=== PATIENT | female | born 1940 | race Caucasian/White ===

== ENCOUNTER 2017-03-31 14:41 | Outpatient (RCR) | payer MEDICARE, OTHER, SELFPAY ==
[2017-03-31 14:51] LABS: Prothrombin Time Fingerstick 29.7 SEC (11.9-14.4)
== END 2017-03-31 15:00 | disposition home or self-care (01) ==
LOC: MTLAB 14:41
PROVIDERS: Family Provider Family Medicine; PCP Family Medicine; Visit Provider Family Medicine
DX: I48.91 Unspecified atrial fibrillation (principal)
CPT/HCPCS: 36416; 85610

== ENCOUNTER 2017-05-03 16:31 | Outpatient (RCR) | payer MEDICARE, OTHER, SELFPAY ==
[2017-05-03 16:45] LABS: Prothrombin Time Fingerstick 35.9 SEC (11.9-14.4)
== END 2017-05-03 17:00 | disposition home or self-care (01) ==
LOC: MTLAB 16:31
PROVIDERS: Family Provider Family Medicine; PCP Family Medicine; Visit Provider Family Medicine
DX: I48.91 Unspecified atrial fibrillation (principal)
CPT/HCPCS: 36416; 85610

== ENCOUNTER 2017-05-18 14:25 | Outpatient (RCR) | payer MEDICARE, OTHER, SELFPAY ==
[2017-05-18 14:41] LABS: Prothrombin Time Fingerstick 30.5 SEC (11.9-14.4)
== END 2017-05-18 15:00 | disposition home or self-care (01) ==
LOC: MTLAB 14:25
PROVIDERS: Family Provider Family Medicine; PCP Family Medicine; Visit Provider Family Medicine
DX: I48.91 Unspecified atrial fibrillation (principal)
CPT/HCPCS: 36416; 85610

== ENCOUNTER 2017-06-21 15:22 | Outpatient (RCR) | payer MEDICARE, OTHER, SELFPAY ==
[2017-06-21 15:35] LABS: Prothrombin Time Fingerstick 23.1 SEC (11.9-14.4)
== END 2017-06-21 15:45 | disposition home or self-care (01) ==
LOC: MTLAB 15:22
PROVIDERS: Family Provider Family Medicine; PCP Family Medicine; Visit Provider Family Medicine
DX: I48.91 Unspecified atrial fibrillation (principal)
CPT/HCPCS: 36416; 85610

== ENCOUNTER 2017-07-22 12:20 | Outpatient (RCR) | payer MEDICARE, OTHER, SELFPAY ==
[2017-07-22 12:30] LABS: Prothrombin Time Fingerstick 25.9 SEC (11.9-14.4)
== END 2017-07-22 13:00 | disposition home or self-care (01) ==
LOC: MTLAB 12:20
PROVIDERS: Family Provider Family Medicine; PCP Family Medicine; Visit Provider Family Medicine
DX: I48.91 Unspecified atrial fibrillation (principal)
CPT/HCPCS: 36416; 85610

== ENCOUNTER → 2017-08-29 09:40 | Outpatient (CLI) | payer MEDICARE, OTHER, SELFPAY ==
--- NOTE | 2017-08-29 09:42 | BI_ITS ---
MAMMOGRAPHY - BILATERAL SCREENING REASON FOR EXAM: Female, 77 years old. Routine annual screening examination. PERTINENT HISTORY: Personal history of breast cancer. Sister with breast cancer. Mother with breast cancer. Prior left lumpectomy with radiation therapy. TECHNIQUE: Digital bilateral breast marjorie (3D mammographic acquisition) in the CC and MLO projections. 2-D mediolateral oblique (MLO) and craniocaudad (CC) views of both breasts were obtained. CAD: Full Field Digital Mammography with Computer Added Detection was performed. COMPARISON: Comparison is made with prior study dated 04/20/2016 and August 13, 2015. FINDINGS: Breast Composition: There are scattered areas of fibroglandular density. Once again, the patient is status post left lumpectomy with postoperative scarring and changes in the deep upper lateral portion of the left breast. This is unchanged. No other significant abnormalities are identified. There has been no significant change since the prior study. BI/SCREENING MAMM (CAD), BILAT IMPRESSION: Stable bilateral screening mammogram. Yearly follow-up mammogram recommended. (A) ASSESSMENT CATEGORY: BIRADS Category 2: Benign. A letter regarding these results will be sent to the patient by the facility within 30 days. Approximately 10% of breast cancers are not detected by mammography. A normal mammogram should not delay biopsy of a clinically suspicious abnormality. [id number] Electronically Signed: Armand Cowan MD at 13:59 EDT Tel [phone], Service support ,
== END ==
PROVIDERS: Family Provider Family Medicine; PCP Family Medicine; Visit Provider Internal Medicine Medical Oncology
DX: Z12.31 Encounter for screening mammogram for malignant neoplasm of breast (principal); I48.91 Unspecified atrial fibrillation
CPT/HCPCS: 36416; 77063; 77067; 85610

== ENCOUNTER 2017-08-29 10:44 | Outpatient (RCR) | payer MEDICARE, OTHER, SELFPAY ==
[2017-08-29 10:56] LABS: Prothrombin Time Fingerstick 30.9 SEC (11.9-14.4)
== END 2017-08-29 12:00 | disposition home or self-care (01) ==
LOC: MTLAB 10:44
PROVIDERS: Family Provider Family Medicine; PCP Family Medicine; Visit Provider Family Medicine
DX: I48.91 Unspecified atrial fibrillation (principal)
CPT/HCPCS: 36416; 85610

== ENCOUNTER → 2017-09-09 10:53 | Outpatient (CLI) | payer MEDICARE, OTHER, SELFPAY ==
--- NOTE | 2017-09-09 11:06 | US_ITS ---
STUDY: ULTRASOUND BREAST - LEFT REASON FOR EXAM: Female, 77 years old. History of left breast lump. TECHNIQUE: Axial and longitudinal images of the LEFT breast were performed with a high resolution ultrasound transducer. COMPARISON: Comparison is made with prior mammogram dated August 29, 2017. FINDINGS: LEFT Breast: The palpable abnormality is at the 3:00 position the breast. At that site, there is a 1 cm x 1.5 cm x 1.6 cm area of irregular contour and shadowing. This most likely represents postoperative changes. US/Breast Limited Unilateral IMPRESSION: 1.5 cm x 1.6 cm x 1 cm irregular area of shadowing at the operative site. This most likely represents postoperative fibrosis. If clinically suspicious, correlation with MRI is recommended. ASSESSMENT CATEGORY: BIRADS Category 0: Incomplete. Need additional imaging evaluation. A letter regarding these results will be sent to the patient by the facility within 30 days. Electronically Signed: Armand Cowan MD at 12:19 EDT Tel [phone], Service support ,
== END ==
PROVIDERS: Family Provider Family Medicine; PCP Family Medicine; Visit Provider Obstetrics & Gynecology
DX: N64.59 Other signs and symptoms in breast (principal)
CPT/HCPCS: 76642

== ENCOUNTER → 2017-09-20 12:17 | Outpatient (CLI) | payer MEDICARE, OTHER, SELFPAY ==
--- NOTE | 2017-09-20 13:00 | MRI_ITS ---
STUDY: BILATERAL BREAST MR WITHOUT AND WITH CONTRAST REASON FOR EXAM: Female, 77 years old. History of breast cancer in mother and sister. Prior lumpectomy and radiation therapy for personal history of breast cancer. TECHNIQUE: Multi-sequence multi-echo imaging of both breasts was performed with a dedicated breast coil. T1-weighted and T2-weighted images were performed before the administration of contrast. T1-weighted images were also performed after the administration of 10 mL of Gadavist contrast intravenously without complications. COMPARISON: Bilateral mammograms dated August 29, 2017, unilateral left mammogram dated September 09, 2017 and left breast ultrasound dated September 09, 2017. FINDINGS: RIGHT BREAST: The breast tissue is fatty with minimal background enhancement. There is an 8 mm in diameter lobular enhancing lesion at the 6:00 position of the right breast. This mass is not seen on the mammogram and likely represents a fibroadenoma. The lesion is approximately 4 cm behind the nipple and 1.3 cm below the nipple. The lesion which is within the midline just behind the nipple. There is also a lymph node in the right axilla measuring 13 mm in widest diameter. A second look ultrasound of the right breast and of the right axillary region is recommended for further evaluation of both of these findings. LEFT BREAST: The breast tissue is fatty with minimal background enhancement. There is decreased volume to the breast from the patient's prior lumpectomy and radiation therapy. There are postlumpectomy changes in the upper outer quadrant of the left breast with scarring. In the subareolar region of the left breast there is a lobular intensely enhancing mass measuring measuring 2 cm x 2.1 cm x 1.6 cm. This mass is highly suspicious for a carcinoma. An ultrasound-guided biopsy of this mass is recommended. There are no enlarged or abnormal lymph nodes. There is no abnormality in the visualized regions of the chest or liver. MRI/Breast w/o and/or W Cont Bilat IMPRESSION: Lobular enhancing mass at the 6:00 position of the right breast with a 1.3 cm in diameter lymph node in the right axilla. A second look ultrasound of the right breast is recommended. Highly suspicious subareolar mass in the left breast for which ultrasound-guided biopsy is recommended as outlined above. CATEGORY: BIRADS Category 5: Highly Suggestive of Malignancy - Appropriate Action Should Be Taken. A letter regarding these results will be sent to the patient by the facility within 30 days. Electronically Signed: Abdi East MD at 17:48 EDT , Service support ,
[2017-09-20 13:01] LABS: CREATININE FINGERSTICK 0.9 mg/dL (0.55-1.02); EGFR FINGERSTICK > 60.0000 mL/min (>60)
== END ==
PROVIDERS: Family Provider Family Medicine; PCP Family Medicine; Visit Provider Obstetrics & Gynecology
DX: Z85.3 Personal history of malignant neoplasm of breast (principal)
CPT/HCPCS: 77059; A9585; C8908

== ENCOUNTER → 2017-09-28 10:52 | Outpatient (CLI) | payer MEDICARE, OTHER, SELFPAY ==
--- NOTE | 2017-09-28 11:10 | US_ITS ---
STUDY: ULTRASOUND BREAST - RIGHT REASON FOR EXAM: Female, 77 years old. Mass TECHNIQUE: Axial and longitudinal images of the RIGHT breast were performed with a high resolution ultrasound transducer. COMPARISON: MRI from 09/20/2017 FINDINGS: RIGHT Breast: Ultrasound evaluation of the right breast, shows a 0.6 x 0.8 x 0.4 cm hypoechoic nodule at the 6:00 position of the retroareolar region of the right breast. The margins are well-defined but irregular, there is no vascularity within the lesion and no associated architectural distortion. A six-month follow-up is recommended to assure stability. 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 Six-month follow-up recommended to assure stability ASSESSMENT CATEGORY: BIRADS Category 3: Probably Benign - Short-Interval Follow-up Suggested. A letter regarding these results will be sent to the patient by the facility within 30 days. Electronically Signed: Bo Pinzon MD at 12:26 EDT , Service support ,
== END ==
PROVIDERS: Family Provider Family Medicine; PCP Family Medicine; Visit Provider Obstetrics & Gynecology
DX: R92.8 Other abnormal and inconclusive findings on diagnostic imaging of breast (principal); N63.0 Unspecified lump in unspecified breast
CPT/HCPCS: 76642

== ENCOUNTER 2017-09-29 14:15 | Outpatient (RCR) | payer MEDICARE, OTHER, SELFPAY | END 2017-09-29 16:00 | LOC: MTLAB 14:15 | PROVIDERS: Family Provider Family Medicine; PCP Family Medicine; Visit Provider Family Medicine | DX: I48.91 Unspecified atrial fibrillation (principal) | CPT/HCPCS: 36416; 85610 ==

== ENCOUNTER → 2017-10-18 15:26 | Outpatient (CLI) | payer MEDICARE, OTHER, SELFPAY ==
--- NOTE | 2017-10-18 | IMM_PTH ---
PATIENT: ESPERANZA LUCERO LOC: [facility] U#:[id number] AGE/SX: 85/F ROOM: RE10/18/[address]: Dr. Raymond Be MD : 1940 BED: DIS: SPEC #: [id number] RECD: 10/20/17 12:39 STATUS: SKYLAR REQ #: [id number] [place]: 10/18/17 00:[address]: Raymond Be DEPT: IMMUNOHISTOCHEMISTRY RECD BY: Bouchra Earl ENTERED: 10/20/17 12:42 SP TYPE: IMMUNO OTHR DR: Dr. Bello Marie MD Tissues: A - Left breast, NOS B - Left breast, NOS Procedures: CALPONIN-1 (add) CD31 (add) CK5-6 (add) CK8 (add) HER2 LEONIE (add) KI-67 (add) P53 (add) WA (add) FACTOR VIII (add) P40 (add) ER (initial) CK7 (initial) PHYSICIAN & [address] [address] SPECIMEN INFORMATION: Tissue Source: A ? Left breast, ultrasound-guided biopsy, B ? Left breast ulceration nipple, punch biopsy Clinical Info: Abnormal mammogram Specimen Number: [id number] A & B CPT code: 01500 x2, 42977 x9, 92198 x3 METHODOLOGY: Deparaffinized sections of prefer/formalin-fixed tissue or PAP/DQ stained slides are incubated with monoclonal/polyclonal antibodies/oligonucleotide probes. Localization is made via biotin free immunoperoxidase method. Appropriate controls are performed and reacted as expected. Results on target cell population are indicated in the following table: RESULTS: ANTIBODY / CLONE RESULT Block A E-Cad (ECH-6) negative CK8 (78zqjdV65) positive CK5-6 (D5 & 1684) negative Ki-67 (30-9) positive, moderate P53 (DO-7) positive, rare cells, weak Calponin-1 (UY850E) negative P40 (BC28) negative MORPHOMETRIC ANALYSIS ER (clone 6F11) >95%, moderate WA (clone 16/1E2) 80%, moderate Her-2Neu (clone CB11) 0 Block B CK7 (OV-TL12/30) positive CK8 (00hvksV38) positive CD31 (RAFAELA/70A) negative Factor VIII (R Ag) negative The prognostic test for HER2 is performed on formalin-fixed paraffin embedded tissue. A 3+ (positive) staining pattern is defined as intense, homogeneous, complete, circumferential membranous staining in >10% of contiguous tumor cells. A similar weak (2+) staining pattern is interpreted as equivocal. DILIA follow-up testing is recommended for all equivocal cases. Positivity/negativity for ER/WA is reported if > or < 1% of the tumor cells are immuno- reactive, respectively. The ASCO/CAP criteria is used for scoring. Reference: Journal of Clinical Oncology, 2013; 31:0739-8211 & 2010; 16:5408-4939. Duration of fixation: 27 Hrs; Sample Adequate: Yes. These assays have not been validated on decalcified tissues. Results should be interpreted with caution given the likelihood of false negativity on decalcified specimens. These tests were developed and their performance characteristics determined by [facility]. They may not have been cleared or approved by the U.S. Food and Drug Administration. The FDA has determined that such clearance or approval is not necessary. INTERPRETATION: A. Left breast, ultrasound-guided biopsy: Invasive lobular carcinoma, nuclear grade 2. Positive for estrogen receptors (favorable prognostic indicator). Positive for progesterone receptors (favorable prognostic indicator). Negative for overexpression of WIF9dxi. B. Left breast ulceration nipple, punch biopsy: Invasive lobular carcinoma. Dermal lymphvascular invasion is not seen. Definite Paget?s disease is not seen. SJ:didier 10/21/17 Comment: B ? The specimen shows focal ulceration.
--- NOTE | 2017-10-18 | IMM_PTH ---
PATIENT: ESPERANZA LUCERO LOC: [facility] U#:[id number] AGE/SX: 85/F ROOM: RE10/18/[address]: Dr. Raymond Be MD : 1940 BED: DIS: SPEC #: [id number] RECD: 10/20/17 12:39 STATUS: SKYLAR REQ #: [id number] [place]: 10/18/17 00:[address]: Raymond Be DEPT: IMMUNOHISTOCHEMISTRY RECD BY: Bouchra Earl ENTERED: 10/20/17 12:42 SP TYPE: IMMUNO OTHR DR: Dr. Bello Marie MD Tissues: A - Left breast, NOS B - Left breast, NOS Procedures: CALPONIN-1 (add) CD31 (add) CK5-6 (add) CK8 (add) E-CAD (add) HER2 LEONIE (add) KI-67 (add) P53 (add) [place] (add) FACTOR VIII (add) P40 (add) ER (initial) CK7 (initial) PHYSICIAN & INSTITUTION [address] [address] SPECIMEN INFORMATION: Tissue Source: A ? Left breast, ultrasound-guided biopsy, B ? Left breast ulceration nipple, punch biopsy Clinical Info: Abnormal mammogram Specimen Number: [id number] A & B CPT code: 58707 x2, 09134 x10, 50055 x3 METHODOLOGY: Deparaffinized sections of prefer/formalin-fixed tissue or PAP/DQ stained slides are incubated with monoclonal/polyclonal antibodies/oligonucleotide probes. Localization is made via biotin free immunoperoxidase method. Appropriate controls are performed and reacted as expected. Results on target cell population are indicated in the following table: RESULTS: ANTIBODY / CLONE RESULT Block A E-Cad (ECH-6) negative * CK8 (47mclzD74) positive CK5-6 (D5 & 1684) negative Ki-67 (30-9) positive, moderate P53 (DO-7) positive, rare cells, weak Calponin-1 (KM499C) negative P40 (BC28) negative MORPHOMETRIC ANALYSIS ER (clone 6F11) >95%, moderate [place] (clone 16/1E2) 80%, moderate Her-2Neu (clone CB11) 0 *?Predominantly negative with focal minute area positive. Block B E-Cad (ECH-6) positive CK7 (OV-TL12/30) positive CK8 (60enzeE38) positive CD31 (RAFAELA/70A) negative Factor VIII (R Ag) negative The prognostic test for HER2 is performed on formalin-fixed paraffin embedded tissue. A 3+ (positive) staining pattern is defined as intense, homogeneous, complete, circumferential membranous staining in >10% of contiguous tumor cells. A similar weak (2+) staining pattern is interpreted as equivocal. DILIA follow-up testing is recommended for all equivocal cases. Positivity/negativity for ER/[place] is reported if > or < 1% of the tumor cells are immuno- reactive, respectively. The ASCO/CAP criteria is used for scoring. Reference: Journal of Clinical Oncology, 2013; 31:9554-7312 & 2010; 16:2638-7302. Duration of fixation: 27 Hrs; Sample Adequate: Yes. These assays have not been validated on decalcified tissues. Results should be interpreted with caution given the likelihood of false negativity on decalcified specimens. These tests were developed and their performance characteristics determined by [facility]. They may not have been cleared or approved by the U.S. Food and Drug Administration. The FDA has determined that such clearance or approval is not necessary. INTERPRETATION: A. 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 Positive for estrogen receptors (favorable prognostic indicator). Positive for progesterone receptors (favorable prognostic indicator). Negative for overexpression of NMV9gll. B. Left breast ulceration nipple, punch biopsy: Invasive ductal carcinoma. Dermal lymphvascular invasion is not seen. Definite Paget?s disease is not seen. SJ:didier 10/21/17 SJ:didier 11/21/17 COMMENT: B ? The specimen shows focal ulceration. E-Cad staining is repeated on Specimen A as resected specimen [id number] shows diffuse positive staining consistent with invasive ductal carcinoma. E-Cad staining added on specimen B. This case has been reviewed in consultation with Dr. Jeffery who concurs with the above diagnosis.
--- NOTE | 2017-10-18 | BRBX_PTH ---
PATIENT: ESPERANZA LUCERO LOC: [facility] U#:[id number] AGE/SX: 85/F ROOM: RE10/18/[address]: Dr. Raymond Be MD : 1940 BED: DIS: SPEC #: [id number] RECD: 10/18/17 15:26 STATUS: SKYLAR KERI #: [id number] [place]: 10/18/17 00:[address]: Raymond Be DEPT: SURGICAL PATHOLOGY RECD BY: Destiny Melo ENTERED: 10/19/17 09:58 SP TYPE: BREAST BX OTHR DR: Dr. Bello Marie MD Tissues: A - Left breast, NOS B - Nipple Procedures: Surgery Specimen Level IV HEADER OPERATION: US guided left breast biopsy PRE-OP DIAGNOSIS: Abnormal mammogram TISSUE SUBMITTED: A. Left breast biopsy US guided, B. Punch biopsy, left breast ulceration nipple areola complex ISCHEMIC TIME: 90 seconds FIXATION TIME: 27 hours MICROSCOPIC DIAGNOSIS A. Left breast, ultrasound-guided core biopsy: Invasive lobular carcinoma, nuclear grade 2 (0.6 cm in length). See comment. B. Left breast ulceration nipple areolar complex, punch biopsy: Invasive lobular carcinoma with focal ulceration, (0.6 cm in length). SJ:rg 10/20/17 COMMENT A. Immunohistochemistry ([id number]) supports the above diagnosis. ER/AK/Kuh6wev studies are being performed on sections of tumor and the results from this study will be reported separately ([id number]). B. Immunohistochemistry ([id number]) is negative for dermal lymph-vascular invasion. The tumor involves full thickness of the punch biopsy specimen up to epidermis with focal area of ulceration. 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 This case was discussed with Dr. Be on 10/20/17 at 9:58 a.m. This case has been reviewed in consultation with Dr. Jeffery who concurs with the above diagnosis. MICROSCOPIC DESCRIPTION Slides are reviewed. GROSS DESCRIPTION A - Received is one container labeled with the patient's name and not further designated. The specimen consists of three cores of yellow soft tissue. Each core has an average length of 1.5 cm and maximal diameter of 0.1 cm. The specimen is totally submitted in one cassette. B - Received is one container labeled with the patient's name and not further designated. The specimen consists of two cylindrical fragments of [place] tissue. Each fragment measures approximately 6 mm in length and 2 mm in diameter. The specimen is totally submitted in one cassette. / AM:didier 10/19/17 TC:0 CPT: 82634 x2
== END ==
PROVIDERS: Family Provider Family Medicine; PCP Family Medicine; Visit Provider Surgery
DX: C50.912 Malignant neoplasm of unspecified site of left female breast (principal)
CPT/HCPCS: 88305; 88341; 88342

== ENCOUNTER 2017-10-27 10:40 | Outpatient (RCR) | payer MEDICARE, OTHER, SELFPAY | END 2017-10-27 12:00 | disposition home or self-care (01) | LOC: MTLAB 10:40 | PROVIDERS: Family Provider Family Medicine; PCP Family Medicine; Visit Provider Family Medicine | DX: I48.91 Unspecified atrial fibrillation (principal) | CPT/HCPCS: 36416; 85610 ==

== ENCOUNTER 2017-11-15 15:25 | Inpatient (IN) | payer MEDICARE, OTHER, SELFPAY ==
[2017-11-09 15:17] LABS: Hematocrit 37.8 % (37-47); Hemoglobin 12.4 g/dl (12.0-15.0); Mean Corp Hgb Conc 32.8 g/gl (32-36); Mean Corpuscular Hgb 30.4 pg (27.0-32.0); Mean Corpuscular Volume 92.6 fL (81-99); Mean Platelet Vol. 9.6 fl (6.2-12.0); Platelet Count 304 K/mm3 (150-450); RBC Distribution Width CV 13.8 % (11.6-14.6); RBC Distribution Width SD 46.3 fl (35.1-43.9); Red Blood Count 4.08 M/mm3 (4.2-5.4); White Blood Count 10.4 K/mm3 (4.4-11.0)
[2017-11-09 15:32] LABS: Scan Indicated on CBC? Y/N NO
[2017-11-09 15:51] LABS: Anion Gap 9 (5-15); BUN 26 mg/dL (7-18); Calcium,Total 8.8 mg/dL (8.5-10.1); Chloride 106 mmol/L (98-107); Creatinine, Serum 1.04 mg/dL (0.55-1.02); EST Glomerular Filtration Rate 54 mL/min (>60); Est Glom Filt Rate - Afr Amer 66 mL/min (>60); Glucose 120 mg/dL (74-106); Potassium 3.9 mmol/L (3.5-5.1); Sodium Level 139 mmol/L (136-145)
[2017-11-14] VITALS (9 sets, daily range): BP systolic 130–160; BP diastolic 59–79; PULSE 51–60; RESP 16–18; TEMP 36.3–37.1; O2SAT 95–98; BMI 38.0
--- NOTE | 2017-11-14 | IMM_PTH ---
PATIENT: ESPERANZA LUCERO LOC: [facility] U#:[id number] AGE/SX: 77/F ROOM: MS218 RE11/15/[address]: Dr. Raymond Be MD : 1940 BED: 1 DIS: 11/16/2017 SPEC #: [id number] RECD: 11/17/17 12:27 STATUS: SKYLAR REQ #: [id number] [place]: 11/14/17 00:[address]: Raymond Be DEPT: IMMUNOHISTOCHEMISTRY RECD BY: Bouchra Earl ENTERED: 11/17/17 12:29 SP TYPE: IMMUNO OTHR DR: MD Dr. Bello Tripp MD Tissues: A - Axillary lymph node, NOS B - Left breast, NOS Procedures: E-CAD (initial) CALPONIN-1 (add) CD31 (add) CK7 (add) CK8 (add) E-CAD (add) FACTOR VIII (add) Pankeratin (initial) Pankeratin (add) P40 (add) PHYSICIAN & [address] [address] SPECIMEN INFORMATION: Tissue Source: A ? Pearl lymph node left, biopsy, B ? Left breast mastectomy Clinical Info: Left periareolar breast cancer Specimen Number: [id number] A1, A2, B1, B4, B9 CPT code: 32705 x2, 93968 x13 METHODOLOGY: Deparaffinized sections of prefer/formalin-fixed tissue or PAP/DQ stained slides are incubated with monoclonal/polyclonal antibodies/oligonucleotide probes. Localization is made via biotin free immunoperoxidase method. Appropriate controls are performed and reacted as expected. Results on target cell population are indicated in the following table: RESULTS: ANTIBODY / CLONE RESULT Block A1 AE1-3 (AE1/AE3/PCK26) negative CK7 (OV-TL12/30) negative Block A2 AE1-3 (AE1/AE3/PCK26) negative CK7 (OV-TL12/30) negative Block B1 CK7 (OV-TL12/30) positive, including focally in the epidermis CK8 (81ocvhR59) positive, including focally in the epidermis CD31 (RAFAELA/70A) negative Factor VIII (R Ag) negative Block B4 E-Cad (ECH-6) positive Calponin-1 (KH812A) negative * P40 (BC28) negative * CK8 (94desxL71) positive *?Positive in ductal carcinoma in situ. Block B9 E-Cad (ECH-6) positive CK7 (OV-TL12/30) positive CK8 (01gomtZ54) positive These tests were developed and their performance characteristics determined by [facility]. They may not have been cleared or approved by the U.S. Food and Drug Administration. The FDA has determined that such clearance or approval is not necessary. INTERPRETATION: A. Pearl lymph node left, biopsy: Two out of two lymph nodes, negative for metastatic carcinoma. B. Left breast, mastectomy: Invasive ductal carcinoma. 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 Nipple ? 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 Dermal lymph-vascular invasion not present. This case has been reviewed in consultation with Dr. Jeffery who concurs with the above diagnosis. SJ:didier 11/18/17
--- NOTE | 2017-11-14 11:10 | NM_ITS ---
PROCEDURE: NUCLEAR MEDICINE Injection [place] Node - LEFT breast(s). REASON FOR EXAM: Female, 77 years old. Left breast cancer. TECHNIQUE: [place] node localization using radionuclide methods of the LEFT breast(s) was performed following subcutaneous administration of 1.0 mCi of of sulfur colloid Tc-99m. FINDINGS: 1 mCi of technetium labeled sulfur colloid was injected in 4 equal aliquots in the superior aspect of the left areola. NM/Lymph Node Injection Only IMPRESSION: Injection of 1 mCi of technetium labeled sulfur colloid for sentinel node imaging. Electronically Signed: Armand Cowan MD at 13:16 EDT Tel [phone], Service support ,
[2017-11-14 11:50] LABS: Prothrombin Time Fingerstick 14.2 SEC (11.9-14.4)
--- NOTE | 2017-11-14 14:00 | AXNB_PTH ---
PATIENT: ESPERANZA LUCERO LOC: MS2 U#:[id number] AGE/SX: 77/F ROOM: [facility] [id number] RE11/15/[address]: Dr. Raymond Be MD : [id number] BED: 1 DIS: 11/16/2017 SPEC #: [id number] RECD: 11/14/17 16:43 STATUS: SKYLAR REQ #: [id number] [place]: 11/14/17 14:[address]: Raymond Be DEPT: SURGICAL PATHOLOGY RECD BY: Bouchra Earl ENTERED: 11/15/17 10:55 SP TYPE: AX NODE BX OTHR DR: MD Dr. Bello Tripp MD Tissues: A - Axillary lymph node, NOS B - Left breast, NOS Procedures: Frozen Section (charge) Frozen Section Add'l ([facility]) Surgery Specimen Level V Surgery Specimen Level Frozen (no charge) HEADER OPERATION: Left modified mastectomy, radiotracer and Lymphazurin blue PRE-OP DIAGNOSIS: Left periareolar breast cancer TISSUE SUBMITTED: A ? Ettrick node FS, B ? Left breast FROZEN SECTION DIAGNOSIS A. Ettrick lymph node, left, biopsy: Two out of two lymph nodes negative for metastatic carcinoma. SJ:didier 11/14/17 Case has been reviewed in consultation with Dr. Jeffery who concurs with the above diagnosis. IDC:AM MICROSCOPIC DIAGNOSIS A. Left sentinel lymph node, biopsy: Two out of two lymph nodes negative for metastatic carcinoma. B. 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 Three out of three lymph nodes, negative for metastatic carcinoma. See cancer summary below. INVASIVE BREAST CANCER SUMMARY: Specimen ? total breast (including nipple and skin). Procedure ? total mastectomy (including nipple and skin). Lymph node sampling ? sentinel lymph node and axillary dissection. Specimen integrity ? single intact specimen. Specimen laterality - left Tumor site ? nipple areolar complex Tumor size ? 2.2 x 1 x 1 cm Tumor focality ? single focus of invasive carcinoma Macroscopic and Microscopic extent of tumor: Skin ? the invasive carcinoma invades into the dermis without skin ulceration. Nipple ? 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 See comment. Skeletal muscle ? skeletal muscle is present and is free of carcinoma. 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 Extensive intraductal component (EIC) - negative Estimated size (extent) of DCIS - ductal carcinoma in situ comprise <5% of the total tumor volume. Number of blocks with DCIS - 2 Number of blocks examined ? 13 consisting of breast tissue Architectural patterns ? solid and comedo Nuclear grade ? grade 2 (intermediate) Necrosis ? present, central (expansive ?comedo? necrosis) Lobular carcinoma in situ (LCIS) ? not identified Histologic type of invasive carcinoma ? invasive ductal carcinoma (no special type) Histologic Grade (Linden grade): Glandular/tubular differentiation - score 3 Nuclear pleomorphism - score 2 Mitotic count ? score 1 Overall grade - 2 (score of 6) Margins - Margins involved by invasive carcinoma. Invasive carcinoma is 3 cm away from the closest inferior margin and present very close to the overlying skin. Ductal carcinoma in situ/lobular carcinoma in situ is 1 cm away from the overlying skin and 3 cm away from the closest inferior margin. Treatment effect: Response to presurgical (neoadjuvant) therapy - no known presurgical therapy. Lymph-Vascular invasion ? not identified Dermal lymph-vascular invasion - not identified Lymph nodes: Number of sentinel lymph nodes examined - 2 Total number of lymph nodes examined (sentinel and nonsentinel) - 5 Number of lymph nodes with macrometastases, micrometastases and isolated tumor cells - 0 Method of evaluation of sentinel lymph nodes ? hematoxylin, H & E, multiple levels and IHC. Distant metastasis ? not applicable Additional pathologic findings ? fibrocystic changes and focal atypical ductal hyperplasia. - dense fibrous area with focal fat necrosis, calcification and foreign body giant cell reaction, consistent with previous biopsy site (close to posterior margin). Ancillary studies - previously performed on section of tumor ([id number] / [id number]). ER ? positive (>95%, moderate) GA ? positive (80%, moderate) Her2 molly - 0 Microcalcifications ? present in ductal carcinoma in situ and non-neoplastic tissue. Clinical history ? Please make reference to previous specimen ([id number]) left breast, ultrasound-guided core biopsy with diagnosis of invasive lobular carcinoma with focal area of ductal carcinoma and left breast ulceration, nipple areolar complex with diagnosis of invasive ductal carcinoma. Please also make reference to previous specimen [id number], left breast lumpectomy with diagnosis of ductal carcinoma in situ. PATHOLOGIC STAGE: pT2 pN0 Mx The above summary is in compliance with [employer] [place] [employer] (CAP) Cancer Protocols Checklist and [place] Joint Committee on Cancer (AJCC), Staging Manual, 8th Ed. SJ:didier 11/18/17 COMMENT A. The lymph node is negative for metastatic carcinoma on multiple H & E levels and immunohistochemical stains for cytokeratins ([id number]). B. 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 Resected tumor shows extensive positive staining for E-cadherin consistent with invasive ductal carcinoma. E-cadherin staining is repeated again on previous biopsy specimen and specimen A left breast core biopsy show predominantly negative staining for E-cadherin with focal positive staining. E-cadherin staining added to specimen due discrepancy in the staining and showed diffuse positive staining consistent with invasive ductal carcinoma. Case has been reviewed in consultation with Dr. Jeffery who concurs with the above diagnosis. IDC:AM MICROSCOPIC DESCRIPTION Slides are reviewed. GROSS DESCRIPTION A - Received fresh for frozen section diagnosis labeled with the patient's name is a specimen designated sentinel lymph node left. The specimen consists of a piece of adipose tissue containing two nodules consistent with lymph nodes measuring 3 x 2.5 x 0.5 cm. Two lymph nodes are identified, each measuring 1 cm in greatest dimension. Both lymph nodes are bisected and entire specimen is submitted for frozen section diagnosis in two cassettes as follows: 1 ? one bisected lymph node, 2 - one bisected lymph node. / SJ:didier 11/15/17 B - Received in fixative is one container labeled with the patient's name and designated left breast. The specimen consists of a modified radical mastectomy specimen consisting of breast tissue, overlying skin ellipse and axillary tail. The breast tissue measures 21 x 20 x 8 cm and the overlying skin ellipse measures 21 x 10 cm and the axillary tail measures 9 x 9 x 4 cm. The nipple measures 1 cm in greatest dimension. The nipple areolar complex shows induration. The specimen is inked as follows: superior margin ? blue, inferior margin ? black, medial margin ? red, lateral margin ? orange and posterior margin ? black. Serial sections reveal a covington, indurated mass in the area of nipple areolar complex and measures 2.2 x 1 x 1 cm. The tumor extends up to the overlying skin. No obvious ulceration is noted. A scar is also noted adjacent to the nipple. This tumor is 3 cm away from the closest inferior margin. An indurated area is also noted in the central portion of the breast tissue close to the posterior margin measuring 3.5 x 2.5 x 1.5 cm. Sections of the rest of the breast tissue reveal covington-yellow adipose cut surfaces mixed with covington-white fibrous areas. Sections of the axillary tail reveal multiple lymph nodes. The largest lymph node measures 3.5 cm in greatest dimension. Sections of the lymph node reveal fatty cut surfaces. Head Animal Trainer sections are submitted in 20 cassettes as follows: 1 ? nipple, entirely submitted, 2-4 ? tumor with overlying skin in the area of nipple areolar complex, entirely submitted, 5-9 ? indurated area with adjacent closest posterior margin, 10 ? perpendicular medial, lateral, superior and inferior margins, 11-13 ? credit representative sections from the other areas, 14-20 ? axillary lymph nodes, entirely submitted (14 ? one possible bisected lymph node, 15 ? one possible lymph node, 16 - one bisected lymph node, 17-20 ? the largest lymph node). / RICHIE:didier 11/15/17 TC:0 CPT: 04572, 17514, 17304, 98260 ADDENDUM ADDENDUM ADDENDUM ADDENDUM ADDENDUM ADDENDUM ADDENDUM ADDENDUM 12/14/2017 15:45 ADDENDUM 12/14/2017 15:45 ADDENDUM 12/14/2017 15:45 ADDENDUM 12/14/2017 15:45 ADDENDUM 12/14/2017 15:45 An order for Oncotype testing was received from Dr. Trejo. This necessitated case review, block and slide selection by pathologist at [facility]. Breast Cancer Recurrence Score = 5 Results of the complete Oncotype testing ([employer] report) are viewable in EMR under: Reports - Pathology - Lab Pathology Report, Scanned.
--- NOTE | 2017-11-14 16:07 | EKG12_ITS ---
Test Reason : OR EKG Blood Pressure : / mmHG Vent. Rate : 065 BPM Atrial Rate : 065 BPM P-R Int : 172 ms QRS Dur : 134 ms QT Int : 460 ms P-R-T Axes : 067 027 214 degrees QTc Int : 478 ms Sinus rhythm with occasional Premature ventricular complexes Left bundle branch block Abnormal ECG When compared with ECG of 09-NOV-2017 14:15, No significant change was found Confirmed by RUPINDER LEAL, SALO ([id number]), communications editor REMINGTON GARCIA ([id number]) on 11/16/2017 2:11:51 PM Referred By: Raymond Be Confirmed By:SALO BUCIO MD
[2017-11-14] MEDS: Isosulfan Blue 1% 5 ML Vial (16:10)
--- NOTE | 2017-11-14 17:27 | OP.PCM_ITS ---
Report of Operation Date of Procedure: 11/14/17 Pre-Operative Diagnosis: left periaerolar breast cancer Post-Operative Diagnosis: left periaerolar breast cancer, neg SLNBx but poorly blue Surgery/Procedure Performed:: left modified radical mastectomy, radiotracer and lymphazurin blue injection Description of Surgical Findings:: as above instrument lens grinder apprentice: Uma Zambrano instrument lens grinder apprentice: Russell Anderson Type of Anesthesia:: General Anesthesiologist: Ra Galvez - ASA3 Specimen's removed: SLNBx, Left MRM Drains: 2 DENI Estimated Blood Loss (mL): 50 Fluids Replaced: 1000 Description of Procedure: The patient had previously undergone injection of radiotracer in the radiology department. The patient?s surgical site was marked in the holding area and the patient concurred that this was the planned operative site. The patient was then brought to the operative suite. Sign was performed verifying patient, site, position, SCIP antibiotic prophylaxis-2 g of Ancef and DVT prophylaxis with SCDs. Following an LMA anesthesia, 5 cc of a 50-50 mixture of lymphazurin blue and normal saline was injected into sappey's plexus. The breast was then massaged. Evaluation of the axilla with the neoprobe demonstrated no significant activity in the low axilla. The patient?s left breast, axilla right arm and neck were then prepped and draped in the usual fashion. Timeout was performed verifying patient, site, position. The planned margin of excision for the mastectomy flaps were marked on the skin and incisions were made starting in the axillary region . Dissection was carried superior laterally down to the pectoralis muscle and dissection extended towards the axilla. A blue lymphatic duct was identified and tracked back to the sentinel lymph node which turned only partially blue. This node was then dissected free from the surrounding structures. After was removed, it was evaluated with the neoprobe and contained approximately 0 counts. The neoprobe was then used to assess the axilla through the incision without additional activity noted. there were noted to be palpable lymph nodes in the axilla, so I continue to perform then a formal axillary dissection. Posteriorly the neurovascular bundle for the thoracodorsal nerve was identified and anteriorly the neurovascular bundle for the long thoracic nerve was identified and protected. Dissection was then continued up to the level of the axillary vein. The vein and artery going to the axillary contents was dissected and clipped with small clips and divided. As dissection was continued the traversing vessels and cutaneous nerves were divided. The axillary contents was left in continuity with the mastectomy specimen Attention was then turned to the mastectomy. Superior and inferior flaps were completed and raised. The breast tissue was taken down to the pectoralis fascia. The inferior portion of breast was then removed from the intercostal musculature and dissection carried superior laterally dividing the superficial tissues leading up to the axillary dissection . The specimen was sent whole . 2 Mikel-Richardson drains were placed in the medial along the skin flap the lateral in the axilla and secured with 3-0 nylon suture. Skin flaps were approximated interrupted 3-0 Vicryls. Skin was closed with li. Drain dressings and incisional dressings were placed. All sponge and instrument counts were correct. The patient was extubated and brought to recovery room in stable condition. - Admit VTE Documentation VTE Present on Admission: No VTE Mechan Device Prophylaxis: SCD's VTE Pharm Prophylaxis ordered?: Yes
--- NOTE | 2017-11-14 17:41 | EKG12_ITS ---
Test Reason : POST OP Blood Pressure : / mmHG Vent. Rate : 056 BPM Atrial Rate : 056 BPM P-R Int : 172 ms QRS Dur : 124 ms QT Int : 460 ms P-R-T Axes : 063 002 212 degrees QTc Int : 443 ms Sinus bradycardia with occasional Premature ventricular complexes Left bundle branch block Abnormal ECG When compared with ECG of 14-NOV-2017 15:49, MANUAL COMPARISON REQUIRED, DATA IS UNCONFIRMED Confirmed by RUPINDER LEAL, SALO ([id number]), acquisition editor REMINGTON GARCIA ([id number]) on 11/16/2017 2:11:43 PM Referred By: Raymond Be Confirmed By:SALO BUCIO MD
[2017-11-14] MEDS: Lactated Ringers 1,000 ML 100 ML IV (18:51)
[2017-11-14] MEDS: Acetaminophen 500 MG Tablet PO (18:57)
[2017-11-14] MEDS: Losartan Potassium 50 MG Tablet PO (22:34)
[2017-11-15] MEDS: Acetaminophen 500 MG Tablet PO ×2 (01:14→10:00)
[2017-11-15] MEDS: oxyCODONE 5 MG Tablet PO (02:17)
[2017-11-15 05:05] VITALS: BP 118/62; PULSE 58; RESP 18; TEMP 36.8; O2SAT 95
--- NOTE | 2017-11-15 06:25 | PCM.PN.SRG ---
Subjective: incisional pain - Physical Exam General: Alert, Oriented x3, Cooperative Lungs: Clear to auscultation, Normal air movement Cardiovascular: No murmurs, Irregular Rate Skin: - - mastectomy dressing in place and intact, Mikel-Richardson drains serosanguineous drainage Vital Signs Temp Pulse Resp BP Pulse Ox 98.3 F 58 L 18 118/62 95 11/15/17 05:05 11/15/17 05:05 11/15/17 05:05 11/15/17 05:05 11/15/17 05:05 Oxygen Flow Rate (L/min) 1 Oxygen Delivery Method Room Air Weight: 88.3 kg Body Mass Index (BMI) 38.0 Intake and Output for Last 24 Hours 11/13/17 11/14/17 11/15/17 23:59 23:59 23:59 Intake Total 2096 / 2096 650 / 650 Output Total 793 / 793 240 / 240 Balance 1303 / 1303 410 / 410 Laboratory Tests Past 24 Hrs 11/14/17 11/14/17 11:45 18:15 POC PT 14.2 INR 1.20 Troponin I < 0.015 Medical Necessity - Tobacco Use Smoking Status: Former smoker Tobacco Use: Cigarettes Assessment/Plan All Active Problems (Last Reviewed 09/29/17 @ 09:37 by Karina Dowling) Ductal carcinoma in situ (DCIS) of left breast (Resolved) Uterine cancer (Resolved) Colon cancer (Resolved) postoperative day #1 status post left modified radical mastectomy for invasive ductal carcinoma with erosion through the skin at the nipple aerolar complex. patient has a history of DVTs. We'll restart Coumadin today. We will also plan for Lovenox injections at the bridge phase. The patient still notes significant discomfort and I would like to follow. Mikel-Richardson drainage output. Once the heparin is given to a planned keep her an additional day. The patient is to work on arm range of motion exercises and ambulate. Patient will be taught drain care and measuring today.
[2017-11-15 07:30] VITALS: BP 139/83; PULSE 72; RESP 18; TEMP 36.3; O2SAT 100
[2017-11-15] MEDS: Folic Acid 1 MG Tablet 0.5 MG PO (08:35)
[2017-11-15] MEDS: Losartan Potassium 50 MG Tablet PO ×2 (09:49→21:52)
[2017-11-15] MEDS: Allopurinol 300 MG Tablet 150 MG PO (09:49)
[2017-11-15] MEDS: hydroCHLOROthiazide 25 MG Tablet PO (09:49)
[2017-11-15] MEDS: Aspirin E.C. 81 MG Tablet PO (09:49)
[2017-11-15] MEDS: Atenolol 100 MG Tablet PO (09:50)
[2017-11-15] MEDS: dilTIAZem CD 120 MG Capsule PO (09:52)
[2017-11-15] MEDS: Enoxaparin 40 MG/0.4 ML Syringe SC (09:55)
--- NOTE | 2017-11-15 10:20 | NURSING ---
Mastectomy teaching packet given to patient. states nursing had started DENI drain education with her. form given to patient to record DENI drainage. pt aware to bring this form to her follow up appt. pt states Dr Be plans to keep her until tomorrow.
[2017-11-15 14:40] VITALS: O2SAT 99
[2017-11-15] MEDS: Ibuprofen 400 MG Tablet PO (15:21)
[2017-11-15 15:25] VITALS: BP 124/62; PULSE 58; RESP 18; TEMP 36.7; O2SAT 100
--- NOTE | 2017-11-15 15:42 | CASEMGMT ---
RN CM Assessment completed, see link Pt plans to return home with assistance of her sister and sister in law. No needs identified @ this time. Alix FELDERN RN ACM
[2017-11-15 21:38] VITALS: BP 111/45; PULSE 52; RESP 16; TEMP 36.9; O2SAT 96
[2017-11-16 02:27] VITALS: BP 136/63; PULSE 55; RESP 16; TEMP 36.9; O2SAT 94
--- NOTE | 2017-11-16 06:30 | PCM.DC.BS ---
Discharge Diet: No Restrictions Discharge Activity: May Not Drive - for 2-3 days or while taking narcotic pain meds. May shower in (days): 1 Lifting Restrictions: 10 pounds for 1 week. Call your doctor if your incision/area has: Continuous Slow Oozing, Sudden Increased Bleeding Call your doctor if you observe: Fever of 101 or Higher Suture Line Care: Avoid Pulling/Pushing, Avoid Pinching/Bending Remove Dressing in (days):: 1 - Remove bulky dressing tomorrow. May leave any opsite dressing for 3-4 days. Keep dressing in place until your follow-up appointment. Additional Dressing/Incision Instructions:: change the drain dressings daily Allergies/Adverse Reactions: Allergies almond Allergy (Verified 11/08/17 09:24) Unknown levofloxacin [From Levaquin] Adverse Reaction (Verified 11/14/17 12:07) Unknown Penicillins [PCN] Adverse Reaction (Verified 11/08/17 09:24) Other PASSED OUT Medications to take at Discharge Allopurinol [Zyloprim] 150 mg PO DAILY 06/13/15 Atenolol [Tenormin] 100 mg PO DAILY 06/13/15 Folic Acid 0.4 mg PO DAILY@0800 06/13/15 Losartan Potassium [Cozaar] 50 mg PO BID 06/13/15 Aspirin [Adult Low Dose Aspirin EC] 81 mg PO DAILY 08/25/16 Cholecalciferol (VIT D3) [Vitamin D3] 1,000 unit PO DAILY 08/25/16 Warfarin [Coumadin ([facility])] 4 mg PO SUMOWEFRSA 08/31/16 potassium chloride ER 10 mEq tablet,extended release(part/cryst) 10 meq PO DAILY #90 tab 05/16/17 hydrochlorothiazide 25 mg tablet 25 mg PO DAILY #90 tab 10/12/17 Acetaminophen [Tylenol] 500 mg PO Q6H PRN PRN 11/08/17 Diltiazem CD [Cardizem CD] 120 mg PO DAILY 11/08/17 Famotidine [Pepcid] 20 mg PO DAILY PRN 11/08/17 Warfarin [Coumadin] 5 mg PO TUTH 11/08/17 Enoxaparin [Lovenox] 40 mg SC DAILY #7 syringe 11/16/17 Ibuprofen [Motrin] 400 mg PO Q4H PRN PRN tablet 11/16/17 Warfarin [Coumadin] 4 mg PO SuMoWeFrSa@1700 tablet 11/16/17 The following prescriptions were given: Enoxaparin [Lovenox] 40 mg SC DAILY #7 syringe Primary Care Physician: Bello Marie MD [Primary Care Provider] - Please Follow Up With: Raymond Be MD When: Tuesday
--- NOTE | 2017-11-16 06:35 | DS.PCM_ITS ---
Discharge Date and Diagnosis Date of Admission: 11/14/17 Date of Discharge: 11/16/17 - Primary Discharge Diagnosis left breast cancer - Secondary Discharge Diagnosis Chronic Problems (Last Reviewed 09/29/17 @ 09:37 by Karina Dowling) Obesity (Chronic) Paroxysmal atrial fibrillation (Chronic) Pulmonary embolism (Chronic) LBBB (left bundle branch block) (Chronic) HTN (hypertension) (Chronic) Hospital Course and Treatment Consultations 11/14/17 17:22 Consult: Onc/Wound/international trade compliance manager Routine Comment: Operations: - - left modified radical mastectomy Summary of Care Provided: The patient is a 77 year old F with a central breast cancer in the same breast previously treated with lumpectomy for DCIS with excision and radiation. She underwent left modified radical mastectomy. She has a prior history of DVTs. She was maintained on Lovenox and restarted on coumadin. She was ready for discharge on POD # 2 Discharge Diet: No Restrictions Discharge Activity: May Not Drive - for 2-3 days or while taking narcotic pain meds. May shower in (days): 1 Call your doctor if your incision/area has: Continuous Slow Oozing, Sudden Increased Bleeding Call your doctor if you observe: Fever of 101 or Higher Suture Line Care: Avoid Pulling/Pushing, Avoid Pinching/Bending Remove Dressing in (days):: 1 - Remove bulky dressing tomorrow. May leave any opsite dressing for 3-4 days. Keep dressing in place until your follow-up appointment. Additional Dressing/Incision Instructions:: change the drain dressings daily Home Medications: Medications to take at Discharge Allopurinol [Zyloprim] 150 mg PO DAILY 06/13/15 Atenolol [Tenormin] 100 mg PO DAILY 06/13/15 Folic Acid 0.4 mg PO DAILY@0800 06/13/15 Losartan Potassium [Cozaar] 50 mg PO BID 06/13/15 Aspirin [Adult Low Dose Aspirin EC] 81 mg PO DAILY 08/25/16 Cholecalciferol (VIT D3) [Vitamin D3] 1,000 unit PO DAILY 08/25/16 Warfarin [Coumadin ([facility])] 4 mg PO SUMOWEFRSA 08/31/16 potassium chloride ER 10 mEq tablet,extended release(part/cryst) 10 meq PO DAILY #90 tab 05/16/17 hydrochlorothiazide 25 mg tablet 25 mg PO DAILY #90 tab 10/12/17 Acetaminophen [Tylenol] 500 mg PO Q6H PRN PRN 11/08/17 Diltiazem CD [Cardizem CD] 120 mg PO DAILY 11/08/17 Famotidine [Pepcid] 20 mg PO DAILY PRN 11/08/17 Warfarin [Coumadin] 5 mg PO TUTH 11/08/17 Enoxaparin [Lovenox] 40 mg SC DAILY #7 syringe 11/16/17 Ibuprofen [Motrin] 400 mg PO Q4H PRN PRN tablet 11/16/17 Warfarin [Coumadin] 4 mg PO SuMoWeFrSa@1700 tablet 11/16/17 Following Prescrptions Were Given to Patient: Enoxaparin [Lovenox] 40 mg SC DAILY #7 syringe Primary Care Physician: Bello Marie MD [Primary Care Provider] - Please Follow Up With: Raymond Be MD When: Tuesday Medical Necessity - Tobacco Use Smoking Status: Former smoker Tobacco Use: Cigarettes Meaningful Use Info Meaningful Use Diagnoses (Choose all that apply): None applicable
[2017-11-16] MEDS: Ibuprofen 400 MG Tablet PO (07:16)
[2017-11-16] MEDS: Folic Acid 1 MG Tablet 0.5 MG PO (07:16)
[2017-11-16 07:30] VITALS: O2SAT 92
[2017-11-16] MEDS: Losartan Potassium 50 MG Tablet PO (10:01)
[2017-11-16] MEDS: hydroCHLOROthiazide 25 MG Tablet PO (10:01)
[2017-11-16] MEDS: Allopurinol 300 MG Tablet 150 MG PO (10:01)
[2017-11-16] MEDS: Aspirin E.C. 81 MG Tablet PO (10:01)
[2017-11-16] MEDS: dilTIAZem CD 120 MG Capsule PO (10:01)
[2017-11-16] MEDS: Atenolol 100 MG Tablet PO (10:02)
[2017-11-16] MEDS: Enoxaparin 40 MG/0.4 ML Syringe SC (10:04)
[2017-11-16 11:57] VITALS: BP 134/88; PULSE 54; RESP 18; TEMP 36.3; O2SAT 98
== END 2017-11-16 11:57 | disposition home or self-care (01) | DRG 581 ==
LOC: SDC 15:54
PROVIDERS: Admitting Provider Surgery; Family Provider Family Medicine; PCP Family Medicine; Visit Provider Surgery
PROC: (CPT 19307; principal; 2017-11-14 13:45)
DX: C50.012 Malignant neoplasm of nipple and areola, left female breast (principal); E66.9 Obesity, unspecified; Z68.38 Body mass index [BMI] 38.0-38.9, adult; I10 Essential (primary) hypertension; Z87.891 Personal history of nicotine dependence; Z86.718 Personal history of other venous thrombosis and embolism
CPT/HCPCS: 36415; 36416; 38792; 80048; 84484; 85027; 85610; 88305; 88307; 88309; 88331; 88332; 88341; 88342; 93005; A9541; J7120; J2405; J3490; Q9968

== ENCOUNTER 2017-11-22 14:40 | Outpatient (RCR) | payer MEDICARE, OTHER, SELFPAY ==
[2017-11-18 16:31] LABS: Prothrombin Time Fingerstick 16.4 SEC (11.9-14.4)
[2017-11-22 14:50] LABS: Prothrombin Time Fingerstick 24.1 SEC (11.9-14.4)
== END 2017-11-22 16:00 | disposition home or self-care (01) ==
LOC: MTLAB 14:40
PROVIDERS: Family Provider Family Medicine; PCP Family Medicine; Visit Provider Family Medicine
DX: I48.91 Unspecified atrial fibrillation (principal)
CPT/HCPCS: 36416; 85610

== ENCOUNTER 2017-12-30 13:36 | Outpatient (RCR) | payer MEDICARE, OTHER, SELFPAY ==
[2017-12-30 13:46] LABS: Prothrombin Time Fingerstick 30.1 SEC (11.9-14.4)
== END 2017-12-30 15:00 | disposition home or self-care (01) ==
LOC: MTLAB 13:36
PROVIDERS: Family Provider Family Medicine; PCP Family Medicine; Referring Provider Family Medicine; Visit Provider Family Medicine
DX: I48.91 Unspecified atrial fibrillation (principal)
CPT/HCPCS: 36416; 85610

== ENCOUNTER 2018-02-15 15:47 | Outpatient (RCR) | payer MEDICARE, OTHER, SELFPAY ==
[2018-02-03 12:56] LABS: Prothrombin Time Fingerstick 35.7 SEC (11.9-14.4)
[2018-02-15 16:16] LABS: Prothrombin Time Fingerstick 31.1 SEC (11.9-14.4)
--- OUTSIDE RECORDS SUMMARY | 2018-04-03 21:28 | XMS RPT_ITS ---
:1940 Author Organization [place] Support Name Relationship Address Phone R Unavailable Unavailable Unavailable NITA LUCERO Unavailable [address] + [place] [address] EFRA LUCERO Unavailable [address] + [place] [address] R Unavailable Unavailable Unavailable NITA LUCERO Unavailable [address] + [place] [address] EFRA LUCERO Unavailable [address] + [place] [address] R Unavailable Unavailable Unavailable NITA LUCERO Unavailable [address] + [place] [address] EFRA LUCERO Unavailable [address] + [place] [address] R Unavailable Unavailable Unavailable NITA LUCERO Unavailable [address] + [place] [address] EFRA LUCERO Unavailable [address] + [place] [address] R Unavailable Unavailable Unavailable NITA LUCERO Unavailable [address] + [place] [address] EFRA LUCERO Unavailable [address] + [place] [address] R Unavailable Unavailable Unavailable NITA LUCERO Unavailable [address] + [place] [address] EFRA LUCERO Unavailable [address] + [place] [address] R Unavailable Unavailable Unavailable NITA LUCERO Unavailable [address] + [place] [address] EFRA LUCERO Unavailable [address] + [place] [address] R Unavailable Unavailable Unavailable NITA LUCERO Unavailable [address] + [place] [address] NIC, EFRA Unavailable [address] + [place] [address] R Unavailable Unavailable Unavailable NIC, NITA Unavailable [address] + [place] [address] NIC, EFRA Unavailable [address] + [place] [address] R Unavailable Unavailable Unavailable NIC, NITA Unavailable [address] + [place] [address] NIC, EFRA Unavailable [address] + [place] [address] R Unavailable Unavailable Unavailable NIC, NITA Unavailable [address] + [place] [address] NIC, EFRA Unavailable [address] + [place] [address] R Unavailable Unavailable Unavailable NIC, NITA Unavailable [address] + [place] [address] NIC, EFRA Unavailable [address] + [place] [address] R Unavailable Unavailable Unavailable NIC, NITA Unavailable [address] + [place] [address] NIC, EFRA Unavailable [address] + [place] [address] R Unavailable Unavailable Unavailable NIC, NITA Unavailable [address] + [place] [address] NIC, EFRA Unavailable [address] + [place] [address] R Unavailable Unavailable Unavailable NIC, NITA Unavailable [address] + [place] [address] NIC, EFRA Unavailable [address] + [place] [address] R Unavailable Unavailable Unavailable NIC, NITA Unavailable [address] + [place] [address] NIC, EFRA Unavailable [address] + [place] [address] R Unavailable Unavailable Unavailable NIC, NITA Unavailable [address] + [place] [address] NIC, EFRA Unavailable [address] + [place] [address] R Unavailable Unavailable Unavailable NIC, NITA Unavailable [address] + [place] [address] NIC EFRA Unavailable [address] + [place] [address] R Unavailable Unavailable Unavailable NITA LUCERO Unavailable [address] + [place] [address] NIC, EFRA Unavailable [address] + [place] [address] R Unavailable Unavailable Unavailable NITA LUCERO Unavailable [address] + [place] [address] NIC, EFRA Unavailable [address] + [place] [address] R Unavailable Unavailable Unavailable NITA LUCERO Unavailable [address] + [place] [address] NIC EFRA Unavailable [address] + [place] [address] R Unavailable Unavailable Unavailable NITA LUCERO Unavailable [address] + [place] [address] EFRA LUCERO Unavailable [address] + [place] [address] Care Team Providers Name Role Phone LISA TREVINO Attending Unavailable HAILE, LISA Armando Attending Unavailable GARCIAKODY Referring Unavailable HAILE, LISA Armando Attending Unavailable GARCIAKODY Referring Unavailable HAILE, LISA Armando Attending Unavailable HAILE, LISA Armando Referring Unavailable HAILE, LISA Armando Attending Unavailable HAILE, LISA Armando Referring Unavailable HAILE, LISA Armando Attending Unavailable MASCI, NATHANAEL Levy Attending Unavailable HAILE, LISA Armando Referring Unavailable HAILE, LISA Armando Attending Unavailable MASCI, NATHANAEL Levy Attending Unavailable MASCI, NATHANAEL Levy Referring Unavailable MASCI, NATHANAEL Levy Referring Unavailable MASCI, NATHANAEL Levy Referring Unavailable MASCI, NATHANAEL Levy Referring Unavailable HAILE, LISA Armando Attending Unavailable AWILDA ALMANZA (PIPING BLOCKER) Attending Unavailable MASCI, NATHANAEL Levy Referring Unavailable Garcia, Kody Attending Unavailable Garcia, Kody Referring Unavailable Garcia, Kody Primary Care Unavailable Haile, Lisa Nielsen Unavailable Garcia, Kody Attending Unavailable Garcia, Kody Primary Care Unavailable Garcia, Kody Attending Unavailable Garcia, Kody Primary Care Unavailable Garcia, Kody Referring Unavailable Garcia, Kody Attending Unavailable Garcia, Kody Referring Unavailable Garcia, Kody Primary Care Unavailable Garcia, Kody Attending Unavailable Garcia, Kody Referring Unavailable Garcia, Kody Primary Care Unavailable Garcia, Kody Attending Unavailable Garcia, Kody Referring Unavailable Garcia, Kody Primary Care Unavailable Garcia, Kody Attending Unavailable Garcia, Kody Referring Unavailable Garcia, Kody Primary Care Unavailable Thomas Westfall Attending Unavailable Garcia, Kody Referring Unavailable Garcia, Kody Primary Care Unavailable Jabari Dickey Attending Unavailable Garcia, Kody Primary Care Unavailable Garcia, Kody Attending Unavailable Garcia, Kody Referring Unavailable Garcia, Kody Primary Care Unavailable Gi Calderón Attending Unavailable Garcia, Kody Primary Care Unavailable Galan-Erwin, Gi Attending Unavailable Galan-Erwin, Gi Referring Unavailable Garcia, Kody Primary Care Unavailable Galan-Erwin, Gi Attending Unavailable Garcia, Kody Primary Care Unavailable Galan-Erwin, Summer Referring Unavailable Westley Ortiz Consulting Unavailable Diana, Westley Attending Unavailable Galan-Erwin, Gi Referring Unavailable Garcia, Kody Primary Care Unavailable Garcia, Kody Attending Unavailable Garcia, Kody Referring Unavailable Garcia, Kody Primary Care Unavailable Haile, Lisa Attending Unavailable Garcia, Kody Primary Care Unavailable Haile, Lisa Attending Unavailable Haile, Lisa Referring Unavailable Garcia, Kody Primary Care Unavailable Ra Galvez Consulting Unavailable Lisa Trevino Admitting Unavailable Garcia, Kody Attending Unavailable Garcia, Kody Referring Unavailable Garcia, Kody Primary Care Unavailable Haile, Lisa Consulting Unavailable Garcia, Kody Attending Unavailable Garcia, Kody Referring Unavailable Garcia, Kody Primary Care Unavailable Haile, Lisa Consulting Unavailable Nathanael Briceño Attending Unavailable Haile, Lisa Referring Unavailable Himanshu Cabello Attending Unavailable Haile, Lisa Referring Unavailable Garcia, Kody Attending Unavailable Garcia, Kody Referring Unavailable Garcia, Kody Primary Care Unavailable Haile, Lisa Consulting Unavailable PROBLEMS PROBLEMS DATE TYPE CONDITION / CODE ATTENDING STATUS SOURCE 03/06/2018 Unknown I48.91 - Unspecified Kody Garcia Active [place] atrial fibrillation / Community I48.91(ICD-10) Hospital Repository 12/26/2017 Active Encounter for NA Active [facility] screening for [facility] osteoporosis / [place] Z13.820(ICD-10) Repository 12/26/2017 Active Asymptomatic NA Active [facility] menopausal state / [facility] Z78.0(ICD-10) [place] Repository 11/29/2017 Active Malignant neoplasm of NA Active [facility] nipple and areola, [facility] left female breast / [place] C50.012(ICD-10) Repository 11/29/2017 Active Estrogen receptor NA Active [facility] positive status (ER+) [facility] / Z17.0(ICD-10) [place] Repository 12/16/2017 Active Vitamin D deficiency, NA Active [facility] unspecified / [facility] E55.9(ICD-10) [place] Repository 12/21/2017 Unknown R94.31 - Abnormal [place], Active [place] electrocardiogram [facility] [ECG] [EKG] / Hospital R94.31(ICD-10) Repository 12/21/2017 Unknown I10 - Essential [place], Active [place] (primary) hypertension [facility] / I10(ICD-10) Hospital Repository 12/21/2017 Unknown I44.7 - Left [place], Active [place] bundle-branch block, [facility] unspecified / Hospital I44.7(ICD-10) Repository 08/25/2017 Unknown I48.0 - Paroxysmal Thomas Westfall Active [place] atrial fibrillation / [facility] I48.0(ICD-10) Hospital Repository 08/25/2017 Unknown I26.99 - Other Thomas Westfall Active [place] pulmonary embolism [facility] without acute cor Hospital pulmonale / Repository I26.99(ICD-10) PROCEDURES PROCEDURES No Procedure Records FoundRESULTS RESULTS CNCO Observed: 03/22/2018 Status: COMPLETED Source: ADVANCE 12:00 AM [facility] REPOSITORY Letter Text [address] [place] [address] [phone] 03/22/2018 Esperanza Lucero [address] [place] [address] Dear Ms. Lucero: Due to a change in the provider's schedule, it has been necessary to reschedule your 05/11 appointment. Enclosed please find a new appointment reminder that will replace the one previously sent to you. If this appointment is not convenient for you, please contact our office at [phone]. Thank you for choosing the [facility] as your Healthcare Provider. Sincerely, Appointment Office Enclosure PROTIME W/INR Collected: 02/15/2018 Status: F Source: [place] 4:11 PM [facility] TYPE CODE TESTS RESULT OUT OF REFERENCE UNITS RANGE LAB L9200.1001 11.9-14.4 SEC High PROTIME ISTAT 31.1 Result Comment: Reference Range 11.9 - 14.4 LAB L9200.2000 Normal INR ISTAT 2.70 Result Comment: Critical Value > 3.5 Performed By: #### [id number] #### [facility] Point of Care [address] [place] [address] PROTIME W/INR Collected: 02/03/2018 Status: F Source: [place] 12:45 PM [facility] TYPE CODE TESTS RESULT OUT OF REFERENCE UNITS RANGE LAB L9200.1001 11.9-14.4 SEC High PROTIME ISTAT 35.7 Result Comment: Reference Range 11.9 - 14.4 LAB L9200.2000 Normal INR ISTAT 3.10 Result Comment: Critical Value > 3.5 Performed By: #### [id number] #### [place] [facility] [address] [place] [address] PROGRESS Observed: 01/12/2018 Status: COMPLETED Source: ADVANCE 10:31 AM [facility] REPOSITORY HNO ID: [id number] Author: Awilda Almanza Service: (none) Author Type: Nurse Practitioner Type: Progress Notes Filed: 01/12/2018 11:53 AM Note Text: Chief Complaint Patient presents with: Established Patient HPI: Esperanza Lucero is a 77 year old female who presents here today for SCP/breast cancer. Per Dr. Trejo's previous note: H/o colon cancer, endometrial cancer, DCIS, coronary artery disease, hypertension, liver disease and gout. ? 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 She had low anterior resection on 05/12/2006 followed by 5-FU/leucovorin x16 treatments completed 12/21/2006. 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 Specimen was ER/GA negative. Completed XRT on 01/07/2009. 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 ? Recently developed some itchiness in the left areola with palpable lump. ? Underwent core needle biopsy on 10/18/2017 ? Pathology: MICROSCOPIC DIAGNOSIS A. Left breast, ultrasound-guided core biopsy: Invasive lobular carcinoma, nuclear grade 2 (0.6 cm in length). See comment. B. Left breast ulceration nipple areolar complex, punch biopsy: Invasive lobular carcinoma with focal ulceration, (0.6 cm in length). ? ER (clone 6F11) >95%, moderate GA (clone 16/1E2) 80%, moderate Her-2Neu (clone CB11) 0 ? Then had a left modified radical mastectomy along with sentinel lymph node sampling procedure on 11/14/2017 ? Pathology: FROZEN SECTION DIAGNOSIS A. Duncan lymph node, left, biopsy: Two out of two lymph nodes negative for metastatic carcinoma. ? Case has been reviewed in consultation with Dr. Jeffery who concurs with the above diagnosis. IDC:AM ? MICROSCOPIC DIAGNOSIS A. Left sentinel lymph node, biopsy: Two out of two lymph nodes negative for metastatic carcinoma. B. 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 Three out of three lymph nodes, negative for metastatic carcinoma. See cancer summary below. ? INVASIVE BREAST CANCER SUMMARY: Specimen ? total breast (including nipple and skin). Procedure ? total mastectomy (including nipple and skin). Lymph node sampling ? sentinel lymph node and axillary dissection. Specimen integrity ? single intact specimen. Specimen laterality - left Tumor site ? nipple areolar complex Tumor size ? 2.2 x 1 x 1 cm Tumor focality ? single focus of invasive carcinoma Macroscopic and Microscopic extent of tumor: Skin ? the invasive carcinoma invades into the dermis without skin ulceration. Nipple ? 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 See comment. Skeletal muscle ? skeletal muscle is present and is free of carcinoma. 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 Extensive intraductal component (EIC) - negative Estimated size (extent) of DCIS - ductal carcinoma in situ comprise <5% of the total tumor volume. Number of blocks with DCIS - 2 Number of blocks examined ? 13 consisting of breast tissue Architectural patterns ? solid and comedo Nuclear grade ? grade 2 (intermediate) Necrosis ? present, central (expansive ?comedo? necrosis) Lobular carcinoma in situ (LCIS) ? not identified Histologic type of invasive carcinoma ? invasive ductal carcinoma (no special type) Histologic Grade (Mariano grade): Glandular/tubular differentiation - score 3 Nuclear pleomorphism - score 2 Mitotic count ? score 1 Overall grade - 2 (score of 6) Margins - Margins involved by invasive carcinoma. Invasive carcinoma is 3 cm away from the closest inferior margin and present very close to the overlying skin. Ductal carcinoma in situ/lobular carcinoma in situ is 1 cm away from the overlying skin and 3 cm away from the closest inferior margin. Treatment effect: Response to presurgical (neoadjuvant) therapy - no known presurgical therapy. Lymph-Vascular invasion ? not identified Dermal lymph-vascular invasion - not identified Lymph nodes: Number of sentinel lymph nodes examined - 2 Total number of lymph nodes examined (sentinel and nonsentinel) - 5 Number of lymph nodes with macrometastases, micrometastases and isolated tumor cells - 0 Method of evaluation of sentinel lymph nodes ? hematoxylin, H AND E, multiple levels and IHC. Distant metastasis ? not applicable Additional pathologic findings ? fibrocystic changes and focal atypical ductal hyperplasia. - dense fibrous area with focal fat necrosis, calcification and foreign body giant cell reaction, consistent with previous biopsy site (close to posterior margin). Ancillary studies - previously performed on section of tumor ([id number] / [id number]). ER ? positive (>95%, moderate) GA ? positive (80%, moderate) Her2 molly - 0 Microcalcifications ? present in ductal carcinoma in situ and non-neoplastic tissue. Clinical history ? Please make reference to previous specimen ([id number]) left breast, ultrasound-guided core biopsy with diagnosis of invasive lobular carcinoma with focal area of ductal carcinoma and left breast ulceration, nipple areolar complex with diagnosis of invasive ductal carcinoma. Please also make reference to previous specimen [id number], left breast lumpectomy with diagnosis of ductal carcinoma in situ. ? Current therapy:umbertoara Began 2017. I feel like I'm a little tired. Appetite:pretty much Energy level:fair Denies fevers or recent illness. Resp:I nessa always have a dry cough denies sob, occ. godinez Cardiac:dneies chest pain/+palpitations h/o a.fib GI:denies abd pain, n/v, moving bowels regularly :denies dysuria/hematuria Extrem:L ankle pain I have broke it before. It bothers me if I walk a lot. Endo:denies hot flashes Neuro:my fingers will get tingly at night sometimes Skin:denies rashes Heme:denies bleeding The ROS is otherwise negative. Past medical history, appointments, medications, allergies reviewed. No changes. EXAM: BP 184/79 Pulse (!) 54 Temp 36.3 ?C (97.3 ?F) (Temporal Artery) Wt 89.4 kg (197 lb) BMI 39.79 kg/m? APPEARANCE Well appearing, alert, in no acute distress, well-hydrated, well nourished. HEART RRR with normal S1 and S2, no murmurs LUNG clear to auscultation BREAST FEMALE R no mass/nodule, L mastectomy scar no nodule LYMPH NODES No cervical lymphadenopathy, No supraclavicular lymphadenopathy and No axillary lymphadenopathy. ABDOMEN bowel sounds normoactive, no bruits, soft, non-tender, non-distended, without organomegaly or palpable masses EXTREMITIES No edema NEURO Awake, alert and oriented x 3, Normal gait and No involuntary motions. SKIN Skin color, texture, turgor normal, no suspicious rashes or lesions ASSESSMENT/PLAN: 1. 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 Oncotype Dx recurrence score 5 suggesting 10 year risk 5%. - No concerning findings on exam. - Reviewed SCP with pt. Copies given. - Continue femara. - Follow up with Dr. Trevino in 6 months. - Follow up in 4 months. - Pt. aware to call office with any questions/concerns. The patient indicates understanding of these issues and agrees with the plan. Awilda Almanza APRN.PIPING BLOCKER CNOVSP Observed: 01/12/2018 Status: COMPLETED Source: ADVANCE 10:30 AM [facility] REPOSITORY Visit (SP) Office (SIXTO) ESPERANZA LUCERO ([id number]) 1940 F Date Time Provider Department 01/12/18 10:30 AM ALMANZA, AWILDA HEMAWS During your visit today, we recorded the following information about you: Temperature Pulse Blood pressure Weight 97.3 degrees 54/minute 184/79 89.4 kg Awilda Almanza APRN.PIPING BLOCKER 01/12/2018 11:53 AM Signed Chief Complaint Patient presents with: Established Patient HPI: Esperanza Lucero is a 77 year old female who presents here today for SCP/breast cancer. Per Dr. Trejo's previous note: H/o colon cancer, endometrial cancer, DCIS, coronary artery disease, hypertension, liver disease and gout. ? 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 She had low anterior resection on 05/12/2006 followed by 5-FU/leucovorin x16 treatments completed 12/21/2006. 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 Specimen was ER/GA negative. Completed XRT on 01/07/2009. 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 ? Recently developed some itchiness in the left areola with palpable lump. ? Underwent core needle biopsy on 10/18/2017 ? Pathology: MICROSCOPIC DIAGNOSIS A. Left breast, ultrasound-guided core biopsy: Invasive lobular carcinoma, nuclear grade 2 (0.6 cm in length). See comment. B. Left breast ulceration nipple areolar complex, punch biopsy: Invasive lobular carcinoma with focal ulceration, (0.6 cm in length). ? ER (clone 6F11) >95%, moderate GA (clone 16/1E2) 80%, moderate Her-2Neu (clone CB11) 0 ? Then had a left modified radical mastectomy along with sentinel lymph node sampling procedure on 11/14/2017 ? Pathology: FROZEN SECTION DIAGNOSIS A. Duncan lymph node, left, biopsy: Two out of two lymph nodes negative for metastatic carcinoma. ? Case has been reviewed in consultation with Dr. Jeffery who concurs with the above diagnosis. IDC:AM ? MICROSCOPIC DIAGNOSIS A. Left sentinel lymph node, biopsy: Two out of two lymph nodes negative for metastatic carcinoma. B. 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 Three out of three lymph nodes, negative for metastatic carcinoma. See cancer summary below. ? INVASIVE BREAST CANCER SUMMARY: Specimen ? total breast (including nipple and skin). Procedure ? total mastectomy (including nipple and skin). Lymph node sampling ? sentinel lymph node and axillary dissection. Specimen integrity ? single intact specimen. Specimen laterality - left Tumor site ? nipple areolar complex Tumor size ? 2.2 x 1 x 1 cm Tumor focality ? single focus of invasive carcinoma Macroscopic and Microscopic extent of tumor: Skin ? the invasive carcinoma invades into the dermis without skin ulceration. Nipple ? 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 See comment. Skeletal muscle ? skeletal muscle is present and is free of carcinoma. 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 Extensive intraductal component (EIC) - negative Estimated size (extent) of DCIS - ductal carcinoma in situ comprise <5% of the total tumor volume. Number of blocks with DCIS - 2 Number of blocks examined ? 13 consisting of breast tissue Architectural patterns ? solid and comedo Nuclear grade ? grade 2 (intermediate) Necrosis ? present, central (expansive ?comedo? necrosis) Lobular carcinoma in situ (LCIS) ? not identified Histologic type of invasive carcinoma ? invasive ductal carcinoma (no special type) Histologic Grade (Mariano grade): Glandular/tubular differentiation - score 3 Nuclear pleomorphism - score 2 Mitotic count ? score 1 Overall grade - 2 (score of 6) Margins - Margins involved by invasive carcinoma. Invasive carcinoma is 3 cm away from the closest inferior margin and present very close to the overlying skin. Ductal carcinoma in situ/lobular carcinoma in situ is 1 cm away from the overlying skin and 3 cm away from the closest inferior margin. Treatment effect: Response to presurgical (neoadjuvant) therapy - no known presurgical therapy. Lymph-Vascular invasion ? not identified Dermal lymph-vascular invasion - not identified Lymph nodes: Number of sentinel lymph nodes examined - 2 Total number of lymph nodes examined (sentinel and nonsentinel) - 5 Number of lymph nodes with macrometastases, micrometastases and isolated tumor cells - 0 Method of evaluation of sentinel lymph nodes ? hematoxylin, H AND E, multiple levels and IHC. Distant metastasis ? not applicable Additional pathologic findings ? fibrocystic changes and focal atypical ductal hyperplasia. - dense fibrous area with focal fat necrosis, calcification and foreign body giant cell reaction, consistent with previous biopsy site (close to posterior margin). Ancillary studies - previously performed on section of tumor ([id number] / [id number]). ER ? positive (>95%, moderate) GA ? positive (80%, moderate) Her2 molly - 0 Microcalcifications ? present in ductal carcinoma in situ and non-neoplastic tissue. Clinical history ? Please make reference to previous specimen ([id number]) left breast, ultrasound-guided core biopsy with diagnosis of invasive lobular carcinoma with focal area of ductal carcinoma and left breast ulceration, nipple areolar complex with diagnosis of invasive ductal carcinoma. Please also make reference to previous specimen [id number], left breast lumpectomy with diagnosis of ductal carcinoma in situ. ? Current therapy:umbertoara Began 2017. I feel like I'm a little tired. Appetite:pretty much Energy level:fair Denies fevers or recent illness. Resp:I nessa always have a dry cough denies sob, occ. godinez Cardiac:dneies chest pain/+palpitations h/o a.fib GI:denies abd pain, n/v, moving bowels regularly :denies dysuria/hematuria Extrem:L ankle pain I have broke it before. It bothers me if I walk a lot. Endo:denies hot flashes Neuro:my fingers will get tingly at night sometimes Skin:denies rashes Heme:denies bleeding The ROS is otherwise negative. Past medical history, appointments, medications, allergies reviewed. No changes. EXAM: BP 184/79 Pulse (!) 54 Temp 36.3 ?C (97.3 ?F) (Temporal Artery) Wt 89.4 kg (197 lb) BMI 39.79 kg/m? APPEARANCE Well appearing, alert, in no acute distress, well- hydrated, well nourished. HEART RRR with normal S1 and S2, no murmurs LUNG clear to auscultation BREAST FEMALE R no mass/nodule, L mastectomy scar no nodule LYMPH NODES No cervical lymphadenopathy, No supraclavicular lymphadenopathy and No axillary lymphadenopathy. ABDOMEN bowel sounds normoactive, no bruits, soft, non-tender, non-distended, without organomegaly or palpable masses EXTREMITIES No edema NEURO Awake, alert and oriented x 3, Normal gait and No involuntary motions. SKIN Skin color, texture, turgor normal, no suspicious rashes or lesions ASSESSMENT/PLAN: 1. 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 Oncotype Dx recurrence score 5 suggesting 10 year risk 5%. - No concerning findings on exam. - Reviewed SCP with pt. Copies given. - Continue femara. - Follow up with Dr. Trevino in 6 months. - Follow up in 4 months. - Pt. aware to call office with any questions/concerns. The patient indicates understanding of these issues and agrees with the plan. 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 ATENOLOL 100 MG TABLET Take 100 mg by mouth once frankie* FOLIC ACID 400 MCG TABLET Take one(1) tablet daily. LOSARTAN 50 MG TABLET twice daily. FAMOTIDINE 20 MG TABLET Take one tablet by mouth once* DILTIAZEM SR 120 MG 24 HR CAP Take 120 mg by mouth once frankie* WARFARIN 5 MG TABLET Take 4mg by mouth once daily * HYDROCHLOROTHIAZIDE 25 MG TAB* Take 25 mg by mouth once thuy* POTASSIUM CHLORIDE ER 10 MEQ * Take 10 mEq by mouth once frankie* CALCIUM CARB,CIT 300 MG-D3 20* Take by mouth. 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 [address] PROGRESS Observed: 12/30/2017 Status: COMPLETED Source: [facility] 1:29 PM [facility]INIC MAIN [place] REPOSITORY HNO ID: [id number] Author: Lisa Trevino Service: (none) Author Type: Physician Type: Progress Notes Filed: 12/30/2017 1:31 PM Note Text: FOLLOW UP VISIT - POST OP BREAST CANCER NAME: Esperanza Lucero [facility] NO.: [id number] DATE OF SERVICE: December 01, 2017 : 1940 REFERRING PHYSICIAN: Kody Garcia MD Esperanza is a patient I am following for left sided breast cancer. The patient is a 77 year old female with a complaint of a palpable breast mass. The patient notes a mass in the 3 o'clock of her left breast just lateral to the areolar region. The patient has noticed this mass for a few months. She is noting retraction at the area of the nipple. The patient had a mammogram on August 29, 2017 which demonstrated postsurgical changes at the left upper outer relatively deep breast location and no other obvious abnormalities-listed as BI-RADS category 1. Recommend yearly follow-up. Due to the fact that the mass was present below the nipple, a left breast ultrasound was obtained on September 09, 2017 was noted was a palpable abnormality at 3:00 position and a 1 x 1.5 x 1.6, irregular area with shadowing. This was felt to likely represent postoperative changes, but due to the fact there was clinically suspicious MRI was recommended. My impression was that the area of my previous biopsy was likely considerably deeper than this area of abnormality. Bilateral breast MRI was obtained. A small lobular abnormality was noted at the 8 mm position. 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 In the left breast, there was a lobular enhancing mass measuring 2 x 2.1 by 1.6 cm which was felt to be highly suspicious for carcinoma. Biopsy was recommended. Follow up right ultrasound demonstrated a right paracolic nodule felt to be consistent with a fibroadenoma and recommended six-month follow-up. She does perform a self breast exam routinely. She notes no skin changes. She denies nipple discharge. She notes no axillary masses. She notes both her mother and a sister with a history of breast cancer. 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 She received external beam radiation to the left breast. She had a history of DVTs following surgery for colon cancer, so she did not receive hormonal therapy. The patient has had 3 pregnancies. The patient was initially referred to Dr. Drew Ortiz as the patient was under the impression that I no longer worked in [place]. Dr. Ortiz recommended left biopsy, but informed the patient that I do still work in [place]. The patient wished to follow-up with me, given our history of both breast and colon surgical procedures. The patient returned Tuesday for biopsy. She has held her Coumadin for 3 days. I performed both the cutaneous punch biopsy and core biopsies of the palpable mass below the nipple. 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 We extensively discussed her diagnosis and at the last visit discussed her surgical options including breast conservation surgical procedures, mastectomy without reconstruction and mastectomy with reconstruction. The patient has elected to undergo a left side mastectomy with sentinel lymph node biopsy with possible axillary dissection. The patient again had a DVT following her previous surgical procedure in 2008. She had not had a DVT symptoms. She had stopped her Coumadin following the course of treatment for her DVT now is on Coumadin for atrial fibrillation. I performed a left modified radical mastectomy with sentinel lymph node injection on November 14, 2017. The pathology demonstrated: FROZEN SECTION DIAGNOSIS A. Duncan lymph node, left, biopsy: Two out of two lymph nodes negative for metastatic carcinoma. SJ:didier 11/14/17 Case has been reviewed in consultation with Dr. Jeffery who concurs with the above diagnosis. IDC:AM MICROSCOPIC DIAGNOSIS A. Left sentinel lymph node, biopsy: Two out of two lymph nodes negative for metastatic carcinoma. B. 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 Three out of three lymph nodes, negative for metastatic carcinoma. See cancer summary below. INVASIVE BREAST CANCER SUMMARY: Specimen ? total breast (including nipple and skin). Procedure ? total mastectomy (including nipple and skin). Lymph node sampling ? sentinel lymph node and axillary dissection. Specimen integrity ? single intact specimen. Specimen laterality - left Tumor site ? nipple areolar complex Tumor size ? 2.2 x 1 x 1 cm Tumor focality ? single focus of invasive carcinoma Macroscopic and Microscopic extent of tumor: Skin ? the invasive carcinoma invades into the dermis without skin ulceration. Nipple ? 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 See comment. Skeletal muscle ? skeletal muscle is present and is free of carcinoma. 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 Extensive intraductal component (EIC) - negative Estimated size (extent) of DCIS - ductal carcinoma in situ comprise <5% of the total tumor volume. Number of blocks with DCIS - 2 Number of blocks examined ? 13 consisting of breast tissue Architectural patterns ? solid and comedo Nuclear grade ? grade 2 (intermediate) Necrosis ? present, central (expansive ?comedo? necrosis) Lobular carcinoma in situ (LCIS) ? not identified Histologic type of invasive carcinoma ? invasive ductal carcinoma (no special type) Histologic Grade ([place] grade): Glandular/tubular differentiation - score 3 Nuclear pleomorphism - score 2 Mitotic count ? score 1 Overall grade - 2 (score of 6) Margins - Margins involved by invasive carcinoma. Invasive carcinoma is 3 cm away from the closest inferior margin and present very close to the overlying skin. Ductal carcinoma in situ/lobular carcinoma in situ is 1 cm away from the overlying skin and 3 cm away from the closest inferior margin. Treatment effect: Response to presurgical (neoadjuvant) therapy - no known presurgical therapy. Lymph-Vascular invasion ? not identified Dermal lymph-vascular invasion - not identified Lymph nodes: Number of sentinel lymph nodes examined - 2 Total number of lymph nodes examined (sentinel and nonsentinel) - 5 Number of lymph nodes with macrometastases, micrometastases and isolated tumor cells - 0 Method of evaluation of sentinel lymph nodes ? hematoxylin, H AND E, multiple levels and IHC. Distant metastasis ? not applicable Additional pathologic findings ? fibrocystic changes and focal atypical ductal hyperplasia. - dense fibrous area with focal fat necrosis, calcification and foreign body giant cell reaction, consistent with previous biopsy site (close to posterior margin). Ancillary studies - previously performed on section of tumor ([id number] / [id number]). ER ? positive (>95%, moderate) GA ? positive (80%, moderate) Her2 molly - 0 Microcalcifications ? present in ductal carcinoma in situ and non-neoplastic tissue. Clinical history ? Please make reference to previous specimen ([id number]) left breast, ultrasound-guided core biopsy with diagnosis of invasive lobular carcinoma with focal area of ductal carcinoma and left breast ulceration, nipple areolar complex with diagnosis of invasive ductal carcinoma. Please also make reference to previous specimen [id number], left breast lumpectomy with diagnosis of ductal carcinoma in situ. PATHOLOGIC STAGE: pT2 pN0 Mx The above summary is in compliance with [employer] [place] [employer] (CAP) Cancer Protocols Checklist and [place] [employer] Committee on Cancer (AJCC), Staging Manual, 8th Ed. SJ:didier 11/18/17 COMMENT A. The lymph node is negative for metastatic carcinoma on multiple H AND E levels and immunohistochemical stains for cytokeratins ([id number]). B. 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 Resected tumor shows extensive positive staining for E-cadherin consistent with invasive ductal carcinoma. E-cadherin staining is repeated again on previous biopsy specimen and specimen A left breast core biopsy show predominantly negative staining for E-cadherin with focal positive staining. E-cadherin staining added to specimen due discrepancy in the staining and showed diffuse positive staining consistent with invasive ductal carcinoma. Case has been reviewed in consultation with Dr. Jeffery who concurs with the above diagnosis. IDC:AM MICROSCOPIC DESCRIPTION Slides are reviewed. GROSS DESCRIPTION A - Received fresh for frozen section diagnosis labeled with the patient's name is a specimen designated sentinel lymph node left. The specimen consists of a piece of adipose tissue containing two nodules consistent with lymph nodes measuring 3 x 2.5 x 0.5 cm. Two lymph nodes are identified, each measuring 1 cm in greatest dimension. Both lymph nodes are bisected and entire specimen is submitted for frozen section diagnosis in two cassettes as follows: 1 ? one bisected lymph node, 2 - one bisected lymph node. / SJ:didier 11/15/17 B - Received in fixative is one container labeled with the patient's name and designated left breast. The specimen consists of a modified radical mastectomy specimen consisting of breast tissue, overlying skin ellipse and axillary tail. The breast tissue measures 21 x 20 x 8 cm and the overlying skin ellipse measures 21 x 10 cm and the axillary tail measures 9 x 9 x 4 cm. The nipple measures 1 cm in greatest dimension. The nipple areolar complex shows induration. The specimen is inked as follows: superior margin ? blue, inferior margin ? black, medial margin ? red, lateral margin ? orange and posterior margin ? black. Serial sections reveal a covington, indurated mass in the area of nipple areolar complex and measures 2.2 x 1 x 1 cm. The tumor extends up to the overlying skin. No obvious ulceration is noted. A scar is also noted adjacent to the nipple. This tumor is 3 cm away from the closest inferior margin. An indurated area is also noted in the central portion of the breast tissue close to the posterior margin measuring 3.5 x 2.5 x 1.5 cm. Sections of the rest of the breast tissue reveal covington-yellow adipose cut surfaces mixed with covington-white fibrous areas. Sections of the axillary tail reveal multiple lymph nodes. The largest lymph node measures 3.5 cm in greatest dimension. Sections of the lymph node reveal fatty cut surfaces. Type Caster sections are submitted in 20 cassettes as follows: 1 ? nipple, entirely submitted, 2-4 ? tumor with overlying skin in the area of nipple areolar complex, entirely submitted, 5-9 ? indurated area with adjacent closest posterior margin, 10 ? perpendicular medial, lateral, superior and inferior margins, 11-13 ? claim service representative sections from the other areas, 14-20 ? axillary lymph nodes, entirely submitted (14 ? one possible bisected lymph node, 15 ? one possible lymph node, 16 - one bisected lymph node, 17-20 ? the largest lymph node). / RICHIE:didier 11/15/17 TC:0 CPT: 65313, 19183, 91919, 69215 Esperanza notes no significant pain, but does note discomfort from the Mikel-Terry drains. Post operative pain has been moderately well controlled. The patient denies nausea. The patient`s appetite has been good. The axillary Mikel terry drain output has been decreasing and is currently one half ounce for 24 hours. Her INR last visit was 2.1. She stopped the Lovenox and has been continuing her Coumadin. The patient was seen by Dr. Nathanael Trejo 2 days previously. She will be obtaining a genetics, tell a consultation. Given concern for her offspring's risk of breast cancer. This was recommended . Given her history of 3 different primary malignancies-colorectal, endometrial, and breast. She also will be obtaining oncocyte DX testing to decide if even given her T2 breast cancer that she would be at low risk of recurrence and given her age, avoid adjuvant chemotherapy VITALS: There were no vitals taken for this visit. On examination, the left skin incision is clean, dry, and intact. There is resolution of the significant bruising along the superior lateral aspect of the incision with bruising, actually extending to the right breast. The axillary portion of the incision is clean, dry and intact. The axillary Mikel Terry drain was removed. he patient's range of motion with her arm is very good. Assessment IMPRESSION: Status Post modified radical mastectomy with sentinel lymph node injection for left invasive breast cancer. PLAN: Esperanza may return to regular activities as tolerated with the exception of no heavy lifting. We will send an order for postmastectomy bra and prosthesis. Diagnoses: (C50.012) Malignant neoplasm involving both nipple and areola of left breast in female, unspecified estrogen receptor status (HCC) (primary encounter diagnosis) (N63.20) Left breast mass Return to Clinic: The patient is instructed to follow- up with me in 6 months Lisa Trevino MD CNOV Observed: 12/30/2017 Status: COMPLETED Source: [facility]VANCE 1:10 PM [facility] RE[facility] Office Visit (GENSWS) ESPERANZA LUCERO ([id number]) 1940 F Date Time Provider Department 12/30/17 1:10 PM LISA TREVINO GENNOHEMI During your visit today, we recorded the following information about you: Lisa Trevino MD 12/30/2017 1:31 PM Signed FOLLOW UP VISIT - POST OP BREAST CANCER NAME: Esperanza Lucero [facility] NO.: [id number] DATE OF SERVICE: December 01, 2017 : 1940 REFERRING PHYSICIAN: Kody Garcia MD Esperanza is a patient I am following for left sided breast cancer. The patient is a 77 year old female with a complaint of a palpable breast mass. The patient notes a mass in the 3 o'clock of her left breast just lateral to the areolar region. The patient has noticed this mass for a few months. She is noting retraction at the area of the nipple. The patient had a mammogram on August 29, 2017 which demonstrated postsurgical changes at the left upper outer relatively deep breast location and no other obvious abnormalities- listed as BI-RADS category 1. Recommend yearly follow-up. Due to the fact that the mass was present below the nipple, a left breast ultrasound was obtained on September 09, 2017 was noted was a palpable abnormality at 3:00 position and a 1 x 1.5 x 1.6, irregular area with shadowing. This was felt to likely represent postoperative changes, but due to the fact there was clinically suspicious MRI was recommended. My impression was that the area of my previous biopsy was likely considerably deeper than this area of abnormality. Bilateral breast MRI was obtained. A small lobular abnormality was noted at the 8 mm position. 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 In the left breast, there was a lobular enhancing mass measuring 2 x 2.1 by 1.6 cm which was felt to be highly suspicious for carcinoma. Biopsy was recommended. Follow up right ultrasound demonstrated a right paracolic nodule felt to be consistent with a fibroadenoma and recommended six-month follow-up. She does perform a self breast exam routinely. She notes no skin changes. She denies nipple discharge. She notes no axillary masses. She notes both her mother and a sister with a history of breast cancer. 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 She received external beam radiation to the left breast. She had a history of DVTs following surgery for colon cancer, so she did not receive hormonal therapy. The patient has had 3 pregnancies. The patient was initially referred to Dr. Drew Ortiz as the patient was under the impression that I no longer worked in [employer]. Dr. Ortiz recommended left biopsy, but informed the patient that I do still work in [employer]. The patient wished to follow-up with me, given our history of both breast and colon surgical procedures. The patient returned Tuesday for biopsy. She has held her Coumadin for 3 days. I performed both the cutaneous punch biopsy and core biopsies of the palpable mass below the nipple. 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 We extensively discussed her diagnosis and at the last visit discussed her surgical options including breast conservation surgical procedures, mastectomy without reconstruction and mastectomy with reconstruction. The patient has elected to undergo a left side mastectomy with sentinel lymph node biopsy with possible axillary dissection. The patient again had a DVT following her previous surgical procedure in 2008. She had not had a DVT symptoms. She had stopped her Coumadin following the course of treatment for her DVT now is on Coumadin for atrial fibrillation. I performed a left modified radical mastectomy with sentinel lymph node injection on November 14, 2017. The pathology demonstrated: FROZEN SECTION DIAGNOSIS A. Duncan lymph node, left, biopsy: Two out of two lymph nodes negative for metastatic carcinoma. SJ:didier 11/14/17 Case has been reviewed in consultation with Dr. Jeffery who concurs with the above diagnosis. IDC:AM MICROSCOPIC DIAGNOSIS A. Left sentinel lymph node, biopsy: Two out of two lymph nodes negative for metastatic carcinoma. B. 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 Three out of three lymph nodes, negative for metastatic carcinoma. See cancer summary below. INVASIVE BREAST CANCER SUMMARY: Specimen ? total breast (including nipple and skin). Procedure ? total mastectomy (including nipple and skin). Lymph node sampling ? sentinel lymph node and axillary dissection. Specimen integrity ? single intact specimen. Specimen laterality - left Tumor site ? nipple areolar complex Tumor size ? 2.2 x 1 x 1 cm Tumor focality ? single focus of invasive carcinoma Macroscopic and Microscopic extent of tumor: Skin ? the invasive carcinoma invades into the dermis without skin ulceration. Nipple ? 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 See comment. Skeletal muscle ? skeletal muscle is present and is free of carcinoma. 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 Extensive intraductal component (EIC) - negative Estimated size (extent) of DCIS - ductal carcinoma in situ comprise <5% of the total tumor volume. Number of blocks with DCIS - 2 Number of blocks examined ? 13 consisting of breast tissue Architectural patterns ? solid and comedo Nuclear grade ? grade 2 (intermediate) Necrosis ? present, central (expansive ?comedo? necrosis) Lobular carcinoma in situ (LCIS) ? not identified Histologic type of invasive carcinoma ? invasive ductal carcinoma (no special type) Histologic Grade ([place] grade): Glandular/tubular differentiation - score 3 Nuclear pleomorphism - score 2 Mitotic count ? score 1 Overall grade - 2 (score of 6) Margins - Margins involved by invasive carcinoma. Invasive carcinoma is 3 cm away from the closest inferior margin and present very close to the overlying skin. Ductal carcinoma in situ/lobular carcinoma in situ is 1 cm away from the overlying skin and 3 cm away from the closest inferior margin. Treatment effect: Response to presurgical (neoadjuvant) therapy - no known presurgical therapy. Lymph-Vascular invasion ? not identified Dermal lymph-vascular invasion - not identified Lymph nodes: Number of sentinel lymph nodes examined - 2 Total number of lymph nodes examined (sentinel and nonsentinel) - 5 Number of lymph nodes with macrometastases, micrometastases and isolated tumor cells - 0 Method of evaluation of sentinel lymph nodes ? hematoxylin, H AND E, multiple levels and IHC. Distant metastasis ? not applicable Additional pathologic findings ? fibrocystic changes and focal atypical ductal hyperplasia. - dense fibrous area with focal fat necrosis, calcification and foreign body giant cell reaction, consistent with previous biopsy site (close to posterior margin). Ancillary studies - previously performed on section of tumor ([id number] / [id number]). ER ? positive (>95%, moderate) GA ? positive (80%, moderate) Her2 molly - 0 Microcalcifications ? present in ductal carcinoma in situ and non-neoplastic tissue. Clinical history ? Please make reference to previous specimen ([id number]) left breast, ultrasound-guided core biopsy with diagnosis of invasive lobular carcinoma with focal area of ductal carcinoma and left breast ulceration, nipple areolar complex with diagnosis of invasive ductal carcinoma. Please also make reference to previous specimen [id number], left breast lumpectomy with diagnosis of ductal carcinoma in situ. PATHOLOGIC STAGE: pT2 pN0 Mx The above summary is in compliance with [employer] [place] [employer] (CAP) Cancer Protocols Checklist and [place] [employer] Committee on Cancer (AJCC), Staging Manual, 8th Ed. RICHIE:didier 11/18/17 COMMENT A. The lymph node is negative for metastatic carcinoma on multiple H AND E levels and immunohistochemical stains for cytokeratins ([id number]). B. 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 Resected tumor shows extensive positive staining for E-cadherin consistent with invasive ductal carcinoma. E-cadherin staining is repeated again on previous biopsy specimen and specimen A left breast core biopsy show predominantly negative staining for E-cadherin with focal positive staining. E-cadherin staining added to specimen due discrepancy in the staining and showed diffuse positive staining consistent with invasive ductal carcinoma. Case has been reviewed in consultation with Dr. Jeffery who concurs with the above diagnosis. IDC:AM MICROSCOPIC DESCRIPTION Slides are reviewed. GROSS DESCRIPTION A - Received fresh for frozen section diagnosis labeled with the patient's name is a specimen designated sentinel lymph node left. The specimen consists of a piece of adipose tissue containing two nodules consistent with lymph nodes measuring 3 x 2.5 x 0.5 cm. Two lymph nodes are identified, each measuring 1 cm in greatest dimension. Both lymph nodes are bisected and entire specimen is submitted for frozen section diagnosis in two cassettes as follows: 1 ? one bisected lymph node, 2 - one bisected lymph node. / Елена 11/15/17 B - Received in fixative is one container labeled with the patient's name and designated left breast. The specimen consists of a modified radical mastectomy specimen consisting of breast tissue, overlying skin ellipse and axillary tail. The breast tissue measures 21 x 20 x 8 cm and the overlying skin ellipse measures 21 x 10 cm and the axillary tail measures 9 x 9 x 4 cm. The nipple measures 1 cm in greatest dimension. The nipple areolar complex shows induration. The specimen is inked as follows: superior margin ? blue, inferior margin ? black, medial margin ? red, lateral margin ? orange and posterior margin ? black. Serial sections reveal a covington, indurated mass in the area of nipple areolar complex and measures 2.2 x 1 x 1 cm. The tumor extends up to the overlying skin. No obvious ulceration is noted. A scar is also noted adjacent to the nipple. This tumor is 3 cm away from the closest inferior margin. An indurated area is also noted in the central portion of the breast tissue close to the posterior margin measuring 3.5 x 2.5 x 1.5 cm. Sections of the rest of the breast tissue reveal covington-yellow adipose cut surfaces mixed with covington-white fibrous areas. Sections of the axillary tail reveal multiple lymph nodes. The largest lymph node measures 3.5 cm in greatest dimension. Sections of the lymph node reveal fatty cut surfaces. Type Caster sections are submitted in 20 cassettes as follows: 1 ? nipple, entirely submitted, 2-4 ? tumor with overlying skin in the area of nipple areolar complex, entirely submitted, 5-9 ? indurated area with adjacent closest posterior margin, 10 ? perpendicular medial, lateral, superior and inferior margins, 11-13 ? claim service representative sections from the other areas, 14-20 ? axillary lymph nodes, entirely submitted (14 ? one possible bisected lymph node, 15 ? one possible lymph node, 16 - one bisected lymph node, 17- 20 ? the largest lymph node). / SJ:rg 11/15/17 TC:0 CPT: 97480, 98151, 68368, 73501 Esperanza notes no significant pain, but does note discomfort from the Mikel-Terry drains. Post operative pain has been moderately well controlled. The patient denies nausea. The patient`s appetite has been good. The axillary Mikel terry drain output has been decreasing and is currently one half ounce for 24 hours. Her INR last visit was 2.1. She stopped the Lovenox and has been continuing her Coumadin. The patient was seen by Dr. Nathanael Trejo 2 days previously. She will be obtaining a genetics, tell a consultation. Given concern for her offspring's risk of breast cancer. This was recommended . Given her history of 3 different primary malignancies-colorectal, endometrial, and breast. She also will be obtaining oncocyte DX testing to decide if even given her T2 breast cancer that she would be at low risk of recurrence and given her age, avoid adjuvant chemotherapy VITALS: There were no vitals taken for this visit. On examination, the left skin incision is clean, dry, and intact. There is resolution of the significant bruising along the superior lateral aspect of the incision with bruising, actually extending to the right breast. The axillary portion of the incision is clean, dry and intact. The axillary Mikel Terry drain was removed. he patient's range of motion with her arm is very good. Assessment IMPRESSION: Status Post modified radical mastectomy with sentinel lymph node injection for left invasive breast cancer. PLAN: Esperanza may return to regular activities as tolerated with the exception of no heavy lifting. We will send an order for postmastectomy bra and prosthesis. Diagnoses: (C50.012) Malignant neoplasm involving both nipple and areola of left breast in female, unspecified estrogen receptor status (HCC) (primary encounter diagnosis) (N63.20) Left breast mass Return to Clinic: The patient is instructed to follow- up with me in 6 months Lisa Trevino MD Referring Provider: SELF [[id number]] Allergies As of Date: 12/30/2017 Noted Allergy Reaction ALMOND 06/09/2006 LEVAQUIN (LEVOFLOXACIN) 11/29/2017 16 - Unknown PENICILLINS 05/10/2006 1 - Mental Status Change Comments: passed out Date Reviewed: 12/30/2017 Reviewed by: Lisa Trevino - Fully Assessed Reason for Visit: Post Op [174] Cmt: post op mastectomy Primary Visit Diagnosis:Malignant neoplasm involving both nipple and areola of left breast in female, unspecified estrogen receptor status (HCC) [C50.012] Other Visit Diagnosis:Left breast mass [N63.20] Prescriptions as of 12/30/2017 Sig: CALCIUM CARB,CIT 300 MG-D3 20* Take by mouth. LETROZOLE 2.5 MG TABLET Take 1 tablet by mouth once d* ASPIRIN 81 MG TABLET,DELAYED * Take 81 mg by mouth once thuy* ACETAMINOPHEN 500 MG TABLET Take 500 mg by mouth every 6 * CHOLECALCIFEROL (VITAMIN D3) * Take 1,000 Units by mouth onc* ALLOPURINOL 300 MG TABLET Take one(1) tablet daily. ATENOLOL 100 MG TABLET Take 100 mg by mouth once frankie* FOLIC ACID 400 MCG TABLET Take one(1) tablet daily. LOSARTAN 50 MG TABLET twice daily. FAMOTIDINE 20 MG TABLET Take one tablet by mouth once* DILTIAZEM SR 120 MG 24 HR CAP Take 120 mg by mouth once frankie* WARFARIN 5 MG TABLET Take 4mg by mouth once daily * HYDROCHLOROTHIAZIDE 25 MG TAB* Take 25 mg by mouth once thuy* POTASSIUM CHLORIDE ER 10 MEQ * Take 10 mEq by mouth once frankie* Problem List As Of Date 12/30/2017 Noted Resolved MALIG NEOPLASM SIGMOID COLON [C18.7] INVALID FOR* STENOSIS (SEE ALSO STRICTURE) COLON [K56.609] INVALID FOR* UNSP ABNORMAL MAMMOGRAM [R92.8] INVALID FOR* CA IN SITU BREAST [D05.90] INVALID FOR* Rectal bleeding [K62.5] INVALID FOR* Malignant neoplasm of areola of left breast in *INVALID FOR* Endometrial adenocarcinoma (HCC) [C54.1] INVALID FOR* Encounter Status:Closed by LISA TREVINO MD on 12/30/17 BD DXA - AXIAL Observed: 12/26/2017 Status: F Source: BECKER SKELETON 11:57 AM [facility] REPOSITORY * * *Final Report* * * DATE OF EXAM: Dec 26 2017 11:57AM WRB 0804 - BD DXA - AXIAL SKELETON B / PROCEDURE REASON: multiple diagnoses * * * * Physician Interpretation * * * * PROCEDURE: BD DXA - AXIAL SKELETON INDICATION: Malignant neoplasm of areola of left breast in female, estrogen receptor positive (HCC) Malignant neoplasm of areola of left breast in female, estrogen receptor positive (HCC) Encounter for screening for osteoporosis Asymptomatic postmenopausal status TECHNIQUE: Low dose AP spine and hip images COMPARISON: LUMBAR SPINE: The bone mineral density from L1 through L4 is 1.170 grams per square centimeter which yields a T-score of 1.1. . LEFT HIP: The bone mineral density of the total region of the hip is 0.964 grams per square centimeter which yields a T-score of 0.2. . LEFT FEMORAL NECK: The bone mineral density of the femoral neck is 0.707 grams per square centimeter which yields a T-score of -1.3. . RIGHT HIP: The bone mineral density of the total region of the hip is 0.839 grams per square centimeter which yields a T-score of -0.8. . RIGHT FEMORAL NECK: The bone mineral density of the femoral neck is 0.684 grams per square centimeter which yields a T-score of -1.5. . 10-year Fracture Risk (FRAX): Major osteoporotic fracture risk 20% Hip fracture risk 10% IMPRESSION: Osteopenia in both femoral necks. WORLD HEALTH ORG. CLASSIFICATION OF BONE MASS CLASSIFICATION T-SCORE Normal Greater than -1 Low Bone Mass Between -1 and -2.5 (Osteopenia) Osteoporosis Less than or equal to -2.5 Alberene Stone Setter: TANJA Transcribe Date/Time: Dec 26 2017 1:43P Dictated by : JOSUE RICH MD This examination was interpreted and the report reviewed and electronically signed by: JOSUE RICH MD on Dec 26 2017 1:43PM EST [id number] PROGRESS Observed: 12/26/2017 Status: COMPLETED Source: ADVANCE 11:29 AM [facility] [place] REPOSITORY HNO ID: [id number] Author: Steffi Mroocho (Rt) Service: (none) Author Type: Software Developer Consultant Type: Progress Notes Filed: 12/26/2017 11:43 AM Note Text: Radiology Service Progress Note PATIENT NAME: Esperanza Lucero DATE OF SERVICE: December 26, 2017 TIME: 11:29 AM PATIENT IDENTITY VERIFICATION COMPLETED USING TWO (2) METHODS: Patient confirmed name verbally and Date of . PATIENT GENDER DATA: Female. status: : No status: NO. PATIENT RELEVANT IMPLANT DATA REVIEWED: Not Applicable RADIOLOGY DEPARTMENT: Women's Health bone density PERIPHERAL IV DATA: Not applicable SIGNED BY: RT Rashawn December 26, 2017 11:29 AM PROGRESS Observed: 12/21/2017 Status: COMPLETED Source: ADVANCE 2:03 PM [facility] [place] REPOSITORY HNO ID: [id number] Author: De[facility]ay [facility] Shon Service: (none) Author Type: Genetic Counselor Type: Progress Notes Filed: 12/23/2017 10:45 AM Note Text: [facility] Consultation Note Genetic Counselor: Deejay Menendez MS, [facility], Licensed Genetic Counselor Patient: Esperanza Lucero Patient Name and confirmed at initiation of visit. Appointment occurred via telecommunications. HIGH LEVEL SUMMARY: ? The patient's personal and family history is potentially suggestive of a hereditary cancer syndrome. ? The patient provided informed consent for Integrated BRACAnalysis with Christine through imeem. Results are expected in 2-3 weeks. IDENTIFICATION AND CHIEF COMPLAINT: Dr. Nathanael Trejo requested a consultation for genetic counseling and risk assessment for Esperanza Lucero, a 77 year old female, for discussion of her personal and family history of cancer. She presents to clinic today to discuss the possibility of a genetic predisposition to cancer, and to further clarify her risks, as well as her family members' risks for cancer. HISTORY OF PRESENT ILLNESS: Esperanza Lucero is a 77 year old female with an extensive personal history of cancer. She was first diagnosed in 2006 with colon cancer. This was treated with partial colectomy followed by chemotherapy. Then in 2008, Ms. Lucero was diagnosed with a left breast cancer (DCIS), which was treated with a lumpectomy and radiation therapy. In 2013, Ms. Lucero was then diagnosed with an uterine cancer. This was treated with CALLUM-BSO and no further treatment. Now in 2018, Ms. Lucero has a new left breast cancer (IDC). She has undergone mastectomy and has begun endocrine therapy. PAST MEDICAL HISTORY Diagnosis Date - Atrial fibrillation (HCC) - Gout - Malignant neoplasm of colon, unspecified site - Personal history of malignant neoplasm of rectum, rectosigmoid junction, and anus - Pulmonary embolism (HCC) - Unspecified essential hypertension Essential hypertension - Unspecified intestinal obstruction PAST SURGICAL HISTORY Procedure Laterality Date - CATARACT EXTRACTION HX Bilateral 2016 - DELIVERY ONLY , low cervical - COLONOSCOP W/ OR W/O [facility] SPEC 04/23/2008 disuse colitis, anastamosis open - COLONOSCOP W/ OR W/O [facility]RS SPEC 05/29/09 - COLONOSCOP W/ OR W/O BRS SPEC 07/21/2010 Colonoscopy-Repeat in 3 years (-2013) - FLEX SIGMOID W BALLOON DILAT 11/21/2007 stenosis at 25cm - HYSTERECTOMY HX 2013 endometrial cancer - MASTECTOMY HX 11/14/2017 left modified radical mastectomy, radiotracer and lymphazurin blue injection - OPEN RX ANKLE DISLOCATN+FIXATN ORIF Ankle - PART REMOVAL COLON W COLOPROCTOSTOMY 05/12/2006 LAR with Splenic Flexure mobilization - PART REMOVAL COLON W OSTOMY/MUCOFIST 11/22/2007 Severe Stricture, Adhesions - RESECT SMALL INTEST,SINGL RESEC/ANAS 11/22/2007 - RESECT SMALL INTEST,SINGL RESEC/ANAS ileostomy takedown SOCIAL HISTORY: Social History Substance Use Topics - Smoking status: Former Smoker Packs/day: 0.25 Years: 5.00 Types: Cigarettes Quit date: 03/07/1959 - Smokeless tobacco: Never Used - Alcohol use No FAMILY HISTORY: We obtained a detailed, 4-generation family history. Significant diagnoses are listed below: Sister: breast cancer in her 60's Brother: , lung cancer Mother: , breast cancer in her late 40's to early 50's and colon cancer Maternal grandmother: colon cancer? 2 paternal aunts with cancer? Paternal grandfather with skin cancer? A copy of the patient's pedigree will be available under the scanned documents tab following today's visit. GENETIC COUNSELING RISK ASSESSMENT, DISCUSSION, AND SUGGESTED FOLLOW UP: We reviewed the natural history and genetic etiology of sporadic, familial and hereditary cancer syndromes. The patient's personal and family history is potentially suggestive of: a hereditary cancer syndrome The patient meets NCCN HBOC testing criteria based on her personal history of breast cancer and 2 additional breast cancer diagnoses in patient or close relatives. We discussed that identification of a hereditary cancer syndrome may help her care providers tailor her medical management. If a mutation is detected, the patient will be referred back to the referring provider and to any additional appropriate care providers to discuss the relevant options. Inheritance of hereditary cancer syndromes was discussed with the patient. If a mutation is not found in the patient, this will decrease the likelihood of a hereditary cancer syndrome as the explanation for the patient's personal and family history of cancer. However, it cannot completely rule out this possibility. Cancer surveillance options would be discussed for the patient according to the appropriate standard National Comprehensive Cancer Network and [place] [employer] guidelines, with consideration of their personal and family history risk factors. In this case, the patient will be referred back to their care providers for discussions of management. Based on this assessment of the patient's family and personal history, genetic testing is recommended. The patient was offered Integrated BRACAnalysis with myRisk through imeem. After considering the risks, benefits, and limitations, the patient chose to pursue and provided informed consent for the following testing: Integrated BRACAnalysis with myRisk through imeem. The myRisk panel includes BRCA1, BRCA2, MLH1, MSH2, MSH6, PMS2, EPCAM, APC, MUTYH, STK11, PTEN, TP53, CDH1, BMPR1A, SMAD4, CDKN2A, PALB2, COLLEEN, BARD1, BRIP1, CDK4, CHEK2, NBN, RAD51C, RAD51D, POLE, POLD1, and GREM1 Per the patient's request, I will contact her by telephone to discuss these results. A follow up genetic counseling visit will be scheduled if requested. The patient was seen for a total of 40 minutes, greater than 50% of which was spent [id number] counseling. This plan is being carried out per Dr. Negar Herrera's recommendations. This note will also be sent to the referring provider via the electronic medical record. Deejay Menendez MS, [facility], Licensed Genetic Counselor [facility] CC: Dr. Nathanael Herrera VITAMIN D 25 HYDROXY Collected: 12/16/2017 Status: F Source: ADVANCE 12:37 PM [facility] REPOSITORY TYPE CODE TESTS RESULT OUT OF REFERENCE UNITS RANGE LAB VITD 31.0-80.0 ng/mL Vitamin D 25 39.2 Hydroxy Result Comment: Classification of 25 [place] Vitamin D status: Insufficiency/Moderate Deficiency: < or = 30 ng/mL Sufficiency/Optimal Levels: 31 to 80 ng/mL Toxicity: > 100 ng/mL Test performed by chemiluminescent immunoassay. Performed By: #### VITD #### [facility] [address], [place] [address] PROGRESS Observed: 12/16/2017 Status: COMPLETED Source: ADVANCE 11:52 AM [facility] REPOSITORY HNO ID: [id number] Author: Nathanael Trejo Service: (none) Author Type: Physician Type: Progress Notes Filed: 12/16/2017 12:18 PM Note Text: Diagnosis: 1) Breast cancer. HPI: He is a 77-year-old female with a past medical history significant for colon cancer, endometrial cancer, DCIS, coronary artery disease, hypertension, liver disease and gout. 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 She had low anterior resection on 05/12/2006 followed by 5-FU/leucovorin x16 treatments completed 12/21/2006. 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 Specimen was ER/GA negative. Completed XRT on 01/07/2009. 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 Recently developed some itchiness in the left areola with palpable lump. Underwent core needle biopsy on 10/18/2017 Pathology: MICROSCOPIC DIAGNOSIS A. Left breast, ultrasound-guided core biopsy: Invasive lobular carcinoma, nuclear grade 2 (0.6 cm in length). See comment. B. Left breast ulceration nipple areolar complex, punch biopsy: Invasive lobular carcinoma with focal ulceration, (0.6 cm in length). ER (clone [id number]) >95%, moderate GA (clone 16/1E2) 80%, moderate Her-2Neu (clone CB11) 0 Then had a left modified radical mastectomy along with sentinel lymph node sampling procedure on 11/14/2017 Pathology: FROZEN SECTION DIAGNOSIS A. Duncan lymph node, left, biopsy: Two out of two lymph nodes negative for metastatic carcinoma. Case has been reviewed in consultation with Dr. Jeffery who concurs with the above diagnosis. IDC:AM MICROSCOPIC DIAGNOSIS A. Left sentinel lymph node, biopsy: Two out of two lymph nodes negative for metastatic carcinoma. B. 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 Three out of three lymph nodes, negative for metastatic carcinoma. See cancer summary below. INVASIVE BREAST CANCER SUMMARY: Specimen ? total breast (including nipple and skin). Procedure ? total mastectomy (including nipple and skin). Lymph node sampling ? sentinel lymph node and axillary dissection. Specimen integrity ? single intact specimen. Specimen laterality - left Tumor site ? nipple areolar complex Tumor size ? 2.2 x 1 x 1 cm Tumor focality ? single focus of invasive carcinoma Macroscopic and Microscopic extent of tumor: Skin ? the invasive carcinoma invades into the dermis without skin ulceration. Nipple ? 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 See comment. Skeletal muscle ? skeletal muscle is present and is free of carcinoma. 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 Extensive intraductal component (EIC) - negative Estimated size (extent) of DCIS - ductal carcinoma in situ comprise <5% of the total tumor volume. Number of blocks with DCIS - 2 Number of blocks examined ? 13 consisting of breast tissue Architectural patterns ? solid and comedo Nuclear grade ? grade 2 (intermediate) Necrosis ? present, central (expansive ?comedo? necrosis) Lobular carcinoma in situ (LCIS) ? not identified Histologic type of invasive carcinoma ? invasive ductal carcinoma (no special type) Histologic Grade (Mariano grade): Glandular/tubular differentiation - score 3 Nuclear pleomorphism - score 2 Mitotic count ? score 1 Overall grade - 2 (score of 6) Margins - Margins involved by invasive carcinoma. Invasive carcinoma is 3 cm away from the closest inferior margin and present very close to the overlying skin. Ductal carcinoma in situ/lobular carcinoma in situ is 1 cm away from the overlying skin and 3 cm away from the closest inferior margin. Treatment effect: Response to presurgical (neoadjuvant) therapy - no known presurgical therapy. Lymph-Vascular invasion ? not identified Dermal lymph-vascular invasion - not identified Lymph nodes: Number of sentinel lymph nodes examined - 2 Total number of lymph nodes examined (sentinel and nonsentinel) - 5 Number of lymph nodes with macrometastases, micrometastases and isolated tumor cells - 0 Method of evaluation of sentinel lymph nodes ? hematoxylin, H AND E, multiple levels and IHC. Distant metastasis ? not applicable Additional pathologic findings ? fibrocystic changes and focal atypical ductal hyperplasia. - dense fibrous area with focal fat necrosis, calcification and foreign body giant cell reaction, consistent with previous biopsy site (close to posterior margin). Ancillary studies - previously performed on section of tumor ([id number] / [id number]). ER ? positive (>95%, moderate) GA ? positive (80%, moderate) Her2 molly - 0 Microcalcifications ? present in ductal carcinoma in situ and non-neoplastic tissue. Clinical history ? Please make reference to previous specimen ([id number]) left breast, ultrasound-guided core biopsy with diagnosis of invasive lobular carcinoma with focal area of ductal carcinoma and left breast ulceration, nipple areolar complex with diagnosis of invasive ductal carcinoma. Please also make reference to previous specimen [id number], left breast lumpectomy with diagnosis of ductal carcinoma in situ. Presents for ongoing oncologic management. Interim history: No complaints. PMH, medications and allergies personally reviewed by me today. Any changes documented in appropriate section. ROS: Constitutional: Denies episodes of fever and night sweats. Not significantly fatigued. Normal appetite. Neuro: Denies HUFFMAN, vertigo, dizziness and imbalance. Denies symptoms of neuropathy. HEENT: No recent change in voice, vision or hearing. Resp: Denies cough, wheeze and hemoptysis. Denies shortness of breath at rest. Denies GODINEZ. CVS: Denies exertional chest pain, PND, orthopnea and LE edema. GI: Denies dysgeusia. Denies symptoms of stomatitis. Denies dysphagia and odynophagia. Denies reflux, n/v, change in bowel habits and abdominal pain. : Denies dysuria or gross hematuria. No symptoms of bladder outlet obstruction. Endo: Denies hot flashes. Denies polyuria and polydipsia. Denies heat and cold intolerance. Musculoskeletal: Denies bone, back, joint and muscular pain. Derm: Denies rash. Denies jaundice and diffuse pruritis. Heme: Denies unusual bleeding and unexplained bruising. Psych: Normal mood. PHYSICAL EXAM: Vitals: Blood pressure 146/75, pulse (!) 54, temperature 36.9 ?C (98.4 ?F), temperature source Oral, weight 88.7 kg (195 lb 8 oz). Well-appearing and in no acute distress. EYES: Sclerae are anicteric bilaterally. NECK: Supple. LYMPHATIC: There is no palpable cervical, supraclavicular adenopathy. RESPIRATORY: Inspiratory breath sounds are of normal intensity in all mcintyre. No rales, wheezes or rhonchi. Expiratory phase is normal. CARDIOVASCULAR: Rhythm is regular. Normal intensity S1/S2. There is no gallop or murmur. ABDOMEN: The abdomen is nondistended. No organomegaly. No tenderness. Extremities: No swelling or edema. SKIN: No jaundice or rash. No petechiae. NEUROLOGIC: ventilator specialist II-XII are grossly intact. No focal motor weakness. DTRs are symmetric and normal. MUSCULOSKELETAL: No muscle wasting. ASSESSMENT/PLAN: (C50.012, Z17.0) Malignant neoplasm of areola of left breast in female, estrogen receptor positive (HCC) (primary encounter diagnosis) Assessment: -KPS is 90%. 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 -Pathologic staging previously completed in problem list. -Oncotype Dx recurrence score 5 suggesting 10 year risk 5%. -Reviewed Oncotype results and their implication with her. -Advised AI therapy and I again discussed the rationale as well as some of the more common potential side effects. She agreed to proceed with treatment. Goal will be 5 years of treatment. Plan: -Rx for letrozole sent to her pharmacy. -Bone density test. -Check vitamin D level. -Advised her to start calcium supplement twice daily. -[employer] consultation scheduled next week. This is because of her personal h/o 3 primary malignancies. Nathanael Trejo DO CNOVSP Observed: 12/16/2017 Status: COMPLETED Source: [facility] 11:20 AM [facility] REPOSITORY Visit (SP) Office ([facility]) ESPERANZA LUCERO ([id number]) 1940 F Date Time Provider Department 12/16/17 11:20 AM NATHANAEL TREJO During your visit today, we recorded the following information about you: Temperature Pulse Blood pressure Weight 98.4 degrees 54/minute 146/75 88.7 kg Billie Calix LPN 12/16/2017 11:58 AM Signed Est patient. Three week office visit. Discuss oncotype results. Billie Trejo DO 12/16/2017 12:18 PM Signed Diagnosis: 1) Breast cancer. HPI: He is a 77-year-old female with a past medical history significant for colon cancer, endometrial cancer, DCIS, coronary artery disease, hypertension, liver disease and gout. 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 She had low anterior resection on 05/12/2006 followed by 5-FU/leucovorin x16 treatments completed 12/21/2006. 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 Specimen was ER/GA negative. Completed XRT on 01/07/2009. 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 Recently developed some itchiness in the left areola with palpable lump. Underwent core needle biopsy on 10/18/2017 Pathology: MICROSCOPIC DIAGNOSIS A. Left breast, ultrasound-guided core biopsy: Invasive lobular carcinoma, nuclear grade 2 (0.6 cm in length). See comment. B. Left breast ulceration nipple areolar complex, punch biopsy: Invasive lobular carcinoma with focal ulceration, (0.6 cm in length). ER (clone [id number]) >95%, moderate GA (clone 16/1E2) 80%, moderate Her-2Neu (clone CB11) 0 Then had a left modified radical mastectomy along with sentinel lymph node sampling procedure on 11/14/2017 Pathology: FROZEN SECTION DIAGNOSIS A. Duncan lymph node, left, biopsy: Two out of two lymph nodes negative for metastatic carcinoma. Case has been reviewed in consultation with Dr. Jeffery who concurs with the above diagnosis. IDC:AM MICROSCOPIC DIAGNOSIS A. Left sentinel lymph node, biopsy: Two out of two lymph nodes negative for metastatic carcinoma. B. 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 Three out of three lymph nodes, negative for metastatic carcinoma. See cancer summary below. INVASIVE BREAST CANCER SUMMARY: Specimen ? total breast (including nipple and skin). Procedure ? total mastectomy (including nipple and skin). Lymph node sampling ? sentinel lymph node and axillary dissection. Specimen integrity ? single intact specimen. Specimen laterality - left Tumor site ? nipple areolar complex Tumor size ? 2.2 x 1 x 1 cm Tumor focality ? single focus of invasive carcinoma Macroscopic and Microscopic extent of tumor: Skin ? the invasive carcinoma invades into the dermis without skin ulceration. Nipple ? 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 See comment. Skeletal muscle ? skeletal muscle is present and is free of carcinoma. 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 Extensive intraductal component (EIC) - negative Estimated size (extent) of DCIS - ductal carcinoma in situ comprise <5% of the total tumor volume. Number of blocks with DCIS - 2 Number of blocks examined ? 13 consisting of breast tissue Architectural patterns ? solid and comedo Nuclear grade ? grade 2 (intermediate) Necrosis ? present, central (expansive ?comedo? necrosis) Lobular carcinoma in situ (LCIS) ? not identified Histologic type of invasive carcinoma ? invasive ductal carcinoma (no special type) Histologic Grade (Mariano grade): Glandular/tubular differentiation - score 3 Nuclear pleomorphism - score 2 Mitotic count ? score 1 Overall grade - 2 (score of 6) Margins - Margins involved by invasive carcinoma. Invasive carcinoma is 3 cm away from the closest inferior margin and present very close to the overlying skin. Ductal carcinoma in situ/lobular carcinoma in situ is 1 cm away from the overlying skin and 3 cm away from the closest inferior margin. Treatment effect: Response to presurgical (neoadjuvant) therapy - no known presurgical therapy. Lymph-Vascular invasion ? not identified Dermal lymph-vascular invasion - not identified Lymph nodes: Number of sentinel lymph nodes examined - 2 Total number of lymph nodes examined (sentinel and nonsentinel) - 5 Number of lymph nodes with macrometastases, micrometastases and isolated tumor cells - 0 Method of evaluation of sentinel lymph nodes ? hematoxylin, H AND E, multiple levels and IHC. Distant metastasis ? not applicable Additional pathologic findings ? fibrocystic changes and focal atypical ductal hyperplasia. - dense fibrous area with focal fat necrosis, calcification and foreign body giant cell reaction, consistent with previous biopsy site (close to posterior margin). Ancillary studies - previously performed on section of tumor ([id number] / [id number]). ER ? positive (>95%, moderate) GA ? positive (80%, moderate) Her2 molly - 0 Microcalcifications ? present in ductal carcinoma in situ and non-neoplastic tissue. Clinical history ? Please make reference to previous specimen ([id number]) left breast, ultrasound-guided core biopsy with diagnosis of invasive lobular carcinoma with focal area of ductal carcinoma and left breast ulceration, nipple areolar complex with diagnosis of invasive ductal carcinoma. Please also make reference to previous specimen [id number], left breast lumpectomy with diagnosis of ductal carcinoma in situ. Presents for ongoing oncologic management. Interim history: No complaints. PMH, medications and allergies personally reviewed by me today. Any changes documented in appropriate section. ROS: Constitutional: Denies episodes of fever and night sweats. Not significantly fatigued. Normal appetite. Neuro: Denies HUFFMAN, vertigo, dizziness and imbalance. Denies symptoms of neuropathy. HEENT: No recent change in voice, vision or hearing. Resp: Denies cough, wheeze and hemoptysis. Denies shortness of breath at rest. Denies GODINEZ. CVS: Denies exertional chest pain, PND, orthopnea and LE edema. GI: Denies dysgeusia. Denies symptoms of stomatitis. Denies dysphagia and odynophagia. Denies reflux, n/v, change in bowel habits and abdominal pain. : Denies dysuria or gross hematuria. No symptoms of bladder outlet obstruction. Endo: Denies hot flashes. Denies polyuria and polydipsia. Denies heat and cold intolerance. Musculoskeletal: Denies bone, back, joint and muscular pain. Derm: Denies rash. Denies jaundice and diffuse pruritis. Heme: Denies unusual bleeding and unexplained bruising. Psych: Normal mood. PHYSICAL EXAM: Vitals: Blood pressure 146/75, pulse (!) 54, temperature 36.9 ?C (98.4 ?F), temperature source Oral, weight 88.7 kg (195 lb 8 oz). Well-appearing and in no acute distress. EYES: Sclerae are anicteric bilaterally. NECK: Supple. LYMPHATIC: There is no palpable cervical, supraclavicular adenopathy. RESPIRATORY: Inspiratory breath sounds are of normal intensity in all mcintyre. No rales, wheezes or rhonchi. Expiratory phase is normal. CARDIOVASCULAR: Rhythm is regular. Normal intensity S1/S2. There is no gallop or murmur. ABDOMEN: The abdomen is nondistended. No organomegaly. No tenderness. Extremities: No swelling or edema. SKIN: No jaundice or rash. No petechiae. NEUROLOGIC: ventilator specialist II-XII are grossly intact. No focal motor weakness. DTRs are symmetric and normal. MUSCULOSKELETAL: No muscle wasting. ASSESSMENT/PLAN: (C50.012, Z17.0) Malignant neoplasm of areola of left breast in female, estrogen receptor positive (HCC) (primary encounter diagnosis) Assessment: -KPS is 90%. 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 -Pathologic staging previously completed in problem list. -Oncotype Dx recurrence score 5 suggesting 10 year risk 5%. -Reviewed Oncotype results and their implication with her. -Advised AI therapy and I again discussed the rationale as well as some of the more common potential side effects. She agreed to proceed with treatment. Goal will be 5 years of treatment. Plan: -Rx for letrozole sent to her pharmacy. -Bone density test. -Check vitamin D level. -Advised her to start calcium supplement twice daily. -[employer] consultation scheduled next week. This is because of her personal h/o 3 primary malignancies. DO Nathanael Sheehan DO 12/16/2017 11:56 AM Signed BONE MINERAL DENSITY PATIENT INSTRUCTIONS Bone mineral density testing measures the amount of calcium in certain parts of your bones. This information determines how strong your bones are. The test is used to detect osteoporosis, a disease in which the bone's mineral content and density are low, increasing a person's risk of fractures. The lumbar spine (lower back) and the hip are the skeletal sites usually examined. For the test, remember that: 1. You cannot take this test if you are . 2. Eat a normal diet on the day of the test. 3. Take your medications as you normally would. 4. DO NOT take calcium supplements (such as Tums) for 24 hours before the test. 5. On the day of the test, leave valuables (jewelry or credit cards) at home. 6. The test should be performed prior to oral, rectal or IV contrast studies, or at least 7 days after any of these studies. For the test, you may be asked to wear a hospital gown. You will lie on your back, on a padded table, in a comfortable position. Generally, you can resume your usual activities immediately. Shonda Jett LPN, GOLD 12/16/2017 12:16 PM Signed Flu vaccine administered, left deltoid,tolerated well, no immediate adverse reactions noted. Shonda Jett, GOLD Influenza Vaccine Documentation: ? Patient is identified by name and date of : Yes ? Patient is older than 6 months of age: Yes ? Patient denies a severe allergy to any vaccine component or to a previous dose of influenza vaccine: Yes FOR EGG ALLERGY CONCERNS, REFER TO PROVIDER. ? Denies allergy to gelatin, formaldehyde, thimerosol :Yes ? Patient is afebrile and not moderately or severely ill: Yes ? Does the patient have a history of Guillain ?Fountain Syndrome (a severe paralytic illness): No ? Denies bone marrow transplant prior 6 months or solid organ transplant prior 3 months: Yes ? Denies a history of fainting after a prior injection or medical procedure? Yes If patient has fainted in the past, the CDC recommends sitting or lying down for 15 minutes after the vaccination. ? VIS sheet provided: Yes ? ? See Immunization Form in [facility] for details of immunizations administered today. If patient reports dizziness, vision changes or ringing in the ears post vaccination ? please have patient sit or lie down for 15 minutes. Referring Provider: NATHANAEL TREJO [[id number]] Allergies As of Date: 12/16/2017 Noted Allergy Reaction ALMOND 06/09/2006 LEVAQUIN (LEVOFLOXACIN) 11/29/2017 16 - Unknown PENICILLINS 05/10/2006 1 - Mental Status Change Comments: passed out Date Reviewed: 12/16/2017 Reviewed by: Nathanael Trejo - Fully Assessed Reason for Visit: Established Patient [[id number]] Primary Visit Diagnosis:Malignant neoplasm of areola of left breast in female, estrogen receptor positive (HCC) [C50.012, Z17.0] Other Visit Diagnoses:Vitamin D deficiency [E55.9] Encounter for screening for osteoporosis [Z13.820] Asymptomatic postmenopausal status [Z78.0] Order(s):VITAMIN D 25 HYDROXY [SQVITD] Order #: [id number] FUTURE DXA-AXIAL SKELETON [[id number]] Order #: [id number] FUTURE letrozole (FEMARA) 2.5 mg tabletTake 1 tablet by mouth once daily.Disp: 90 tabletRfl: 3 [] influenza vaccine 180 mcg (Patients 65 years and older) (PF) (FLUZONE HIGH DOSE )Disp: Rfl: Follow-up and Disposition History Recorded Prescriptions as of 12/16/2017 Sig: ASPIRIN 81 MG TABLET,DELAYED * Take 81 mg by mouth once thuy* ACETAMINOPHEN 500 MG TABLET Take 500 mg by mouth every 6 * CHOLECALCIFEROL (VITAMIN D3) * Take 1,000 Units by mouth onc* ALLOPURINOL 300 MG TABLET Take one(1) tablet daily. ATENOLOL 100 MG TABLET Take 100 mg by mouth once frankie* FOLIC ACID 400 MCG TABLET Take one(1) tablet daily. LOSARTAN 50 MG TABLET twice daily. FAMOTIDINE 20 MG TABLET Take one tablet by mouth once* DILTIAZEM SR 120 MG 24 HR CAP Take 120 mg by mouth once frankie* WARFARIN 5 MG TABLET Take 4mg by mouth once daily * HYDROCHLOROTHIAZIDE 25 MG TAB* Take 25 mg by mouth once thuy* POTASSIUM CHLORIDE ER 10 MEQ * Take 10 mEq by mouth once frankie* LETROZOLE 2.5 MG TABLET Take 1 tablet by mouth once d* Problem List As Of Date 12/16/2017 Noted Resolved MALIG NEOPLASM SIGMOID COLON [C18.7] INVALID FOR* STENOSIS (SEE ALSO STRICTURE) COLON [K56.609] INVALID FOR* UNSP ABNORMAL MAMMOGRAM [R92.8] INVALID FOR* CA IN SITU BREAST [D05.90] INVALID FOR* Rectal bleeding [K62.5] INVALID FOR* Malignant neoplasm of areola of left breast in *INVALID FOR* Endometrial adenocarcinoma (HCC) [C54.1] INVALID FOR* Other instructions from your clinician: BONE MINERAL DENSITY PATIENT INSTRUCTIONS Bone mineral density testing measures the amount of calcium in certain parts of your bones. This information determines how strong your bones are. The test is used to detect osteoporosis, a disease in which the bone's mineral content and density are low, increasing a person's risk of fractures. The lumbar spine (lower back) and the hip are the skeletal sites usually examined. For the test, remember that: 1. You cannot take this test if you are . 2. Eat a normal diet on the day of the test. 3. Take your medications as you normally would. 4. DO NOT take calcium supplements (such as Tums) for 24 hours before the test. 5. On the day of the test, leave valuables (jewelry or credit cards) at home. 6. The test should be performed prior to oral, rectal or IV contrast studies, or at least 7 days after any of these studies. For the test, you may be asked to wear a hospital gown. You will lie on your back, on a padded table, in a comfortable position. Generally, you can resume your usual activities immediately. Visit Notes: >> Billie Fifi MALCOLM TueDec 16, 2017 11:24 AM Status: Signed Est patient. Three week office visit. Discuss oncotype results. Billie Calix LPN >> Shonda Pascal) GOLD Jett TueDec 16, 2017 12:14 PM Status: Signed Flu vaccine administered, left deltoid,tolerated well, no immediate adverse reactions noted. Shonda Brenda Jett LPN Influenza Vaccine Documentation: ? Patient is identified by name and date of : Yes ? Patient is older than 6 months of age: Yes ? Patient denies a severe allergy to any vaccine component or to a previous dose of influenza vaccine: Yes FOR EGG ALLERGY CONCERNS, REFER TO PROVIDER. ? Denies allergy to gelatin, formaldehyde, thimerosol :Yes ? Patient is afebrile and not moderately or severely ill: Yes ? Does the patient have a history of Guillain ?Fountain Syndrome (a severe paralytic illness): No ? Denies bone marrow transplant prior 6 months or solid organ transplant prior 3 months: Yes ? Denies a history of fainting after a prior injection or medical procedure? Yes If patient has fainted in the past, the CDC recommends sitting or lying down for 15 minutes after the vaccination. ? VIS sheet provided: Yes ? ? See Immunization Form in [facility] for details of immunizations administered today. If patient reports dizziness, vision changes or ringing in the ears post vaccination ? please have patient sit or lie down for 15 minutes. Encounter Status:Closed by NATHANAEL TREJO DO on 12/16/17 PROGRESS Observed: 12/01/2017 Status: COMPLETED Source: [facility] 7:53 PM [facility] HNO ID: [id number] Author: Lisa Trevino Service: (none) Author Type: Physician Type: Progress Notes Filed: 12/01/2017 7:57 PM Note Text: FOLLOW UP VISIT - POST OP BREAST CANCER NAME: [facility] NO.: [id number] DATE OF SERVICE: December 01, 2017 : 1940 REFERRING PHYSICIAN: Kody Garcia MD Esperanza is a patient I am following for left sided breast cancer. The patient is a 77 year old female with a complaint of a palpable breast mass. The patient notes a mass in the 3 o'clock of her left breast just lateral to the areolar region. The patient has noticed this mass for a few months. She is noting retraction at the area of the nipple. The patient had a mammogram on August 29, 2017 which demonstrated postsurgical changes at the left upper outer relatively deep breast location and no other obvious abnormalities-listed as BI-RADS category 1. Recommend yearly follow-up. Due to the fact that the mass was present below the nipple, a left breast ultrasound was obtained on September 09, 2017 was noted was a palpable abnormality at 3:00 position and a 1 x 1.5 x 1.6, irregular area with shadowing. This was felt to likely represent postoperative changes, but due to the fact there was clinically suspicious MRI was recommended. My impression was that the area of my previous biopsy was likely considerably deeper than this area of abnormality. Bilateral breast MRI was obtained. A small lobular abnormality was noted at the 8 mm position. 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 In the left breast, there was a lobular enhancing mass measuring 2 x 2.1 by 1.6 cm which was felt to be highly suspicious for carcinoma. Biopsy was recommended. Follow up right ultrasound demonstrated a right paracolic nodule felt to be consistent with a fibroadenoma and recommended six-month follow-up. She does perform a self breast exam routinely. She notes no skin changes. She denies nipple discharge. She notes no axillary masses. She notes both her mother and a sister with a history of breast cancer. 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 She received external beam radiation to the left breast. She had a history of DVTs following surgery for colon cancer, so she did not receive hormonal therapy. The patient has had 3 pregnancies. The patient was initially referred to Dr. Drew Ortiz as the patient was under the impression that I no longer worked in [employer]. Dr. Ortiz recommended left biopsy, but informed the patient that I do still work in [employer]. The patient wished to follow-up with me, given our history of both breast and colon surgical procedures. The patient returned Tuesday for biopsy. She has held her Coumadin for 3 days. I performed both the cutaneous punch biopsy and core biopsies of the palpable mass below the nipple. 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 We extensively discussed her diagnosis and at the last visit discussed her surgical options including breast conservation surgical procedures, mastectomy without reconstruction and mastectomy with reconstruction. The patient has elected to undergo a left side mastectomy with sentinel lymph node biopsy with possible axillary dissection. The patient again had a DVT following her previous surgical procedure in 2008. She had not had a DVT symptoms. She had stopped her Coumadin following the course of treatment for her DVT now is on Coumadin for atrial fibrillation. I performed a left modified radical mastectomy with sentinel lymph node injection on November 14, 2017. The pathology demonstrated: FROZEN SECTION DIAGNOSIS A. Duncan lymph node, left, biopsy: Two out of two lymph nodes negative for metastatic carcinoma. SJ:didier 11/14/17 Case has been reviewed in consultation with Dr. Jeffery who concurs with the above diagnosis. IDC:AM MICROSCOPIC DIAGNOSIS A. Left sentinel lymph node, biopsy: Two out of two lymph nodes negative for metastatic carcinoma. B. 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 Three out of three lymph nodes, negative for metastatic carcinoma. See cancer summary below. INVASIVE BREAST CANCER SUMMARY: Specimen ? total breast (including nipple and skin). Procedure ? total mastectomy (including nipple and skin). Lymph node sampling ? sentinel lymph node and axillary dissection. Specimen integrity ? single intact specimen. Specimen laterality - left Tumor site ? nipple areolar complex Tumor size ? 2.2 x 1 x 1 cm Tumor focality ? single focus of invasive carcinoma Macroscopic and Microscopic extent of tumor: Skin ? the invasive carcinoma invades into the dermis without skin ulceration. Nipple ? 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 See comment. Skeletal muscle ? skeletal muscle is present and is free of carcinoma. 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 Extensive intraductal component (EIC) - negative Estimated size (extent) of DCIS - ductal carcinoma in situ comprise <5% of the total tumor volume. Number of blocks with DCIS - 2 Number of blocks examined ? 13 consisting of breast tissue Architectural patterns ? solid and comedo Nuclear grade ? grade 2 (intermediate) Necrosis ? present, central (expansive ?comedo? necrosis) Lobular carcinoma in situ (LCIS) ? not identified Histologic type of invasive carcinoma ? invasive ductal carcinoma (no special type) Histologic Grade (Mariano grade): Glandular/tubular differentiation - score 3 Nuclear pleomorphism - score 2 Mitotic count ? score 1 Overall grade - 2 (score of 6) Margins - Margins involved by invasive carcinoma. Invasive carcinoma is 3 cm away from the closest inferior margin and present very close to the overlying skin. Ductal carcinoma in situ/lobular carcinoma in situ is 1 cm away from the overlying skin and 3 cm away from the closest inferior margin. Treatment effect: Response to presurgical (neoadjuvant) therapy - no known presurgical therapy. Lymph-Vascular invasion ? not identified Dermal lymph-vascular invasion - not identified Lymph nodes: Number of sentinel lymph nodes examined - 2 Total number of lymph nodes examined (sentinel and nonsentinel) - 5 Number of lymph nodes with macrometastases, micrometastases and isolated tumor cells - 0 Method of evaluation of sentinel lymph nodes ? hematoxylin, H AND E, multiple levels and IHC. Distant metastasis ? not applicable Additional pathologic findings ? fibrocystic changes and focal atypical ductal hyperplasia. - dense fibrous area with focal fat necrosis, calcification and foreign body giant cell reaction, consistent with previous biopsy site (close to posterior margin). Ancillary studies - previously performed on section of tumor ([id number] / [id number]). ER ? positive (>95%, moderate) GA ? positive (80%, moderate) Her2 molly - 0 Microcalcifications ? present in ductal carcinoma in situ and non-neoplastic tissue. Clinical history ? Please make reference to previous specimen ([id number]) left breast, ultrasound-guided core biopsy with diagnosis of invasive lobular carcinoma with focal area of ductal carcinoma and left breast ulceration, nipple areolar complex with diagnosis of invasive ductal carcinoma. Please also make reference to previous specimen [id number], left breast lumpectomy with diagnosis of ductal carcinoma in situ. PATHOLOGIC STAGE: pT2 pN0 Mx The above summary is in compliance with [employer] [place] (CAP) Cancer Protocols Checklist and [place] [employer] on Cancer (AJCC), Staging Manual, 8th Ed. SJ:didier 11/18/17 COMMENT A. The lymph node is negative for metastatic carcinoma on multiple H AND E levels and immunohistochemical stains for cytokeratins ([id number]). B. 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 Resected tumor shows extensive positive staining for E-cadherin consistent with invasive ductal carcinoma. E-cadherin staining is repeated again on previous biopsy specimen and specimen A left breast core biopsy show predominantly negative staining for E-cadherin with focal positive staining. E-cadherin staining added to specimen due discrepancy in the staining and showed diffuse positive staining consistent with invasive ductal carcinoma. Case has been reviewed in consultation with Dr. Jeffery who concurs with the above diagnosis. IDC:AM MICROSCOPIC DESCRIPTION Slides are reviewed. GROSS DESCRIPTION A - Received fresh for frozen section diagnosis labeled with the patient's name is a specimen designated sentinel lymph node left. The specimen consists of a piece of adipose tissue containing two nodules consistent with lymph nodes measuring 3 x 2.5 x 0.5 cm. Two lymph nodes are identified, each measuring 1 cm in greatest dimension. Both lymph nodes are bisected and entire specimen is submitted for frozen section diagnosis in two cassettes as follows: 1 ? one bisected lymph node, 2 - one bisected lymph node. / SJ:rg 11/15/17 B - Received in fixative is one container labeled with the patient's name and designated left breast. The specimen consists of a modified radical mastectomy specimen consisting of breast tissue, overlying skin ellipse and axillary tail. The breast tissue measures 21 x 20 x 8 cm and the overlying skin ellipse measures 21 x 10 cm and the axillary tail measures 9 x 9 x 4 cm. The nipple measures 1 cm in greatest dimension. The nipple areolar complex shows induration. The specimen is inked as follows: superior margin ? blue, inferior margin ? black, medial margin ? red, lateral margin ? orange and posterior margin ? black. Serial sections reveal a covington, indurated mass in the area of nipple areolar complex and measures 2.2 x 1 x 1 cm. The tumor extends up to the overlying skin. No obvious ulceration is noted. A scar is also noted adjacent to the nipple. This tumor is 3 cm away from the closest inferior margin. An indurated area is also noted in the central portion of the breast tissue close to the posterior margin measuring 3.5 x 2.5 x 1.5 cm. Sections of the rest of the breast tissue reveal covington-yellow adipose cut surfaces mixed with covington-white fibrous areas. Sections of the axillary tail reveal multiple lymph nodes. The largest lymph node measures 3.5 cm in greatest dimension. Sections of the lymph node reveal fatty cut surfaces. Type Caster sections are submitted in 20 cassettes as follows: 1 ? nipple, entirely submitted, 2-4 ? tumor with overlying skin in the area of nipple areolar complex, entirely submitted, 5-9 ? indurated area with adjacent closest posterior margin, 10 ? perpendicular medial, lateral, superior and inferior margins, 11-13 ? claim service representative sections from the other areas, 14-20 ? axillary lymph nodes, entirely submitted (14 ? one possible bisected lymph node, 15 ? one possible lymph node, 16 - one bisected lymph node, 17-20 ? the largest lymph node). / RICHIE:rg 11/15/17 TC:0 CPT: 94363, 32877, 15708, 60410 Esperanza notes no significant pain, but does note discomfort from the Mikel-Terry drains. Post operative pain has been moderately well controlled. The patient denies nausea. The patient`s appetite has been good. The axillary Mikel terry drain output has been decreasing and is currently one half ounce for 24 hours. Her INR last visit was 2.1. She stopped the Lovenox and has been continuing her Coumadin. The patient was seen by Dr. Nathanael Trejo 2 days previously. She will be obtaining a genetics, tell a consultation. Given concern for her offspring's risk of breast cancer. This was recommended . Given her history of 3 different primary malignancies-colorectal, endometrial, and breast. She also will be obtaining oncocyte DX testing to decide if even given her T2 breast cancer that she would be at low risk of recurrence and given her age, avoid adjuvant chemotherapy VITALS: Blood pressure 138/90, pulse 60, weight 88.9 kg (196 lb). On examination, the left skin incision is clean, dry, and intact. There is significant bruising along the superior lateral aspect of the incision with bruising, actually extending to the right breast. The axillary portion of the incision is clean, dry and intact. The axillary Mikel Terry drain was removed. he patient's range of motion with her arm is very good. The remaining li were removed Assessment IMPRESSION: Status Post modified radical mastectomy with sentinel lymph node injection for left invasive breast cancer. PLAN: Esperanza may return to regular activities as tolerated with the exception of no heavy lifting. .she should continue her arm range of motion exercises. The patient may now drive as long as she is no longer taking narcotic pain medication. If she notes any difficulties, she should contact me immediately. I plan to refer her for evaluation by oncology. Diagnoses: (C50.012) Malignant neoplasm involving both nipple and areola of left breast in female, unspecified estrogen receptor status (HCC) (primary encounter diagnosis) (Z86.718) History of DVT (deep vein thrombosis) Return to Clinic: The patient is instructed to follow- up with me in 1 month to assure proper wound healing Lisa Trevino MD CNOV Observed: 12/01/2017 Status: COMPLETED Source: [facility]VANCE 10:30 AM [facility] REPOSIT[facility] Office Visit (GENSWS) ESPERANZA LUCERO ([id number]) 1940 F Date Time Provider Department 12/01/17 10:30 AM LISA TREVINO During your visit today, we recorded the following information about you: Pulse Blood pressure Weight 60/minute 138/90 88.9 kg Lisa Trevino MD 12/01/2017 7:57 PM Signed FOLLOW UP VISIT - POST OP BREAST CANCER NAME: Esperanza Lucero [facility] NO.: [id number] DATE OF SERVICE: December 01, 2017 : 1940 REFERRING PHYSICIAN: Kody Garcia MD Esperanza is a patient I am following for left sided breast cancer. The patient is a 77 year old female with a complaint of a palpable breast mass. The patient notes a mass in the 3 o'clock of her left breast just lateral to the areolar region. The patient has noticed this mass for a few months. She is noting retraction at the area of the nipple. The patient had a mammogram on August 29, 2017 which demonstrated postsurgical changes at the left upper outer relatively deep breast location and no other obvious abnormalities- listed as BI-RADS category 1. Recommend yearly follow-up. Due to the fact that the mass was present below the nipple, a left breast ultrasound was obtained on September 09, 2017 was noted was a palpable abnormality at 3:00 position and a 1 x 1.5 x 1.6, irregular area with shadowing. This was felt to likely represent postoperative changes, but due to the fact there was clinically suspicious MRI was recommended. My impression was that the area of my previous biopsy was likely considerably deeper than this area of abnormality. Bilateral breast MRI was obtained. A small lobular abnormality was noted at the 8 mm position. 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 In the left breast, there was a lobular enhancing mass measuring 2 x 2.1 by 1.6 cm which was felt to be highly suspicious for carcinoma. Biopsy was recommended. Follow up right ultrasound demonstrated a right paracolic nodule felt to be consistent with a fibroadenoma and recommended six-month follow-up. She does perform a self breast exam routinely. She notes no skin changes. She denies nipple discharge. She notes no axillary masses. She notes both her mother and a sister with a history of breast cancer. 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 She received external beam radiation to the left breast. She had a history of DVTs following surgery for colon cancer, so she did not receive hormonal therapy. The patient has had 3 pregnancies. The patient was initially referred to Dr. Drew Ortiz as the patient was under the impression that I no longer worked in [employer]. Dr. Ortiz recommended left biopsy, but informed the patient that I do still work in [employer]. The patient wished to follow-up with me, given our history of both breast and colon surgical procedures. The patient returned Tuesday for biopsy. She has held her Coumadin for 3 days. I performed both the cutaneous punch biopsy and core biopsies of the palpable mass below the nipple. 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 We extensively discussed her diagnosis and at the last visit discussed her surgical options including breast conservation surgical procedures, mastectomy without reconstruction and mastectomy with reconstruction. The patient has elected to undergo a left side mastectomy with sentinel lymph node biopsy with possible axillary dissection. The patient again had a DVT following her previous surgical procedure in 2008. She had not had a DVT symptoms. She had stopped her Coumadin following the course of treatment for her DVT now is on Coumadin for atrial fibrillation. I performed a left modified radical mastectomy with sentinel lymph node injection on November 14, 2017. The pathology demonstrated: FROZEN SECTION DIAGNOSIS A. Duncan lymph node, left, biopsy: Two out of two lymph nodes negative for metastatic carcinoma. SJ:didier 11/14/17 Case has been reviewed in consultation with Dr. Jeffery who concurs with the above diagnosis. IDC:AM MICROSCOPIC DIAGNOSIS A. Left sentinel lymph node, biopsy: Two out of two lymph nodes negative for metastatic carcinoma. B. 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 Three out of three lymph nodes, negative for metastatic carcinoma. See cancer summary below. INVASIVE BREAST CANCER SUMMARY: Specimen ? total breast (including nipple and skin). Procedure ? total mastectomy (including nipple and skin). Lymph node sampling ? sentinel lymph node and axillary dissection. Specimen integrity ? single intact specimen. Specimen laterality - left Tumor site ? nipple areolar complex Tumor size ? 2.2 x 1 x 1 cm Tumor focality ? single focus of invasive carcinoma Macroscopic and Microscopic extent of tumor: Skin ? the invasive carcinoma invades into the dermis without skin ulceration. Nipple ? 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 See comment. Skeletal muscle ? skeletal muscle is present and is free of carcinoma. 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 Extensive intraductal component (EIC) - negative Estimated size (extent) of DCIS - ductal carcinoma in situ comprise <5% of the total tumor volume. Number of blocks with DCIS - 2 Number of blocks examined ? 13 consisting of breast tissue Architectural patterns ? solid and comedo Nuclear grade ? grade 2 (intermediate) Necrosis ? present, central (expansive ?comedo? necrosis) Lobular carcinoma in situ (LCIS) ? not identified Histologic type of invasive carcinoma ? invasive ductal carcinoma (no special type) Histologic Grade (Mariano grade): Glandular/tubular differentiation - score 3 Nuclear pleomorphism - score 2 Mitotic count ? score 1 Overall grade - 2 (score of 6) Margins - Margins involved by invasive carcinoma. Invasive carcinoma is 3 cm away from the closest inferior margin and present very close to the overlying skin. Ductal carcinoma in situ/lobular carcinoma in situ is 1 cm away from the overlying skin and 3 cm away from the closest inferior margin. Treatment effect: Response to presurgical (neoadjuvant) therapy - no known presurgical therapy. Lymph-Vascular invasion ? not identified Dermal lymph-vascular invasion - not identified Lymph nodes: Number of sentinel lymph nodes examined - 2 Total number of lymph nodes examined (sentinel and nonsentinel) - 5 Number of lymph nodes with macrometastases, micrometastases and isolated tumor cells - 0 Method of evaluation of sentinel lymph nodes ? hematoxylin, H AND E, multiple levels and IHC. Distant metastasis ? not applicable Additional pathologic findings ? fibrocystic changes and focal atypical ductal hyperplasia. - dense fibrous area with focal fat necrosis, calcification and foreign body giant cell reaction, consistent with previous biopsy site (close to posterior margin). Ancillary studies - previously performed on section of tumor ([id number] / [id number]). ER ? positive (>95%, moderate) GA ? positive (80%, moderate) Her2 molly - 0 Microcalcifications ? present in ductal carcinoma in situ and non-neoplastic tissue. Clinical history ? Please make reference to previous specimen ([id number]) left breast, ultrasound-guided core biopsy with diagnosis of invasive lobular carcinoma with focal area of ductal carcinoma and left breast ulceration, nipple areolar complex with diagnosis of invasive ductal carcinoma. Please also make reference to previous specimen [id number], left breast lumpectomy with diagnosis of ductal carcinoma in situ. PATHOLOGIC STAGE: pT2 pN0 Mx The above summary is in compliance with [employer] [place] [employer] (CAP) Cancer Protocols Checklist and [place] [employer] on Cancer (AJCC), Staging Manual, 8th Ed. SJ:didier 11/18/17 COMMENT A. The lymph node is negative for metastatic carcinoma on multiple H AND E levels and immunohistochemical stains for cytokeratins ([id number]). B. 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 Resected tumor shows extensive positive staining for E-cadherin consistent with invasive ductal carcinoma. E-cadherin staining is repeated again on previous biopsy specimen and specimen A left breast core biopsy show predominantly negative staining for E-cadherin with focal positive staining. E-cadherin staining added to specimen due discrepancy in the staining and showed diffuse positive staining consistent with invasive ductal carcinoma. Case has been reviewed in consultation with Dr. Jeffery who concurs with the above diagnosis. IDC:AM MICROSCOPIC DESCRIPTION Slides are reviewed. GROSS DESCRIPTION A - Received fresh for frozen section diagnosis labeled with the patient's name is a specimen designated sentinel lymph node left. The specimen consists of a piece of adipose tissue containing two nodules consistent with lymph nodes measuring 3 x 2.5 x 0.5 cm. Two lymph nodes are identified, each measuring 1 cm in greatest dimension. Both lymph nodes are bisected and entire specimen is submitted for frozen section diagnosis in two cassettes as follows: 1 ? one bisected lymph node, 2 - one bisected lymph node. / SJ:rg 11/15/17 B - Received in fixative is one container labeled with the patient's name and designated left breast. The specimen consists of a modified radical mastectomy specimen consisting of breast tissue, overlying skin ellipse and axillary tail. The breast tissue measures 21 x 20 x 8 cm and the overlying skin ellipse measures 21 x 10 cm and the axillary tail measures 9 x 9 x 4 cm. The nipple measures 1 cm in greatest dimension. The nipple areolar complex shows induration. The specimen is inked as follows: superior margin ? blue, inferior margin ? black, medial margin ? red, lateral margin ? orange and posterior margin ? black. Serial sections reveal a covington, indurated mass in the area of nipple areolar complex and measures 2.2 x 1 x 1 cm. The tumor extends up to the overlying skin. No obvious ulceration is noted. A scar is also noted adjacent to the nipple. This tumor is 3 cm away from the closest inferior margin. An indurated area is also noted in the central portion of the breast tissue close to the posterior margin measuring 3.5 x 2.5 x 1.5 cm. Sections of the rest of the breast tissue reveal covington-yellow adipose cut surfaces mixed with covington-white fibrous areas. Sections of the axillary tail reveal multiple lymph nodes. The largest lymph node measures 3.5 cm in greatest dimension. Sections of the lymph node reveal fatty cut surfaces. Type Caster sections are submitted in 20 cassettes as follows: 1 ? nipple, entirely submitted, 2-4 ? tumor with overlying skin in the area of nipple areolar complex, entirely submitted, 5-9 ? indurated area with adjacent closest posterior margin, 10 ? perpendicular medial, lateral, superior and inferior margins, 11-13 ? claim service representative sections from the other areas, 14-20 ? axillary lymph nodes, entirely submitted (14 ? one possible bisected lymph node, 15 ? one possible lymph node, 16 - one bisected lymph node, 17- 20 ? the largest lymph node). / SJ:rg 11/15/17 TC:0 CPT: 17872, 58760, 16399, 53707 Esperanza notes no significant pain, but does note discomfort from the Mikel-Terry drains. Post operative pain has been moderately well controlled. The patient denies nausea. The patient`s appetite has been good. The axillary Mikel terry drain output has been decreasing and is currently one half ounce for 24 hours. Her INR last visit was 2.1. She stopped the Lovenox and has been continuing her Coumadin. The patient was seen by Dr. Nathanael Trejo 2 days previously. She will be obtaining a genetics, tell a consultation. Given concern for her offspring's risk of breast cancer. This was recommended . Given her history of 3 different primary malignancies-colorectal, endometrial, and breast. She also will be obtaining oncocyte DX testing to decide if even given her T2 breast cancer that she would be at low risk of recurrence and given her age, avoid adjuvant chemotherapy VITALS: Blood pressure 138/90, pulse 60, weight 88.9 kg (196 lb). On examination, the left skin incision is clean, dry, and intact. There is significant bruising along the superior lateral aspect of the incision with bruising, actually extending to the right breast. The axillary portion of the incision is clean, dry and intact. The axillary Mikel Terry drain was removed. he patient's range of motion with her arm is very good. The remaining li were removed Assessment IMPRESSION: Status Post modified radical mastectomy with sentinel lymph node injection for left invasive breast cancer. PLAN: Esperanza may return to regular activities as tolerated with the exception of no heavy lifting. .she should continue her arm range of motion exercises. The patient may now drive as long as she is no longer taking narcotic pain medication. If she notes any difficulties, she should contact me immediately. I plan to refer her for evaluation by oncology. Diagnoses: (C50.012) Malignant neoplasm involving both nipple and areola of left breast in female, unspecified estrogen receptor status (HCC) (primary encounter diagnosis) (Z86.718) History of DVT (deep vein thrombosis) Return to Clinic: The patient is instructed to follow- up with me in 1 month to assure proper wound healing Lisa Trevino MD Referring Provider: SELF [[id number]] Allergies As of Date: 12/01/2017 Noted Allergy Reaction ALMOND 06/09/2006 LEVAQUIN (LEVOFLOXACIN) 11/29/2017 16 - Unknown PENICILLINS 05/10/2006 1 - Mental Status Change Comments: passed out Date Reviewed: 12/01/2017 Reviewed by: Lisa Trevino - Fully Assessed Reason for Visit: Post Op [174] Cmt: mastectomy Primary Visit Diagnosis:Malignant neoplasm involving both nipple and areola of left breast in female, unspecified estrogen receptor status (HCC) [C50.012] Other Visit Diagnosis:History of DVT (deep vein thrombosis) [Z86.718] Prescriptions as of 12/01/2017 Sig: ASPIRIN 81 MG TABLET,DELAYED * Take 81 mg by mouth once thuy* ACETAMINOPHEN 500 MG TABLET Take 500 mg by mouth every 6 * CHOLECALCIFEROL (VITAMIN D3) * Take 1,000 Units by mouth onc* ALLOPURINOL 300 MG TABLET Take one(1) tablet daily. ATENOLOL 100 MG TABLET Take 100 mg by mouth once frankie* FOLIC ACID 400 MCG TABLET Take one(1) tablet daily. LOSARTAN 50 MG TABLET twice daily. FAMOTIDINE 20 MG TABLET Take one tablet by mouth once* DILTIAZEM SR 120 MG 24 HR CAP Take 120 mg by mouth once frankie* WARFARIN 5 MG TABLET Take 4mg by mouth once daily * HYDROCHLOROTHIAZIDE 25 MG TAB* Take 25 mg by mouth once thuy* POTASSIUM CHLORIDE ER 10 MEQ * Take 10 mEq by mouth once frankie* * NAPROXEN SODIUM 220 MG TABLET Take 220 mg by mouth twice da* * K-DUR 10 MEQ TABLET,EXTENDED * take 2 tabs in am and 1 tab i* * ATENOLOL 100 MG-CHLORTHALIDON* 1 tablet daily * PRILOSEC 20 MG CAPSULE,DELAYE* Take one(1) capsule daily. Problem List As Of Date 12/01/2017 Noted Resolved MALIG NEOPLASM SIGMOID COLON [C18.7] INVALID FOR* STENOSIS (SEE ALSO STRICTURE) COLON [K56.609] INVALID FOR* UNSP ABNORMAL MAMMOGRAM [R92.8] INVALID FOR* CA IN SITU BREAST [D05.90] INVALID FOR* Rectal bleeding [K62.5] INVALID FOR* Malignant neoplasm of areola of left breast in *INVALID FOR* Endometrial adenocarcinoma (HCC) [C54.1] INVALID FOR* Letter Text Encounter Status:Closed by LISA TREVINO MD on 12/01/17 PROGRESS Observed: 11/29/2017 Status: COMPLETED Source: ADVANCE 3:23 PM [facility] RE[facility] HNO ID: [id number] Author: Nathanael Trejo Service: (none) Author Type: Physician Type: Progress Notes Filed: 11/30/2017 8:39 AM Note Text: Consult requested by Dr. Trevino for my opinion recommendations for adjuvant therapy regarding a patient recently diagnosed with early stage breast cancer. The impression and plan will be communicated by way of the shared electronic record. HPI: He is a 77-year-old female with a past medical history significant for colon cancer, endometrial cancer, DCIS, coronary artery disease, hypertension, liver disease and gout. 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 She had low anterior resection on 05/12/2006 followed by 5-FU/leucovorin x16 treatments completed 12/21/2006. 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 Specimen was ER/GA negative. Completed XRT on 01/07/2009. 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 Recently developed some itchiness in the left areola with palpable lump. Underwent core needle biopsy on 10/18/2017 Pathology: MICROSCOPIC DIAGNOSIS A. Left breast, ultrasound-guided core biopsy: Invasive lobular carcinoma, nuclear grade 2 (0.6 cm in length). See comment. B. Left breast ulceration nipple areolar complex, punch biopsy: Invasive lobular carcinoma with focal ulceration, (0.6 cm in length). ER (clone 6F11) >95%, moderate GA (clone 16/1E2) 80%, moderate Her-2Neu (clone CB11) 0 Then had a left modified radical mastectomy along with sentinel lymph node sampling procedure on 11/14/2017 Pathology: FROZEN SECTION DIAGNOSIS A. Duncan lymph node, left, biopsy: Two out of two lymph nodes negative for metastatic carcinoma. SJ:didier 11/14/17 Case has been reviewed in consultation with Dr. Jeffery who concurs with the above diagnosis. IDC:AM MICROSCOPIC DIAGNOSIS A. Left sentinel lymph node, biopsy: Two out of two lymph nodes negative for metastatic carcinoma. B. 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 Three out of three lymph nodes, negative for metastatic carcinoma. See cancer summary below. INVASIVE BREAST CANCER SUMMARY: Specimen ? total breast (including nipple and skin). Procedure ? total mastectomy (including nipple and skin). Lymph node sampling ? sentinel lymph node and axillary dissection. Specimen integrity ? single intact specimen. Specimen laterality - left Tumor site ? nipple areolar complex Tumor size ? 2.2 x 1 x 1 cm Tumor focality ? single focus of invasive carcinoma Macroscopic and Microscopic extent of tumor: Skin ? the invasive carcinoma invades into the dermis without skin ulceration. Nipple ? 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 See comment. Skeletal muscle ? skeletal muscle is present and is free of carcinoma. 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 Extensive intraductal component (EIC) - negative Estimated size (extent) of DCIS - ductal carcinoma in situ comprise <5% of the total tumor volume. Number of blocks with DCIS - 2 Number of blocks examined ? 13 consisting of breast tissue Architectural patterns ? solid and comedo Nuclear grade ? grade 2 (intermediate) Necrosis ? present, central (expansive ?comedo? necrosis) Lobular carcinoma in situ (LCIS) ? not identified Histologic type of invasive carcinoma ? invasive ductal carcinoma (no special type) Histologic Grade ([place] grade): Glandular/tubular differentiation - score 3 Nuclear pleomorphism - score 2 Mitotic count ? score 1 Overall grade - 2 (score of 6) Margins - Margins involved by invasive carcinoma. Invasive carcinoma is 3 cm away from the closest inferior margin and present very close to the overlying skin. Ductal carcinoma in situ/lobular carcinoma in situ is 1 cm away from the overlying skin and 3 cm away from the closest inferior margin. Treatment effect: Response to presurgical (neoadjuvant) therapy - no known presurgical therapy. Lymph-Vascular invasion ? not identified Dermal lymph-vascular invasion - not identified Lymph nodes: Number of sentinel lymph nodes examined - 2 Total number of lymph nodes examined (sentinel and nonsentinel) - 5 Number of lymph nodes with macrometastases, micrometastases and isolated tumor cells - 0 Method of evaluation of sentinel lymph nodes ? hematoxylin, H AND E, multiple levels and IHC. Distant metastasis ? not applicable Additional pathologic findings ? fibrocystic changes and focal atypical ductal hyperplasia. - dense fibrous area with focal fat necrosis, calcification and foreign body giant cell reaction, consistent with previous biopsy site (close to posterior margin). Ancillary studies - previously performed on section of tumor ([id number] / [id number]). ER ? positive (>95%, moderate) GA ? positive (80%, moderate) Her2 molly - 0 Microcalcifications ? present in ductal carcinoma in situ and non-neoplastic tissue. Clinical history ? Please make reference to previous specimen ([id number]) left breast, ultrasound-guided core biopsy with diagnosis of invasive lobular carcinoma with focal area of ductal carcinoma and left breast ulceration, nipple areolar complex with diagnosis of invasive ductal carcinoma. Please also make reference to previous specimen [id number], left breast lumpectomy with diagnosis of ductal carcinoma in situ. She is recovering very well from surgery. No significant pain. PMH, medications and allergies personally reviewed by me today. Any changes documented in appropriate section. ROS: Constitutional: Denies episodes of fever and night sweats. Not significantly fatigued. Normal appetite. Neuro: Denies HUFFMAN, vertigo, dizziness and imbalance. Denies symptoms of neuropathy. HEENT: No recent change in voice, vision or hearing. Resp: Denies cough, wheeze and hemoptysis. Denies shortness of breath at rest. Denies GODINEZ. CVS: Denies exertional chest pain, PND, orthopnea and LE edema. GI: Denies dysgeusia. Denies symptoms of stomatitis. Denies dysphagia and odynophagia. Denies reflux, n/v, change in bowel habits and abdominal pain. : Denies dysuria or gross hematuria. No symptoms of bladder outlet obstruction. Endo: Denies hot flashes. Denies polyuria and polydipsia. Denies heat and cold intolerance. Musculoskeletal: Denies bone, back, joint and muscular pain. Derm: Denies rash. Denies jaundice and diffuse pruritis. Heme: Denies unusual bleeding and unexplained bruising. Psych: Normal mood. PHYSICAL EXAM: Vitals: Blood pressure 158/77, pulse (!) 59, temperature 37.1 ?C (98.7 ?F), temperature source Oral, height 149.9 cm (4' 11), weight 89.4 kg (197 lb). Well-appearing and in no acute distress. EYES: Sclerae are anicteric bilaterally. NECK: Supple. No enlargement of thyroid. LYMPHATIC: There is no palpable cervical, supraclavicular, axillary or inguinal adenopathy. RESPIRATORY: Inspiratory breath sounds are of normal intensity in all mcintyre. No rales, wheezes or rhonchi. Expiratory phase is normal. CARDIOVASCULAR: Rhythm is regular. Normal intensity S1/S2. There is no gallop or murmur. BREAST: Left mastectomy site is healing well. There are some staple still in position. No sign of infection. ABDOMEN: The abdomen is nondistended. No organomegaly. No tenderness. Extremities: No swelling or edema. SKIN: No jaundice or rash. No petechiae. NEUROLOGIC: ventilator specialist II-XII are grossly intact. No focal motor weakness. DTRs are symmetric and normal. MUSCULOSKELETAL: No muscle wasting. ASSESSMENT/PLAN: (C50.012, Z17.0) Malignant neoplasm of areola of left breast in female, estrogen receptor positive (HCC) (primary encounter diagnosis) Assessment: -KPS is 90%. 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 -Pathologic staging completed in problem list. -I had a detailed discussion with patient regarding the adjuvant treatment modalities of breast cancer. I first discussed the need for aromatase inhibitor therapy including the rationale, potential side effects and duration of therapy. Explained to her that when the time comes to begin aromatase inhibitor therapy, will up date DEXA if indicated and determine vitamin D level. -I spent the bulk of time discussing the decision for adjuvant chemotherapy based on traditional clinical and pathologic variables and further explained molecular testing and its role in aiding the decision regarding adjuvant chemotherapy. Given her age and clinicopathologic variables, very unlikely chemotherapy would add significantly to overall survival and she is not inclined to undergo chemotherapy but she said she would really like to have a more accurate predictor of her prognosis over time and is interested in molecular profiling for same. Therefore, I explained to her it would be reasonable to obtain an Oncotype DX test with the understanding that there is a chance she may return as high risk disease and in that situation we would further discuss the pros and cons of adjuvant chemotherapy. -I also recommended genetic testing based on her history of three primary malignancies including colorectal, endometrial and breast cancer. Given later age of onset of these malignancies it may be unlikely that she has a hereditary cancer gene, but I think is worth having her seen genetic counseling further opinion. Plan: -Oncotype Dx testing. -Telegentics consultation. -OV in about 2-3 weeks to review and develop plan of care. Total dnbb-bi-nnog time was >45 minutes with greater than 30 minutes spent discussing the issues outlined above and/or coordinating care. Nathanael Trejo DO CNOVSP Observed: 11/29/2017 Status: COMPLETED Source: ADVANCE 3:00 PM [facility] REPOSITORY Visit (SP) Office ([facility]) ESPERANZA LUCERO ([id number]) 1940 F Date Time Provider Department 11/29/17 3:00 PM NATHANAEL TREJO During your visit today, we recorded the following information about you: Temperature Pulse Blood pressure Weight 98.7 degrees 59/minute 158/77 89.4 kg Height 1.499 m Nathanael Trejo DO 11/30/2017 8:39 AM Signed Consult requested by Dr. Trevino for my opinion recommendations for adjuvant therapy regarding a patient recently diagnosed with early stage breast cancer. The impression and plan will be communicated by way of the shared electronic record. HPI: He is a 77-year-old female with a past medical history significant for colon cancer, endometrial cancer, DCIS, coronary artery disease, hypertension, liver disease and gout. 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 She had low anterior resection on 05/12/2006 followed by 5-FU/leucovorin x16 treatments completed 12/21/2006. 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 Specimen was ER/GA negative. Completed XRT on 01/07/2009. 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 Recently developed some itchiness in the left areola with palpable lump. Underwent core needle biopsy on 10/18/2017 Pathology: MICROSCOPIC DIAGNOSIS A. Left breast, ultrasound-guided core biopsy: Invasive lobular carcinoma, nuclear grade 2 (0.6 cm in length). See comment. B. Left breast ulceration nipple areolar complex, punch biopsy: Invasive lobular carcinoma with focal ulceration, (0.6 cm in length). ER (clone 6F11) >95%, moderate GA (clone 16/1E2) 80%, moderate Her-2Neu (clone CB11) 0 Then had a left modified radical mastectomy along with sentinel lymph node sampling procedure on 11/14/2017 Pathology: FROZEN SECTION DIAGNOSIS A. Duncan lymph node, left, biopsy: Two out of two lymph nodes negative for metastatic carcinoma. SJ:didier 11/14/17 Case has been reviewed in consultation with Dr. Jeffery who concurs with the above diagnosis. IDC:AM MICROSCOPIC DIAGNOSIS A. Left sentinel lymph node, biopsy: Two out of two lymph nodes negative for metastatic carcinoma. B. 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 Three out of three lymph nodes, negative for metastatic carcinoma. See cancer summary below. INVASIVE BREAST CANCER SUMMARY: Specimen ? total breast (including nipple and skin). Procedure ? total mastectomy (including nipple and skin). Lymph node sampling ? sentinel lymph node and axillary dissection. Specimen integrity ? single intact specimen. Specimen laterality - left Tumor site ? nipple areolar complex Tumor size ? 2.2 x 1 x 1 cm Tumor focality ? single focus of invasive carcinoma Macroscopic and Microscopic extent of tumor: Skin ? the invasive carcinoma invades into the dermis without skin ulceration. Nipple ? 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 See comment. Skeletal muscle ? skeletal muscle is present and is free of carcinoma. 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 Extensive intraductal component (EIC) - negative Estimated size (extent) of DCIS - ductal carcinoma in situ comprise <5% of the total tumor volume. Number of blocks with DCIS - 2 Number of blocks examined ? 13 consisting of breast tissue Architectural patterns ? solid and comedo Nuclear grade ? grade 2 (intermediate) Necrosis ? present, central (expansive ?comedo? necrosis) Lobular carcinoma in situ (LCIS) ? not identified Histologic type of invasive carcinoma ? invasive ductal carcinoma (no special type) Histologic Grade ([place] grade): Glandular/tubular differentiation - score 3 Nuclear pleomorphism - score 2 Mitotic count ? score 1 Overall grade - 2 (score of 6) Margins - Margins involved by invasive carcinoma. Invasive carcinoma is 3 cm away from the closest inferior margin and present very close to the overlying skin. Ductal carcinoma in situ/lobular carcinoma in situ is 1 cm away from the overlying skin and 3 cm away from the closest inferior margin. Treatment effect: Response to presurgical (neoadjuvant) therapy - no known presurgical therapy. Lymph-Vascular invasion ? not identified Dermal lymph-vascular invasion - not identified Lymph nodes: Number of sentinel lymph nodes examined - 2 Total number of lymph nodes examined (sentinel and nonsentinel) - 5 Number of lymph nodes with macrometastases, micrometastases and isolated tumor cells - 0 Method of evaluation of sentinel lymph nodes ? hematoxylin, H AND E, multiple levels and IHC. Distant metastasis ? not applicable Additional pathologic findings ? fibrocystic changes and focal atypical ductal hyperplasia. - dense fibrous area with focal fat necrosis, calcification and foreign body giant cell reaction, consistent with previous biopsy site (close to posterior margin). Ancillary studies - previously performed on section of tumor ([id number] / [id number]). ER ? positive (>95%, moderate) GA ? positive (80%, moderate) Her2 molly - 0 Microcalcifications ? present in ductal carcinoma in situ and non-neoplastic tissue. Clinical history ? Please make reference to previous specimen ([id number]) left breast, ultrasound-guided core biopsy with diagnosis of invasive lobular carcinoma with focal area of ductal carcinoma and left breast ulceration, nipple areolar complex with diagnosis of invasive ductal carcinoma. Please also make reference to previous specimen [id number], left breast lumpectomy with diagnosis of ductal carcinoma in situ. She is recovering very well from surgery. No significant pain. PMH, medications and allergies personally reviewed by me today. Any changes documented in appropriate section. ROS: Constitutional: Denies episodes of fever and night sweats. Not significantly fatigued. Normal appetite. Neuro: Denies HUFFMAN, vertigo, dizziness and imbalance. Denies symptoms of neuropathy. HEENT: No recent change in voice, vision or hearing. Resp: Denies cough, wheeze and hemoptysis. Denies shortness of breath at rest. Denies GODINEZ. CVS: Denies exertional chest pain, PND, orthopnea and LE edema. GI: Denies dysgeusia. Denies symptoms of stomatitis. Denies dysphagia and odynophagia. Denies reflux, n/v, change in bowel habits and abdominal pain. : Denies dysuria or gross hematuria. No symptoms of bladder outlet obstruction. Endo: Denies hot flashes. Denies polyuria and polydipsia. Denies heat and cold intolerance. Musculoskeletal: Denies bone, back, joint and muscular pain. Derm: Denies rash. Denies jaundice and diffuse pruritis. Heme: Denies unusual bleeding and unexplained bruising. Psych: Normal mood. PHYSICAL EXAM: Vitals: Blood pressure 158/77, pulse (!) 59, temperature 37.1 ?C (98.7 ?F), temperature source Oral, height 149.9 cm (4' 11), weight 89.4 kg (197 lb). Well-appearing and in no acute distress. EYES: Sclerae are anicteric bilaterally. NECK: Supple. No enlargement of thyroid. LYMPHATIC: There is no palpable cervical, supraclavicular, axillary or inguinal adenopathy. RESPIRATORY: Inspiratory breath sounds are of normal intensity in all mcintyre. No rales, wheezes or rhonchi. Expiratory phase is normal. CARDIOVASCULAR: Rhythm is regular. Normal intensity S1/S2. There is no gallop or murmur. BREAST: Left mastectomy site is healing well. There are some staple still in position. No sign of infection. ABDOMEN: The abdomen is nondistended. No organomegaly. No tenderness. Extremities: No swelling or edema. SKIN: No jaundice or rash. No petechiae. NEUROLOGIC: ventilator specialist II-XII are grossly intact. No focal motor weakness. DTRs are symmetric and normal. MUSCULOSKELETAL: No muscle wasting. ASSESSMENT/PLAN: (C50.012, Z17.0) Malignant neoplasm of areola of left breast in female, estrogen receptor positive (HCC) (primary encounter diagnosis) Assessment: -KPS is 90%. 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 -Pathologic staging completed in problem list. -I had a detailed discussion with patient regarding the adjuvant treatment modalities of breast cancer. I first discussed the need for aromatase inhibitor therapy including the rationale, potential side effects and duration of therapy. Explained to her that when the time comes to begin aromatase inhibitor therapy, will up date DEXA if indicated and determine vitamin D level. -I spent the bulk of time discussing the decision for adjuvant chemotherapy based on traditional clinical and pathologic variables and further explained molecular testing and its role in aiding the decision regarding adjuvant chemotherapy. Given her age and clinicopathologic variables, very unlikely chemotherapy would add significantly to overall survival and she is not inclined to undergo chemotherapy but she said she would really like to have a more accurate predictor of her prognosis over time and is interested in molecular profiling for same. Therefore, I explained to her it would be reasonable to obtain an Oncotype DX test with the understanding that there is a chance she may return as high risk disease and in that situation we would further discuss the pros and cons of adjuvant chemotherapy. -I also recommended genetic testing based on her history of three primary malignancies including colorectal, endometrial and breast cancer. Given later age of onset of these malignancies it may be unlikely that she has a hereditary cancer gene, but I think is worth having her seen genetic counseling further opinion. Plan: -Oncotype Dx testing. -Telegentics consultation. -OV in about 2-3 weeks to review and develop plan of care. Total okmk-np-txog time was >45 minutes with greater than 30 minutes spent discussing the issues outlined above and/or coordinating care. Nathanael Trejo DO Referring Provider: LISA TREVINO [[id number]] Allergies As of Date: 11/29/2017 Noted Allergy Reaction ALMOND 06/09/2006 LEVAQUIN (LEVOFLOXACIN) 11/29/2017 16 - Unknown PENICILLINS 05/10/2006 1 - Mental Status Change Comments: passed out Date Reviewed: 11/29/2017 Reviewed by: Apryl Anderson - Fully Assessed Reason for Visit: New Patient Evaluation [154] Primary Visit Diagnosis:Malignant neoplasm of areola of left breast in female, estrogen receptor positive (HCC) [C50.012, Z17.0] Other Visit Diagnoses:Malignant neoplasm of sigmoid colon (HCC) [C18.7] Endometrial adenocarcinoma (HCC) [C54.1] Order(s):CONSULT TO GENETIC COUNSELING [[id number]] Order #: [id number]: 1 Follow-up and Disposition History Recorded Prescriptions as of 11/29/2017 Sig: ASPIRIN 81 MG TABLET,DELAYED * Take 81 mg by mouth once thuy* ACETAMINOPHEN 500 MG TABLET Take 500 mg by mouth every 6 * CHOLECALCIFEROL (VITAMIN D3) * Take 1,000 Units by mouth onc* ALLOPURINOL 300 MG TABLET Take one(1) tablet daily. ATENOLOL 100 MG TABLET Take 100 mg by mouth once frankie* FOLIC ACID 400 MCG TABLET Take one(1) tablet daily. LOSARTAN 50 MG TABLET twice daily. FAMOTIDINE 20 MG TABLET Take one tablet by mouth once* DILTIAZEM SR 120 MG 24 HR CAP Take 120 mg by mouth once frankie* WARFARIN 5 MG TABLET Take 4mg by mouth once daily * HYDROCHLOROTHIAZIDE 25 MG TAB* Take 25 mg by mouth once thuy* POTASSIUM CHLORIDE ER 10 MEQ * Take 10 mEq by mouth once frankie* * NAPROXEN SODIUM 220 MG TABLET Take 220 mg by mouth twice da* * K-DUR 10 MEQ TABLET,EXTENDED * take 2 tabs in am and 1 tab i* * ATENOLOL 100 MG-CHLORTHALIDON* 1 tablet daily * PRILOSEC 20 MG CAPSULE,DELAYE* Take one(1) capsule daily. Medication notes this encounter NAPROXEN SODIUM 220 MG TABLET >> Apryl Anderson MA 11/29/2017 3:04 PM >> APRYL ANDERSON MA Nov 29, 2017 3:04 PM No longer taking. K-DUR 10 MEQ TABLET,EXTENDED RELEASE >> Apryl Anderson MA 11/29/2017 3:04 PM >> APRYL ANDERSON MA Nov 29, 2017 3:04 PM Duplicate ATENOLOL 100 MG-CHLORTHALIDONE 25 MG TABLET >> Apryl Anderson MA 11/29/2017 3:04 PM >> APRYL ANDERSON MA Nov 29, 2017 3:04 PM No longer taking. PRILOSEC 20 MG CAPSULE,DELAYED RELEASE >> Apryllesvia Anderson MA 11/29/2017 3:04 PM >> APRYL ANDERSON MA Nov 29, 2017 3:04 PM No longer taking. Problem List As Of Date 11/29/2017 Noted Resolved MALIG NEOPLASM SIGMOID COLON [C18.7] INVALID FOR* STENOSIS (SEE ALSO STRICTURE) COLON [K56.609] INVALID FOR* UNSP ABNORMAL MAMMOGRAM [R92.8] INVALID FOR* CA IN SITU BREAST [D05.90] INVALID FOR* Rectal bleeding [K62.5] INVALID FOR* Malignant neoplasm of areola of left breast in *INVALID FOR* Endometrial adenocarcinoma (HCC) [C54.1] INVALID FOR* Encounter Status:Closed by NATHANAEL TREJO DO on 11/30/17 PROGRESS Observed: 11/27/2017 Status: COMPLETED Source: ADVANCE 9:41 AM [facility] [place] REPOSITORY HNO ID: [id number] Author: Lisa Trevino Service: (none) Author Type: Physician Type: Progress Notes Filed: 11/27/2017 9:44 AM Note Text: FOLLOW UP VISIT - POST OP BREAST CANCER NAME: Esperanza Lucero [facility] NO.: [id number] DATE OF SERVICE: : 1940 REFERRING PHYSICIAN: Kody Garcia MD Esperanza is a patient I am following for left sided breast cancer. The patient is a 77 year old female with a complaint of a palpable breast mass. The patient notes a mass in the 3 o'clock of her left breast just lateral to the areolar region. The patient has noticed this mass for a few months. She is noting retraction at the area of the nipple. The patient had a mammogram on August 29, 2017 which demonstrated postsurgical changes at the left upper outer relatively deep breast location and no other obvious abnormalities-listed as BI-RADS category 1. Recommend yearly follow-up. Due to the fact that the mass was present below the nipple, a left breast ultrasound was obtained on September 09, 2017 was noted was a palpable abnormality at 3:00 position and a 1 x 1.5 x 1.6, irregular area with shadowing. This was felt to likely represent postoperative changes, but due to the fact there was clinically suspicious MRI was recommended. My impression was that the area of my previous biopsy was likely considerably deeper than this area of abnormality. Bilateral breast MRI was obtained. A small lobular abnormality was noted at the 8 mm position. 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 In the left breast, there was a lobular enhancing mass measuring 2 x 2.1 by 1.6 cm which was felt to be highly suspicious for carcinoma. Biopsy was recommended. Follow up right ultrasound demonstrated a right paracolic nodule felt to be consistent with a fibroadenoma and recommended six-month follow-up. She does perform a self breast exam routinely. She notes no skin changes. She denies nipple discharge. She notes no axillary masses. She notes both her mother and a sister with a history of breast cancer. 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 She received external beam radiation to the left breast. She had a history of DVTs following surgery for colon cancer, so she did not receive hormonal therapy. The patient has had 3 pregnancies. The patient was initially referred to Dr. Drew Ortiz as the patient was under the impression that I no longer worked in [employer]. Dr. Ortiz recommended left biopsy, but informed the patient that I do still work in [employer]. The patient wished to follow-up with me, given our history of both breast and colon surgical procedures. The patient returned Tuesday for biopsy. She has held her Coumadin for 3 days. I performed both the cutaneous punch biopsy and core biopsies of the palpable mass below the nipple. 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 We extensively discussed her diagnosis and at the last visit discussed her surgical options including breast conservation surgical procedures, mastectomy without reconstruction and mastectomy with reconstruction. The patient has elected to undergo a left side mastectomy with sentinel lymph node biopsy with possible axillary dissection. The patient again had a DVT following her previous surgical procedure in 2008. She had not had a DVT symptoms. She had stopped her Coumadin following the course of treatment for her DVT now is on Coumadin for atrial fibrillation. I performed a left modified radical mastectomy with sentinel lymph node injection on November 14, 2017. The pathology demonstrated: FROZEN SECTION DIAGNOSIS A. Duncan lymph node, left, biopsy: Two out of two lymph nodes negative for metastatic carcinoma. SJ:didier 11/14/17 Case has been reviewed in consultation with Dr. Jeffery who concurs with the above diagnosis. IDC:AM MICROSCOPIC DIAGNOSIS A. Left sentinel lymph node, biopsy: Two out of two lymph nodes negative for metastatic carcinoma. B. 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 Three out of three lymph nodes, negative for metastatic carcinoma. See cancer summary below. INVASIVE BREAST CANCER SUMMARY: Specimen ? total breast (including nipple and skin). Procedure ? total mastectomy (including nipple and skin). Lymph node sampling ? sentinel lymph node and axillary dissection. Specimen integrity ? single intact specimen. Specimen laterality - left Tumor site ? nipple areolar complex Tumor size ? 2.2 x 1 x 1 cm Tumor focality ? single focus of invasive carcinoma Macroscopic and Microscopic extent of tumor: Skin ? the invasive carcinoma invades into the dermis without skin ulceration. Nipple ? 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 See comment. Skeletal muscle ? skeletal muscle is present and is free of carcinoma. 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 Extensive intraductal component (EIC) - negative Estimated size (extent) of DCIS - ductal carcinoma in situ comprise <5% of the total tumor volume. Number of blocks with DCIS - 2 Number of blocks examined ? 13 consisting of breast tissue Architectural patterns ? solid and comedo Nuclear grade ? grade 2 (intermediate) Necrosis ? present, central (expansive ?comedo? necrosis) Lobular carcinoma in situ (LCIS) ? not identified Histologic type of invasive carcinoma ? invasive ductal carcinoma (no special type) Histologic Grade (Mariano grade): Glandular/tubular differentiation - score 3 Nuclear pleomorphism - score 2 Mitotic count ? score 1 Overall grade - 2 (score of 6) Margins - Margins involved by invasive carcinoma. Invasive carcinoma is 3 cm away from the closest inferior margin and present very close to the overlying skin. Ductal carcinoma in situ/lobular carcinoma in situ is 1 cm away from the overlying skin and 3 cm away from the closest inferior margin. Treatment effect: Response to presurgical (neoadjuvant) therapy - no known presurgical therapy. Lymph-Vascular invasion ? not identified Dermal lymph-vascular invasion - not identified Lymph nodes: Number of sentinel lymph nodes examined - 2 Total number of lymph nodes examined (sentinel and nonsentinel) - 5 Number of lymph nodes with macrometastases, micrometastases and isolated tumor cells - 0 Method of evaluation of sentinel lymph nodes ? hematoxylin, H AND E, multiple levels and IHC. Distant metastasis ? not applicable Additional pathologic findings ? fibrocystic changes and focal atypical ductal hyperplasia. - dense fibrous area with focal fat necrosis, calcification and foreign body giant cell reaction, consistent with previous biopsy site (close to posterior margin). Ancillary studies - previously performed on section of tumor ([id number] / [id number]). ER ? positive (>95%, moderate) GA ? positive (80%, moderate) Her2 molly - 0 Microcalcifications ? present in ductal carcinoma in situ and non-neoplastic tissue. Clinical history ? Please make reference to previous specimen ([id number]) left breast, ultrasound-guided core biopsy with diagnosis of invasive lobular carcinoma with focal area of ductal carcinoma and left breast ulceration, nipple areolar complex with diagnosis of invasive ductal carcinoma. 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 PATHOLOGIC STAGE: pT2 pN0 Mx The above summary is in compliance with [employer] [place] (CAP) Cancer Protocols Checklist and [place] [employer] on Cancer (AJCC), Staging Manual, 8th Ed. SJ:didier 11/18/17 COMMENT A. The lymph node is negative for metastatic carcinoma on multiple H AND E levels and immunohistochemical stains for cytokeratins ([id number]). B. 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 Resected tumor shows extensive positive staining for E-cadherin consistent with invasive ductal carcinoma. E-cadherin staining is repeated again on previous biopsy specimen and specimen A left breast core biopsy show predominantly negative staining for E-cadherin with focal positive staining. E-cadherin staining added to specimen due discrepancy in the staining and showed diffuse positive staining consistent with invasive ductal carcinoma. Case has been reviewed in consultation with Dr. Jeffery who concurs with the above diagnosis. IDC:AM MICROSCOPIC DESCRIPTION Slides are reviewed. GROSS DESCRIPTION A - Received fresh for frozen section diagnosis labeled with the patient's name is a specimen designated sentinel lymph node left. The specimen consists of a piece of adipose tissue containing two nodules consistent with lymph nodes measuring 3 x 2.5 x 0.5 cm. Two lymph nodes are identified, each measuring 1 cm in greatest dimension. Both lymph nodes are bisected and entire specimen is submitted for frozen section diagnosis in two cassettes as follows: 1 ? one bisected lymph node, 2 - one bisected lymph node. / SJ:didier 11/15/17 B - Received in fixative is one container labeled with the patient's name and designated left breast. The specimen consists of a modified radical mastectomy specimen consisting of breast tissue, overlying skin ellipse and axillary tail. The breast tissue measures 21 x 20 x 8 cm and the overlying skin ellipse measures 21 x 10 cm and the axillary tail measures 9 x 9 x 4 cm. The nipple measures 1 cm in greatest dimension. The nipple areolar complex shows induration. The specimen is inked as follows: superior margin ? blue, inferior margin ? black, medial margin ? red, lateral margin ? orange and posterior margin ? black. Serial sections reveal a covington, indurated mass in the area of nipple areolar complex and measures 2.2 x 1 x 1 cm. The tumor extends up to the overlying skin. No obvious ulceration is noted. A scar is also noted adjacent to the nipple. This tumor is 3 cm away from the closest inferior margin. An indurated area is also noted in the central portion of the breast tissue close to the posterior margin measuring 3.5 x 2.5 x 1.5 cm. Sections of the rest of the breast tissue reveal covington-yellow adipose cut surfaces mixed with covington-white fibrous areas. Sections of the axillary tail reveal multiple lymph nodes. The largest lymph node measures 3.5 cm in greatest dimension. Sections of the lymph node reveal fatty cut surfaces. Type Caster sections are submitted in 20 cassettes as follows: 1 ? nipple, entirely submitted, 2-4 ? tumor with overlying skin in the area of nipple areolar complex, entirely submitted, 5-9 ? indurated area with adjacent closest posterior margin, 10 ? perpendicular medial, lateral, superior and inferior margins, 11-13 ? claim service representative sections from the other areas, 14-20 ? axillary lymph nodes, entirely submitted (14 ? one possible bisected lymph node, 15 ? one possible lymph node, 16 - one bisected lymph node, 17-20 ? the largest lymph node). / RICHIE:didier 11/15/17 TC:0 CPT: 00861, 29498, 28762, 45634 Esperanza notes no significant pain, but does note discomfort from the Mikel-Terry drains. Post operative pain has been moderately well controlled. The patient denies nausea. The patient`s appetite has been good. The axillary Mikel terry drain output has been decreasing and is currently one half ounce for 24 hours. Her INR last visit was 2.1. She stopped the Lovenox and has been continuing her Coumadin VITALS: There were no vitals taken for this visit. On examination, the left skin incision is clean, dry, and intact. There is significant bruising along the superior lateral aspect of the incision with bruising, actually extending to the right breast. The axillary portion of the incision is clean, dry and intact. The axillary Mikel Terry drain was removed. he patient's range of motion with her arm is very good. Every other staple was removed Assessment IMPRESSION: Status Post modified radical mastectomy with sentinel lymph node injection for left invasive breast cancer. PLAN: Esperanza may return to regular activities as tolerated with the exception of no heavy lifting. .she should continue her arm range of motion exercises. The patient may now drive as long as she is no longer taking narcotic pain medication. If she notes any difficulties, she should contact me immediately. I plan to refer her for evaluation by oncology. Diagnoses: (C50.012) Malignant neoplasm involving both nipple and areola of left breast in female, unspecified estrogen receptor status (HCC) (primary encounter diagnosis) (Z86.718) History of DVT (deep vein thrombosis) Return to Clinic: The patient is instructed to follow- up with me in 1 week for removal of the remaining li Lisa Trevino MD CNOV Observed: 11/25/2017 Status: COMPLETED Source: [facility] 3:10 PM [facility] REPOS[facility] Office Visit (GENSWS) ESPERANZA LUCERO ([id number]) 1940 F Date Time Provider Department 11/25/17 3:10 PM LISA TREVINO During your visit today, we recorded the following information about you: Lisa Trevino MD 11/27/2017 9:44 AM Signed FOLLOW UP VISIT - POST OP BREAST CANCER NAME: Esperanza Lucero CLINIC NO.: [id number] DATE OF SERVICE: : 1940 REFERRING PHYSICIAN: Kody Garcia MD Esperanza is a patient I am following for left sided breast cancer. The patient is a 77 year old female with a complaint of a palpable breast mass. The patient notes a mass in the 3 o'clock of her left breast just lateral to the areolar region. The patient has noticed this mass for a few months. She is noting retraction at the area of the nipple. The patient had a mammogram on August 29, 2017 which demonstrated postsurgical changes at the left upper outer relatively deep breast location and no other obvious abnormalities- listed as BI-RADS category 1. Recommend yearly follow-up. Due to the fact that the mass was present below the nipple, a left breast ultrasound was obtained on September 09, 2017 was noted was a palpable abnormality at 3:00 position and a 1 x 1.5 x 1.6, irregular area with shadowing. This was felt to likely represent postoperative changes, but due to the fact there was clinically suspicious MRI was recommended. My impression was that the area of my previous biopsy was likely considerably deeper than this area of abnormality. Bilateral breast MRI was obtained. A small lobular abnormality was noted at the 8 mm position. 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 In the left breast, there was a lobular enhancing mass measuring 2 x 2.1 by 1.6 cm which was felt to be highly suspicious for carcinoma. Biopsy was recommended. Follow up right ultrasound demonstrated a right paracolic nodule felt to be consistent with a fibroadenoma and recommended six-month follow-up. She does perform a self breast exam routinely. She notes no skin changes. She denies nipple discharge. She notes no axillary masses. She notes both her mother and a sister with a history of breast cancer. 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 She received external beam radiation to the left breast. She had a history of DVTs following surgery for colon cancer, so she did not receive hormonal therapy. The patient has had 3 pregnancies. The patient was initially referred to Dr. Drew Ortiz as the patient was under the impression that I no longer worked in [employer]. Dr. Ortiz recommended left biopsy, but informed the patient that I do still work in [employer]. The patient wished to follow-up with me, given our history of both breast and colon surgical procedures. The patient returned Tuesday for biopsy. She has held her Coumadin for 3 days. I performed both the cutaneous punch biopsy and core biopsies of the palpable mass below the nipple. 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 We extensively discussed her diagnosis and at the last visit discussed her surgical options including breast conservation surgical procedures, mastectomy without reconstruction and mastectomy with reconstruction. The patient has elected to undergo a left side mastectomy with sentinel lymph node biopsy with possible axillary dissection. The patient again had a DVT following her previous surgical procedure in 2008. She had not had a DVT symptoms. She had stopped her Coumadin following the course of treatment for her DVT now is on Coumadin for atrial fibrillation. I performed a left modified radical mastectomy with sentinel lymph node injection on November 14, 2017. The pathology demonstrated: FROZEN SECTION DIAGNOSIS A. Duncan lymph node, left, biopsy: Two out of two lymph nodes negative for metastatic carcinoma. SJ:rg 11/14/17 Case has been reviewed in consultation with Dr. Jeffery who concurs with the above diagnosis. IDC:AM MICROSCOPIC DIAGNOSIS A. Left sentinel lymph node, biopsy: Two out of two lymph nodes negative for metastatic carcinoma. B. 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 Three out of three lymph nodes, negative for metastatic carcinoma. See cancer summary below. INVASIVE BREAST CANCER SUMMARY: Specimen ? total breast (including nipple and skin). Procedure ? total mastectomy (including nipple and skin). Lymph node sampling ? sentinel lymph node and axillary dissection. Specimen integrity ? single intact specimen. Specimen laterality - left Tumor site ? nipple areolar complex Tumor size ? 2.2 x 1 x 1 cm Tumor focality ? single focus of invasive carcinoma Macroscopic and Microscopic extent of tumor: Skin ? the invasive carcinoma invades into the dermis without skin ulceration. Nipple ? 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 See comment. Skeletal muscle ? skeletal muscle is present and is free of carcinoma. 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 Extensive intraductal component (EIC) - negative Estimated size (extent) of DCIS - ductal carcinoma in situ comprise <5% of the total tumor volume. Number of blocks with DCIS - 2 Number of blocks examined ? 13 consisting of breast tissue Architectural patterns ? solid and comedo Nuclear grade ? grade 2 (intermediate) Necrosis ? present, central (expansive ?comedo? necrosis) Lobular carcinoma in situ (LCIS) ? not identified Histologic type of invasive carcinoma ? invasive ductal carcinoma (no special type) Histologic Grade (Mariano grade): Glandular/tubular differentiation - score 3 Nuclear pleomorphism - score 2 Mitotic count ? score 1 Overall grade - 2 (score of 6) Margins - Margins involved by invasive carcinoma. Invasive carcinoma is 3 cm away from the closest inferior margin and present very close to the overlying skin. Ductal carcinoma in situ/lobular carcinoma in situ is 1 cm away from the overlying skin and 3 cm away from the closest inferior margin. Treatment effect: Response to presurgical (neoadjuvant) therapy - no known presurgical therapy. Lymph-Vascular invasion ? not identified Dermal lymph-vascular invasion - not identified Lymph nodes: Number of sentinel lymph nodes examined - 2 Total number of lymph nodes examined (sentinel and nonsentinel) - 5 Number of lymph nodes with macrometastases, micrometastases and isolated tumor cells - 0 Method of evaluation of sentinel lymph nodes ? hematoxylin, H AND E, multiple levels and IHC. Distant metastasis ? not applicable Additional pathologic findings ? fibrocystic changes and focal atypical ductal hyperplasia. - dense fibrous area with focal fat necrosis, calcification and foreign body giant cell reaction, consistent with previous biopsy site (close to posterior margin). Ancillary studies - previously performed on section of tumor ([id number] / [id number]). ER ? positive (>95%, moderate) GA ? positive (80%, moderate) Her2 molly - 0 Microcalcifications ? present in ductal carcinoma in situ and non-neoplastic tissue. Clinical history ? Please make reference to previous specimen ([id number]) left breast, ultrasound-guided core biopsy with diagnosis of invasive lobular carcinoma with focal area of ductal carcinoma and left breast ulceration, nipple areolar complex with diagnosis of invasive ductal carcinoma. 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 PATHOLOGIC STAGE: pT2 pN0 Mx The above summary is in compliance with [employer] [place] [employer] (CAP) Cancer Protocols Checklist and [place] [employer] on Cancer (AJCC), Staging Manual, 8th Ed. RICHIE:didier 11/18/17 COMMENT A. The lymph node is negative for metastatic carcinoma on multiple H AND E levels and immunohistochemical stains for cytokeratins ([id number]). B. 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 Resected tumor shows extensive positive staining for E-cadherin consistent with invasive ductal carcinoma. E-cadherin staining is repeated again on previous biopsy specimen and specimen A left breast core biopsy show predominantly negative staining for E-cadherin with focal positive staining. E-cadherin staining added to specimen due discrepancy in the staining and showed diffuse positive staining consistent with invasive ductal carcinoma. Case has been reviewed in consultation with Dr. Jeffery who concurs with the above diagnosis. IDC:AM MICROSCOPIC DESCRIPTION Slides are reviewed. GROSS DESCRIPTION A - Received fresh for frozen section diagnosis labeled with the patient's name is a specimen designated sentinel lymph node left. The specimen consists of a piece of adipose tissue containing two nodules consistent with lymph nodes measuring 3 x 2.5 x 0.5 cm. Two lymph nodes are identified, each measuring 1 cm in greatest dimension. Both lymph nodes are bisected and entire specimen is submitted for frozen section diagnosis in two cassettes as follows: 1 ? one bisected lymph node, 2 - one bisected lymph node. / RICHIE:didier 11/15/17 B - Received in fixative is one container labeled with the patient's name and designated left breast. The specimen consists of a modified radical mastectomy specimen consisting of breast tissue, overlying skin ellipse and axillary tail. The breast tissue measures 21 x 20 x 8 cm and the overlying skin ellipse measures 21 x 10 cm and the axillary tail measures 9 x 9 x 4 cm. The nipple measures 1 cm in greatest dimension. The nipple areolar complex shows induration. The specimen is inked as follows: superior margin ? blue, inferior margin ? black, medial margin ? red, lateral margin ? orange and posterior margin ? black. Serial sections reveal a covington, indurated mass in the area of nipple areolar complex and measures 2.2 x 1 x 1 cm. The tumor extends up to the overlying skin. No obvious ulceration is noted. A scar is also noted adjacent to the nipple. This tumor is 3 cm away from the closest inferior margin. An indurated area is also noted in the central portion of the breast tissue close to the posterior margin measuring 3.5 x 2.5 x 1.5 cm. Sections of the rest of the breast tissue reveal covington-yellow adipose cut surfaces mixed with covington-white fibrous areas. Sections of the axillary tail reveal multiple lymph nodes. The largest lymph node measures 3.5 cm in greatest dimension. Sections of the lymph node reveal fatty cut surfaces. Type Caster sections are submitted in 20 cassettes as follows: 1 ? nipple, entirely submitted, 2-4 ? tumor with overlying skin in the area of nipple areolar complex, entirely submitted, 5-9 ? indurated area with adjacent closest posterior margin, 10 ? perpendicular medial, lateral, superior and inferior margins, 11-13 ? claim service representative sections from the other areas, 14-20 ? axillary lymph nodes, entirely submitted (14 ? one possible bisected lymph node, 15 ? one possible lymph node, 16 - one bisected lymph node, 17- 20 ? the largest lymph node). / SJ:rg 11/15/17 TC:0 CPT: 96246, 86263, 42232, 03561 Esperanza notes no significant pain, but does note discomfort from the Mikel-Terry drains. Post operative pain has been moderately well controlled. The patient denies nausea. The patient`s appetite has been good. The axillary Mikel terry drain output has been decreasing and is currently one half ounce for 24 hours. Her INR last visit was 2.1. She stopped the Lovenox and has been continuing her Coumadin VITALS: There were no vitals taken for this visit. On examination, the left skin incision is clean, dry, and intact. There is significant bruising along the superior lateral aspect of the incision with bruising, actually extending to the right breast. The axillary portion of the incision is clean, dry and intact. The axillary Mikel Terry drain was removed. he patient's range of motion with her arm is very good. Every other staple was removed Assessment IMPRESSION: Status Post modified radical mastectomy with sentinel lymph node injection for left invasive breast cancer. PLAN: Esperanza may return to regular activities as tolerated with the exception of no heavy lifting. .she should continue her arm range of motion exercises. The patient may now drive as long as she is no longer taking narcotic pain medication. If she notes any difficulties, she should contact me immediately. I plan to refer her for evaluation by oncology. Diagnoses: (C50.012) Malignant neoplasm involving both nipple and areola of left breast in female, unspecified estrogen receptor status (HCC) (primary encounter diagnosis) (Z86.718) History of DVT (deep vein thrombosis) Return to Clinic: The patient is instructed to follow- up with me in 1 week for removal of the remaining li Lisa Trevino MD Referring Provider: SELF [[id number]] Allergies As of Date: 11/25/2017 Noted Allergy Reaction ALMOND 06/09/2006 PENICILLINS 05/10/2006 1 - Mental Status Change Comments: passed out Date Reviewed: 11/25/2017 Reviewed by: Jabari Saunders LPN - Fully Assessed Reason for Visit: Post Op [[id number]] Cmt: post op mastectomy Primary Visit Diagnosis:Malignant neoplasm involving both nipple and areola of left breast in female, unspecified estrogen receptor status (HCC) [C50.012] Other Visit Diagnosis:History of DVT (deep vein thrombosis) [Z86.718] Prescriptions as of 11/25/2017 Sig: ALLOPURINOL 300 MG TABLET ZYLOPRIM 300 MG TABS ATENOLOL 100 MG TABLET FOLIC ACID 400 MCG TABLET FOLIC ACID 400 MCG TABS LOSARTAN 50 MG TABLET twice daily. FAMOTIDINE 20 MG TABLET PEPCID 20 MG TABS DILTIAZEM SR 120 MG 24 HR CAP WARFARIN 5 MG TABLET HYDROCHLOROTHIAZIDE 25 MG TAB* POTASSIUM CHLORIDE ER 10 MEQ * * NAPROXEN SODIUM 220 MG TABLET Take 220 mg by mouth twice da* * K-DUR 10 MEQ TABLET,EXTENDED * take 2 tabs in am and 1 tab i* * ATENOLOL 100 MG-CHLORTHALIDON* 1 tablet daily * PRILOSEC 20 MG CAPSULE,DELAYE* Take one(1) capsule daily. 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] INVALID FOR* STENOSIS (SEE ALSO STRICTURE) COLON [K56.609] INVALID FOR* UNSP ABNORMAL MAMMOGRAM [R92.8] INVALID FOR* CA IN SITU BREAST [D05.90] INVALID FOR* Rectal bleeding [K62.5] INVALID FOR* Follow-up and Disposition History Recorded Letter Text Encounter Status:Closed by LISA TREVINO MD on 11/27/17 PROGRESS Observed: 11/23/2017 Status: COMPLETED Source: ADVANCE 6:31 AM [facility] [place] REPOSITORY HNO ID: [id number] Author: Lisa Trevino Service: (none) Author Type: Physician Type: Progress Notes Filed: 11/23/2017 6:37 AM Note Text: OPERATIVE NOTATION FOR [facility] SURGICAL PROCEDURE. November 14, 2017 Esperanza Lucero 1940 [id number] female PROCEDURE: left MODIFIED RADICAL MASTECTOMY WITH SENTINEL LYMPH NODE INJECTION, radiotracer identification - [id number], [id number], [id number] SURGEON: Kerri Trevino M.D. FACS FLOOR INSPECTOR: [facility] DEPT: PROVIDER: [id number] Trevino MD POS: [id number] DIAGNOSIS: (N63.20) Left breast mass (primary encounter diagnosis) (C50.012) Malignant neoplasm involving both nipple and areola of left breast in female, unspecified estrogen receptor status (HCC) ASA CLASS: 3 - Severe FINDINGS: COMPLICATIONS: None PMHx - PAST MEDICAL HISTORY Diagnosis Date - Malignant neoplasm of colon, unspecified site - Personal history of malignant neoplasm of rectum, rectosigmoid junction, and anus - Unspecified essential hypertension Essential hypertension - Unspecified intestinal obstruction COMORBIDITIES - Chronic Pulmonary, Coagulopathy and HTN Post Op Occurrences - None Wound Classification - Clean Operative note dictated in the [facility] dictation system. Lisa Trevino MD PROGRESS Observed: 11/23/2017 Status: COMPLETED Source: ADVANCE 5:54 AM [facility] REPOSITORY HNO ID: [id number] Author: Lisa Trevino Service: (none) Author Type: Physician Type: Progress Notes Filed: 11/23/2017 6:00 AM Note Text: FOLLOW UP VISIT - POST OP BREAST CANCER NAME: Esperanza Lucero [facility] NO.: [id number] DATE OF SERVICE: 11/22/2017 : 1940 REFERRING PHYSICIAN: Kody Garcia MD Esperanza is a patient I am following for left sided breast cancer. The patient is a 77 year old female with a complaint of a palpable breast mass. The patient notes a mass in the 3 o'clock of her left breast just lateral to the areolar region. The patient has noticed this mass for a few months. She is noting retraction at the area of the nipple. The patient had a mammogram on August 29, 2017 which demonstrated postsurgical changes at the left upper outer relatively deep breast location and no other obvious abnormalities-listed as BI-RADS category 1. Recommend yearly follow-up. Due to the fact that the mass was present below the nipple, a left breast ultrasound was obtained on September 09, 2017 was noted was a palpable abnormality at 3:00 position and a 1 x 1.5 x 1.6, irregular area with shadowing. This was felt to likely represent postoperative changes, but due to the fact there was clinically suspicious MRI was recommended. My impression was that the area of my previous biopsy was likely considerably deeper than this area of abnormality. Bilateral breast MRI was obtained. A small lobular abnormality was noted at the 8 mm position. 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 In the left breast, there was a lobular enhancing mass measuring 2 x 2.1 by 1.6 cm which was felt to be highly suspicious for carcinoma. Biopsy was recommended. Follow up right ultrasound demonstrated a right paracolic nodule felt to be consistent with a fibroadenoma and recommended six-month follow-up. She does perform a self breast exam routinely. She notes no skin changes. She denies nipple discharge. She notes no axillary masses. She notes both her mother and a sister with a history of breast cancer. 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 She received external beam radiation to the left breast. She had a history of DVTs following surgery for colon cancer, so she did not receive hormonal therapy. The patient has had 3 pregnancies. The patient was initially referred to Dr. Drew Ortiz as the patient was under the impression that I no longer worked in [employer]. Dr. Ortiz recommended left biopsy, but informed the patient that I do still work in [employer]. The patient wished to follow-up with me, given our history of both breast and colon surgical procedures. The patient returned Tuesday for biopsy. She has held her Coumadin for 3 days. I performed both the cutaneous punch biopsy and core biopsies of the palpable mass below the nipple. 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 We extensively discussed her diagnosis and at the last visit discussed her surgical options including breast conservation surgical procedures, mastectomy without reconstruction and mastectomy with reconstruction. The patient has elected to undergo a left side mastectomy with sentinel lymph node biopsy with possible axillary dissection. The patient again had a DVT following her previous surgical procedure in 2008. She had not had a DVT symptoms. She had stopped her Coumadin following the course of treatment for her DVT now is on Coumadin for atrial fibrillation. I performed a left modified radical mastectomy with sentinel lymph node injection on November 14, 2017. The pathology demonstrated: FROZEN SECTION DIAGNOSIS A. Duncan lymph node, left, biopsy: Two out of two lymph nodes negative for metastatic carcinoma. SJ:didier 11/14/17 Case has been reviewed in consultation with Dr. Jeffery who concurs with the above diagnosis. IDC:AM MICROSCOPIC DIAGNOSIS A. Left sentinel lymph node, biopsy: Two out of two lymph nodes negative for metastatic carcinoma. B. 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 Three out of three lymph nodes, negative for metastatic carcinoma. See cancer summary below. INVASIVE BREAST CANCER SUMMARY: Specimen ? total breast (including nipple and skin). Procedure ? total mastectomy (including nipple and skin). Lymph node sampling ? sentinel lymph node and axillary dissection. Specimen integrity ? single intact specimen. Specimen laterality - left Tumor site ? nipple areolar complex Tumor size ? 2.2 x 1 x 1 cm Tumor focality ? single focus of invasive carcinoma Macroscopic and Microscopic extent of tumor: Skin ? the invasive carcinoma invades into the dermis without skin ulceration. Nipple ? 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 See comment. Skeletal muscle ? skeletal muscle is present and is free of carcinoma. 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 Extensive intraductal component (EIC) - negative Estimated size (extent) of DCIS - ductal carcinoma in situ comprise <5% of the total tumor volume. Number of blocks with DCIS - 2 Number of blocks examined ? 13 consisting of breast tissue Architectural patterns ? solid and comedo Nuclear grade ? grade 2 (intermediate) Necrosis ? present, central (expansive ?comedo? necrosis) Lobular carcinoma in situ (LCIS) ? not identified Histologic type of invasive carcinoma ? invasive ductal carcinoma (no special type) Histologic Grade (Mariano grade): Glandular/tubular differentiation - score 3 Nuclear pleomorphism - score 2 Mitotic count ? score 1 Overall grade - 2 (score of 6) Margins - Margins involved by invasive carcinoma. Invasive carcinoma is 3 cm away from the closest inferior margin and present very close to the overlying skin. Ductal carcinoma in situ/lobular carcinoma in situ is 1 cm away from the overlying skin and 3 cm away from the closest inferior margin. Treatment effect: Response to presurgical (neoadjuvant) therapy - no known presurgical therapy. Lymph-Vascular invasion ? not identified Dermal lymph-vascular invasion - not identified Lymph nodes: Number of sentinel lymph nodes examined - 2 Total number of lymph nodes examined (sentinel and nonsentinel) - 5 Number of lymph nodes with macrometastases, micrometastases and isolated tumor cells - 0 Method of evaluation of sentinel lymph nodes ? hematoxylin, H AND E, multiple levels and IHC. Distant metastasis ? not applicable Additional pathologic findings ? fibrocystic changes and focal atypical ductal hyperplasia. - dense fibrous area with focal fat necrosis, calcification and foreign body giant cell reaction, consistent with previous biopsy site (close to posterior margin). Ancillary studies - previously performed on section of tumor ([id number] / [id number]). ER ? positive (>95%, moderate) GA ? positive (80%, moderate) Her2 molly - 0 Microcalcifications ? present in ductal carcinoma in situ and non-neoplastic tissue. Clinical history ? Please make reference to previous specimen ([id number]) left breast, ultrasound-guided core biopsy with diagnosis of invasive lobular carcinoma with focal area of ductal carcinoma and left breast ulceration, nipple areolar complex with diagnosis of invasive ductal carcinoma. Please also make reference to previous specimen [id number], left breast lumpectomy with diagnosis of ductal carcinoma in situ. PATHOLOGIC STAGE: pT2 pN0 Mx The above summary is in compliance with [employer] [place] (CAP) Cancer Protocols Checklist and [place] [employer] on Cancer (AJCC), Staging Manual, 8th Ed. SJ:didier 11/18/17 COMMENT A. The lymph node is negative for metastatic carcinoma on multiple H AND E levels and immunohistochemical stains for cytokeratins ([id number]). B. 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 Resected tumor shows extensive positive staining for E-cadherin consistent with invasive ductal carcinoma. E-cadherin staining is repeated again on previous biopsy specimen and specimen A left breast core biopsy show predominantly negative staining for E-cadherin with focal positive staining. E-cadherin staining added to specimen due discrepancy in the staining and showed diffuse positive staining consistent with invasive ductal carcinoma. Case has been reviewed in consultation with Dr. Jeffery who concurs with the above diagnosis. IDC:AM MICROSCOPIC DESCRIPTION Slides are reviewed. GROSS DESCRIPTION A - Received fresh for frozen section diagnosis labeled with the patient's name is a specimen designated sentinel lymph node left. The specimen consists of a piece of adipose tissue containing two nodules consistent with lymph nodes measuring 3 x 2.5 x 0.5 cm. Two lymph nodes are identified, each measuring 1 cm in greatest dimension. Both lymph nodes are bisected and entire specimen is submitted for frozen section diagnosis in two cassettes as follows: 1 ? one bisected lymph node, 2 - one bisected lymph node. / SJ:rg 11/15/17 B - Received in fixative is one container labeled with the patient's name and designated left breast. The specimen consists of a modified radical mastectomy specimen consisting of breast tissue, overlying skin ellipse and axillary tail. The breast tissue measures 21 x 20 x 8 cm and the overlying skin ellipse measures 21 x 10 cm and the axillary tail measures 9 x 9 x 4 cm. The nipple measures 1 cm in greatest dimension. The nipple areolar complex shows induration. The specimen is inked as follows: superior margin ? blue, inferior margin ? black, medial margin ? red, lateral margin ? orange and posterior margin ? black. Serial sections reveal a covington, indurated mass in the area of nipple areolar complex and measures 2.2 x 1 x 1 cm. The tumor extends up to the overlying skin. No obvious ulceration is noted. A scar is also noted adjacent to the nipple. This tumor is 3 cm away from the closest inferior margin. An indurated area is also noted in the central portion of the breast tissue close to the posterior margin measuring 3.5 x 2.5 x 1.5 cm. Sections of the rest of the breast tissue reveal covington-yellow adipose cut surfaces mixed with covington-white fibrous areas. Sections of the axillary tail reveal multiple lymph nodes. The largest lymph node measures 3.5 cm in greatest dimension. Sections of the lymph node reveal fatty cut surfaces. Type Caster sections are submitted in 20 cassettes as follows: 1 ? nipple, entirely submitted, 2-4 ? tumor with overlying skin in the area of nipple areolar complex, entirely submitted, 5-9 ? indurated area with adjacent closest posterior margin, 10 ? perpendicular medial, lateral, superior and inferior margins, 11-13 ? claim service representative sections from the other areas, 14-20 ? axillary lymph nodes, entirely submitted (14 ? one possible bisected lymph node, 15 ? one possible lymph node, 16 - one bisected lymph node, 17-20 ? the largest lymph node). / RICHIE:didier 11/15/17 TC:0 CPT: 77757, 06458, 20658, 08126 Esperanza notes no significant pain, but does note discomfort from the Mikel-Terry drains. Post operative pain has been moderately well controlled. The patient denies nausea. The patient`s appetite has been good. The axillary Mikel terry drain output has been decreasing and is currently a few ounces for 24 hours. Her INR today is 2.1. VITALS: Temperature 36.9 ?C (98.4 ?F). On examination, the left skin incision is clean, dry, and intact. There is significant bruising along the superior lateral aspect of the incision with bruising, actually extending to the right breast. The axillary portion of the incision is clean, dry and intact. The mastectomy flap Mikel-Terry drain was removed. The axillary Mikel Terry drain was not removed . The fluid still seemed moderately serosanguineous. The patient's range of motion with her arm is good. Assessment IMPRESSION: Status Post modified radical mastectomy with sentinel lymph node injection for left invasive breast cancer. PLAN: Esperanza may return to regular activities as tolerated with the exception of no heavy lifting. .she should continue her arm range of motion exercises. The patient may now drive as long as she is no longer taking narcotic pain medication. If she notes any difficulties, she should contact me immediately. I plan to refer her for evaluation by oncology. Patient has a history of DVT and PEs. She can stop her Lovenox injections and will continue her Coumadin. She should return Tuesday for repeat wound check and possible drain removal. Diagnoses: (C50.012) Malignant neoplasm involving both nipple and areola of left breast in female, unspecified estrogen receptor status (HCC) (primary encounter diagnosis) Return to Clinic: The patient is instructed to follow- up with me in 3 days. Lisa Trevino MD CNOV Observed: 11/22/2017 Status: COMPLETED Source: ADVANCE 3:30 PM [facility] REPOSITORY Office Visit (GENSWS) ESPERANZA LUCERO ([id number]) 1940 F Date Time Provider Department 11/22/17 3:30 PM LISA TREVINO GENMOES During your visit today, we recorded the following information about you: Temperature 98.4 degrees Lisa Trevino MD 11/23/2017 6:00 AM Signed FOLLOW UP VISIT - POST OP BREAST CANCER NAME: Esperanza Lucero CLINIC NO.: [id number] DATE OF SERVICE: 11/22/2017 : 1940 REFERRING PHYSICIAN: Kody Garcia MD Esperanza is a patient I am following for left sided breast cancer. The patient is a 77 year old female with a complaint of a palpable breast mass. The patient notes a mass in the 3 o'clock of her left breast just lateral to the areolar region. The patient has noticed this mass for a few months. She is noting retraction at the area of the nipple. The patient had a mammogram on August 29, 2017 which demonstrated postsurgical changes at the left upper outer relatively deep breast location and no other obvious abnormalities- listed as BI-RADS category 1. Recommend yearly follow-up. Due to the fact that the mass was present below the nipple, a left breast ultrasound was obtained on September 09, 2017 was noted was a palpable abnormality at 3:00 position and a 1 x 1.5 x 1.6, irregular area with shadowing. This was felt to likely represent postoperative changes, but due to the fact there was clinically suspicious MRI was recommended. My impression was that the area of my previous biopsy was likely considerably deeper than this area of abnormality. Bilateral breast MRI was obtained. A small lobular abnormality was noted at the 8 mm position. 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 In the left breast, there was a lobular enhancing mass measuring 2 x 2.1 by 1.6 cm which was felt to be highly suspicious for carcinoma. Biopsy was recommended. Follow up right ultrasound demonstrated a right paracolic nodule felt to be consistent with a fibroadenoma and recommended six-month follow-up. She does perform a self breast exam routinely. She notes no skin changes. She denies nipple discharge. She notes no axillary masses. She notes both her mother and a sister with a history of breast cancer. 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 She received external beam radiation to the left breast. She had a history of DVTs following surgery for colon cancer, so she did not receive hormonal therapy. The patient has had 3 pregnancies. The patient was initially referred to Dr. Drew Ortiz as the patient was under the impression that I no longer worked in [employer]. Dr. Ortiz recommended left biopsy, but informed the patient that I do still work in [employer]. The patient wished to follow-up with me, given our history of both breast and colon surgical procedures. The patient returned Tuesday for biopsy. She has held her Coumadin for 3 days. I performed both the cutaneous punch biopsy and core biopsies of the palpable mass below the nipple. 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 We extensively discussed her diagnosis and at the last visit discussed her surgical options including breast conservation surgical procedures, mastectomy without reconstruction and mastectomy with reconstruction. The patient has elected to undergo a left side mastectomy with sentinel lymph node biopsy with possible axillary dissection. The patient again had a DVT following her previous surgical procedure in 2008. She had not had a DVT symptoms. She had stopped her Coumadin following the course of treatment for her DVT now is on Coumadin for atrial fibrillation. I performed a left modified radical mastectomy with sentinel lymph node injection on November 14, 2017. The pathology demonstrated: FROZEN SECTION DIAGNOSIS A. Duncan lymph node, left, biopsy: Two out of two lymph nodes negative for metastatic carcinoma. SJ:didier 11/14/17 Case has been reviewed in consultation with Dr. Jeffery who concurs with the above diagnosis. IDC:AM MICROSCOPIC DIAGNOSIS A. Left sentinel lymph node, biopsy: Two out of two lymph nodes negative for metastatic carcinoma. B. 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 Three out of three lymph nodes, negative for metastatic carcinoma. See cancer summary below. INVASIVE BREAST CANCER SUMMARY: Specimen ? total breast (including nipple and skin). Procedure ? total mastectomy (including nipple and skin). Lymph node sampling ? sentinel lymph node and axillary dissection. Specimen integrity ? single intact specimen. Specimen laterality - left Tumor site ? nipple areolar complex Tumor size ? 2.2 x 1 x 1 cm Tumor focality ? single focus of invasive carcinoma Macroscopic and Microscopic extent of tumor: Skin ? the invasive carcinoma invades into the dermis without skin ulceration. Nipple ? 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 See comment. Skeletal muscle ? skeletal muscle is present and is free of carcinoma. 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 Extensive intraductal component (EIC) - negative Estimated size (extent) of DCIS - ductal carcinoma in situ comprise <5% of the total tumor volume. Number of blocks with DCIS - 2 Number of blocks examined ? 13 consisting of breast tissue Architectural patterns ? solid and comedo Nuclear grade ? grade 2 (intermediate) Necrosis ? present, central (expansive ?comedo? necrosis) Lobular carcinoma in situ (LCIS) ? not identified Histologic type of invasive carcinoma ? invasive ductal carcinoma (no special type) Histologic Grade (Mariano grade): Glandular/tubular differentiation - score 3 Nuclear pleomorphism - score 2 Mitotic count ? score 1 Overall grade - 2 (score of 6) Margins - Margins involved by invasive carcinoma. Invasive carcinoma is 3 cm away from the closest inferior margin and present very close to the overlying skin. Ductal carcinoma in situ/lobular carcinoma in situ is 1 cm away from the overlying skin and 3 cm away from the closest inferior margin. Treatment effect: Response to presurgical (neoadjuvant) therapy - no known presurgical therapy. Lymph-Vascular invasion ? not identified Dermal lymph-vascular invasion - not identified Lymph nodes: Number of sentinel lymph nodes examined - 2 Total number of lymph nodes examined (sentinel and nonsentinel) - 5 Number of lymph nodes with macrometastases, micrometastases and isolated tumor cells - 0 Method of evaluation of sentinel lymph nodes ? hematoxylin, H AND E, multiple levels and IHC. Distant metastasis ? not applicable Additional pathologic findings ? fibrocystic changes and focal atypical ductal hyperplasia. - dense fibrous area with focal fat necrosis, calcification and foreign body giant cell reaction, consistent with previous biopsy site (close to posterior margin). Ancillary studies - previously performed on section of tumor ([id number] / [id number]). ER ? positive (>95%, moderate) GA ? positive (80%, moderate) Her2 molly - 0 Microcalcifications ? present in ductal carcinoma in situ and non-neoplastic tissue. Clinical history ? Please make reference to previous specimen ([id number]) left breast, ultrasound-guided core biopsy with diagnosis of invasive lobular carcinoma with focal area of ductal carcinoma and left breast ulceration, nipple areolar complex with diagnosis of invasive ductal carcinoma. Please also make reference to previous specimen [id number], left breast lumpectomy with diagnosis of ductal carcinoma in situ. PATHOLOGIC STAGE: pT2 pN0 Mx The above summary is in compliance with [employer] [place] [employer] (CAP) Cancer Protocols Checklist and [place] [employer] on Cancer (AJCC), Staging Manual, 8th Ed. SJ:didier 11/18/17 COMMENT A. The lymph node is negative for metastatic carcinoma on multiple H AND E levels and immunohistochemical stains for cytokeratins ([id number]). B. 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 Resected tumor shows extensive positive staining for E-cadherin consistent with invasive ductal carcinoma. E-cadherin staining is repeated again on previous biopsy specimen and specimen A left breast core biopsy show predominantly negative staining for E-cadherin with focal positive staining. E-cadherin staining added to specimen due discrepancy in the staining and showed diffuse positive staining consistent with invasive ductal carcinoma. Case has been reviewed in consultation with Dr. Jeffery who concurs with the above diagnosis. IDC:AM MICROSCOPIC DESCRIPTION Slides are reviewed. GROSS DESCRIPTION A - Received fresh for frozen section diagnosis labeled with the patient's name is a specimen designated sentinel lymph node left. The specimen consists of a piece of adipose tissue containing two nodules consistent with lymph nodes measuring 3 x 2.5 x 0.5 cm. Two lymph nodes are identified, each measuring 1 cm in greatest dimension. Both lymph nodes are bisected and entire specimen is submitted for frozen section diagnosis in two cassettes as follows: 1 ? one bisected lymph node, 2 - one bisected lymph node. / SJ:didier 11/15/17 B - Received in fixative is one container labeled with the patient's name and designated left breast. The specimen consists of a modified radical mastectomy specimen consisting of breast tissue, overlying skin ellipse and axillary tail. The breast tissue measures 21 x 20 x 8 cm and the overlying skin ellipse measures 21 x 10 cm and the axillary tail measures 9 x 9 x 4 cm. The nipple measures 1 cm in greatest dimension. The nipple areolar complex shows induration. The specimen is inked as follows: superior margin ? blue, inferior margin ? black, medial margin ? red, lateral margin ? orange and posterior margin ? black. Serial sections reveal a covington, indurated mass in the area of nipple areolar complex and measures 2.2 x 1 x 1 cm. The tumor extends up to the overlying skin. No obvious ulceration is noted. A scar is also noted adjacent to the nipple. This tumor is 3 cm away from the closest inferior margin. An indurated area is also noted in the central portion of the breast tissue close to the posterior margin measuring 3.5 x 2.5 x 1.5 cm. Sections of the rest of the breast tissue reveal covington-yellow adipose cut surfaces mixed with covington-white fibrous areas. Sections of the axillary tail reveal multiple lymph nodes. The largest lymph node measures 3.5 cm in greatest dimension. Sections of the lymph node reveal fatty cut surfaces. Type Caster sections are submitted in 20 cassettes as follows: 1 ? nipple, entirely submitted, 2-4 ? tumor with overlying skin in the area of nipple areolar complex, entirely submitted, 5-9 ? indurated area with adjacent closest posterior margin, 10 ? perpendicular medial, lateral, superior and inferior margins, 11-13 ? claim service representative sections from the other areas, 14-20 ? axillary lymph nodes, entirely submitted (14 ? one possible bisected lymph node, 15 ? one possible lymph node, 16 - one bisected lymph node, 17- 20 ? the largest lymph node). / :didier 11/15/17 TC:0 CPT: 03222, 43866, 11607, 57537 Esperanza notes no significant pain, but does note discomfort from the Mikel-Terry drains. Post operative pain has been moderately well controlled. The patient denies nausea. The patient`s appetite has been good. The axillary Mikel terry drain output has been decreasing and is currently a few ounces for 24 hours. Her INR today is 2.1. VITALS: Temperature 36.9 ?C (98.4 ?F). On examination, the left skin incision is clean, dry, and intact. There is significant bruising along the superior lateral aspect of the incision with bruising, actually extending to the right breast. The axillary portion of the incision is clean, dry and intact. The mastectomy flap Mikel- Terry drain was removed. The axillary Mikel Terry drain was not removed . The fluid still seemed moderately serosanguineous. The patient's range of motion with her arm is good. Assessment IMPRESSION: Status Post modified radical mastectomy with sentinel lymph node injection for left invasive breast cancer. PLAN: Esperanza may return to regular activities as tolerated with the exception of no heavy lifting. .she should continue her arm range of motion exercises. The patient may now drive as long as she is no longer taking narcotic pain medication. If she notes any difficulties, she should contact me immediately. I plan to refer her for evaluation by oncology. Patient has a history of DVT and PEs. She can stop her Lovenox injections and will continue her Coumadin. She should return Tuesday for repeat wound check and possible drain removal. Diagnoses: (C50.012) Malignant neoplasm involving both nipple and areola of left breast in female, unspecified estrogen receptor status (HCC) (primary encounter diagnosis) Return to Clinic: The patient is instructed to follow- up with me in 3 days. Lisa Trevino MD Referring Provider: LISA TREVINO [[id number]] Allergies As of Date: 11/22/2017 Noted Allergy Reaction ALMOND 06/09/2006 PENICILLINS 05/10/2006 1 - Mental Status Change Comments: passed out Date Reviewed: 11/22/2017 Reviewed by: Odilia Scott Ma - Fully Assessed Reason for Visit: Post Op [174] Cmt: 11/14 mastectomy Reason For Visit History Recorded Primary Visit Diagnosis:Malignant neoplasm involving both nipple and areola of left breast in female, unspecified estrogen receptor status (HCC) [C50.012] Prescriptions as of 11/22/2017 Sig: ALLOPURINOL 300 MG TABLET ZYLOPRIM 300 MG TABS ATENOLOL 100 MG TABLET FOLIC ACID 400 MCG TABLET FOLIC ACID 400 MCG TABS LOSARTAN 50 MG TABLET twice daily. FAMOTIDINE 20 MG TABLET PEPCID 20 MG TABS DILTIAZEM SR 120 MG 24 HR CAP WARFARIN 5 MG TABLET HYDROCHLOROTHIAZIDE 25 MG TAB* POTASSIUM CHLORIDE ER 10 MEQ * * NAPROXEN SODIUM 220 MG TABLET Take 220 mg by mouth twice da* * K-DUR 10 MEQ TABLET,EXTENDED * take 2 tabs in am and 1 tab i* * ATENOLOL 100 MG-CHLORTHALIDON* 1 tablet daily * PRILOSEC 20 MG CAPSULE,DELAYE* Take one(1) capsule daily. 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] INVALID FOR* STENOSIS (SEE ALSO STRICTURE) COLON [K56.609] INVALID FOR* UNSP ABNORMAL MAMMOGRAM [R92.8] INVALID FOR* CA IN SITU BREAST [D05.90] INVALID FOR* Rectal bleeding [K62.5] INVALID FOR* Letter Text Encounter Status:Closed by LISA TREVINO MD on 11/23/17 PROTIME W/INR Collected: 11/22/2017 Status: F Source: [facility] 2:48 PM [facility] [place] TYPE CODE TESTS RESULT OUT OF REFERENCE UNITS RANGE LAB L9200.1001 11.9-14.4 SEC High PROTIME ISTAT 24.1 Result Comment: Reference Range 11.9 - 14.4 LAB L9200.2000 Normal INR ISTAT 2.10 Result Comment: Critical Value > 3.5 Performed By: #### [id number] #### [facility] Point of Care [address] [place] [address] PROGRESS Observed: 11/18/2017 Status: COMPLETED Source: [facility] 4:44 PM [facility] REPOSITORY HNO ID: [id number] Author: Lisa Trevino Service: (none) Author Type: Physician Type: Progress Notes Filed: 11/18/2017 6:38 PM Note Text: FOLLOW UP VISIT - POST OP BREAST CANCER NAME: Esperanza Lucero CLINIC NO.: [id number] DATE OF SERVICE: 11/18/2017 : 1940 REFERRING PHYSICIAN: Kody Garcia MD Esperanza is a patient I am following for left sided breast cancer. The patient is a 77 year old female with a complaint of a palpable breast mass. The patient notes a mass in the 3 o'clock of her left breast just lateral to the areolar region. The patient has noticed this mass for a few months. She is noting retraction at the area of the nipple. The patient had a mammogram on August 29, 2017 which demonstrated postsurgical changes at the left upper outer relatively deep breast location and no other obvious abnormalities-listed as BI-RADS category 1. Recommend yearly follow-up. Due to the fact that the mass was present below the nipple, a left breast ultrasound was obtained on September 09, 2017 was noted was a palpable abnormality at 3:00 position and a 1 x 1.5 x 1.6, irregular area with shadowing. This was felt to likely represent postoperative changes, but due to the fact there was clinically suspicious MRI was recommended. My impression was that the area of my previous biopsy was likely considerably deeper than this area of abnormality. Bilateral breast MRI was obtained. A small lobular abnormality was noted at the 8 mm position. 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 In the left breast, there was a lobular enhancing mass measuring 2 x 2.1 by 1.6 cm which was felt to be highly suspicious for carcinoma. Biopsy was recommended. Follow up right ultrasound demonstrated a right paracolic nodule felt to be consistent with a fibroadenoma and recommended six-month follow-up. She does perform a self breast exam routinely. She notes no skin changes. She denies nipple discharge. She notes no axillary masses. She notes both her mother and a sister with a history of breast cancer. 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 She received external beam radiation to the left breast. She had a history of DVTs following surgery for colon cancer, so she did not receive hormonal therapy. The patient has had 3 pregnancies. The patient was initially referred to Dr. Drew Ortiz as the patient was under the impression that I no longer worked in [employer]. Dr. Ortiz recommended left biopsy, but informed the patient that I do still work in [employer]. The patient wished to follow-up with me, given our history of both breast and colon surgical procedures. The patient returned Tuesday for biopsy. She has held her Coumadin for 3 days. I performed both the cutaneous punch biopsy and core biopsies of the palpable mass below the nipple. 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 We extensively discussed her diagnosis and at the last visit discussed her surgical options including breast conservation surgical procedures, mastectomy without reconstruction and mastectomy with reconstruction. The patient has elected to undergo a left side mastectomy with sentinel lymph node biopsy with possible axillary dissection. The patient again had a DVT following her previous surgical procedure in 2008. She had not had a DVT symptoms. She had stopped her Coumadin following the course of treatment for her DVT now is on Coumadin for atrial fibrillation. I performed a left modified radical mastectomy with sentinel lymph node injection on November 14, 2017. The pathology demonstrated: Esperanza notes no significant pain, but does note discomfort from the Mikel-Terry drains. Post operative pain has been moderately well controlled. The patient denies nausea. The patient`s appetite has been good. The axillary Mikel terry drain output has been decreasing and is currently a few ounces for 24 hours. VITALS: There were no vitals taken for this visit. On examination, the left skin incision is clean, dry, and intact. There is significant bruising along the superior lateral aspect of the incision, however. The axillary portion of the incision is clean, dry and intact. The Mikel Terry drain was not removed . The fluid still seemed moderately serosanguineous. The patient's range of motion with her arm is good. Assessment IMPRESSION: Status Post modified radical mastectomy with sentinel lymph node injection for left invasive breast cancer. PLAN: Esperanza may return to regular activities as tolerated with the exception of no heavy lifting. .she should continue her arm range of motion exercises. The patient may now drive as long as she is no longer taking narcotic pain medication. If she notes any difficulties, she should contact me immediately. I plan to refer her for evaluation by oncology. Patient has a history of DVT and PEs. She is currently receiving Lovenox injections and has restarted her Coumadin. Her INR today is 1.4. I recommend she continue her Lovenox injections and we will plan for repeat INR Tuesday or Tuesday. She should return Tuesday for repeat wound check and possible drain removal. Pathology is also still pending. Diagnoses: (C50.012) Malignant neoplasm involving both nipple and areola of left breast in female, unspecified estrogen receptor status (HCC) (primary encounter diagnosis) (Z86.718) History of DVT (deep vein thrombosis) Return to Clinic: The patient is instructed to follow- up with me in 3 days. Lisa Trevino MD PROTIME W/INR Collected: 11/18/2017 Status: F Source: [facility] 4:27 PM [facility] [place] TYPE CODE TESTS RESULT OUT OF REFERENCE UNITS RANGE LAB L9200.1001 11.9-14.4 SEC High PROTIME ISTAT 16.4 Result Comment: Reference Range 11.9 - 14.4 LAB L9200.2000 Normal INR ISTAT 1.40 Result Comment: Critical Value > 3.5 Performed By: #### [id number] #### [facility] Point of Care [address] [place] [address] CNOV Observed: 11/18/2017 Status: COMPLETED Source: [facility] 3:30 PM [facility] REPOSITORY Office Visit (GENSWS) ESPERANZA LUCERO ([id number]) 1940 F Date Time Provider Department 11/18/17 3:30 PM LISA TREVINO During your visit today, we recorded the following information about you: Lisa Trevino MD 11/18/2017 6:38 PM Signed FOLLOW UP VISIT - POST OP BREAST CANCER NAME: Esperanza Lucero [facility] NO.: [id number] DATE OF SERVICE: 11/18/2017 : 1940 REFERRING PHYSICIAN: Kody Garcia MD Esperanza is a patient I am following for left sided breast cancer. The patient is a 77 year old female with a complaint of a palpable breast mass. The patient notes a mass in the 3 o'clock of her left breast just lateral to the areolar region. The patient has noticed this mass for a few months. She is noting retraction at the area of the nipple. The patient had a mammogram on August 29, 2017 which demonstrated postsurgical changes at the left upper outer relatively deep breast location and no other obvious abnormalities- listed as BI-RADS category 1. Recommend yearly follow-up. Due to the fact that the mass was present below the nipple, a left breast ultrasound was obtained on September 09, 2017 was noted was a palpable abnormality at 3:00 position and a 1 x 1.5 x 1.6, irregular area with shadowing. This was felt to likely represent postoperative changes, but due to the fact there was clinically suspicious MRI was recommended. My impression was that the area of my previous biopsy was likely considerably deeper than this area of abnormality. Bilateral breast MRI was obtained. A small lobular abnormality was noted at the 8 mm position. 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 In the left breast, there was a lobular enhancing mass measuring 2 x 2.1 by 1.6 cm which was felt to be highly suspicious for carcinoma. Biopsy was recommended. Follow up right ultrasound demonstrated a right paracolic nodule felt to be consistent with a fibroadenoma and recommended six-month follow-up. She does perform a self breast exam routinely. She notes no skin changes. She denies nipple discharge. She notes no axillary masses. She notes both her mother and a sister with a history of breast cancer. 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 She received external beam radiation to the left breast. She had a history of DVTs following surgery for colon cancer, so she did not receive hormonal therapy. The patient has had 3 pregnancies. The patient was initially referred to Dr. Drew Ortiz as the patient was under the impression that I no longer worked in [employer]. Dr. Ortiz recommended left biopsy, but informed the patient that I do still work in [employer]. The patient wished to follow-up with me, given our history of both breast and colon surgical procedures. The patient returned Tuesday for biopsy. She has held her Coumadin for 3 days. I performed both the cutaneous punch biopsy and core biopsies of the palpable mass below the nipple. 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 We extensively discussed her diagnosis and at the last visit discussed her surgical options including breast conservation surgical procedures, mastectomy without reconstruction and mastectomy with reconstruction. The patient has elected to undergo a left side mastectomy with sentinel lymph node biopsy with possible axillary dissection. The patient again had a DVT following her previous surgical procedure in 2008. She had not had a DVT symptoms. She had stopped her Coumadin following the course of treatment for her DVT now is on Coumadin for atrial fibrillation. I performed a left modified radical mastectomy with sentinel lymph node injection on November 14, 2017. The pathology demonstrated: Esperanza notes no significant pain, but does note discomfort from the Mikel-Terry drains. Post operative pain has been moderately well controlled. The patient denies nausea. The patient`s appetite has been good. The axillary Mikel terry drain output has been decreasing and is currently a few ounces for 24 hours. VITALS: There were no vitals taken for this visit. On examination, the left skin incision is clean, dry, and intact. There is significant bruising along the superior lateral aspect of the incision, however. The axillary portion of the incision is clean, dry and intact. The Mikel Terry drain was not removed . The fluid still seemed moderately serosanguineous. The patient's range of motion with her arm is good. Assessment IMPRESSION: Status Post modified radical mastectomy with sentinel lymph node injection for left invasive breast cancer. PLAN: Esperanza may return to regular activities as tolerated with the exception of no heavy lifting. .she should continue her arm range of motion exercises. The patient may now drive as long as she is no longer taking narcotic pain medication. If she notes any difficulties, she should contact me immediately. I plan to refer her for evaluation by oncology. Patient has a history of DVT and PEs. She is currently receiving Lovenox injections and has restarted her Coumadin. Her INR today is 1.4. I recommend she continue her Lovenox injections and we will plan for repeat INR Tuesday or Tuesday. She should return Tuesday for repeat wound check and possible drain removal. Pathology is also still pending. Diagnoses: (C50.012) Malignant neoplasm involving both nipple and areola of left breast in female, unspecified estrogen receptor status (HCC) (primary encounter diagnosis) (Z86.718) History of DVT (deep vein thrombosis) Return to Clinic: The patient is instructed to follow- up with me in 3 days. Lisa Trevino MD Referring Provider: LISA TREVINO [[id number]] Allergies As of Date: 11/18/2017 Noted Allergy Reaction ALMOND 06/09/2006 PENICILLINS 05/10/2006 1 - Mental Status Change Comments: passed out Date Reviewed: 11/18/2017 Reviewed by: Lisa Trevino - Fully Assessed Reason for Visit: Post Op [174] Primary Visit Diagnosis:Malignant neoplasm involving both nipple and areola of left breast in female, unspecified estrogen receptor status (HCC) [C50.012] Other Visit Diagnosis:History of DVT (deep vein thrombosis) [Z86.718] Prescriptions as of 11/18/2017 Sig: ALLOPURINOL 300 MG TABLET ZYLOPRIM 300 MG TABS ATENOLOL 100 MG TABLET FOLIC ACID 400 MCG TABLET FOLIC ACID 400 MCG TABS LOSARTAN 50 MG TABLET twice daily. FAMOTIDINE 20 MG TABLET PEPCID 20 MG TABS DILTIAZEM SR 120 MG 24 HR CAP WARFARIN 5 MG TABLET HYDROCHLOROTHIAZIDE 25 MG TAB* POTASSIUM CHLORIDE ER 10 MEQ * * NAPROXEN SODIUM 220 MG TABLET Take 220 mg by mouth twice da* * K-DUR 10 MEQ TABLET,EXTENDED * take 2 tabs in am and 1 tab i* * ATENOLOL 100 MG-CHLORTHALIDON* 1 tablet daily * PRILOSEC 20 MG CAPSULE,DELAYE* Take one(1) capsule daily. 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] INVALID FOR* STENOSIS (SEE ALSO STRICTURE) COLON [K56.609] INVALID FOR* UNSP ABNORMAL MAMMOGRAM [R92.8] INVALID FOR* CA IN SITU BREAST [D05.90] INVALID FOR* Rectal bleeding [K62.5] INVALID FOR* Letter Text Encounter Status:Closed by LISA TREVINO MD on 11/18/17 12 LEAD ELECTROCARDIOGRAM Observed: 11/16/2017 Status: F Source: [facility] 2:12 PM [facility] RE[facility]IT[facility] Cardiovascular Services [address] [place] [address] 12 Lead EKG 11/14/17 1549 MR#: [id number] Acct: [id number] Name: ESPERANZA LUCERO Rep #: [id number] : 1940 77 From: Himanshu Cabello MD Attending Dr: Lisa Trevino MD Status: DIS IN Ordering Dr: Ra Galvez MD Date: 11/14/17 Location: [facility] [place] Sex: F C Admitted: 11/15/17 Test Reason : OR EKG Blood Pressure : / mmHG Vent. Rate : 065 BPM Atrial Rate : 065 BPM P-R Int : 172 ms QRS Dur : 134 ms QT Int : 460 ms P-R-T Axes : 067 027 214 degrees QTc Int : 478 ms Sinus rhythm with occasional Premature ventricular complexes Left bundle branch block Abnormal ECG When compared with ECG of 09-NOV-2017 14:15, No significant change was found Confirmed by HIMANSHU CABELLO MD ([id number]), graphics editor REMINGTON GARCIA ([id number]) on 11/16/2017 2:11:51 PM Referred By: Lisa Trevino Confirmed By:HIMANSHU CABELLO MD 11/16/17 1411 Date Himanshu Cabello MD CC: Ra Galvez MD; Kody Garcia MD; Lisa Trevino MD Signed 12 LEAD ELECTROCARDIOGRAM Observed: 11/16/2017 Status: F Source: [facility] 2:11 PM [facility] REPOSITORY [facility] Cardiovascular Services [address] [place] [address] 12 Lead EKG 11/14/17 1747 MR#: [id number] Acct: [id number] Name: ESPERANZA LUCERO Rep #: [id number] : 1940 77 From: Himanshu Cabello MD Attending Dr: Lisa Trevino MD Status: DIS IN Ordering Dr: Lisa Trevino MD Date: 11/14/17 Location: [facility] Sex: F C Admitted: 11/15/17 Test Reason : POST OP Blood Pressure : / mmHG Vent. Rate : 056 BPM Atrial Rate : 056 BPM P-R Int : 172 ms QRS Dur : 124 ms QT Int : 460 ms P-R-T Axes : 063 002 212 degrees QTc Int : 443 ms Sinus bradycardia with occasional Premature ventricular complexes Left bundle branch block Abnormal ECG When compared with ECG of 14-NOV-2017 15:49, MANUAL COMPARISON REQUIRED, DATA IS UNCONFIRMED Confirmed by HIMANSHU CABELLO MD ([id number]), graphics editor REMINGTON GARCIA ([id number]) on 11/16/2017 2:11:43 PM Referred By: Lisa Trevino Confirmed By:HIMANSHU CABELLO MD 11/16/17 1411 Date Himanshu Cabello MD CC: Kody Garcia MD; Lisa Trevino MD Signed DISCHARGE SUMMARY Observed: 11/16/2017 Status: F Source: [place] 6:35 AM [facility] [place] Medical Records Department [address] [place] [address] Discharge Summary 11/16/17 0632 MR#: [id number] Acct: [id number] Name: ESPERANZA LUCERO Rep #: [id number] : 1940 77 From: Lisa Trevino MD PCP: Kody Garcia MD Status: ADM IN Y Location: [facility] [id number] Discharge Date and Diagnosis Date of Admission: 11/14/17 Date of Discharge: 11/16/17 - Primary Discharge Diagnosis left breast cancer - Secondary Discharge Diagnosis Chronic Problems (Last Reviewed 09/29/17 @ 09:37 by Karina Dowling) Obesity (Chronic) Paroxysmal atrial fibrillation (Chronic) Pulmonary embolism (Chronic) LBBB (left bundle branch block) (Chronic) HTN (hypertension) (Chronic) Hospital Course and Treatment Consultations 11/14/17 17:22 Consult: Onc/Wound/riveter Routine Comment: Operations: - - left modified radical mastectomy Summary of Care Provided: The patient is a 77 year old F with a central breast cancer in the same breast previously treated with lumpectomy for DCIS with excision and radiation. She underwent left modified radical mastectomy. She has a prior history of DVTs. She was maintained on Lovenox and restarted on coumadin. She was ready for discharge on POD # 2 Discharge Diet: No Restrictions Discharge Activity: May Not Drive - for 2-3 days or while taking narcotic pain meds. May shower in (days): 1 Call your doctor if your incision/area has: Continuous Slow Oozing, Sudden Increased Bleeding Call your doctor if you observe: Fever of 101 or Higher Suture Line Care: Avoid Pulling/Pushing, Avoid Pinching/Bending Remove Dressing in (days):: 1 - Remove bulky dressing tomorrow. May leave any opsite dressing for 3-4 days. Keep dressing in place until your follow-up appointment. Additional Dressing/Incision Instructions:: change the drain dressings daily Home Medications: Medications to take at Discharge Allopurinol [Zyloprim] 150 mg PO DAILY 06/13/15 Atenolol [Tenormin] 100 mg PO DAILY 06/13/15 Folic Acid 0.4 mg PO DAILY@0800 06/13/15 Losartan Potassium [Cozaar] 50 mg PO BID 06/13/15 Aspirin [Adult Low Dose Aspirin EC] 81 mg PO DAILY 08/25/16 Cholecalciferol (VIT D3) [Vitamin D3] 1,000 unit PO DAILY 08/25/16 Warfarin [Coumadin (PBKC)] 4 mg PO SUMOWEFRSA 08/31/16 potassium chloride ER 10 mEq tablet,extended release(part/cryst) 10 meq PO DAILY #90 tab 05/16/17 hydrochlorothiazide 25 mg tablet 25 mg PO DAILY #90 tab 10/12/17 Acetaminophen [Tylenol] 500 mg PO Q6H PRN PRN 11/08/17 Diltiazem CD [Cardizem CD] 120 mg PO DAILY 11/08/17 Famotidine [Pepcid] 20 mg PO DAILY PRN 11/08/17 Warfarin [Coumadin] 5 mg PO TUTH 11/08/17 Enoxaparin [Lovenox] 40 mg SC DAILY #7 syringe 11/16/17 Ibuprofen [Motrin] 400 mg PO Q4H PRN PRN tablet 11/16/17 Warfarin [Coumadin] 4 mg PO SuMoWeFrSa@1700 tablet 11/16/17 Following Prescrptions Were Given to Patient: Enoxaparin [Lovenox] 40 mg SC DAILY #7 syringe Primary Care Physician: Kody Garcia MD [Primary Care Provider] - Please Follow Up With: Lisa Trevino MD When: Tuesday Medical Necessity - Tobacco Use Smoking Status: Former smoker Tobacco Use: Cigarettes Meaningful Use Info Meaningful Use Diagnoses (Choose all that apply): None applicable 11/16/17 0635 <Electronically signed by Lisa Trevino MD> Date Lisa Trevino MD Cosigner Signature (if applicable): Date CC: Kody Garcia MD; Lisa Trevino MD Signed DISCHARGE INSTRUCTION Observed: 11/16/2017 Status: F Source: [place] 6:31 AM [facility] [place] Medical Records Department [address] [place] [phone] Instructions for Home/Discharge Instructions 11/16/1730 MR#: [id number] Acct: [id number] Name: ESPERANZA LUCERO Rep #: [id number] : 1940 77 From: Lisa Trevino MD PCP: Kody Garcia MD Status: ADM IN Discharge Diet: No Restrictions Discharge Activity: May Not Drive - for 2-3 days or while taking narcotic pain meds. May shower in (days): 1 Lifting Restrictions: 10 pounds for 1 week. Call your doctor if your incision/area has: Continuous Slow Oozing, Sudden Increased Bleeding Call your doctor if you observe: Fever of 101 or Higher Suture Line Care: Avoid Pulling/Pushing, Avoid Pinching/Bending Remove Dressing in (days):: 1 - Remove bulky dressing tomorrow. May leave any opsite dressing for 3-4 days. Keep dressing in place until your follow-up appointment. Additional Dressing/Incision Instructions:: change the drain dressings daily Allergies/Adverse Reactions: Allergies almond Allergy (Verified 11/08/17 09:24) Unknown levofloxacin [From Levaquin] Adverse Reaction (Verified 11/14/17 12:07) Unknown Penicillins [PCN] Adverse Reaction (Verified 11/08/17 09:24) Other PASSED OUT Medications to take at Discharge Allopurinol [Zyloprim] 150 mg PO DAILY 06/13/15 Atenolol [Tenormin] 100 mg PO DAILY 06/13/15 Folic Acid 0.4 mg PO DAILY@0800 06/13/15 Losartan Potassium [Cozaar] 50 mg PO BID 06/13/15 Aspirin [Adult Low Dose Aspirin EC] 81 mg PO DAILY 08/25/16 Cholecalciferol (VIT D3) [Vitamin D3] 1,000 unit PO DAILY 08/25/16 Warfarin [Coumadin (PBKC)] 4 mg PO SUMOWEFRSA 08/31/16 potassium chloride ER 10 mEq tablet,extended release(part/cryst) 10 meq PO DAILY #90 tab 05/16/17 hydrochlorothiazide 25 mg tablet 25 mg PO DAILY #90 tab 10/12/17 Acetaminophen [Tylenol] 500 mg PO Q6H PRN PRN 11/08/17 Diltiazem CD [Cardizem CD] 120 mg PO DAILY 11/08/17 Famotidine [Pepcid] 20 mg PO DAILY PRN 11/08/17 Warfarin [Coumadin] 5 mg PO TUTH 11/08/17 Enoxaparin [Lovenox] 40 mg SC DAILY #7 syringe 11/16/17 Ibuprofen [Motrin] 400 mg PO Q4H PRN PRN tablet 11/16/17 Warfarin [Coumadin] 4 mg PO SuMoWeFrSa@1700 tablet 11/16/17 The following prescriptions were given: Enoxaparin [Lovenox] 40 mg SC DAILY #7 syringe Primary Care Physician: Kody Garcia MD [Primary Care Provider] - Please Follow Up With: Lisa Trevino MD When: Tuesday11/16/17630 <Electronically signed by Lisa Trevino MD> Date Lisa Trevino MD CC: Ra Galvez MD; Kody Garcia MD OPERATIVE REPORT Observed: 11/14/2017 Status: F Source: [place] 8:36 PM [facility] [place] [place] [facility] Medical Records Department [address] [place] [address] Operative Report 11/14/17 1725 MR#: [id number] Acct: [id number] Name: ESPERANZA LUCERO Rep #: [id number] : 1940 77 From: Lisa Trevino MD PCP: Kody Garcia MD Status: REG [facility] Y Location: [facility] SI018-7 Report of Operation Date of Procedure: 11/14/17 Pre-Operative Diagnosis: left periaerolar breast cancer Post-Operative Diagnosis: left periaerolar breast cancer, neg SLNBx but poorly blue Surgery/Procedure Performed:: left modified radical mastectomy, radiotracer and lymphazurin blue injection Description of Surgical Findings:: as above collections analyst: Uma Zambrano collections analyst: Russell Anderson Type of Anesthesia:: General Anesthesiologist: Ra Galvez - ASA3 Specimen's removed: SLNBx, Left MRM Drains: 2 DENI Estimated Blood Loss (mL): 50 Fluids Replaced: 1000 Description of Procedure: The patient had previously undergone injection of radiotracer in the radiology department. The patient s surgical site was marked in the holding area and the patient concurred that this was the planned operative site. The patient was then brought to the operative suite. Sign was performed verifying patient, site, position, SCIP antibiotic prophylaxis-2 g of Ancef and DVT prophylaxis with SCDs. Following an LMA anesthesia, 5 cc of a 50-50 mixture of lymphazurin blue and normal saline was injected into sappey's plexus. The breast was then massaged. Evaluation of the axilla with the neoprobe demonstrated no significant activity in the low axilla. The patient s left breast, axilla right arm and neck were then prepped and draped in the usual fashion. Timeout was performed verifying patient, site, position. The planned margin of excision for the mastectomy flaps were marked on the skin and incisions were made starting in the axillary region . Dissection was carried superior laterally down to the pectoralis muscle and dissection extended towards the axilla. A blue lymphatic duct was identified and tracked back to the sentinel lymph node which turned only partially blue. This node was then dissected free from the surrounding structures. After was removed, it was evaluated with the neoprobe and contained approximately 0 counts. The neoprobe was then used to assess the axilla through the incision without additional activity noted. there were noted to be palpable lymph nodes in the axilla, so I continue to perform then a formal axillary dissection. Posteriorly the neurovascular bundle for the thoracodorsal nerve was identified and anteriorly the neurovascular bundle for the long thoracic nerve was identified and protected. Dissection was then continued up to the level of the axillary vein. The vein and artery going to the axillary contents was dissected and clipped with small clips and divided. As dissection was continued the traversing vessels and cutaneous nerves were divided. The axillary contents was left in continuity with the mastectomy specimen Attention was then turned to the mastectomy. Superior and inferior flaps were completed and raised. The breast tissue was taken down to the pectoralis fascia. The inferior portion of breast was then removed from the intercostal musculature and dissection carried superior laterally dividing the superficial tissues leading up to the axillary dissection . The specimen was sent whole . 2 Mikel-Terry drains were placed in the medial along the skin flap the lateral in the axilla and secured with 3-0 nylon suture. Skin flaps were approximated interrupted 3-0 Vicryls. Skin was closed with li. Drain dressings and incisional dressings were placed. All sponge and instrument counts were correct. The patient was extubated and brought to recovery room in stable condition. - Admit VTE Documentation VTE Present on Admission: No VTE Mechan Device Prophylaxis: SCD's VTE Pharm Prophylaxis ordered?: Yes 11/14/172035 <Electronically signed by Lisa Trevino MD> Date Lisa Trevino MD CC: Ra Galvez MD; Kody Garcia MD; Lisa Trevino MD Signed TROPONIN-I Collected: 11/14/2017 Status: F Source: [place] 6:15 PM [facility] [place] TYPE CODE TESTS RESULT OUT OF RANGE REFERENCE UNITS LAB L501.4010 <0.045 ng/mL Normal < 0.015 TROPONIN-I Result Comment: TROPONIN-I EXPECTED VALUES <0.045 Negative 0.045 - 0.590 Consistent with Cardiac Damage > OR = 0.600 Critical Value Not every elevated troponin is indicative of OR. These values should be used with clinical judgement in examining the patient's clinical picture for diagnosis. To establish a diagnosis of OR versus myocardial injury, there must be a demonstrated rise and/or fall in the troponin values, in addition to ischemic symptoms, EKG changes, new regional wall motion abnormality, and/or angiographical evidence. PLEASE NOTE: REFERENCE RANGES EDITED 17 Performed By: #### L501.4010 #### [facility] [address] [place], [address] AXILLARY NODE BIOPSY Observed: 11/14/2017 Status: F Source: [place] 2:00 PM [facility] [place] Patient: ESPERANZA LUCERO : 1940 (77/F) Acct Num: [id number] Phys: Haile LEAL,Lisa Unit Num: [id number] Loc: MS2 BG013-1 Specimen: [id number] Received: 11/14/171642 Spec Type: AX NODE BX TISSUES 1 TISSUES: A. Axillary lymph node, NOS B. Left breast, NOS ADDENDUM Addendum Number 1 An order for Oncotype testing was received from Dr. Trejo. This necessitated case review, block and slide selection by pathologist at [facility]. Breast Cancer Recurrence Score = 5 Results of the complete Oncotype testing ([facility] report) are viewable in EMR under: Reports - Pathology - Lab Pathology Report, Scanned. Addendum Signed All Fernandes 12/14/17 <signature on file> COMMENT A. The lymph node is negative for metastatic carcinoma on multiple H AND E levels and immunohistochemical stains for cytokeratins ([id number]). B. Immunohistochemistry ([id number]) supports the diagnosis of invasive ductal carcinoma, ductal carcinoma in situ, Paget s disease of nipple, focal atypical ductal hyperplasia, and negative for dermal lymph-vascular invasion. Resected tumor shows extensive positive staining for E-cadherin consistent with invasive ductal carcinoma. E-cadherin staining is repeated again on previous biopsy specimen and specimen A left breast core biopsy show predominantly negative staining for E-cadherin with focal positive staining. E-cadherin staining added to specimen due discrepancy in the staining and showed diffuse positive staining consistent with invasive ductal carcinoma. Case has been reviewed in consultation with Dr. Jeffery who concurs with the above diagnosis. IDC:AM FROZEN SECTION DIAGNOSIS A. Duncan lymph node, left, biopsy: Two out of two lymph nodes negative for metastatic carcinoma. : 11/14/17 Case has been reviewed in consultation with Dr. Jeffery who concurs with the above diagnosis. IDC:AM GROSS DESCRIPTION A - Received fresh for frozen section diagnosis labeled with the patient's name is a specimen designated sentinel lymph node left. The specimen consists of a piece of adipose tissue containing two nodules consistent with lymph nodes measuring 3 x 2.5 x 0.5 cm. Two lymph nodes are identified, each measuring 1 cm in greatest dimension. Both lymph nodes are bisected and entire specimen is submitted for frozen section diagnosis in two cassettes as follows: 1 one bisected lymph node, 2 - one bisected lymph node. / : 11/15/17 B - Received in fixative is one container labeled with the patient's name and designated left breast. The specimen consists of a modified radical mastectomy specimen consisting of breast tissue, overlying skin ellipse and axillary tail. The breast tissue measures 21 x 20 x 8 cm and the overlying skin ellipse measures 21 x 10 cm and the axillary tail measures 9 x 9 x 4 cm. The nipple measures 1 cm in greatest dimension. The nipple areolar complex shows induration. The specimen is inked as follows: superior margin blue, inferior margin black, medial margin red, lateral margin orange and posterior margin black. Serial sections reveal a covington, indurated mass in the area of nipple areolar complex and measures 2.2 x 1 x 1 cm. The tumor extends up to the overlying skin. No obvious ulceration is noted. A scar is also noted adjacent to the nipple. This tumor is 3 cm away from the closest inferior margin. An indurated area is also noted in the central portion of the breast tissue close to the posterior margin measuring 3.5 x 2.5 x 1.5 cm. Sections of the rest of the breast tissue reveal covington-yellow adipose cut surfaces mixed with covington-white fibrous areas. Sections of the axillary tail reveal multiple lymph nodes. The largest lymph node measures 3.5 cm in greatest dimension. Sections of the lymph node reveal fatty cut surfaces. Type Caster sections are submitted in 20 cassettes as follows: 1 nipple, entirely submitted, 2-4 tumor with overlying skin in the area of nipple areolar complex, entirely submitted, 5-9 indurated area with adjacent closest posterior margin, 10 perpendicular medial , lateral, superior and inferior margins, 11-13 claim service representative sections from the other areas, 14-20 axillary lymph nodes, entirely submitted (14 one possible bisected lymph node, 15 one possible lymph node, 16 - one bisected lymph node, 17-20 the largest lymph node). / SJ:rg 11/15/17 TC:0 CPT: 10841, 90268, 55706, 19576 HEADER OPERATION: Left modified mastectomy, radiotracer and Lymphazurin blue PRE-OP DIAGNOSIS: Left periareolar breast cancer TISSUE SUBMITTED: A Duncan node FS, B Left breast MICROSCOPIC DESCRIPTION Slides are reviewed. MICROSCOPIC DIAGNOSIS A. Left sentinel lymph node, biopsy: Two out of two lymph nodes negative for metastatic carcinoma. B. 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 Three out of three lymph nodes, negative for metastatic carcinoma. See cancer summary below. INVASIVE BREAST CANCER SUMMARY: Specimen total breast (including nipple and skin). Procedure total mastectomy (including nipple and skin). Lymph node sampling sentinel lymph node and axillary dissection. Specimen integrity single intact specimen. Specimen laterality - left Tumor site nipple areolar complex Tumor size 2.2 x 1 x 1 cm Tumor focality single focus of invasive carcinoma Macroscopic and Microscopic extent of tumor: Skin the invasive carcinoma invades into the dermis without skin ulceration. 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 See comment. Skeletal muscle skeletal muscle is present and is free of carcinoma. 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 Extensive intraductal component (EIC) - negative Estimated size (extent) of DCIS - ductal carcinoma in situ comprise <5% of the total tumor volume. Number of blocks with DCIS - 2 Number of blocks examined 13 consisting of breast tissue Architectural patterns solid and comedo Nuclear grade grade 2 (intermediate) Necrosis present, central (expansive comedo necrosis) Lobular carcinoma in situ (LCIS) not identified Histologic type of invasive carcinoma invasive ductal carcinoma (no special type) Histologic Grade ([place] grade): Glandular/tubular differentiation - score 3 Nuclear pleomorphism - score 2 Mitotic count score 1 Overall grade - 2 (score of 6) Margins - Margins involved by invasive carcinoma. Invasive carcinoma is 3 cm away from the closest inferior margin and present very close to the overlying skin. Ductal carcinoma in situ/lobular carcinoma in situ is 1 cm away from the overlying skin and 3 cm away from the closest inferior margin. Treatment effect: Response to presurgical (neoadjuvant) therapy - no known presurgical therapy. Lymph-Vascular invasion not identified Dermal lymph-vascular invasion - not identified Lymph nodes: Number of sentinel lymph nodes examined - 2 Total number of lymph nodes examined (sentinel and nonsentinel) - 5 Number of lymph nodes with macrometastases, micrometastases and isolated tumor cells - 0 Method of evaluation of sentinel lymph nodes hematoxylin, H AND E, multiple levels and IHC. Distant metastasis not applicable Additional pathologic findings fibrocystic changes and focal atypical ductal hyperplasia. - dense fibrous area with focal fat necrosis, calcification and foreign body giant cell reaction, consistent with previous biopsy site (close to posterior margin). Ancillary studies - previously performed on section of tumor ([id number] / RF46 -170). ER positive (>95%, moderate) GA positive (80%, moderate) Her2 molly - 0 Microcalcifications present in ductal carcinoma in situ and non-neoplastic tissue. Clinical history Please make reference to previous specimen ([id number]) left breast, ultrasound-guided core biopsy with diagnosis of invasive lobular carcinoma with focal area of ductal carcinoma and left breast ulceration, nipple areolar complex with diagnosis of invasive ductal carcinoma. Please also make reference to previous specimen [id number], left breast lumpectomy with diagnosis of ductal carcinoma in situ. PATHOLOGIC STAGE: pT2 pN0 Mx The above summary is in compliance with [employer] [place] (CAP) Cancer Protocols Checklist and [place] Joint Committee on Cancer (AJCC), Staging Manual, 8th Ed. SJ:didier 11/18/17 Signed All Fernandes 11/21/17 <signature on file> Performed By: #### JUANY #### [facility] [address] [place] [address]. [place], [place], [id number] PROTIME W/INR Collected: 11/14/2017 Status: F Source: [place] FINGERST[place] 11:45 AM [facility] [place] [place] TYPE CODE TESTS RESULT OUT OF RANGE REFERENCE UNITS LAB L9200.1001 11.9-14.4 SEC Normal PROTIME ISTAT 14.2 Result Comment: Reference Range 11.9 - 14.4 LAB L9200.2000 Normal INR ISTAT 1.20 Result Comment: Critical Value > 3.5 Performed By: #### L9200.0000 #### [facility] Point of Care [address] [place] [address] LYMPH NODE INJECTION Observed: 11/14/2017 Status: F Source: [place] ONLY 11:11 AM [facility] [place] Imaging Services [address] [place] [address] Lymph Node Injection Only MR#: [id number] Acct: [id number] Name: ESPERANZA LUCERO Rep #: [id number] : 1940 F 77 From: Armand Cowan MD PCP: Kody Garcia MD Status: [facility] Study: Lymph Node Injection Only Date of Exam: 11/14/17 Exam# [id number] Ordering Dr: Lisa Trevino MD PROCEDURE: NUCLEAR MEDICINE Injection Duncan Node - LEFT breast(s). REASON FOR EXAM: Female, 77 years old. Left breast cancer. TECHNIQUE: Duncan node localization using radionuclide methods of the LEFT breast(s) was performed following subcutaneous administration of 1.0 mCi of of sulfur colloid Tc-99m. FINDINGS: 1 mCi of technetium labeled sulfur colloid was injected in 4 equal aliquots in the superior aspect of the left areola. NM/Lymph Node Injection Only IMPRESSION: Injection of 1 mCi of technetium labeled sulfur colloid for sentinel node imaging. Electronically Signed: Armand Cowan MD at 13:16 EDT Tel [phone], Service support , CC: Kody Garcia MD; Lisa Trevino MD Alberene Stone Setter: Signed CNOP Observed: 11/14/2017 Status: COMPLETED Source: ADVANCE 12:00 AM [facility] REPOSITORY Operative Note (Enc) (GENSWS) Progress Notes: Lisa Trevino MD 11/23/2017 6:37 AM Signed OPERATIVE NOTATION FOR [facility] SURGICAL PROCEDURE. November 14, 2017 Esperanza Lucero 1940 [id number] female PROCEDURE: left MODIFIED RADICAL MASTECTOMY WITH SENTINEL LYMPH NODE INJECTION, radiotracer identification - [id number], [id number], [id number] SURGEON: Kerri Trevino M.D. FACS FLOOR INSPECTOR: [facility] DEPT: W PROVIDER: [id number] Trevino MD POS: [id number] DIAGNOSIS: (N63.20) Left breast mass (primary encounter diagnosis) (C50.012) Malignant neoplasm involving both nipple and areola of left breast in female, unspecified estrogen receptor status (HCC) ASA CLASS: 3 - Severe FINDINGS: COMPLICATIONS: None PMHx - PAST MEDICAL HISTORY Diagnosis Date - Malignant neoplasm of colon, unspecified site - Personal history of malignant neoplasm of rectum, rectosigmoid junction, and anus - Unspecified essential hypertension Essential hypertension - Unspecified intestinal obstruction COMORBIDITIES - Chronic Pulmonary, Coagulopathy and HTN Post Op Occurrences - None Wound Classification - Clean Operative note dictated in the [facility] dictation system. Lisa Trevino MD Encounter Status:Closed by LISA TREVINO MD on 11/23/17 IMMUNOHISTOCHEMISTRY Observed: 11/14/2017 Status: F Source: [place] 12:00 AM [facility] [place] Patient: ESPERANZA LUCERO : 1940 (77/F) Acct Num: [id number] Phys: Lisa Trevino MD Unit Num: [id number] Loc: MS2 BE052-7 Specimen: [id number] Received: 11/17/171226 Spec Type: IMMUNO TISSUES TISSUES: A. Axillary lymph node, NOS B. Left breast, NOS SPECIMEN INFORMATION: Tissue Source: A Duncan lymph node left, biopsy, B Left breast mastectomy Clinical Info: Left periareolar breast cancer Specimen Number: [id number] A1, A2, B1, B4, B9 CPT code: 86682 x2, 74818 x13 METHODOLOGY: Deparaffinized sections of prefer/formalin-fixed tissue or PAP/DQ stained slides are incubated with monoclonal/polyclonal antibodies/oligonucleotide probes. Localization is made via biotin free immunoperoxidase method. Appropriate controls are performed and reacted as expected. Results on target cell population are indicated in the following table: RESULTS: ANTIBODY / CLONE RESULT Block A1 AE1-3 (AE1/AE3/PCK26) negative CK7 (OV-TL12/30) negative Block A2 AE1-3 (AE1/AE3/PCK26) negative CK7 (OV-TL12/30) negative Block B1 CK7 (OV-TL12/30) positive, including focally in the epidermis CK8 (21jdfeE35) positive, including focally in the epidermis CD31 (RAFAELA/70A) negative Factor VIII (R Ag) negative Block B4 E-Cad (ECH-6) positive Calponin-1 (LC811R) negative * P40 (BC28) negative * CK8 (52xmzdJ30) positive * Positive in ductal carcinoma in situ. Block B9 E-Cad (ECH-6) positive CK7 (OV-TL12/30) positive CK8 (99ubshO16) positive These tests were developed and their performance characteristics determined by [facility]. They may not have been cleared or approved by the U.S. Food and Drug Administration. The FDA has determined that such clearance or approval is not necessary. INTERPRETATION: A. Duncan lymph node left, biopsy: Two out of two lymph nodes, negative for metastatic carcinoma. B. Left breast, mastectomy: Invasive ductal carcinoma. 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 Dermal lymph-vascular invasion not present. This case has been reviewed in consultation with Dr. Jeffery who concurs with the above diagnosis. SJ:didier 11/18/17 PHYSICIAN AND INSTITUTION [facility] [address] [place] [address] Signed All Walterin 11/21/17 <signature on file> Performed By: #### PIMM #### [facility] [address] [place] [address]. [place], [address] 12 LEAD ELECTROCARDIOGRAM Observed: 11/10/2017 Status: F Source: [place] 1:21 PM [facility] [place] [facility] Cardiovascular Services [address] [place] [address] 12 Lead EKG 11/09/17 1415 MR#: [id number] Acct: [id number] Name: ESPERANZA LUCERO Rep #: [id number] : 1940 77 From: Nathanael Briceño MD Attending Dr: Lisa Trevino MD Status: PRE SDC Ordering Dr: Lisa Trveino MD Date: 11/09/17 Location: [facility] Sex: F C Admitted: Test Reason : PRE-OP Blood Pressure : / mmHG Vent. Rate : 055 BPM Atrial Rate : 055 BPM P-R Int : 152 ms QRS Dur : 126 ms QT Int : 470 ms P-R-T Axes : 066 014 092 degrees QTc Int : 449 ms Sinus bradycardia with occasional Premature ventricular complexes Left bundle branch block Abnormal ECG Confirmed by KEYANNA LEAL, NATHANAEL ([id number]), graphics editor REMINGTON GARCIA ([id number]) on 11/10/2017 1:20:44 PM Referred By: Lisa Trevino Confirmed By:NATHANAEL BRICEÑO MD 11/10/17 1320 Date Nathanael Briceño MD CC: Kody Garcia MD; Lisa Trevino MD Signed CBC-COMPLETE BLOOD CNT Collected: 11/09/2017 Status: F Source: CRYSTAL NO DIFF 2:01 PM [facility] [place] CODE TESTS RESULT OUT OF RANGE REFERENCE UNITS LAB L100.1000 4.4-11.0 K/mm3 Normal WBC 10.4 LAB L100.1200 4.2-5.4 M/mm3 Low RBC 4.08 LAB L100.1300 12.0-15.0 g/dl Normal HGB 12.4 LAB L100.1400 37-47 % Normal HCT 37.8 LAB L100.1500 81-99 fL Normal MCV 92.6 LAB L100.1600 27.0-32.0 pg Normal MCH 30.4 LAB L100.1700 32-36 g/gl Normal MCHC 32.8 LAB L100.1810 11.6-14.6 % Normal RDW CV 13.8 LAB L100.1820 35.1-43.9 fl High RDW SD 46.3 LAB L100.1900 150-450 K/mm3 Normal PLT 304 LAB L100.2000 6.2-12.0 fl Normal MPV 9.6 Performed By: #### L100.0500 #### [facility] [address] [place], [address] BASIC METABOLIC Collected: 11/09/2017 Status: F Source: BONDUEL PROFILE (BMP) 2:01 PM [facility] [place] TYPE CODE TESTS RESULT OUT OF RANGE REFERENCE UNITS LAB L501.0100 74-106 mg/dL High GLU 120 Result Comment: Fasting Glucose result from 100 to 125 mg/dL suggests IMPAIRED HOMEOSTASIS per A.D.A. criteria. Please note revised GLUCOSE reference range effective 2017. LAB L501.1000 7-18 mg/dL High BUN 26 LAB L501.1100 0.55-1.02 mg/dL High CREAT,SERUM 1.04 Result Comment: The validity of the calculated GFR AND GFRAA in patients over 70 years has not been determined. Clinical correlation is essential. LAB L501.1110 >60 mL/min Low EST GFR 54 Result Comment: Non- GFR Calc LAB L501.1115 >60 mL/min Normal EST GFR - AA 66 Result Comment: GFR Calc LAB L501.1300 10-20 RATIO High BUN/CRE 25.0 LAB L501.2200 8.5-10.1 mg/dL CA Normal 8.8 LAB L501.5300 136-145 mmol/L NA Normal 139 LAB L501.5600 3.5-5.1 mmol/L K Normal 3.9 LAB L501.5900 98-107 mmol/L CL Normal 106 LAB L501.6100 21.0-32.0 mmol/L Normal CO2 24.0 LAB L501.6200 5-15 Normal GAP 9 Performed By: #### L500.2500 #### [facility] [address] [place], [address] PROTIME W/INR Collected: 10/27/2017 Status: F Source: BONDUEL FINGERSTICK 10:48 AM [facility] [place] TYPE CODE TESTS RESULT OUT OF REFERENCE UNITS RANGE LAB L9200.1001 11.9-14.4 SEC High PROTIME ISTAT 24.0 Result Comment: Reference Range 11.9 - 14.4 LAB L9200.2000 Normal INR ISTAT 2.10 Result Comment: Critical Value > 3.5 Performed By: #### L9200.0000 #### [facility] Point of Care [address] [place] [address] PROGRESS Observed: 10/21/2017 Status: COMPLETED Source: ADVANCE 7:48 AM [facility] REPOSITORY O ID: [id number] Author: Lisa Trevino Service: (none) Author Type: Physician Type: Progress Notes Filed: 10/29/2017 10:15 AM Note Text: HISTORY AND PHYSICAL - BREAST CANCER Esperanza Lucero 1940 October 21, 2017 REFERRING PHYSICIAN: Kody Garcia MD CHIEF COMPLAINT: BREAST CANCER - LEFT - INVASIVE DUCTAL CARCINOMA HPI: FOLLOW UP VISIT Esperanza is a patient I am following for a palpable left breast mass. The patient is a 77 year old female with a complaint of a palpable breast mass. The patient notes a mass in the 3 o'clock of her left breast just lateral to the areolar region. The patient has noticed this mass for a few months. She is noting retraction at the area of the nipple. The patient had a mammogram on August 29, 2017 which demonstrated postsurgical changes at the left upper outer relatively deep breast location and no other obvious abnormalities-listed as BI-RADS category 1. Recommend yearly follow-up. Due to the fact that the mass was present below the nipple, a left breast ultrasound was obtained on September 09, 2017 was noted was a palpable abnormality at 3:00 position and a 1 x 1.5 x 1.6, irregular area with shadowing. This was felt to likely represent postoperative changes, but due to the fact there was clinically suspicious MRI was recommended. My impression was that the area of my previous biopsy was likely considerably deeper than this area of abnormality. Bilateral breast MRI was obtained. A small lobular abnormality was noted at the 8 mm position. 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 In the left breast, there was a lobular enhancing mass measuring 2 x 2.1 by 1.6 cm which was felt to be highly suspicious for carcinoma. Biopsy was recommended. Follow up right ultrasound demonstrated a right paracolic nodule felt to be consistent with a fibroadenoma and recommended six-month follow-up. She does perform a self breast exam routinely. She notes no skin changes. She denies nipple discharge. She notes no axillary masses. She notes both her mother and a sister with a history of breast cancer. 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 She received external beam radiation to the left breast. She had a history of DVTs following surgery for colon cancer, so she did not receive hormonal therapy. The patient has had 3 pregnancies. The patient was initially referred to Dr. Drew Ortiz as the patient was under the impression that I no longer worked in [place]. Dr. Ortiz recommended left biopsy, but informed the patient that I do still work in [place]. The patient wished to follow-up with me, given our history of both breast and colon surgical procedures. The patient returned Tuesday for biopsy. She has held her Coumadin for 3 days. I performed both the cutaneous punch biopsy and core biopsies of the palpable mass below the nipple. 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 We extensively discussed her diagnosis and at the last visit discussed her surgical options including breast conservation surgical procedures, mastectomy without reconstruction and mastectomy with reconstruction. The patient has elected to undergo a left side mastectomy with sentinel lymph node biopsy with possible axillary dissection. The patient again had a DVT following her previous surgical procedure in 2008. She had not had a DVT symptoms. She had stopped her Coumadin following the course of treatment for her DVT now is on Coumadin for atrial fibrillation. PAST MEDICAL HISTORY Diagnosis Date - Malignant neoplasm of colon, unspecified site - Personal history of malignant neoplasm of rectum, rectosigmoid junction, and anus - Unspecified essential hypertension Essential hypertension - Unspecified intestinal obstruction PAST SURGICAL HISTORY Procedure Laterality Date - CATARACT EXTRACTION HX Bilateral 2017 - DELIVERY ONLY , low cervical - COLONOSCOP W/ OR W/O BRS SPEC 04/23/2008 disuse colitis, anastamosis open - COLONOSCOP W/ OR W/O BRS SPEC 05/29/09 - COLONOSCOP W/ OR W/O BRS SPEC 07/21/2010 Colonoscopy-Repeat in 3 years (-2013) - FLEX SIGMOID W BALLOON DILAT 11/21/2007 stenosis at 25cm - HYSTERECTOMY HX 2013 endometrial cancer - OPEN RX ANKLE DISLOCATN+FIXATN ORIF Ankle - PART REMOVAL COLON W COLOPROCTOSTOMY 05/12/2006 LAR with Splenic Flexure mobilization - PART REMOVAL COLON W OSTOMY/MUCOFIST 11/22/2007 Severe Stricture, Adhesions - RESECT SMALL INTEST,SINGL RESEC/ANAS 11/22/2007 - RESECT SMALL INTEST,SINGL RESEC/ANAS ileostomy takedown Current Outpatient Prescriptions: allopurinol (ZYLOPRIM) 300 mg tablet ZYLOPRIM 300 MG TABS Disp: Rfl: atenolol (TENORMIN) 100 mg tablet Disp: Rfl: folic acid 400 mcg tablet FOLIC ACID 400 MCG TABS Disp: Rfl: losartan (COZAAR) 50 mg tablet twice daily. Disp: Rfl: famotidine (PEPCID) 20 mg tablet PEPCID 20 MG TABS Disp: Rfl: diltiazem CD (CARDIZEM CD, CARTIA XT) 120 mg 24 hr capsule Disp: Rfl: warfarin (COUMADIN) 5 mg tablet Disp: Rfl: hydroCHLOROthiazide (HYDRODIURIL, ESIDRIX) 25 mg tablet Disp: Rfl: potassium chloride (K-TAB) 10 mEq tablet Disp: Rfl: Naproxen Sodium (ALEVE) 220 mg ORAL tablet Take 220 mg by mouth twice daily with meals. Disp: Rfl: potassium chloride(K-DUR 10 MEQ TAB) take 2 tabs in am and 1 tab in pm Disp: Rfl: 0 ATENOLOL-CHLORTHALIDONE 100 MG-25 MG TAB 1 tablet daily Disp: Rfl: 0 omeprazole(PRILOSEC 20 MG CAP) Take one(1) capsule daily. Disp: Rfl: 0 No current facility-administered medications for this visit. ALLERGIES: [place]; Penicillins PERSONAL HISTORY: Social History Marital status: Spouse name: Years of education: Number of children: Social History Main Topics Smoking status: Former Smoker Packs/day: 0.00 Years: 0.00 Quit date: 03/07/1959 Alcohol use: No FAMILY HISTORY: No family history on file. REVIEW OF SYMPTOMS: The review of systems data was entered by the nurse and reviewed by me There are no exam notes on file for this visit. PHYSICAL EXAMINATION: General: The patient is 77 year old female, well nourished, well hydrated in no acute distress. The patient is oriented to time, place, and person. VITALS: There were no vitals taken for this visit. There is no height or weight on file to calculate BMI. HEENT: Normal cephalic, ataumatic, pupils are equally round, sclera are anicteric, mucous membranes are moist, oropharynx is clear. Neck has no masses, asymmetry or lymphadenopathy. Thyroid is unremarkable. Respiratory: Clear to auscultation and percussion. Normal respiratory excursion and pattern. Cardiac: Examination is regular rate and rhythm. Abdominal exam: Soft, nontender, with no palpable masses. No hepatosplenomegaly. No palpable hernias. Rectal exam: exam deferred Extremities: no clubbing, cyanosis or edema. No adenopathy. Breast: Visual inspection reveals no retractions, nipple inversion, or skin changes. Palpation of the right breast reveals no dominant or suspicious masses. Palpation of the left breast reveals the mass of concern at the retroareolar nipple, extending to the lateral or 3:00 position. The mass is mobile. There is involvement in the subareolar nipple and there is erosion just lateral to the areolar with a scab in place. The previous left upper outer quadrant biopsy site is well-healed. Axillary exam demonstrates no suspicious masses in either the left or right axilla. There is no nipple discharge expressed from either the left or right breast. 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 The planned surgical procedure was discussed extensively with the patient. The risks, benefits, anticipated outcomes and possible complications and alternatives were discussed. My staff has also explained the procedure in understandable terms and the patient was given the option to take printed material concerning the planned procedure. The patient had the opportunity to ask questions concerning the planned procedure. The patient freely consents to the planned procedure. My impression is I should be able to hold her Coumadin for 5 days preoperatively, but then would plan for heparin bridge once restarting her Coumadin given her history of DVTs in the past. Anticipated Surgical Procedure/ CPT Code: left MASTECTOMY WITH SENTINEL LYMPH NODE BIOPSY, radiotracer identification - [id number], [id number], [id number] Anticipated Anesthetic: General Patient weight: There were no vitals taken for this visit. BMI: There is no height or weight on file to calculate BMI. Planned antibiotic: Ancef 2gm IVPB hospice care sales consultant to OR SCDs needed - Yes Industrial Hygenist Needed - Yes My findings have been communicated to Dr. Kody Garcia MD via shared medical record. This note will be forwarded to Dr. Kody Garcia MD. Diagnoses: (N63.20) Left breast mass (primary encounter diagnosis) (C50.012) Malignant neoplasm involving both nipple and areola of left breast in female, unspecified estrogen receptor status (HCC) Return to Clinic: The patient is instructed to follow-up with me 1 week post operatively. Lisa Trevino MD CNOV Observed: 10/20/2017 Status: COMPLETED Source: ADVANCE 11:00 AM [facility] REPOSITORY Office Visit (GENSWS) ESPERANZA LUCERO ([id number]) 1940 F Date Time Provider Department 10/20/17 11:00 AM LISA TREVINO During your visit today, we recorded the following information about you: Lisa Trevino MD 10/29/2017 10:15 AM Signed HISTORY AND PHYSICAL - BREAST CANCER Esperanza Lucero 1940 October 21, 2017 REFERRING PHYSICIAN: Kody Garcia MD CHIEF COMPLAINT: BREAST CANCER - LEFT - INVASIVE DUCTAL CARCINOMA HPI: FOLLOW UP VISIT Esperanza is a patient I am following for a palpable left breast mass. The patient is a 77 year old female with a complaint of a palpable breast mass. The patient notes a mass in the 3 o'clock of her left breast just lateral to the areolar region. The patient has noticed this mass for a few months. She is noting retraction at the area of the nipple. The patient had a mammogram on August 29, 2017 which demonstrated postsurgical changes at the left upper outer relatively deep breast location and no other obvious abnormalities- listed as BI-RADS category 1. Recommend yearly follow-up. Due to the fact that the mass was present below the nipple, a left breast ultrasound was obtained on September 09, 2017 was noted was a palpable abnormality at 3:00 position and a 1 x 1.5 x 1.6, irregular area with shadowing. This was felt to likely represent postoperative changes, but due to the fact there was clinically suspicious MRI was recommended. My impression was that the area of my previous biopsy was likely considerably deeper than this area of abnormality. Bilateral breast MRI was obtained. A small lobular abnormality was noted at the 8 mm position. 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 In the left breast, there was a lobular enhancing mass measuring 2 x 2.1 by 1.6 cm which was felt to be highly suspicious for carcinoma. Biopsy was recommended. Follow up right ultrasound demonstrated a right paracolic nodule felt to be consistent with a fibroadenoma and recommended six-month follow-up. She does perform a self breast exam routinely. She notes no skin changes. She denies nipple discharge. She notes no axillary masses. She notes both her mother and a sister with a history of breast cancer. 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 She received external beam radiation to the left breast. She had a history of DVTs following surgery for colon cancer, so she did not receive hormonal therapy. The patient has had 3 pregnancies. The patient was initially referred to Dr. Drew Ortiz as the patient was under the impression that I no longer worked in [employer]. Dr. Ortiz recommended left biopsy, but informed the patient that I do still work in [employer]. The patient wished to follow-up with me, given our history of both breast and colon surgical procedures. The patient returned Tuesday for biopsy. She has held her Coumadin for 3 days. I performed both the cutaneous punch biopsy and core biopsies of the palpable mass below the nipple. 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 We extensively discussed her diagnosis and at the last visit discussed her surgical options including breast conservation surgical procedures, mastectomy without reconstruction and mastectomy with reconstruction. The patient has elected to undergo a left side mastectomy with sentinel lymph node biopsy with possible axillary dissection. The patient again had a DVT following her previous surgical procedure in 2008. She had not had a DVT symptoms. She had stopped her Coumadin following the course of treatment for her DVT now is on Coumadin for atrial fibrillation. PAST MEDICAL HISTORY Diagnosis Date - Malignant neoplasm of colon, unspecified site - Personal history of malignant neoplasm of rectum, rectosigmoid junction, and anus - Unspecified essential hypertension Essential hypertension - Unspecified intestinal obstruction PAST SURGICAL HISTORY Procedure Laterality Date - CATARACT EXTRACTION HX Bilateral 2016 - DELIVERY ONLY , low cervical - COLONOSCOP W/ OR W/O [facility] SPEC 04/23/2008 disuse colitis, anastamosis open - COLONOSCOP W/ OR W/O [facility] SPEC 05/29/09 - COLONOSCOP W/ OR W/O [facility] SPEC 07/21/2010 Colonoscopy-Repeat in 3 years (-2013) - FLEX SIGMOID W BALLOON DILAT 11/21/2007 stenosis at 25cm - HYSTERECTOMY HX 2014 endometrial cancer - OPEN RX ANKLE DISLOCATN+FIXATN ORIF Ankle - PART REMOVAL COLON W COLOPROCTOSTOMY 05/12/2006 LAR with Splenic Flexure mobilization - PART REMOVAL COLON W OSTOMY/MUCOFIST 11/22/2007 Severe Stricture, Adhesions - RESECT SMALL INTEST,SINGL RESEC/ANAS 11/22/2007 - RESECT SMALL INTEST,SINGL RESEC/ANAS ileostomy takedown Current Outpatient Prescriptions: allopurinol (ZYLOPRIM) 300 mg tablet ZYLOPRIM 300 MG TABS Disp: Rfl: atenolol (TENORMIN) 100 mg tablet Disp: Rfl: folic acid 400 mcg tablet FOLIC ACID 400 MCG TABS Disp: Rfl: losartan (COZAAR) 50 mg tablet twice daily. Disp: Rfl: famotidine (PEPCID) 20 mg tablet PEPCID 20 MG TABS Disp: Rfl: diltiazem CD (CARDIZEM CD, CARTIA XT) 120 mg 24 hr capsule Disp: Rfl: warfarin (COUMADIN) 5 mg tablet Disp: Rfl: hydroCHLOROthiazide (HYDRODIURIL, ESIDRIX) 25 mg tablet Disp: Rfl: potassium chloride (K-TAB) 10 mEq tablet Disp: Rfl: Naproxen Sodium (ALEVE) 220 mg ORAL tablet Take 220 mg by mouth twice daily with meals. Disp: Rfl: potassium chloride(K-DUR 10 MEQ TAB) take 2 tabs in am and 1 tab in pm Disp: Rfl: 0 ATENOLOL-CHLORTHALIDONE 100 MG-25 MG TAB 1 tablet daily Disp: Rfl: 0 omeprazole(PRILOSEC 20 MG CAP) Take one(1) capsule daily. Disp: Rfl: 0 No current facility-administered medications for this visit. ALLERGIES: [place]; Penicillins PERSONAL HISTORY: Social History Marital status: Spouse name: Years of education: Number of children: Social History Main Topics Smoking status: Former Smoker Packs/day: 0.00 Years: 0.00 Quit date: 03/07/1959 Alcohol use: No FAMILY HISTORY: No family history on file. REVIEW OF SYMPTOMS: The review of systems data was entered by the nurse and reviewed by me There are no exam notes on file for this visit. PHYSICAL EXAMINATION: General: The patient is 77 year old female, well nourished, well hydrated in no acute distress. The patient is oriented to time, place, and person. VITALS: There were no vitals taken for this visit. There is no height or weight on file to calculate BMI. HEENT: Normal cephalic, ataumatic, pupils are equally round, sclera are anicteric, mucous membranes are moist, oropharynx is clear. Neck has no masses, asymmetry or lymphadenopathy. Thyroid is unremarkable. Respiratory: Clear to auscultation and percussion. Normal respiratory excursion and pattern. Cardiac: Examination is regular rate and rhythm. Abdominal exam: Soft, nontender, with no palpable masses. No hepatosplenomegaly. No palpable hernias. Rectal exam: exam deferred Extremities: no clubbing, cyanosis or edema. No adenopathy. Breast: Visual inspection reveals no retractions, nipple inversion, or skin changes. Palpation of the right breast reveals no dominant or suspicious masses. Palpation of the left breast reveals the mass of concern at the retroareolar nipple, extending to the lateral or 3:00 position. The mass is mobile. There is involvement in the subareolar nipple and there is erosion just lateral to the areolar with a scab in place. The previous left upper outer quadrant biopsy site is well-healed. Axillary exam demonstrates no suspicious masses in either the left or right axilla. There is no nipple discharge expressed from either the left or right breast. 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 The planned surgical procedure was discussed extensively with the patient. The risks, benefits, anticipated outcomes and possible complications and alternatives were discussed. My staff has also explained the procedure in understandable terms and the patient was given the option to take printed material concerning the planned procedure. The patient had the opportunity to ask questions concerning the planned procedure. The patient freely consents to the planned procedure. My impression is I should be able to hold her Coumadin for 5 days preoperatively, but then would plan for heparin bridge once restarting her Coumadin given her history of DVTs in the past. Anticipated Surgical Procedure/ CPT Code: left MASTECTOMY WITH SENTINEL LYMPH NODE BIOPSY, radiotracer identification - [id number], [id number], [id number] Anticipated Anesthetic: General Patient weight: There were no vitals taken for this visit. BMI: There is no height or weight on file to calculate BMI. Planned antibiotic: Ancef 2gm IVPB hospice care sales consultant to OR SCDs needed - Yes Industrial Hygenist Needed - Yes My findings have been communicated to Dr. Kody Gracia MD via shared medical record. This note will be forwarded to Dr. Kody Garcia MD. Diagnoses: (N63.20) Left breast mass (primary encounter diagnosis) (C50.012) Malignant neoplasm involving both nipple and areola of left breast in female, unspecified estrogen receptor status (HCC) Return to Clinic: The patient is instructed to follow-up with me 1 week post operatively. Lisa Trevino MD Referring Provider: KODY GARCIA [[id number]] Allergies As of Date: 10/20/2017 Noted Allergy Reaction ALMOND 06/09/2006 PENICILLINS 05/10/2006 1 - Mental Status Change Comments: passed out Date Reviewed: 10/20/2017 Reviewed by: Henrietta Costello LPN - Fully Assessed Reason for Visit: Post Op [174] Primary Visit Diagnosis:Left breast mass [N63.20] Other Visit Diagnosis:Malignant neoplasm involving both nipple and areola of left breast in female, unspecified estrogen receptor status (HCC) [C50.012] Prescriptions as of 10/20/2017 Sig: ALLOPURINOL 300 MG TABLET ZYLOPRIM 300 MG TABS ATENOLOL 100 MG TABLET FOLIC ACID 400 MCG TABLET FOLIC ACID 400 MCG TABS LOSARTAN 50 MG TABLET twice daily. FAMOTIDINE 20 MG TABLET PEPCID 20 MG TABS DILTIAZEM SR 120 MG 24 HR CAP WARFARIN 5 MG TABLET HYDROCHLOROTHIAZIDE 25 MG TAB* POTASSIUM CHLORIDE ER 10 MEQ * * NAPROXEN SODIUM 220 MG TABLET Take 220 mg by mouth twice da* * K-DUR 10 MEQ TABLET,EXTENDED * take 2 tabs in am and 1 tab i* * ATENOLOL 100 MG-CHLORTHALIDON* 1 tablet daily * PRILOSEC 20 MG CAPSULE,DELAYE* Take one(1) capsule daily. Problem List As Of Date 10/20/2017 Noted Resolved MALIG NEOPLASM SIGMOID COLON [C18.7] INVALID FOR* STENOSIS (SEE ALSO STRICTURE) COLON [K56.609] INVALID FOR* UNSP ABNORMAL MAMMOGRAM [R92.8] INVALID FOR* CA IN SITU BREAST [D05.90] INVALID FOR* Rectal bleeding [K62.5] INVALID FOR* Letter Text Letter Text NURSE'S SIGNATURE DOCTOR'S SIGNATURE TIME TIME DATE November 14, 2017 [facility] DATE November 14, 2017 Orders verified by readback: PRE-ADMISSION TESTING PHYSICIAN'S ORDER SHEET PREOPERATIVE ORDERS: X ANTIBIOTIC: _clindamycin 900mg IVPB hospice care sales consultant to OR__ aware of penicillin allergy ok to administer X SCD'S __ PREP LOCATION: ___left breast/ arm and neck_ __ PAINT WITH BETADINE/CHLORAHEXIDINE PREP PRE-ADMISSION TESTING PHYSICIAN'S ORDER SHEET [id number] REV 05.18.07 ANESTHESIA: __ Surgeon has notified anesthesia. Date/Time Doctor OR __ Anesthesia not yet notified of consult by surgeon. Check area of concern. System of concern: __Cardiac __Pulmonary __Neuro __ Airway __Allergies __Other __ Anesthesia to see patient at PAT appointment. (PAT appt must be between 1-3 pm) LAB ORDERS: X Labs done at [facility] (Copies enclosed for [place] [facility] __ Duplicate order __ No Labs ordered ___ CBC ___ CBC/Diff ___ Basic Metabolic Profile (BUN, Lytes, Glu, Cre, Calcium) __ Glucose __ Creatinine __ BUN __ Lytes __ Protime- Dx code: __ PTT - Dx code: __ Urinalysis __ Urinalysis (complete) __ Liver Profile __ Lipid Profile __ Alk Phosphatase __ Bilirubin __ Amylase/Lipase __ Magnesium __ Phosphorous __ PSA - Dx code: __ CEA - Dx code: __ Urine __ Serum (Age 11-52 years old unless sterilization or pt refuses) X Screen for MRSA (PCR) if guidelines met Other: BLOOD BANK: __ Type AND Screen __ Type AND Cross (RC) units __ Autologous units __ Fresh Frozen Plasma units __ Platelets units ANCILLARY DEPTS: __EKG-MD to read: __PA/Lat CXR Reason for exam: __ Incentive Spirometer __ CARE CONSULTANT Other: Patient has: Pacemaker ICD Plug Maker name AND phone number: Pacer/ICD rep notified by nurse: X CHG product: A[employer] or cloths Dispense CHG product+Instructions if surgical site below neck Additional Orders: PAT Comment: Anesthesia notified on about: TEDS / KNEE HIGH TEDS / THIGH HIGH Faxed to Pharmacy: __ Vancomycin 1000 mg IV X 1 dose preoperatively if history of MRSA or positive MRSA screening (Fax to Rx) Admission Status: SDC Outpatient X SDC Overnight (23 hr or less) Admit Date: PAT Surgery Allergies:. [place]; Penicillins Patient's Name: Lexx Lucero Patient's Birthdate: 1940 Diagnosis: (N63.20) Left breast mass (primary encounter diagnosis) (C50.012) Malignant neoplasm involving both nipple and areola of left breast in female, unspecified estrogen receptor status (HCC) [facility] Surgery / Procedure: Surgeon / Physician: Lisa Trevino MD My doctor and I talked about the recommended surgery/procedure, the reasons it is being recommended, and what it generally is expected to do. We talked about major risks or complications that could occur. We talked about options other than the recommended surgery/procedure (including no treatment) and the benefits and risks of each option. I received and understand information describing the surgery or procedure, its potential risks and complications. I know surgery/medicine is not an exact science. No doctor, nurse or anyone from [facility] promised or guaranteed the success or clinical outcome of the surgery/procedure, or that a risk or complication could not occur. I know every surgery/procedure has risks, including the risk of anesthesia, the risk of unplanned injury, the risk of infection and the risk of failure. I know that not every possible risk could be covered in the written materials or in talking with the doctor. Before signing this Consent, I had an opportunity to discuss the recommended surgery/procedure, other options, and risks. I am satisfied with the answers to all of my questions. I understand about risks and knowingly accept them. If you are (or believe you may be ), tell your doctor or nurse before you sign this Consent. Your doctor will discuss with you if there are potential risks to your unborn child. Your consent will be for yourself and for the unborn child. It is the Hospital's policy to require that a responsible adult drive you directly home when you leave the Hospital. By signing, you accept and agree with this policy. By signing, I voluntarily and knowingly give my informed consent: O To have the doctor perform the recommended surgery/procedure. O To have such anesthetics (including moderate sedation) that are necessary and advisable. O To have the doctor perform additional, medically necessary surgery/procedures to treat any unforeseen or newly-discovered condition that occurs during surgery/the procedure, which needs prompt attention. O To examine, record and dispose of any tissue or body parts that are removed. O To allow photographs that will be used strictly for documenting my medical condition and treatment, which will be made a part of my confidential medical record. Check, if applicable: - To give me blood or blood products during surgery/procedure and during my hospital stay, as medically necessary. The risks, benefits, and alternatives to transfusions have been discussed with me and all my questions have been answered. - To not give me blood or blood products. I fully understand that this may adversely affect my medical management and may result in my . Alternatives to blood/blood products have been discussed with me. I read this Form, or had it read to me. I understand what it says. Patient or Responsible Person Relationship to Patient Witness to Signature Only Reason Patient Does Not Sign -- Date and Time signed Physician's signature [id number] Rev 09/10 Informed Consent Page 1 of 2 [facility] Informed Consent Surgery / Procedure: left MASTECTOMY WITH SENTINEL LYMPH NODE BIOPSY, radiotracer identification - [id number], [id number], [id number] Surgeon / Physician: Lisa Trevino MD My doctor and I talked about the recommended surgery / procedure, the reasons it is being recommended, and what it generally is expected to do. We talked about major risks or complications that could occur. We talked about options other than the recommended surgery / procedure (including no treatment) and the benefits and risks of each option. I received and understand information describing the surgery or procedure, its potential risks, and complications. I know surgery / medicine is not an exact science. No doctor, nurse or anyone from [facility] promised or guaranteed the success or clinical outcome of the surgery / procedure, or that a risk or complication could not occur. I know every surgery / procedure has risks, including the risk of anesthesia, the risk of unplanned injury, the risk of infection and the risk of failure. I know that not every possible risk could be covered in the written materials or in talking with the doctor. Before signing this Consent, I had an opportunity to discuss the recommended surgery / procedure, other options, risks, and what may occur if I choose not to have the surgery / procedure. I am satisfied with the answers to all of my questions. I understand about risks and knowingly accept them. If you are (or believe you may be ), tell your doctor or nurse before you sign this Consent. Your doctor will discuss with you if there are potential risks to your unborn child. Your consent will be for yourself and for the unborn child. It is the Hospital?s policy to require that a responsible adult drive you directly home when you leave the Hospital. By signing, you accept and agree with this policy. By signing, I voluntarily and knowingly give my informed consent: To have the doctor perform the recommended surgery / procedure To have such anesthetics (including moderate / deep sedation) that are necessary and advisable. To have the doctor perform additional, medically necessary surgery / procedures to treat any unforeseen or newly-discovered condition that occurs during surgery / the procedure, which needs prompt attention. To examine, record and dispose of any tissue or body parts that are removed. To allow photographs that will be used strictly for documenting my medical condition and treatment, which will be made a part of my confidential medical record. To allow [facility] employees, such as an Registered Nurse Insulation Board Back Tender (PHARMACIST AIDE) to assist with my surgery To allow Healthcare Industry Representatives to be present during my surgery or procedure To allow students to participate in the care, under appropriate situations. Page 1 of 2 [facility] Informed Consent Check One: To give me blood or blood products during surgery / procedure and during my hospital stay, as medically necessary. The risks, benefits, and alternatives to transfusions have been discussed with me and all my questions have been answered. To not give me blood or blood products. I fully understand that this may adversely affect my medical management and may result in my . Alternatives to blood / blood products have been discussed with me. I read this Form, or had it read to me. I understand what it says. Patient Signature Relationship to Patient Date AND Time Signed Reason Patient Does Not Sign Witness to Signature Only Date and Time Signed I certify that I have explained the nature, purpose, anticipated risks and benefits, complications, and alternatives to the proposed procedure to the patient. I have answered all questions fully and I believe the patient fully understands what I have explained. Physician?s Signature Date and Time [facility] [address] [place], [place] [address] Kody Garcia MD ([facility]) [address] [place] [address] 11/14/2017 Dear Kody Garcia MD : Thank you for allowing me to evaluate your patient, Esperanza Lucero. I saw Esperanza on 10/20/2017. I am planning to perform a . Enclosed is a copy of my office dictation for Esperanza which includes my evaluation and recommendations. Again, thank you for the referral of Esperanza Lucero. If I can be of any assistance to you in the future, please don't hesitate to call. 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 The patient is a 77 year old female with a complaint of a palpable breast mass. The patient notes a mass in the 3 o'clock of her left breast just lateral to the areolar region. The patient has noticed this mass for a few months. She is noting retraction at the area of the nipple. The patient had a mammogram on August 29, 2017 which demonstrated postsurgical changes at the left upper outer relatively deep breast location and no other obvious abnormalities-listed as BI-RADS category 1. Recommend yearly follow-up. Due to the fact that the mass was present below the nipple, a left breast ultrasound was obtained on September 09, 2017 was noted was a palpable abnormality at 3:00 position and a 1 x 1.5 x 1.6, irregular area with shadowing. This was felt to likely represent postoperative changes, but due to the fact there was clinically suspicious MRI was recommended. My impression was that the area of my previous biopsy was likely considerably deeper than this area of abnormality. Bilateral breast MRI was obtained. A small lobular abnormality was noted at the 8 mm position. 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 In the left breast, there was a lobular enhancing mass measuring 2 x 2.1 by 1.6 cm which was felt to be highly suspicious for carcinoma. Biopsy was recommended. Follow up right ultrasound demonstrated a right paracolic nodule felt to be consistent with a fibroadenoma and recommended six-month follow-up. She does perform a self breast exam routinely. She notes no skin changes. She denies nipple discharge. She notes no axillary masses. She notes both her mother and a sister with a history of breast cancer. 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 She received external beam radiation to the left breast. She had a history of DVTs following surgery for colon cancer, so she did not receive hormonal therapy. The patient has had 3 pregnancies. The patient was initially referred to Dr. Drew Ortiz as the patient was under the impression that I no longer worked in [employer]. Dr. Ortiz recommended left biopsy, but informed the patient that I do still work in [employer]. The patient wished to follow-up with me, given our history of both breast and colon surgical procedures. The patient returned Tuesday for biopsy. She has held her Coumadin for 3 days. I performed both the cutaneous punch biopsy and core biopsies of the palpable mass below the nipple. 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 We extensively discussed her diagnosis and at the last visit discussed her surgical options including breast conservation surgical procedures, mastectomy without reconstruction and mastectomy with reconstruction. The patient has elected to undergo a left side mastectomy with sentinel lymph node biopsy with possible axillary dissection. The patient again had a DVT following her previous surgical procedure in 2008. She had not had a DVT symptoms. She had stopped her Coumadin following the course of treatment for her DVT now is on Coumadin for atrial fibrillation. PAST MEDICAL HISTORY Diagnosis Date - Malignant neoplasm of colon, unspecified site - Personal history of malignant neoplasm of rectum, rectosigmoid junction, and anus - Unspecified essential hypertension Essential hypertension - Unspecified intestinal obstruction PAST SURGICAL HISTORY Procedure Laterality Date - CATARACT EXTRACTION HX Bilateral 2017 - DELIVERY ONLY , low cervical - COLONOSCOP W/ OR W/O [facility] SPEC 04/23/2008 disuse colitis, anastamosis open - COLONOSCOP W/ OR W/O [facility] SPEC 05/29/09 - COLONOSCOP W/ OR W/O [facility] SPEC 07/21/2010 Colonoscopy-Repeat in 3 years (-2013) - FLEX SIGMOID W BALLOON DILAT 11/21/2007 stenosis at 25cm - HYSTERECTOMY HX 2014 endometrial cancer - OPEN RX ANKLE DISLOCATN+FIXATN ORIF Ankle - PART REMOVAL COLON W COLOPROCTOSTOMY 05/12/2006 LAR with Splenic Flexure mobilization - PART REMOVAL COLON W OSTOMY/MUCOFIST 11/22/2007 Severe Stricture, Adhesions - RESECT SMALL INTEST,SINGL RESEC/ANAS 11/22/2007 - RESECT SMALL INTEST,CINDY RESEC/ANAS ileostomy takedown Current Outpatient Prescriptions: allopurinol (ZYLOPRIM) 300 mg tablet ZYLOPRIM 300 MG TABS Disp: Rfl: atenolol (TENORMIN) 100 mg tablet Disp: Rfl: folic acid 400 mcg tablet FOLIC ACID 400 MCG TABS Disp: Rfl: losartan (COZAAR) 50 mg tablet twice daily. Disp: Rfl: famotidine (PEPCID) 20 mg tablet PEPCID 20 MG TABS Disp: Rfl: diltiazem CD (CARDIZEM CD, CARTIA XT) 120 mg 24 hr capsule Disp: Rfl: warfarin (COUMADIN) 5 mg tablet Disp: Rfl: hydroCHLOROthiazide (HYDRODIURIL, ESIDRIX) 25 mg tablet Disp: Rfl: potassium chloride (K-TAB) 10 mEq tablet Disp: Rfl: Naproxen Sodium (ALEVE) 220 mg ORAL tablet Take 220 mg by mouth twice daily with meals. Disp: Rfl: potassium chloride(K-DUR 10 MEQ TAB) take 2 tabs in am and 1 tab in pm Disp: Rfl: 0 ATENOLOL-CHLORTHALIDONE 100 MG-25 MG TAB 1 tablet daily Disp: Rfl: 0 omeprazole(PRILOSEC 20 MG CAP) Take one(1) capsule daily. Disp: Rfl: 0 No current facility-administered medications for this visit. ALLERGIES: [place]; Penicillins PERSONAL HISTORY: Social History Marital status: Spouse name: Years of education: Number of children: Social History Main Topics Smoking status: Former Smoker Packs/day: 0.00 Years: 0.00 Quit date: 03/07/1959 Alcohol use: No FAMILY HISTORY: No family history on file. REVIEW OF SYMPTOMS: The review of systems data was entered by the nurse and reviewed by me There are no exam notes on file for this visit. PHYSICAL EXAMINATION: General: The patient is 77 year old female, well nourished, well hydrated in no acute distress. The patient is oriented to time, place, and person. VITALS: There were no vitals taken for this visit. There is no height or weight on file to calculate BMI. HEENT: Normal cephalic, ataumatic, pupils are equally round, sclera are anicteric, mucous membranes are moist, oropharynx is clear. Neck has no masses, asymmetry or lymphadenopathy. Thyroid is unremarkable. Respiratory: Clear to auscultation and percussion. Normal respiratory excursion and pattern. Cardiac: Examination is regular rate and rhythm. Abdominal exam: Soft, nontender, with no palpable masses. No hepatosplenomegaly. No palpable hernias. Rectal exam: exam deferred Extremities: no clubbing, cyanosis or edema. No adenopathy. Breast: Visual inspection reveals no retractions, nipple inversion, or skin changes. Palpation of the right breast reveals no dominant or suspicious masses. Palpation of the left breast reveals the mass of concern at the retroareolar nipple, extending to the lateral or 3:00 position. The mass is mobile. There is involvement in the subareolar nipple and there is erosion just lateral to the areolar with a scab in place. The previous left upper outer quadrant biopsy site is well-healed. Axillary exam demonstrates no suspicious masses in either the left or right axilla. There is no nipple discharge expressed from either the left or right breast. 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 The planned surgical procedure was discussed extensively with the patient. The risks, benefits, anticipated outcomes and possible complications and alternatives were discussed. My staff has also explained the procedure in understandable terms and the patient was given the option to take printed material concerning the planned procedure. The patient had the opportunity to ask questions concerning the planned procedure. The patient freely consents to the planned procedure. My impression is I should be able to hold her Coumadin for 5 days preoperatively, but then would plan for heparin bridge once restarting her Coumadin given her history of DVTs in the past. Anticipated Surgical Procedure/ CPT Code: left MASTECTOMY WITH SENTINEL LYMPH NODE BIOPSY, radiotracer identification - [id number] Anticipated Anesthetic: General Patient weight: There were no vitals taken for this visit. BMI: There is no height or weight on file to calculate BMI. Planned antibiotic: Ancef 2gm IVPB hospice care sales consultant to OR SCDs needed - Yes Industrial Hygenist Needed - Yes My findings have been communicated to Dr. Kody Garcia MD via shared medical record. This note will be forwarded to Dr. Kody Garcia MD. Diagnoses: (N63.20) Left breast mass (primary encounter diagnosis) (C50.012) Malignant neoplasm involving both nipple and areola of left breast in female, unspecified estrogen receptor status (HCC) Return to Clinic: The patient is instructed to follow-up with me 1 week post operatively. 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 The patient is a 77 year old female with a complaint of a palpable breast mass. The patient notes a mass in the 3 o'clock of her left breast just lateral to the areolar region. The patient has noticed this mass for a few months. She is noting retraction at the area of the nipple. The patient had a mammogram on August 29, 2017 which demonstrated postsurgical changes at the left upper outer relatively deep breast location and no other obvious abnormalities-listed as BI-RADS category 1. Recommend yearly follow-up. Due to the fact that the mass was present below the nipple, a left breast ultrasound was obtained on September 09, 2017 was noted was a palpable abnormality at 3:00 position and a 1 x 1.5 x 1.6, irregular area with shadowing. This was felt to likely represent postoperative changes, but due to the fact there was clinically suspicious MRI was recommended. My impression was that the area of my previous biopsy was likely considerably deeper than this area of abnormality. Bilateral breast MRI was obtained. A small lobular abnormality was noted at the 8 mm position. 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 In the left breast, there was a lobular enhancing mass measuring 2 x 2.1 by 1.6 cm which was felt to be highly suspicious for carcinoma. Biopsy was recommended. Follow up right ultrasound demonstrated a right paracolic nodule felt to be consistent with a fibroadenoma and recommended six-month follow-up. She does perform a self breast exam routinely. She notes no skin changes. She denies nipple discharge. She notes no axillary masses. She notes both her mother and a sister with a history of breast cancer. 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 She received external beam radiation to the left breast. She had a history of DVTs following surgery for colon cancer, so she did not receive hormonal therapy. The patient has had 3 pregnancies. The patient was initially referred to Dr. Drew Ortiz as the patient was under the impression that I no longer worked in [employer]. Dr. Ortiz recommended left biopsy, but informed the patient that I do still work in [employer]. The patient wished to follow-up with me, given our history of both breast and colon surgical procedures. The patient returned Tuesday for biopsy. She has held her Coumadin for 3 days. I performed both the cutaneous punch biopsy and core biopsies of the palpable mass below the nipple. 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 We extensively discussed her diagnosis and at the last visit discussed her surgical options including breast conservation surgical procedures, mastectomy without reconstruction and mastectomy with reconstruction. The patient has elected to undergo a left side mastectomy with sentinel lymph node biopsy with possible axillary dissection. The patient again had a DVT following her previous surgical procedure in 2008. She had not had a DVT symptoms. She had stopped her Coumadin following the course of treatment for her DVT now is on Coumadin for atrial fibrillation. PAST MEDICAL HISTORY Diagnosis Date - Malignant neoplasm of colon, unspecified site - Personal history of malignant neoplasm of rectum, rectosigmoid junction, and anus - Unspecified essential hypertension Essential hypertension - Unspecified intestinal obstruction PAST SURGICAL HISTORY Procedure Laterality Date - CATARACT EXTRACTION HX Bilateral 2016 - DELIVERY ONLY , low cervical - COLONOSCOP W/ OR W/O [facility] SPEC 04/23/2008 disuse colitis, anastamosis open - COLONOSCOP W/ OR W/O [facility] SPEC 05/29/09 - COLONOSCOP W/ OR W/O [facility] SPEC 07/21/2010 Colonoscopy-Repeat in 3 years (-2013) - FLEX SIGMOID W BALLOON DILAT 11/21/2007 stenosis at 25cm - HYSTERECTOMY HX 2013 endometrial cancer - OPEN RX ANKLE DISLOCATN+FIXATN ORIF Ankle - PART REMOVAL COLON W COLOPROCTOSTOMY 05/12/2006 LAR with Splenic Flexure mobilization - PART REMOVAL COLON W OSTOMY/MUCOFIST 11/22/2007 Severe Stricture, Adhesions - RESECT SMALL INTEST,SINGL RESEC/ANAS 11/22/2007 - RESECT SMALL INTEST,SINGL RESEC/ANAS ileostomy takedown Current Outpatient Prescriptions: allopurinol (ZYLOPRIM) 300 mg tablet ZYLOPRIM 300 MG TABS Disp: Rfl: atenolol (TENORMIN) 100 mg tablet Disp: Rfl: folic acid 400 mcg tablet FOLIC ACID 400 MCG TABS Disp: Rfl: losartan (COZAAR) 50 mg tablet twice daily. Disp: Rfl: famotidine (PEPCID) 20 mg tablet PEPCID 20 MG TABS Disp: Rfl: diltiazem CD (CARDIZEM CD, CARTIA XT) 120 mg 24 hr capsule Disp: Rfl: warfarin (COUMADIN) 5 mg tablet Disp: Rfl: hydroCHLOROthiazide (HYDRODIURIL, ESIDRIX) 25 mg tablet Disp: Rfl: potassium chloride (K-TAB) 10 mEq tablet Disp: Rfl: Naproxen Sodium (ALEVE) 220 mg ORAL tablet Take 220 mg by mouth twice daily with meals. Disp: Rfl: potassium chloride(K-DUR 10 MEQ TAB) take 2 tabs in am and 1 tab in pm Disp: Rfl: 0 ATENOLOL-CHLORTHALIDONE 100 MG-25 MG TAB 1 tablet daily Disp: Rfl: 0 omeprazole(PRILOSEC 20 MG CAP) Take one(1) capsule daily. Disp: Rfl: 0 No current facility-administered medications for this visit. ALLERGIES: [place]; Penicillins PERSONAL HISTORY: Social History Marital status: Spouse name: Years of education: Number of children: Social History Main Topics Smoking status: Former Smoker Packs/day: 0.00 Years: 0.00 Quit date: 03/07/1959 Alcohol use: No FAMILY HISTORY: No family history on file. REVIEW OF SYMPTOMS: The review of systems data was entered by the nurse and reviewed by me There are no exam notes on file for this visit. PHYSICAL EXAMINATION: General: The patient is 77 year old female, well nourished, well hydrated in no acute distress. The patient is oriented to time, place, and person. VITALS: There were no vitals taken for this visit. There is no height or weight on file to calculate BMI. HEENT: Normal cephalic, ataumatic, pupils are equally round, sclera are anicteric, mucous membranes are moist, oropharynx is clear. Neck has no masses, asymmetry or lymphadenopathy. Thyroid is unremarkable. Respiratory: Clear to auscultation and percussion. Normal respiratory excursion and pattern. Cardiac: Examination is regular rate and rhythm. Abdominal exam: Soft, nontender, with no palpable masses. No hepatosplenomegaly. No palpable hernias. Rectal exam: exam deferred Extremities: no clubbing, cyanosis or edema. No adenopathy. Breast: Visual inspection reveals no retractions, nipple inversion, or skin changes. Palpation of the right breast reveals no dominant or suspicious masses. Palpation of the left breast reveals the mass of concern at the retroareolar nipple, extending to the lateral or 3:00 position. The mass is mobile. There is involvement in the subareolar nipple and there is erosion just lateral to the areolar with a scab in place. The previous left upper outer quadrant biopsy site is well-healed. Axillary exam demonstrates no suspicious masses in either the left or right axilla. There is no nipple discharge expressed from either the left or right breast. 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 The planned surgical procedure was discussed extensively with the patient. The risks, benefits, anticipated outcomes and possible complications and alternatives were discussed. My staff has also explained the procedure in understandable terms and the patient was given the option to take printed material concerning the planned procedure. The patient had the opportunity to ask questions concerning the planned procedure. The patient freely consents to the planned procedure. My impression is I should be able to hold her Coumadin for 5 days preoperatively, but then would plan for heparin bridge once restarting her Coumadin given her history of DVTs in the past. Anticipated Surgical Procedure/ CPT Code: left MASTECTOMY WITH SENTINEL LYMPH NODE BIOPSY, radiotracer identification - [id number], [id number], [id number] Anticipated Anesthetic: General Patient weight: There were no vitals taken for this visit. BMI: There is no height or weight on file to calculate BMI. Planned antibiotic: Ancef 2gm IVPB hospice care sales consultant to OR SCDs needed - Yes Industrial Hygenist Needed - Yes My findings have been communicated to Dr. Kody Garcia MD via shared medical record. This note will be forwarded to Dr. Kody Garcia MD. Diagnoses: (N63.20) Left breast mass (primary encounter diagnosis) (C50.012) Malignant neoplasm involving both nipple and areola of left breast in female, unspecified estrogen receptor status (HCC) Return to Clinic: The patient is instructed to follow-up with me 1 week post operatively. Lisa Trevino MD I have reviewed the above history and physical exam. There have been no significant changes Lisa Trevino MD 11/14/2017 Encounter Status:Closed by LISA TREVINO MD on 10/29/17 PROGRESS Observed: 10/18/2017 Status: COMPLETED Source: [place] 8:54 PM [facility] REPOSITORY O ID: [id number] Author: Lisa Trevino Service: (none) Author Type: Physician Type: Progress Notes Filed: 10/18/2017 8:58 PM Note Text: FOLLOW UP VISIT NAME: Esperanza Lucero [facility] NO.: [id number] DATE OF SERVICE: 10/18/2017 : 1940 REFERRING PHYSICIAN: Kody Garcia MD Esperanza is a patient I am following for a palpable left breast mass. The patient is a 77 year old female with a complaint of a palpable breast mass. The patient notes a mass in the 3 o'clock of her left breast just lateral to the areolar region. The patient has noticed this mass for a few months. She is noting retraction at the area of the nipple. The patient had a mammogram on August 29, 2017 which demonstrated postsurgical changes at the left upper outer relatively deep breast location and no other obvious abnormalities-listed as BI-RADS category 1. Recommend yearly follow-up. Due to the fact that the mass was present below the nipple, a left breast ultrasound was obtained on September 09, 2017 was noted was a palpable abnormality at 3:00 position and a 1 x 1.5 x 1.6, irregular area with shadowing. This was felt to likely represent postoperative changes, but due to the fact there was clinically suspicious MRI was recommended. My impression was that the area of my previous biopsy was likely considerably deeper than this area of abnormality. Bilateral breast MRI was obtained. A small lobular abnormality was noted at the 8 mm position. 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 In the left breast, there was a lobular enhancing mass measuring 2 x 2.1 by 1.6 cm which was felt to be highly suspicious for carcinoma. Biopsy was recommended. Follow up right ultrasound demonstrated a right paracolic nodule felt to be consistent with a fibroadenoma and recommended six-month follow-up. She does perform a self breast exam routinely. She notes no skin changes. She denies nipple discharge. She notes no axillary masses. She notes both her mother and a sister with a history of breast cancer. 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 She received external beam radiation to the left breast. She had a history of DVTs following surgery for colon cancer, so she did not receive hormonal therapy. The patient has had 3 pregnancies. The patient was initially referred to Dr. Drew Ortiz as the patient was under the impression that I no longer worked in [employer]. Dr. Ortiz recommended left biopsy, but informed the patient that I do still work in [employer]. The patient wished to follow-up with me, given our history of both breast and colon surgical procedures. The patient returns today for biopsy. She has held her Coumadin for 3 days. VITALS: There were no vitals taken for this visit. On examination, she has an irregular mass with superficial skin ulceration and thickening at the edge of the nipple areolar complex and then thickening at the lateral edge of the left nipple. The mass feels to be approximately 2 cm in size at 3:00 position in the subareolar space. It remains difficult to assess completely under ultrasound. PROCEDURE: Ultrasound Guided Core Breast Biopsy/SKIN PUNCH BIOPSY The risks, benefits and anticipated outcomes of the procedure, the risks and benefits of the alternatives to the procedure, and the roles and tasks of the personnel to be involved, were discussed with the patient, and the patient consents to the procedure and agrees to proceed. After explaining the procedure and consent was obtained,Esperanza was positioned. The abnormality in the left breast was identified by ultrasound. Lidocaine was injected in to the skin and a small stab incision was made. The bard core biopsy needle was inserted into the stab incision and advanced. Multiple core were obtained with ultrasound and without ultrasound demonstrating targeting into the lesion. A marker clip was then placed via ultrasound guidance. Steristrips were applied to the incision. A bandage was applied to the needle site. Local anesthetic was injected into the nipple areolar complex and Punch biopsies were obtained in the raised area just lateral to the nipple and then just along the medial aspect of the skin ulcerated area. These were 3 mm punch biopsies. This material was sent separately to pathology. Esperanza tolerated the procedure well. Assessment IMPRESSION: Suspicious left breast lesion, status post ultrasound-guided core biopsy and skin Punch biopsies PLAN: If the patient notes any problems or signs of infection, the patient should contact me immediately. Diagnoses: (N63.20) Left breast mass (primary encounter diagnosis) Return to Clinic: The patient is instructed to follow- up with me in 2 days for biopsy results. Lisa Trevino MD CNOV Observed: 10/18/2017 Status: COMPLETED Source: [place] 1:00 PM [facility] REPOSITORY Office Visit (GENSWS) ESPERANZA LUCERO ([id number]) 1940 F Date Time Provider Department 10/18/17 1:00 PM LISA TREVINO GENSWS During your visit today, we recorded the following information about you: Henrietta Costello LPN 10/18/2017 1:01 PM Signed INFORMED CONSENT Esperanza Lucero Medical Record: [id number] Procedure:us guided left breast biopy The risks, benefits and anticipated outcomes of the procedure, the risks and benefits of the alternatives to the procedure and the roles and tasks of the personnel to be involved were discussed with the patient and the patient consents to the procedure and agrees to proceed. I verify that I personally obtained Esperanza Lucero's consent. Henrietta Costello LPN October 18, 2017 1:01 PM Dept of GENERAL SURGERY UNIVERSAL PROTOCOL / SAFETY CHECKLIST Procedure to be performed: us guided left breast biopsy Sign in Communication: Completed Time Out: Team Confirms the Correct Patient, Correct Procedure, Correct Site and Site Marking, Correct Position (if applicable), Prep and Dry Time (if applicable). Time: 101 pm Affirmation of Time Out: YES Sign Out Discussion: Completed Henrietta Trang MALCOLM Henrietta Costello GOLD 10/18/2017 1:24 PM Signed The following instructions are important for you related to your office visit today with the [facility]. Instructions After OFFICE BASED BREAST BIOPSY Please do not take aspirin or other blood thinners for the next few days. After the procedure, Steri-Strips and a dressing will be placed on your small incision. The dressing may be removed in two to three days after the procedure. The Steri-Strips should be left in place until they fall off. If you have bleeding from the biopsy site, hold pressure with a clean gauze. If the bleeding continues, contact our office immediately. I recommend taking Advil or Tylenol for the discomfort. You should wear a comfortable but somewhat tight fitting bra. If you have significant bruising, an ice pack may improve your discomfort. Please make an appointment to return to our office on . If you note any additional difficulties, questions, or concerns, you should contact our office immediately @ [phone] and ask to be transferred to the General Surgery department. Lisa Trevino MD 10/18/2017 8:58 PM Signed FOLLOW UP VISIT NAME: Esperanza [facility] NO.: [id number] DATE OF SERVICE: 10/18/2017 : 1940 REFERRING PHYSICIAN: Kody Gracia MD Esperanza is a patient I am following for a palpable left breast mass. The patient is a 77 year old female with a complaint of a palpable breast mass. The patient notes a mass in the 3 o'clock of her left breast just lateral to the areolar region. The patient has noticed this mass for a few months. She is noting retraction at the area of the nipple. The patient had a mammogram on August 29, 2017 which demonstrated postsurgical changes at the left upper outer relatively deep breast location and no other obvious abnormalities- listed as BI-RADS category 1. Recommend yearly follow-up. Due to the fact that the mass was present below the nipple, a left breast ultrasound was obtained on September 09, 2017 was noted was a palpable abnormality at 3:00 position and a 1 x 1.5 x 1.6, irregular area with shadowing. This was felt to likely represent postoperative changes, but due to the fact there was clinically suspicious MRI was recommended. My impression was that the area of my previous biopsy was likely considerably deeper than this area of abnormality. Bilateral breast MRI was obtained. A small lobular abnormality was noted at the 8 mm position. 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 In the left breast, there was a lobular enhancing mass measuring 2 x 2.1 by 1.6 cm which was felt to be highly suspicious for carcinoma. Biopsy was recommended. Follow up right ultrasound demonstrated a right paracolic nodule felt to be consistent with a fibroadenoma and recommended six-month follow-up. She does perform a self breast exam routinely. She notes no skin changes. She denies nipple discharge. She notes no axillary masses. She notes both her mother and a sister with a history of breast cancer. 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 She received external beam radiation to the left breast. She had a history of DVTs following surgery for colon cancer, so she did not receive hormonal therapy. The patient has had 3 pregnancies. The patient was initially referred to Dr. Drew Ortiz as the patient was under the impression that I no longer worked in [place]. Dr. Ortiz recommended left biopsy, but informed the patient that I do still work in [place]. The patient wished to follow-up with me, given our history of both breast and colon surgical procedures. The patient returns today for biopsy. She has held her Coumadin for 3 days. VITALS: There were no vitals taken for this visit. On examination, she has an irregular mass with superficial skin ulceration and thickening at the edge of the nipple areolar complex and then thickening at the lateral edge of the left nipple. The mass feels to be approximately 2 cm in size at 3:00 position in the subareolar space. It remains difficult to assess completely under ultrasound. PROCEDURE: Ultrasound Guided Core Breast Biopsy/SKIN PUNCH BIOPSY The risks, benefits and anticipated outcomes of the procedure, the risks and benefits of the alternatives to the procedure, and the roles and tasks of the personnel to be involved, were discussed with the patient, and the patient consents to the procedure and agrees to proceed. After explaining the procedure and consent was obtained,Esperanza was positioned. The abnormality in the left breast was identified by ultrasound. Lidocaine was injected in to the skin and a small stab incision was made. The bard core biopsy needle was inserted into the stab incision and advanced. Multiple core were obtained with ultrasound and without ultrasound demonstrating targeting into the lesion. A marker clip was then placed via ultrasound guidance. Steristrips were applied to the incision. A bandage was applied to the needle site. Local anesthetic was injected into the nipple areolar complex and Punch biopsies were obtained in the raised area just lateral to the nipple and then just along the medial aspect of the skin ulcerated area. These were 3 mm punch biopsies. This material was sent separately to pathology. Esperanza tolerated the procedure well. Assessment IMPRESSION: Suspicious left breast lesion, status post ultrasound- guided core biopsy and skin Punch biopsies PLAN: If the patient notes any problems or signs of infection, the patient should contact me immediately. Diagnoses: (N63.20) Left breast mass (primary encounter diagnosis) Return to Clinic: The patient is instructed to follow- up with me in 2 days for biopsy results. Lisa Trevino MD Referring Provider: KODY GARCIA [[id number]] Allergies As of Date: 10/18/2017 Noted Allergy Reaction ALMOND 06/09/2006 PENICILLINS 05/10/2006 1 - Mental Status Change Comments: passed out Date Reviewed: 10/18/2017 Reviewed by: Henrietta Costello LPN - Fully Assessed Reason for Visit: Breast Biopsy-1 [299] Primary Visit Diagnosis:Left breast mass [N63.20] Prescriptions as of 10/18/2017 Sig: ALLOPURINOL 300 MG TABLET ZYLOPRIM 300 MG TABS ATENOLOL 100 MG TABLET FOLIC ACID 400 MCG TABLET FOLIC ACID 400 MCG TABS LOSARTAN 50 MG TABLET twice daily. FAMOTIDINE 20 MG TABLET PEPCID 20 MG TABS DILTIAZEM SR 120 MG 24 HR CAP WARFARIN 5 MG TABLET HYDROCHLOROTHIAZIDE 25 MG TAB* POTASSIUM CHLORIDE ER 10 MEQ * * NAPROXEN SODIUM 220 MG TABLET Take 220 mg by mouth twice da* * K-DUR 10 MEQ TABLET,EXTENDED * take 2 tabs in am and 1 tab i* * ATENOLOL 100 MG-CHLORTHALIDON* 1 tablet daily * PRILOSEC 20 MG CAPSULE,DELAYE* Take one(1) capsule daily. 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 Instructions After OFFICE BASED BREAST BIOPSY Please do not take aspirin or other blood thinners for the next few days. After the procedure, Steri-Strips and a dressing will be placed on your small incision. The dressing may be removed in two to three days after the procedure. The Steri-Strips should be left in place until they fall off. If you have bleeding from the biopsy site, hold pressure with a clean gauze. If the bleeding continues, contact our office immediately. I recommend taking Advil or Tylenol for the discomfort. You should wear a comfortable but somewhat tight fitting bra. If you have significant bruising, an ice pack may improve your discomfort. Please make an appointment to return to our office on . If you note any additional difficulties, questions, or concerns, you should contact our office immediately @ [phone] and ask to be transferred to the General Surgery department. Visit Notes: >> Henrietta Costello LPN TueOct 18, 2017 1:01 PM Status: Signed INFORMED CONSENT Esperanza Lucero Medical Record: [id number] Procedure:us guided left breast biopy The risks, benefits and anticipated outcomes of the procedure, the risks and benefits of the alternatives to the procedure and the roles and tasks of the personnel to be involved were discussed with the patient and the patient consents to the procedure and agrees to proceed. I verify that I personally obtained Esperanza Lucero's consent. Henrietta Costello LPN October 18, 2017 1:01 PM Dept of GENERAL SURGERY UNIVERSAL PROTOCOL / SAFETY CHECKLIST Procedure to be performed: us guided left breast biopsy Sign in Communication: Completed Time Out: Team Confirms the Correct Patient, Correct Procedure, Correct Site and Site Marking, Correct Position (if applicable), Prep and Dry Time (if applicable). Time: 101 pm Affirmation of Time Out: YES Sign Out Discussion: Completed Henrietta Costello LPN Letter Text Encounter Status:Closed by LISA TREVINO MD on 10/18/17 BREAST BIOPSY Observed: 10/18/2017 Status: F Source: [place] ([place]OOSE SITE) 12:00 AM [facility] Patient: ESPERANZA LUCERO : 1940 (77/F) Acct Num: [id number] Phys: Lisa Trevino MD Unit Num: [id number] Loc: LABSPEC Specimen: [id number] Received: 10/18/176 Spec Type: BREAST BX TISSUES TISSUES: A. Left breast, NOS B. Nipple COMMENT A. Immunohistochemistry ([id number]) supports the above diagnosis. ER/GA/Vma8zex studies are being performed on sections of tumor and the results from this study will be reported separately ([id number]). B. Immunohistochemistry ([id number]) is negative for dermal lymph-vascular invasion. The tumor involves full thickness of the punch biopsy specimen up to epidermis with focal area of ulceration. Definite Paget s disease is not seen Please make reference to previous specimen ([id number] and [id number]), left breast , core biopsy and left breast lumpectomy respectively with diagnosis of ductal carcinoma in situ. This case was discussed with Dr. Trevino on 10/20/17 at 9:58 a.m. This case has been reviewed in consultation with Dr. Jeffery who concurs with the above diagnosis. GROSS DESCRIPTION A - Received is one container labeled with the patient's name and not further designated. The specimen consists of three cores of yellow soft tissue. Each core has an average length of 1.5 cm and maximal diameter of 0.1 cm. The specimen is totally submitted in one cassette. B - Received is one container labeled with the patient's name and not further designated. The specimen consists of two cylindrical fragments of covington tissue. Each fragment measures approximately 6 mm in length and 2 mm in diameter. The specimen is totally submitted in one cassette. / AM:rg 8/15/18 TC:0 CPT: 00249 x2 HEADER OPERATION: US guided left breast biopsy PRE-OP DIAGNOSIS: Abnormal mammogram TISSUE SUBMITTED: A. Left breast biopsy US guided, B. Punch biopsy, left breast ulceration nipple areola complex ISCHEMIC TIME: 90 seconds FIXATION TIME: 27 hours MICROSCOPIC DESCRIPTION Slides are reviewed. MICROSCOPIC DIAGNOSIS A. Left breast, ultrasound-guided core biopsy: Invasive lobular carcinoma, nuclear grade 2 (0.6 cm in length). See comment. B. Left breast ulceration nipple areolar complex, punch biopsy: Invasive lobular carcinoma with focal ulceration, (0.6 cm in length). SJ:didier 10/20/17 Signed All Fernandes 10/21/17 <signature on file> Performed By: #### PBRBX #### [facility] [place], [address] IMMUNOHISTOCHEMISTRY Observed: 10/18/2017 Status: F Source: [place] 12:00 AM [facility] Patient: ESPERANZA LUCERO : 1940 (77/F) Acct Num: [id number] Phys: Lisa Trevino MD Unit Num: [id number] Loc: LABSPEC Specimen: [id number] Received: 10/20/17 - 1239 Spec Type: IMMUNO THIS IS A CORRECTED REPORT TISSUES TISSUES: A. Left breast, NOS B. Left breast, NOS SPECIMEN INFORMATION: Tissue Source: A Left breast, ultrasound-guided biopsy, B Left breast ulceration nipple, punch biopsy Clinical Info: Abnormal mammogram Specimen Number: [id number] A AND B CPT code: 22638 x2, 48798 x10, 81568 x3 METHODOLOGY: Deparaffinized sections of prefer/formalin-fixed tissue or PAP/DQ stained slides are incubated with monoclonal/polyclonal antibodies/oligonucleotide probes. Localization is made via biotin free immunoperoxidase method. Appropriate controls are performed and reacted as expected. Results on target cell population are indicated in the following table: RESULTS: ANTIBODY / CLONE RESULT Block A E-Cad (ECH-6) negative * CK8 (08rbviQ10) positive CK5-6 (D5 AND 1684) negative Ki-67 (30-9) positive, moderate P53 (DO-7) positive, rare cells, weak Calponin-1 (NA429P) negative P40 (BC28) negative MORPHOMETRIC ANALYSIS ER (clone 6F11) >95%, moderate GA (clone 16/1E2) 80%, moderate Her-2Neu (clone CB11) 0 * Predominantly negative with focal minute area positive. Block B E-Cad (ECH-6) positive CK7 (OV-TL12/30) positive CK8 (31tbeyV88) positive CD31 (RAFAELA/70A) negative Factor VIII (R Ag) negative The prognostic test for HER2 is performed on formalin-fixed paraffin embedded tissue. A 3+ (positive) staining pattern is defined as intense, homogeneous, complete, circumferential membranous staining in >10% of contiguous tumor cells. A similar weak (2+) staining pattern is interpreted as equivocal. DILIA follow- up testing is recommended for all equivocal cases. Positivity/negativity for ER/ GA is reported if > or < 1% of the tumor cells are immuno- reactive, respectively. The ASCO/CAP criteria is used for scoring. Reference: Journal of Clinical Oncology, 2013; 31:8448-1496 AND 2009; 16:2784- 2795. Duration of fixation : 27 Hrs; Sample Adequate: Yes. These assays have not been validated on decalcified tissues. Results should be interpreted with caution given the likelihood of false negativity on decalcified specimens. These tests were developed and their performance characteristics determined by [facility]. They may not have been cleared or approved by the U.S. Food and Drug Administration. The FDA has determined that such clearance or approval is not necessary. INTERPRETATION: A. 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 Positive for estrogen receptors (favorable prognostic indicator). Positive for progesterone receptors (favorable prognostic indicator). Negative for overexpression of [id number]. B. Left breast ulceration nipple, punch biopsy: Invasive ductal carcinoma. Dermal lymphvascular invasion is not seen. Definite Paget s disease is not seen. SJ:didier 10/21/17 SJ:didier 11/21/17 COMMENT: B The specimen shows focal ulceration. E-Cad staining is repeated on Specimen A as resected specimen [id number] shows diffuse positive staining consistent with invasive ductal carcinoma. E-Cad staining added on specimen B. This case has been reviewed in consultation with Dr. Jeffery who concurs with the above diagnosis. PHYSICIAN AND INSTITUTION [address] [address] Signed All Fernandes 11/21/17 <signature on file> Performed By: #### PIMM #### [facility] [address] [place] [address]. [place], [place], [id number] PROGRESS Observed: 10/16/2017 Status: COMPLETED Source: ADVANCE 10:48 AM [facility] REPOSITORY O ID: [id number] Author: Lisa Trevino Service: (none) Author Type: Physician Type: Progress Notes Filed: 10/16/2017 11:07 AM Note Text: HISTORY AND PHYSICAL - BREAST COMPLAINT Esperanza Nic 1940 REFERRING PHYSICIAN: Self CHIEF COMPLAINT: Left breast mass HPI: The patient is a 77 year old female with a complaint of a palpable breast mass. The patient notes a mass in the 3 o'clock of her left breast just lateral to the areolar region. The patient has noticed this mass for a few months. She is noting retraction at the area of the nipple. The patient had a mammogram on August 29, 2017 which demonstrated postsurgical changes at the left upper outer relatively deep breast location and no other obvious abnormalities-listed as BI-RADS category 1. Recommend yearly follow-up. Due to the fact that the mass was present below the nipple, a left breast ultrasound was obtained on September 09, 2017 was noted was a palpable abnormality at 3:00 position and a 1 x 1.5 x 1.6, irregular area with shadowing. This was felt to likely represent postoperative changes, but due to the fact there was clinically suspicious MRI was recommended. My impression was that the area of my previous biopsy was likely considerably deeper than this area of abnormality. Bilateral breast MRI was obtained. A small lobular abnormality was noted at the 8 mm position. 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 In the left breast, there was a lobular enhancing mass measuring 2 x 2.1 by 1.6 cm which was felt to be highly suspicious for carcinoma. Biopsy was recommended. Follow up right ultrasound demonstrated a right paracolic nodule felt to be consistent with a fibroadenoma and recommended six-month follow-up. She does perform a self breast exam routinely. She notes no skin changes. She denies nipple discharge. She notes no axillary masses. She notes both her mother and a sister with a history of breast cancer. 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 She received external beam radiation to the left breast. She had a history of DVTs following surgery for colon cancer, so she did not receive hormonal therapy. The patient has had 3 pregnancies. The patient was initially referred to Dr. Drew Ortiz as the patient was under the impression that I no longer worked in [employer]. Dr. Ortiz recommended left biopsy, but informed the patient that I do still work in [employer]. The patient wished to follow-up with me, given our history of both breast and colon surgical procedures. PAST MEDICAL HISTORY Diagnosis Date - Malignant neoplasm of colon, unspecified site - Personal history of malignant neoplasm of rectum, rectosigmoid junction, and anus - Unspecified essential hypertension Essential hypertension - Unspecified intestinal obstruction PAST SURGICAL HISTORY Procedure Laterality Date - CATARACT EXTRACTION HX Bilateral 2016 - DELIVERY ONLY , low cervical - COLONOSCOP W/ OR W/O [facility] SPEC 04/23/2008 disuse colitis, anastamosis open - COLONOSCOP W/ OR W/O [facility] SPEC 05/29/09 - COLONOSCOP W/ OR W/O [facility] SPEC 07/21/2010 Colonoscopy-Repeat in 3 years (-2013) - FLEX SIGMOID W BALLOON DILAT 11/21/2007 stenosis at 25cm - HYSTERECTOMY HX 2014 endometrial cancer - OPEN RX ANKLE DISLOCATN+FIXATN ORIF Ankle - PART REMOVAL COLON W COLOPROCTOSTOMY 05/12/2006 LAR with Splenic Flexure mobilization - PART REMOVAL COLON W OSTOMY/MUCOFIST 11/22/2007 Severe Stricture, Adhesions - RESECT SMALL INTEST,SINGL RESEC/ANAS 11/22/2007 - RESECT SMALL INTEST,SINGL RESEC/ANAS ileostomy takedown Current Outpatient Prescriptions: allopurinol (ZYLOPRIM) 300 mg tablet ZYLOPRIM 300 MG TABS Disp: Rfl: atenolol (TENORMIN) 100 mg tablet Disp: Rfl: folic acid 400 mcg tablet FOLIC ACID 400 MCG TABS Disp: Rfl: losartan (COZAAR) 50 mg tablet twice daily. Disp: Rfl: famotidine (PEPCID) 20 mg tablet PEPCID 20 MG TABS Disp: Rfl: diltiazem CD (CARDIZEM CD, CARTIA XT) 120 mg 24 hr capsule Disp: Rfl: warfarin (COUMADIN) 5 mg tablet Disp: Rfl: hydroCHLOROthiazide (HYDRODIURIL, ESIDRIX) 25 mg tablet Disp: Rfl: potassium chloride (K-TAB) 10 mEq tablet Disp: Rfl: potassium chloride(K-DUR 10 MEQ TAB) take 2 tabs in am and 1 tab in pm Disp: Rfl: 0 Naproxen Sodium (ALEVE) 220 mg ORAL tablet Take 220 mg by mouth twice daily with meals. Disp: Rfl: ATENOLOL-CHLORTHALIDONE 100 MG-25 MG TAB 1 tablet daily Disp: Rfl: 0 omeprazole(PRILOSEC 20 MG CAP) Take one(1) capsule daily. Disp: Rfl: 0 No current facility-administered medications for this visit. ALLERGIES: [place]; Penicillins PERSONAL HISTORY: Social History Marital status: Spouse name: Years of education: Number of children: Social History Main Topics Smoking status: Former Smoker Packs/day: 0.00 Years: 0.00 Quit date: 03/07/1959 Alcohol use: No FAMILY HISTORY: No family history on file. REVIEW OF SYMPTOMS: The review of systems data was entered by the nurse and reviewed by wa Nursing Notes: Jabari Saunders LPN 10/13/2017 4:06 PM Signed REVIEW OF SYSTEMS: General: The patient denies fatigue, denies weight loss, NOTES weight gain, denies feeling hot, and denies feelings of cold. Eyes: The patient denies glaucoma, NOTES eye injury/surgery, wears glasses or contacts. Ear/Nose/Throat: The patient denies allergies, denies hayfever, denies ear infections, and denies bloody noses. Cardiovascular: The patient denies chest pain, denies heart disease, NOTES high blood pressure,denies cardiac stent, denies prior heart attack, NOTES irregular heart beat, denies high cholesterol, denies poor circulation, denies heart failure, other cardiac issues, denies claudication, denies cold feet, denies peripheral arterial stent. Respiratory: The patient denies tuberculosis, denies pneumonia, denies frequent cough, NOTES pulmonary embolism, denies shortness of breath, and denies coughing up blood. Gastrointestinal: The patient denies difficulty swallowing, NOTES acid reflux, denies ulcers, denies vomiting, denies jaundice/hepatitis, denies gallbladder problems, denies black or tarry stools, denies hemorrhoids, denies bleeding from rectum, denies diverticulitis, denies constipation, denies diarrhea, denies loss of stool control, and denies hernias. Kidney/Bladder: The patient denies kidney stones, NOTES urine infections, and denies bloody urine. Skin: The patient denies a history of skin cancer, denies bleeding/changing moles, and denies a history of skin rash. Neurologic: The patient denies a history of epilepsy/convulsions, denies headaches, denies head/spinal injuries, and denies stroke/TIA. Psychiatric: The patient denies psychiatric medications, denies depression, and denies voices, denies substance abuse. Endocrine: The patient denies thyroid disorders, denies diabetes, and denies hormonal problems. Hematologic: The patient NOTES a history of bruising, denies bleeding, and denies anemia, denies blood clots. Infections: The patient denies a history of measles and mumps, denies rheumatic fever, and denies sexually transmitted diseases. Musculoskeletal: The patient denies back pain/injury, denies back problems, denies sciatica, denies knee/foot trouble, denies arthritis, or denies gout. When was patient's last Mammogram screening? N/A Last Colonoscopy: 2010 [facility] PHYSICAL EXAMINATION: General: The patient is 77 year old female, well nourished, well hydrated in no acute distress. The patient is oriented to time, place, and person. VITALS: Blood pressure 172/82, pulse (!) 56. There is no height or weight on file to calculate BMI. HEENT: Normal cephalic, ataumatic, pupils are equally round, sclera are anicteric, mucous membranes are moist, oropharynx is clear. Neck has no masses, asymmetry or lymphadenopathy. Thyroid is unremarkable. Respiratory: Clear to auscultation and percussion. Normal respiratory excursion and pattern. Cardiac: Examination is regular rate and rhythm. Abdominal exam: Soft, nontender, with no palpable masses. No hepatosplenomegaly. No palpable hernias. Rectal exam: exam deferred Extremities: no clubbing, cyanosis or edema. No adenopathy. Breast: Visual inspection reveals no retractions, nipple inversion, or skin changes on the right side. The patient has a palpable mass with erosion through the skin and nipple retraction on the left breast, specifically just lateral to the nipple areolar complex. Palpation of the right breast reveals no dominant or suspicious masses. Palpation of the left breast reveals the mass of concern at the 3 oclock position. The mass is approximately 2 cm in size and seems to pull the breast to show with or without truly being symmetrically mobile but this is not fixed. Axillary exam demonstrates no suspicious masses in either the left or right axilla. There is no nipple discharge expressed from either the left or right breast. LABORATORY VALUES: As Noted RADIOLOGIC STUDIES: As Noted Assessment IMPRESSION: Suspicious left breast lesion. PLAN: I plan to perform a ultrasound guided core biopsy of the left breast. The planned surgical procedure was discussed extensively with the patient. The risks, benefits, anticipated outcomes and possible complications were mentioned. My staff has also explained the procedure in understandable terms and the patient was given the option to take printed material concerning the planned procedure. The patient had the opportunity to ask questions concerning the planned procedure. The patient freely consents to the planned procedure. The patient is currently on Coumadin. She will hold her Coumadin starting Tuesday and we will perform this ultrasound-guided core biopsy. The office on Tuesday. Diagnoses: (N63.20) Left breast mass (primary encounter diagnosis) Return to Clinic: The patient is instructed to follow-up with me in 5 days. Lisa Trevino MD CNOV Observed: 10/13/2017 Status: COMPLETED Source: BECKER 3:00 PM [facility] REPOSITORY Office Visit (GENSWS) ESPERANZA LUCERO ([id number]) 1940 F Date Time Provider Department 10/13/17 3:00 PM LISA TREVINO GENSWS During your visit today, we recorded the following information about you: Pulse Blood pressure 56/minute 172/82 Jabari Saunders LPN 10/13/2017 4:06 PM Signed REVIEW OF SYSTEMS: General: The patient denies fatigue, denies weight loss, NOTES weight gain, denies feeling hot, and denies feelings of cold. Eyes: The patient denies glaucoma, NOTES eye injury/surgery, wears glasses or contacts. Ear/Nose/Throat: The patient denies allergies, denies hayfever, denies ear infections, and denies bloody noses. Cardiovascular: The patient denies chest pain, denies heart disease, NOTES high blood pressure,denies cardiac stent, denies prior heart attack, NOTES irregular heart beat, denies high cholesterol, denies poor circulation, denies heart failure, other cardiac issues, denies claudication, denies cold feet, denies peripheral arterial stent. Respiratory: The patient denies tuberculosis, denies pneumonia, denies frequent cough, NOTES pulmonary embolism, denies shortness of breath, and denies coughing up blood. Gastrointestinal: The patient denies difficulty swallowing, NOTES acid reflux, denies ulcers, denies vomiting, denies jaundice/hepatitis, denies gallbladder problems, denies black or tarry stools, denies hemorrhoids, denies bleeding from rectum, denies diverticulitis, denies constipation, denies diarrhea, denies loss of stool control, and denies hernias. Kidney/Bladder: The patient denies kidney stones, NOTES urine infections, and denies bloody urine. Skin: The patient denies a history of skin cancer, denies bleeding/changing moles, and denies a history of skin rash. Neurologic: The patient denies a history of epilepsy/convulsions, denies headaches, denies head/spinal injuries, and denies stroke/TIA. Psychiatric: The patient denies psychiatric medications, denies depression, and denies voices, denies substance abuse. Endocrine: The patient denies thyroid disorders, denies diabetes, and denies hormonal problems. Hematologic: The patient NOTES a history of bruising, denies bleeding, and denies anemia, denies blood clots. Infections: The patient denies a history of measles and mumps, denies rheumatic fever, and denies sexually transmitted diseases. Musculoskeletal: The patient denies back pain/injury, denies back problems, denies sciatica, denies knee/foot trouble, denies arthritis, or denies gout. When was patient's last Mammogram screening? N/A Last Colonoscopy: 2010 Jabari Trevino MD 10/16/2017 11:07 AM Signed HISTORY AND PHYSICAL - BREAST COMPLAINT Esperanzakacie Lucero 1940 REFERRING PHYSICIAN: Self CHIEF COMPLAINT: Left breast mass HPI: The patient is a 77 year old female with a complaint of a palpable breast mass. The patient notes a mass in the 3 o'clock of her left breast just lateral to the areolar region. The patient has noticed this mass for a few months. She is noting retraction at the area of the nipple. The patient had a mammogram on August 29, 2017 which demonstrated postsurgical changes at the left upper outer relatively deep breast location and no other obvious abnormalities-listed as BI-RADS category 1. Recommend yearly follow-up. Due to the fact that the mass was present below the nipple, a left breast ultrasound was obtained on September 09, 2017 was noted was a palpable abnormality at 3:00 position and a 1 x 1.5 x 1.6, irregular area with shadowing. This was felt to likely represent postoperative changes, but due to the fact there was clinically suspicious MRI was recommended. My impression was that the area of my previous biopsy was likely considerably deeper than this area of abnormality. Bilateral breast MRI was obtained. A small lobular abnormality was noted at the 8 mm position. 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 In the left breast, there was a lobular enhancing mass measuring 2 x 2.1 by 1.6 cm which was felt to be highly suspicious for carcinoma. Biopsy was recommended. Follow up right ultrasound demonstrated a right paracolic nodule felt to be consistent with a fibroadenoma and recommended six-month follow-up. She does perform a self breast exam routinely. She notes no skin changes. She denies nipple discharge. She notes no axillary masses. She notes both her mother and a sister with a history of breast cancer. 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 She received external beam radiation to the left breast. She had a history of DVTs following surgery for colon cancer, so she did not receive hormonal therapy. The patient has had 3 pregnancies. The patient was initially referred to Dr. Drew Ortiz as the patient was under the impression that I no longer worked in [employer]. Dr. Ortiz recommended left biopsy, but informed the patient that I do still work in [employer]. The patient wished to follow-up with me, given our history of both breast and colon surgical procedures. PAST MEDICAL HISTORY Diagnosis Date - Malignant neoplasm of colon, unspecified site - Personal history of malignant neoplasm of rectum, rectosigmoid junction, and anus - Unspecified essential hypertension Essential hypertension - Unspecified intestinal obstruction PAST SURGICAL HISTORY Procedure Laterality Date - CATARACT EXTRACTION HX Bilateral 2016 - DELIVERY ONLY , low cervical - COLONOSCOP W/ OR W/O [facility] SPEC 04/23/2008 disuse colitis, anastamosis open - COLONOSCOP W/ OR W/O [facility] SPEC 05/29/09 - COLONOSCOP W/ OR W/O [facility] SPEC 07/21/2010 Colonoscopy-Repeat in 3 years (-2013) - FLEX SIGMOID W BALLOON DILAT 11/21/2007 stenosis at 25cm - HYSTERECTOMY HX 2014 endometrial cancer - OPEN RX ANKLE DISLOCATN+FIXATN ORIF Ankle - PART REMOVAL COLON W COLOPROCTOSTOMY 05/12/2006 LAR with Splenic Flexure mobilization - PART REMOVAL COLON W OSTOMY/MUCOFIST 11/22/2007 Severe Stricture, Adhesions - RESECT SMALL INTEST,SINGL RESEC/ANAS 11/22/2007 - RESECT SMALL INTEST,SINGL RESEC/ANAS ileostomy takedown Current Outpatient Prescriptions: allopurinol (ZYLOPRIM) 300 mg tablet ZYLOPRIM 300 MG TABS Disp: Rfl: atenolol (TENORMIN) 100 mg tablet Disp: Rfl: folic acid 400 mcg tablet FOLIC ACID 400 MCG TABS Disp: Rfl: losartan (COZAAR) 50 mg tablet twice daily. Disp: Rfl: famotidine (PEPCID) 20 mg tablet PEPCID 20 MG TABS Disp: Rfl: diltiazem CD (CARDIZEM CD, CARTIA XT) 120 mg 24 hr capsule Disp: Rfl: warfarin (COUMADIN) 5 mg tablet Disp: Rfl: hydroCHLOROthiazide (HYDRODIURIL, ESIDRIX) 25 mg tablet Disp: Rfl: potassium chloride (K-TAB) 10 mEq tablet Disp: Rfl: potassium chloride(K-DUR 10 MEQ TAB) take 2 tabs in am and 1 tab in pm Disp: Rfl: 0 Naproxen Sodium (ALEVE) 220 mg ORAL tablet Take 220 mg by mouth twice daily with meals. Disp: Rfl: ATENOLOL-CHLORTHALIDONE 100 MG-25 MG TAB 1 tablet daily Disp: Rfl: 0 omeprazole(PRILOSEC 20 MG CAP) Take one(1) capsule daily. Disp: Rfl: 0 No current facility-administered medications for this visit. ALLERGIES: [place]; Penicillins PERSONAL HISTORY: Social History Marital status: Spouse name: Years of education: Number of children: Social History Main Topics Smoking status: Former Smoker Packs/day: 0.00 Years: 0.00 Quit date: 03/07/1959 Alcohol use: No FAMILY HISTORY: No family history on file. REVIEW OF SYMPTOMS: The review of systems data was entered by the nurse and reviewed by wa Nursing Notes: Jabari Saunders LPN 10/13/2017 4:06 PM Signed REVIEW OF SYSTEMS: General: The patient denies fatigue, denies weight loss, NOTES weight gain, denies feeling hot, and denies feelings of cold. Eyes: The patient denies glaucoma, NOTES eye injury/surgery, wears glasses or contacts. Ear/Nose/Throat: The patient denies allergies, denies hayfever, denies ear infections, and denies bloody noses. Cardiovascular: The patient denies chest pain, denies heart disease, NOTES high blood pressure,denies cardiac stent, denies prior heart attack, NOTES irregular heart beat, denies high cholesterol, denies poor circulation, denies heart failure, other cardiac issues, denies claudication, denies cold feet, denies peripheral arterial stent. Respiratory: The patient denies tuberculosis, denies pneumonia, denies frequent cough, NOTES pulmonary embolism, denies shortness of breath, and denies coughing up blood. Gastrointestinal: The patient denies difficulty swallowing, NOTES acid reflux, denies ulcers, denies vomiting, denies jaundice/hepatitis, denies gallbladder problems, denies black or tarry stools, denies hemorrhoids, denies bleeding from rectum, denies diverticulitis, denies constipation, denies diarrhea, denies loss of stool control, and denies hernias. Kidney/Bladder: The patient denies kidney stones, NOTES urine infections, and denies bloody urine. Skin: The patient denies a history of skin cancer, denies bleeding/changing moles, and denies a history of skin rash. Neurologic: The patient denies a history of epilepsy/convulsions, denies headaches, denies head/spinal injuries, and denies stroke/TIA. Psychiatric: The patient denies psychiatric medications, denies depression, and denies voices, denies substance abuse. Endocrine: The patient denies thyroid disorders, denies diabetes, and denies hormonal problems. Hematologic: The patient NOTES a history of bruising, denies bleeding, and denies anemia, denies blood clots. Infections: The patient denies a history of measles and mumps, denies rheumatic fever, and denies sexually transmitted diseases. Musculoskeletal: The patient denies back pain/injury, denies back problems, denies sciatica, denies knee/foot trouble, denies arthritis, or denies gout. When was patient's last Mammogram screening? N/A Last Colonoscopy: 2010 [facility] PHYSICAL EXAMINATION: General: The patient is 77 year old female, well nourished, well hydrated in no acute distress. The patient is oriented to time, place, and person. VITALS: Blood pressure 172/82, pulse (!) 56. There is no height or weight on file to calculate BMI. HEENT: Normal cephalic, ataumatic, pupils are equally round, sclera are anicteric, mucous membranes are moist, oropharynx is clear. Neck has no masses, asymmetry or lymphadenopathy. Thyroid is unremarkable. Respiratory: Clear to auscultation and percussion. Normal respiratory excursion and pattern. Cardiac: Examination is regular rate and rhythm. Abdominal exam: Soft, nontender, with no palpable masses. No hepatosplenomegaly. No palpable hernias. Rectal exam: exam deferred Extremities: no clubbing, cyanosis or edema. No adenopathy. Breast: Visual inspection reveals no retractions, nipple inversion, or skin changes on the right side. The patient has a palpable mass with erosion through the skin and nipple retraction on the left breast, specifically just lateral to the nipple areolar complex. Palpation of the right breast reveals no dominant or suspicious masses. Palpation of the left breast reveals the mass of concern at the 3 oclock position. The mass is approximately 2 cm in size and seems to pull the breast to show with or without truly being symmetrically mobile but this is not fixed. Axillary exam demonstrates no suspicious masses in either the left or right axilla. There is no nipple discharge expressed from either the left or right breast. LABORATORY VALUES: As Noted RADIOLOGIC STUDIES: As Noted Assessment IMPRESSION: Suspicious left breast lesion. PLAN: I plan to perform a ultrasound guided core biopsy of the left breast. The planned surgical procedure was discussed extensively with the patient. The risks, benefits, anticipated outcomes and possible complications were mentioned. My staff has also explained the procedure in understandable terms and the patient was given the option to take printed material concerning the planned procedure. The patient had the opportunity to ask questions concerning the planned procedure. The patient freely consents to the planned procedure. The patient is currently on Coumadin. She will hold her Coumadin starting Tuesday and we will perform this ultrasound-guided core biopsy. The office on Tuesday. Diagnoses: (N63.20) Left breast mass (primary encounter diagnosis) Return to Clinic: The patient is instructed to follow-up with me in 5 days. Lisa Trevino MD Referring Provider: SELF [[id number]] Allergies As of Date: 10/13/2017 Noted Allergy Reaction ALMOND 06/09/2006 PENICILLINS 05/10/2006 1 - Mental Status Change Comments: passed out Date Reviewed: 10/13/2017 Reviewed by: Jabari Saunders LPN - Fully Assessed Reason for Visit: Consult [173] Cmt: Consult Breast lump - hx of DCIS Primary Visit Diagnosis:Left breast mass [N63.20] Prescriptions as of 10/13/2017 Sig: ALLOPURINOL 300 MG TABLET ZYLOPRIM 300 MG TABS ATENOLOL 100 MG TABLET FOLIC ACID 400 MCG TABLET FOLIC ACID 400 MCG TABS LOSARTAN 50 MG TABLET twice daily. FAMOTIDINE 20 MG TABLET PEPCID 20 MG TABS DILTIAZEM SR 120 MG 24 HR CAP WARFARIN 5 MG TABLET HYDROCHLOROTHIAZIDE 25 MG TAB* POTASSIUM CHLORIDE ER 10 MEQ * * K-DUR 10 MEQ TABLET,EXTENDED * take 2 tabs in am and 1 tab i* * NAPROXEN SODIUM 220 MG TABLET Take 220 mg by mouth twice da* * ATENOLOL 100 MG-CHLORTHALIDON* 1 tablet daily * PRILOSEC 20 MG CAPSULE,DELAYE* Take one(1) capsule daily. Problem List As Of Date 10/13/2017 Noted Resolved MALIG NEOPLASM SIGMOID COLON [C18.7] INVALID FOR* STENOSIS (SEE ALSO STRICTURE) COLON [K56.609] INVALID FOR* UNSP ABNORMAL MAMMOGRAM [R92.8] INVALID FOR* CA IN SITU BREAST [D05.90] INVALID FOR* Rectal bleeding [K62.5] INVALID FOR* Visit Notes: >> Jabari Saunders LPN [facility] Oct 13, 2017 4:03 PM Status: Signed REVIEW OF SYSTEMS: General: The patient denies fatigue, denies weight loss, NOTES weight gain, denies feeling hot, and denies feelings of cold. Eyes: The patient denies glaucoma, NOTES eye injury/surgery, wears glasses or contacts. Ear/Nose/Throat: The patient denies allergies, denies hayfever, denies ear infections, and denies bloody noses. Cardiovascular: The patient denies chest pain, denies heart disease, NOTES high blood pressure,denies cardiac stent, denies prior heart attack, NOTES irregular heart beat, denies high cholesterol, denies poor circulation, denies heart failure, other cardiac issues, denies claudication, denies cold feet, denies peripheral arterial stent. Respiratory: The patient denies tuberculosis, denies pneumonia, denies frequent cough, NOTES pulmonary embolism, denies shortness of breath, and denies coughing up blood. Gastrointestinal: The patient denies difficulty swallowing, NOTES acid reflux, denies ulcers, denies vomiting, denies jaundice/hepatitis, denies gallbladder problems, denies black or tarry stools, denies hemorrhoids, denies bleeding from rectum, denies diverticulitis, denies constipation, denies diarrhea, denies loss of stool control, and denies hernias. Kidney/Bladder: The patient denies kidney stones, NOTES urine infections, and denies bloody urine. Skin: The patient denies a history of skin cancer, denies bleeding/changing moles, and denies a history of skin rash. Neurologic: The patient denies a history of epilepsy/convulsions, denies headaches, denies head/spinal injuries, and denies stroke/TIA. Psychiatric: The patient denies psychiatric medications, denies depression, and denies voices, denies substance abuse. Endocrine: The patient denies thyroid disorders, denies diabetes, and denies hormonal problems. Hematologic: The patient NOTES a history of bruising, denies bleeding, and denies anemia, denies blood clots. Infections: The patient denies a history of measles and mumps, denies rheumatic fever, and denies sexually transmitted diseases. Musculoskeletal: The patient denies back pain/injury, denies back problems, denies sciatica, denies knee/foot trouble, denies arthritis, or denies gout. When was patient's last Mammogram screening? N/A Last Colonoscopy: 2010 Jabari Saunders [facility] Letter Text Letter Text Letter Text Encounter Status:Closed by LISA TREVINO MD on 10/16/17 PROTIME W/INR Collected: 09/29/2017 Status: F Source: [place] FINGERSTICK 2:21 PM [facility] TYPE CODE TESTS RESULT OUT OF REFERENCE UNITS RANGE LAB L9200.1001 11.9-14.4 SEC High PROTIME ISTAT 32.0 Result Comment: Reference Range 11.9 - 14.4 LAB L9200.2000 Normal INR ISTAT 2.80 Result Comment: Critical Value > 3.5 Performed By: #### [id number] #### [facility] Point of Care [address] [place] [address] SURGERY VISIT REPORT Observed: 09/29/2017 Status: F Source: [place] 10:09 AM [facility] [address] [place] [address] OFFICE VISIT Date of Service: 09/29/17 MR#: [id number] Acct: [id number] Name: ESPERANZA LUCERO Rep #: [id number] : 1940 Provider: Westley Ortiz MD Age/Sex: 77/F Location: [facility] Status: Signed Intake Vital Signs09/29/17 Height 5 ft 09/29/17 Weight: 190 lb 09/29/17 Body Mass Index (BMI) 37.0 Intake Visit Reasons: Bilat Breast US [facility] 09/28 Breast Chief Complaint: Routine f/u Home Mortgage Disclosure Act Specialist Required: No Is patient in pain?: No Allergies almond Allergy (Verified 09/29/17 09:41) Unknown Penicillins [PCN] Adverse Reaction (Verified 09/29/17 09:41) Other Medications Allopurinol [Zyloprim] 150 mg PO DAILY 06/13/15 [History Confirmed 09/29/17] Atenolol [Tenormin] 100 mg PO DAILY 06/13/15 [History Confirmed 09/29/17] Folic Acid 0.4 mg PO DAILY@0800 06/13/15 [History Confirmed 09/29/17] Losartan Potassium [Cozaar] 50 mg PO BID 06/13/15 [History Confirmed 09/29/17] Aspirin [Adult Low Dose Aspirin EC] 81 mg PO DAILY 08/25/16 [History Confirmed 09/29/17] Cholecalciferol (VIT D3) [Vitamin D] 1,000 unit PO DAILY 08/25/16 [History Confirmed 09/29/17] Hydrochlorothiazide [Hctz] 25 mg PO DAILY 08/25/16 [History Confirmed 09/29/17] Warfarin [Coumadin (PBKC)] 4 mg PO DAILY 08/31/16 [History Confirmed 09/29/17] potassium chloride ER 10 mEq tablet,extended release(part/cryst) 10 meq PO DAILY #90 tab 05/16/17 [Rx Confirmed 09/29/17] diltiazem CD 120 mg capsule,extended release 24 hr 120 mg PO DAILY #90 cap 06/27/17 [Rx Confirmed 09/29/17] [facility] Medical History Obesity (Chronic) Paroxysmal atrial fibrillation (Chronic) Ductal carcinoma in situ (DCIS) of left breast (Resolved) Pulmonary embolism (Chronic) Uterine cancer (Resolved) Colon cancer (Resolved) LBBB (left bundle branch block) (Chronic) HTN (hypertension) (Chronic) Cataracts, bilateral (Chronic) Deep vein thrombosis (Chronic) Gout (Chronic) Surgical History History of reversal of ileostomy (Acute) Status post left breast lumpectomy (Acute) History of colectomy (Chronic) History of colostomy reversal (Chronic) History of hysterectomy (Chronic) History of left heart catheterization (Chronic 08/26/16) Family History Father Lung cancer Brother Lung cancer Mother Breast cancer Sister Breast cancer CAD (coronary artery disease) Social History Smoking Status: Former smoker alcohol intake: current alcohol intake frequency: holidays/special occasions only HPI HPI HPI: ESPERANZA LUCERO, is a 77 F who presents to the office today for Assessment AND Plan Plan The patient did not realize Dr. Trevino was in town. She would like to return to him as she has had multiple surgeries by him. This includes her prior breast surgery. I did refer her back to Dr. Trevino and I told her that if she cannot get into see him she should come back to see me because I do not want her getting lost to follow-up as she does need a left breast biopsy Westley Ortiz MD Pager: [facility] [address] [place] [address], [address] [place] [address] Office: Coding Level of Care Code No Charge 09/29/17 1009 <Electronically signed by Westley Ortiz MD> Date Westley Ortiz MD Cosigner Signature: Date (if applicable) CC: BREAST LIMITED Observed: 09/28/2017 Status: F Source: [place] UNILATERAL 11:11 AM [facility] [place] Imaging Services [address] [place] [id number] Breast Limited Unilateral MR#: [id number] Acct: [id number] Name: ESPERANZA LUCERO Rep #: [id number] : 1940 F 77 From: Dandre Pinzno MD PCP: Kody Garcia MD Status: REG CLI Study: Breast Limited Unilateral Date of Exam: 09/28/17 Exam# [id number] Ordering Dr: Gi Mayer MD STUDY: ULTRASOUND BREAST - RIGHT REASON FOR EXAM: Female, 77 years old. Mass TECHNIQUE: Axial and longitudinal images of the RIGHT breast were performed with a high resolution ultrasound transducer. COMPARISON: MRI from 09/20/2017 FINDINGS: RIGHT Breast: Ultrasound evaluation of the right breast, shows a 0.6 x 0.8 x 0.4 cm hypoechoic nodule at the 6:00 position of the retroareolar region of the right breast. The margins are well-defined but irregular, there is no vascularity within the lesion and no associated architectural distortion. A six-month follow-up is recommended to assure stability. 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 Six-month follow-up recommended to assure stability ASSESSMENT CATEGORY: BIRADS Category 3: Probably Benign - Short-Interval Follow- up Suggested. A letter regarding these results will be sent to the patient by the facility within 30 days. Electronically Signed: Bo Pinzon MD at 12:26 EDT , Service support , CC: Kody Garcia MD; Gi Calderón MD Alberene Stone Setter: Crystal CREATININE FINGERSTICK Collected: 09/20/2017 Status: F Source: [place] 12:50 PM [facility] REPOSITORY TYPE CODE TESTS RESULT OUT OF RANGE REFERENCE UNITS LAB L9100.0210 0.55-1.02 mg/dL Normal CREATININE WB 0.9 LAB L9100.0220 >60 mL/min EGFR WB Normal > 60.0000 Performed By: #### L9100.0200 #### [facility] Point of Care [address] [place] [address] BREAST W/O AND/OR W Observed: 09/20/2017 Status: F Source: [place] CONT BILAT 12:24 PM [facility] Imaging Services [address] [place] [address] Breast w/o and/or W Cont Bilat MR#: [id number] Acct: [id number] Name: ESPERANZA LUCERO Rep #: [id number] : 1940 F 77 From: Abdi East MD PCP: Kody Garcia MD Status: REG CLI Study: Breast w/o and/or W Cont Bilat Date of Exam: 09/20/17 Exam# [id number] Ordering Dr: Gi Mayer MD STUDY: BILATERAL BREAST MR WITHOUT AND WITH CONTRAST REASON FOR EXAM: Female, 77 years old. History of breast cancer in mother and sister. Prior lumpectomy and radiation therapy for personal history of breast cancer. TECHNIQUE: Multi-sequence multi-echo imaging of both breasts was performed with a dedicated breast coil. T1-weighted and T2- weighted images were performed before the administration of contrast. T1- weighted images were also performed after the administration of 10 mL of Gadavist contrast intravenously without complications. COMPARISON: Bilateral mammograms dated August 29, 2017, unilateral left mammogram dated September 09, 2017 and left breast ultrasound dated September 09, 2017. FINDINGS: RIGHT BREAST: The breast tissue is fatty with minimal background enhancement. There is an 8 mm in diameter lobular enhancing lesion at the 6:00 position of the right breast. This mass is not seen on the mammogram and likely represents a fibroadenoma. The lesion is approximately 4 cm behind the nipple and 1.3 cm below the nipple. The lesion which is within the midline just behind the nipple. There is also a lymph node in the right axilla measuring 13 mm in widest diameter. A second look ultrasound of the right breast and of the right axillary region is recommended for further evaluation of both of these findings. LEFT BREAST: The breast tissue is fatty with minimal background enhancement. There is decreased volume to the breast from the patient's prior lumpectomy and radiation therapy. There are postlumpectomy changes in the upper outer quadrant of the left breast with scarring. In the subareolar region of the left breast there is a lobular intensely enhancing mass measuring measuring 2 cm x 2.1 cm x 1.6 cm. This mass is highly suspicious for a carcinoma. An ultrasound-guided biopsy of this mass is recommended. There are no enlarged or abnormal lymph nodes. There is no abnormality in the visualized regions of the chest or liver. MRI/Breast w/o and/or W Cont Bilat IMPRESSION: Lobular enhancing mass at the 6:00 position of the right breast with a 1.3 cm in diameter lymph node in the right axilla. A second look ultrasound of the right breast is recommended. Highly suspicious subareolar mass in the left breast for which ultrasound-guided biopsy is recommended as outlined above. CATEGORY: BIRADS Category 5: Highly Suggestive of Malignancy - Appropriate Action Should Be Taken. A letter regarding these results will be sent to the patient by the facility within 30 days. Electronically Signed: Abdi East MD at 17:48 EDT , Service support , CC: Kody Garcia MD; Gi Calderón MD Alberene Stone Setter: Signed BREAST LIMITED Observed: 09/09/2017 Status: F Source: [place] UNILATERAL 11:07 AM [facility] Imaging Services [facility] [place] [address] Breast Limited Unilateral MR#: [id number] Acct: [id number] Name: ESPERANZA LUCERO Rep #: [id number] : 1940 F 77 From: Armand Cowan MD PCP: Kody Garcia MD Status: REG CLI Study: Breast Limited Unilateral Date of Exam: 09/09/17 Exam# [id number] Ordering Dr: Gi Mayer MD STUDY: ULTRASOUND BREAST - LEFT REASON FOR EXAM: Female, 77 years old. History of left breast lump. TECHNIQUE: Axial and longitudinal images of the LEFT breast were performed with a high resolution ultrasound transducer. COMPARISON: Comparison is made with prior mammogram dated August 29, 2017. FINDINGS: LEFT Breast: The palpable abnormality is at the 3:00 position the breast. At that site, there is a 1 cm x 1.5 cm x 1.6 cm area of irregular contour and shadowing. This most likely represents postoperative changes. US/Breast Limited Unilateral IMPRESSION: 1.5 cm x 1.6 cm x 1 cm irregular area of shadowing at the operative site. This most likely represents postoperative fibrosis. If clinically suspicious, correlation with MRI is recommended. ASSESSMENT CATEGORY: BIRADS Category 0: Incomplete. Need additional imaging evaluation. A letter regarding these results will be sent to the patient by the facility within 30 days. Electronically Signed: Armand Cowan MD at 12:19 EDT Tel [phone], Service support , CC: Kody Garcia MD; Gi Calderón MD Alberene Stone Setter: Signed PROTIME W/INR Collected: 08/29/2017 Status: F Source: [place] FINGERSTICK 10:50 AM [facility] TYPE CODE TESTS RESULT OUT OF REFERENCE UNITS RANGE LAB L9200.1001 11.9-14.4 SEC High PROTIME ISTAT 30.9 Result Comment: Reference Range 11.9 - 14.4 LAB L9200.2000 Normal INR ISTAT 2.70 Result Comment: Critical Value > 3.5 Performed By: #### L9200.0000 #### [facility] Point of Care [address] [place] [address] SCREENING MAMM (CAD), Observed: 08/29/2017 Status: F Source: [place] BIL 9:43 AM [facility] Imaging Services [address] [place] [address] SCREENING MAMM (CAD), BILAT MR#: [id number] Acct: [id number] Name: ESPERANZA LUCERO Rep #: [id number] : 1940 F 77 From: Armand Cowan MD PCP: Kody Garcia MD Status: REG CLI Study: SCREENING MAMM (CAD), BILAT Date of Exam: 08/29/17 Exam# [id number] Ordering Dr: Jabari Dickey MD MAMMOGRAPHY - BILATERAL SCREENING REASON FOR EXAM: Female, 77 years old. Routine annual screening examination. PERTINENT HISTORY: Personal history of breast cancer. Sister with breast cancer. Mother with breast cancer. Prior left lumpectomy with radiation therapy. TECHNIQUE: Digital bilateral breast marjorie (3D mammographic acquisition) in the CC and MLO projections. 2-D mediolateral oblique (MLO) and craniocaudad (CC) views of both breasts were obtained. CAD: Full Field Digital Mammography with Computer Added Detection was performed. COMPARISON: Comparison is made with prior study dated 04/20/2016 and August 13, 2015. FINDINGS: Breast Composition: There are scattered areas of fibroglandular density. Once again, the patient is status post left lumpectomy with postoperative scarring and changes in the deep upper lateral portion of the left breast. This is unchanged. No other significant abnormalities are identified. There has been no significant change since the prior study. BI/SCREENING MAMM (CAD), BILAT IMPRESSION: Stable bilateral screening mammogram. Yearly follow-up mammogram recommended. (A) ASSESSMENT CATEGORY: BIRADS Category 2: Benign. A letter regarding these results will be sent to the patient by the facility within 30 days. Approximately 10% of breast cancers are not detected by mammography. A normal mammogram should not delay biopsy of a clinically suspicious abnormality. [id number] Electronically Signed: Armand Cowan MD at 13:59 EDT Tel [phone], Service support , CC: Kody Garcia MD; Jabari Dickey MD Alberene Stone Setter: Signed CARDIOLOGY VISIT Observed: 08/25/2017 Status: F Source: [place] REPORT 1:41 PM [facility] [address] [place] [address] OFFICE VISIT Date of Service: 08/25/17 MR#: [id number] Acct: [id number] Name: ESPERANZA LUCERO Rep #: [id number] : 1940 Provider: Thomas Westfall MD Age/Sex: 77/F Location: [facility] Status: Signed HPI HPI Chief Complaint: Routine f/u Details: PCP: Dr. Kody Garcia This is a 77-year-old female that presents here today for a cardiovascular follow-up. She has a history of atrial fibrillation with RVR, left bundle branch block. Patient was in our office several months ago with complaints of decreased exercise tolerance over the last few months. She states that previous to 2014 she was able to walk about 2 miles now she gets short of breath with exertion and pain in her legs with walking up a hill that is 1 block from her home. Patient had a stress echocardiogram in August of 2016. Stress test was positive for ischemia by echo criteria. Echocardiogram after exercise were noted to be hypokinetic in the mid lateral and mid anterior septal segments. She was able to walk 7 minutes and 36 seconds on a modified Mode scale. Pt did admit to occasionally have chest pain that is a burning, it is difficult to pinpoint when it occurs, but it is new from 2016. She does get SOB with minimal activity. She is not SOB at rest. She does not have orthopnea. She does occasionally have palpitations but this is not simialr to what she had when she was in the hospital. These do not last long. She does not have any near syncope/syncope. She does have postional dizziness. She does not have any edema. She does not have pain in her legs when she walks, she just feels tired. Given the patient's constellation of symptoms, she ultimately underwent a left heart catheterization on 08/26/16 which showed normal coronary arteries and normal LVEF. She has been treated medically ever since. Patient is currently on Coumadin therapy for a history of DVTs and bilateral pulmonary emboli. Since her last visit the patient has had rare palpitations mostly at night, but no atrial fibrillation or lasting arrhythmias. She has had no presyncope, syncope, lightheadedness, dizziness, chest pain, angina, shortness of breath or dyspnea on exertion. She is taking and tolerating her medicines well. In our office today her blood pressure is 126/62, and pulse is 58 and regular. Physical exam is as below. Lipids as of 11/18/16 show an LDL of 70, and HDL of 57. EKG dated 08/31/16 demonstrates normal sinus rhythm with left bundle branch block Intake Vital Signs08/25/17 Height 5 ft 08/25/17 Weight: 195 lb 08/25/17 Body Mass Index (BMI) 38.0 08/25/17 Blood Pressure 126/62 08/25/17 Respiratory Rate 18 08/25/17 Pulse Rate 58 08/25/17 Pulse Ox 98 Intake Visit Reasons: 6 M FU Allergies almond Allergy (Verified 08/25/17 13:19) Unknown Penicillins [PCN] Adverse Reaction (Verified 08/25/17 13:19) Other Medications Allopurinol [Zyloprim] 150 mg PO DAILY 06/13/15 [History Confirmed 08/25/17] Atenolol [Tenormin] 100 mg PO DAILY 06/13/15 [History Confirmed 08/25/17] Folic Acid 0.4 mg PO DAILY@0800 06/13/15 [History Confirmed 08/25/17] Losartan Potassium [Cozaar] 50 mg PO BID 06/13/15 [History Confirmed 08/25/17] Aspirin [Adult Low Dose Aspirin EC] 81 mg PO DAILY 08/25/16 [History Confirmed 08/25/17] Cholecalciferol (VIT D3) [Vitamin D] 1,000 unit PO DAILY 08/25/16 [History Confirmed 08/25/17] Hydrochlorothiazide [Hctz] 25 mg PO DAILY 08/25/16 [History Confirmed 08/25/17] Warfarin [Coumadin (PBKC)] 4 mg PO DAILY 08/31/16 [History Confirmed 08/25/17] potassium chloride ER 10 mEq tablet,extended release(part/cryst) 10 meq PO DAILY #90 tab 05/16/17 [Rx Confirmed 08/25/17] diltiazem CD 120 mg capsule,extended release 24 hr 120 mg PO DAILY #90 cap 06/27/17 [Rx Confirmed 08/25/17] PFSH Medical History Obesity (Chronic) Paroxysmal atrial fibrillation (Chronic) Ductal carcinoma in situ (DCIS) of left breast (Resolved) Pulmonary embolism (Chronic) Uterine cancer (Resolved) Colon cancer (Resolved) LBBB (left bundle branch block) (Chronic) HTN (hypertension) (Chronic) Cataracts, bilateral (Chronic) Deep vein thrombosis (Chronic) Gout (Chronic) Surgical History History of colectomy (Chronic) History of colostomy reversal (Chronic) History of hysterectomy (Chronic) History of left heart catheterization (Chronic 08/26/16) Family History Father Lung cancer Brother Lung cancer Mother Breast cancer Social History Smoking Status: Former smoker ROS Const Const: Negative for fatigue, weakness, difficulty sleeping, frequent falls, headache(s) or excessive sweating Eyes Eyes: Negative for loss of peripheral vision, transient loss of vision, blurry vision or double vision ENT ENT: Negative for headache(s), dizziness, Nosebleed/epistaxis or balance problems Cardio Chest Pain: No Edema: None Muscle aches with walking: None Resp Respiratory: Negative for SOB with activity, SOB at rest, SOB orthopnea\SOB lying down or paroxysmal nocturnal dyspnea GI GI: Negative nausea or heartburn : Negative for hematuria Musc Musc: Negative for muscle aches/ myalgia, muscle weakness, joint pain or balance problems Skin Skin: Negative non-healing lesions, unusual bruising or rash Neuro Neuro: Negative for weakness, frequent falls, blurry vision, headache(s), dizziness, lightheadedness, orthostatic symptoms or double vision Tony Hematologic/Lymphatic: Negative for easy bruising Endo Endo: Negative for fatigue, excessive sweating or increased thirst/drinking Psych Psych: Negative for anxiety or depression Allergy Allergy/Immunology: Negative for hives, Negative for rash Cardiology Exam Const Appearance: cooperative, healthy appearing and no acute distress Nutritional Appearance: well nourished Orientation: alert, oriented x3 and oriented to person Head Head: normal to inspection, atraumatic and normocephalic Nose: external nose normal Face and Sinus: face symmetric Mouth: oral mucosae normal Eyes General: appearance normal, both eyes and all related structures Eyelids: eyelids normal Conjunctivae: conjunctivae normal Pupils: PERRL and normal by confrontation EOM: EOM intact bilaterally Neck Neck: normal visual inspection and full ROM Carotids: normal carotid upstroke Chest Chest inspection: normal inspection of the chest Auscultation: Bilateral: Clear to Auscultation Cardio Palpation: normal PMI Rate: regular rate Rhythm: regular rhythm Heart sounds: S1 normal and S2 normal GI GI: normal to inspection, no hepatosplenomegaly and bowel sounds present Neuro General: alert, oriented x3, awake, CN's II-XI intact bilaterally and moves all extremities Skin Skin: no rashes or lesions noted Extremities Pulses: Normal: Right Femoral Pulse, Left Femoral Pulse, Right Dorsalis Pedis Pulse, Left Dorsalis Pedis Pulse, Right Posterior Tibial Pulse, Left Posterior Tibial Pulse, Right Radial Pulse, Left Radial Pulse Lower Extremity Edema: None: Bilateral Psych Psychological: normal affect Assessment AND Plan 1. Paroxysmal atrial fibrillation I48.0 Plan 1. Paroxysmal atrial fibrillation: The patient complains of no palpitations at this time. She appears to be in sinus rhythm by physical exam. She is taking and tolerating her medicines well. Unfortunately she requires both beta-bernard and calcium channel bernard therapy for rate control. Given her pulmonary embolism she will require lifelong anticoagulation. Recommend continuing baby aspirin, atenolol, diltiazem, losartan, hydrochlorothiazide. 2. Pulmonary embolism I26.99 Plan 2. Pulmonary embolism: The patient has a history of pulmonary embolism and DVTs mandating lifelong anticoagulation therapy. I have encouraged the patient to begin exercise for weight loss. Her most recent echocardiogram in June 2015 showed marked improvement of her pulmonary pressures from 43->36 mmHg. No indication for repeat echo at this time. 3. Return office in 6 months. This note was generated using a voice recognition system and there may be incorrect words, spelling or punctuation that were not noted when reviewing the office note prior to saving. Plan Detail Follow Up +6M (Khoi) Coding Level of Care Code Off vis,est,level 3 Diagnoses Paroxysmal atrial fibrillation I48.0 Pulmonary embolism I26.99 Coding Level of Care Code Off vis,est,level 3 Diagnoses Paroxysmal atrial fibrillation I48.0 Pulmonary embolism I26.99 08/25/17 1341 <Electronically signed by Thomas Westfall MD> Date Thomas Westfall MD Cosigner Signature: Date (if applicable) CC: Kody Garcia MD PROTIME W/INR Collected: 07/22/2017 Status: F Source: CRYSTAL FINGERSTICK 12:27 PM [facility] TYPE CODE TESTS RESULT OUT OF REFERENCE UNITS RANGE LAB L9200.1001 11.9-14.4 SEC High PROTIME ISTAT 25.9 Result Comment: Reference Range 11.9 - 14.4 LAB L9200.2000 Normal INR ISTAT 2.20 Result Comment: Critical Value > 3.5 Performed By: #### L9200.0000 #### [facility] Point of Care [address] [place] [address] PROTIME W/INR Collected: 06/21/2017 Status: F Source: CRYSTAL FINGERSTICK 3:30 PM [facility] TYPE CODE TESTS RESULT OUT OF REFERENCE UNITS RANGE LAB L9200.1001 11.9-14.4 SEC High PROTIME ISTAT 23.1 Result Comment: Reference Range 11.9 - 14.4 LAB L9200.2000 Normal INR ISTAT 2.00 Result Comment: Critical Value > 3.5 Performed By: #### L9200.0000 #### [facility] Point of Care [address] [place] [address] PROTIME W/INR Collected: 05/18/2017 Status: F Source: CRYSTAL FINGERSTICK 2:33 PM [facility] [place] TYPE CODE TESTS RESULT OUT OF REFERENCE UNITS RANGE LAB L9200.1001 11.9-14.4 SEC High PROTIME ISTAT 30.5 Result Comment: Reference Range 11.9 - 14.4 LAB L9200.2000 Normal INR ISTAT 2.70 Result Comment: Critical Value > 3.5 Performed By: #### L9200.0000 #### [facility] Point of Care [address] [place] [address] PROTIME W/INR Collected: 05/03/2017 Status: F Source: CRYSTAL FINGERSTICK 4:38 PM [facility] [place] TYPE CODE TESTS RESULT OUT OF REFERENCE UNITS RANGE LAB L9200.1001 11.9-14.4 SEC High PROTIME ISTAT 35.9 Result Comment: Reference Range 11.9 - 14.4 LAB L9200.2000 Normal INR ISTAT 3.20 Result Comment: Critical Value > 3.5 Performed By: #### L9200.0000 #### [facility] Point of Care [address] [place] [address] PROTIME W/INR Collected: 03/31/2017 Status: F Source: CRYSTAL FINGERSTICK 2:47 PM [facility] [place] TYPE CODE TESTS RESULT OUT OF REFERENCE UNITS RANGE LAB L9200.1001 11.9-14.4 SEC High PROTIME ISTAT 29.7 Result Comment: Reference Range 11.9 - 14.4 LAB L9200.2000 Normal INR ISTAT 2.60 Result Comment: Critical Value > 3.5 Performed By: #### L9200.0000 #### [facility] Point of Care [address] [place] [address] ALLERGIES ALLERGIES DATE TYPE / CODE NAME / CODE REACTION SEVERITY SOURCE 11/29/2017 DRUG LEVOFLOXACIN UNKNOWN [facility] INGREDI/[address] [place] 871715([facility] ED CT) 11/14/2017 Drug levofloxacin/U04024 Unknown Unknown [place] Allergy/416 6299(RXNORM) Community 281325([facility] ED CT) Repository 11/08/2017 Drug Penicillins/S476626 Other Unknown [place] Allergy/416 476(RXNORM) Community 667461([facility] ED CT) Repository 11/08/2017 Drug almond/[id number](R Unknown Unknown [place] Allergy/416 XNORM) Community 687699([facility] ED CT) Repository 06/09/2006 DRUG ALMOND [facility] INGREDI/[address] [place] 300318(SNOM Repository ED CT) 05/10/2006 Drug PENICILLINS Mental Chg [facility] Class/06197 [address] [place] 1003(SNOMED Repository CT) ENCOUNTERS ENCOUNTERS ADMIT/DISCHARGE ACCOUNT ADMITTING ENCOUNTER LOCATION SOURCE NUMBER CLASS 03/07/2018 [id number] [facility] ing:MTLAB Repository 02/15/2018/02/16/[id number] ing:MTLAB Repository 01/12/2018/01/14/20 [id number] Ambulatory [address] [place] Repository 12/30/2017/12/31/[id number] ing:MTLAB Repository 12/30/2017/01/04/20 [id number] Ambulatory [address] [place] Repository 12/26/2017/12/27/19 [id number] Ambulatory [address] [place] Repository 12/21/2017/12/23/19 [id number] Ambulatory [address] [place] Repository 12/16/2017/12/17/19 [id number] Ambulatory [address] [place] Repository 12/16/2017/12/20/19 [id number] Ambulatory [address] [place] Repository 12/01/2017/12/03/19 [id number] Ambulatory [address] [place] Repository 11/29/2017/12/01/19 [id number] Ambulatory [address] [place] Repository 11/25/2017/11/29/19 [id number] Ambulatory [address] [place] Repository 11/22/2017/11/24/19 [id number] Ambulatory [address] [place] Repository 11/22/2017/11/23/[id number] ing:MTLAB Repository 11/22/2017 [id number] Ambulatory BMSBuilding:[facility] Hospital Repository 11/18/2017/11/23/19 [id number] Ambulatory [address] Repository 11/15/2017/11/17/19 [id number] Haile, Inpatient [place] [facility] ing:QJ8Tluu: Repository KK224Mjn: 1 11/14/2017 [id number] Ambulatory BMSBuilding:[facility] Hospital Repository 10/27/2017/10/28/19 [id number] Ambulatory [place] HospitalBuild Hospital ing:MTLAB Repository 10/20/2017/11/01/19 [id number] Ambulatory [address] Repository 10/18/2017 [id number] [facility] Repository 10/18/2017/11/12/19 [id number] Ambulatory [address] Repository 10/13/2017/10/14/19 [id number] Ambulatory [address] Repository 09/29/2017/09/30/19 [id number] Ambulatory [place] [address] [facility] ing:MTLAB Repository 09/29/2017/09/30/19 [id number] Ambulatory BMSBuilding:B [place] [facility] [place].[facility] Repository 09/28/2017 [id number] [facility] ing:OPUS Repository 09/20/2017 [id number] [facility] ing:MRI Repository 09/09/2017 [id number] [facility] ing:OPUS Repository 08/29/2017/08/30/19 [id number] Ambulatory [place] HospitalBuild Hospital ing:MTLAB Repository 08/29/2017 [id number] [facility] ing:OPBI Repository 08/25/2017/08/26/19 [id number] Ambulatory BMSBuilding:B [place] [facility] Repository 07/22/2017/07/23/19 [id number] Ambulatory [place] 18 [facility] ing:MTLAB Repository 06/21/2017/06/22/19 [id number] Ambulatory [place] 18 [facility] ing:MTLAB Repository 05/18/2017/05/19/19 [id number] Ambulatory [place] [facility] ing:MTLAB Repository 05/03/2017/05/03/19 [id number] Ambulatory [place] 18 [facility] ing:MTLAB Repository 03/31/2017/03/31/19 [id number] Ambulatory [place] 18 [facility] ing:MTLAB Repository PAYERS PAYERS ENCOUNTER GUARANTOR PAYER SUBSCRIBER SOURCE 03/07/2018 ESPERANZA Acosta Primary ESPERANZA L [place] [id number] Insurance:MEDICARE WILLIAMSDOB: Community SETTLERS PART A [facility] [id number] Number: Repository 17[address]Wzy: 330 [id number] [phone] () Date:2017-04-08 03/07/2018 Secondary ESPERANZA L [place] Insurance:AARPPolicy WILLIAMSDOB: [facility] Number: [id number] Hospital [id number] Repository Date:6861-00-26CT [address], [place] [address]LP: 03/07/2018 Tertiary NOT GIVENUNK [place] Insurance:SELF PAY [facility] Number: Effective Repository Date:2018-03-06 02/15/2018 ESPERANZA L Primary ESPERANZA L [place] [id number] Insurance:MEDICARE WILLIAMSDOB: Community SETTLERS PART A [facility] [id number] Number: Repository [address]Gtj: [phone]) [id number] [phone] (HP) Date:2017-04-08 02/15/2018 Secondary ESPERANZA L [place] Insurance:AARPPolicy WILLIAMSDOB: Community Number: [id number] Hospital [id number] Repository Date:1457-29-21YQ [address], [place] [address]OO: 02/15/2018 Tertiary NOT GIVENUNK [place] Insurance:SELF PAY [facility] Number: Effective Repository Date:2018-01-05 12/30/2017 ESPERANZA L Primary ESPERANZA Rojas [id number] Insurance:MEDICARE WILLIAMSDOB: Community SETTLERS PART A [facility] [id number] [place] Number: Repository [address]Iid: 330 [id number] -[phone] (HP) Date:2017-04-08 12/30/2017 Secondary ESPERANZA L [place] Insurance:AARPPolicy WILLIAMSDOB: Community Number: [id number] Hospital [id number] Repository Date:0618-63-09QM [address]NRPWPBB, [place] [address]KO: 12/30/2017 Tertiary NOT GIVENUNK [place] Insurance:SELF PAY [facility] Number: Effective Repository Date:2017-12-06 11/22/2017 ESPERANZA L Primary ESPERANZA Rojas [id number] Insurance:MEDICARE WILLIAMSDOB: Community SETTLERS PART A [facility] [id number][facility] Number: Repository [address]Eyy: 330 [id number] -[phone] (HP) Date:2017-04-08 11/22/2017 Secondary ESPERANZA L [place] Insurance:AARPPolicy WILLIAMSDOB: Community Number: [id number] Hospital [id number] Repository Date:9459-04-62BP [facility] [address], [place] [address]BK: 11/22/2017 Tertiary NOT GIVENUNK [place] Insurance:SELF PAY [facility] Number: Effective Repository Date:2017-11-09 11/22/2017 ESPERANZA L Primary ESPERANZA Rojas [id number] Insurance:MEDICARE WILLIAMSDOB: Community SETTLERS PART A [facility] [id number][facility] Number: Repository [address]Amc: 330 [id number] [phone] (HP) Date:2017-04-08 11/22/2017 Secondary ESPERANZA L [place] Insurance:AARPPolicy WILLIAMSDOB: Community Number: [id number] Hospital [id number] Repository Date:3492-52-04TJ [address]XEHESD, [place] [address]AS: 11/22/2017 Tertiary NOT GIVENUNK [place] Insurance:SELF PAY [facility] Number: Effective Repository Date:2017-11-22 11/15/2017 ESPERANZA L Primary ESPERAZNA L [place] [id number] Insurance:MEDICARE WILLIAMSDOB: Community SETTLERS PART A olicy [id number] [facility] [place] Number: Repository [address]Ike: [phone] [id number] [phone] () Date:2017-10-20 11/15/2017 Secondary ESPERANZA L [place] Insurance:AARPPolicy WILLIAMSDOB: Community Number: [id number] Hospital [id number] Repository Date:5200-55-05UT [address]XKWQK, [place] [address]WE: 11/15/2017 Tertiary NOT GIVENUNK [place] Insurance:SELF PAY [facility] Number: Effective Repository Date:2017-10-20 11/14/2017 ESPERANZA L Primary ESPERANZA Rojas [id number] Insurance:MEDICARE WILLIAMSDOB: Community SETTLERS PART A [facility] [id number] [facility] [place] Number: Repository [address]Yui: 330 [id number] [phone] (HP) Date:2017-10-20 11/14/2017 Secondary ESPERANZA L [place] Insurance:AARPPolicy WILLIAMSDOB: Community Number: [id number] Hospital [id number] Repository Date:9609-34-13JC [address], [place] [address]ED: 11/14/2017 Tertiary NOT GIVENUNK [place] Insurance:SELF PAY [facility] Number: Effective Repository Date:2017-11-14 10/27/2017 ESPERANZA L Primary ESPERANZA L [place] [id number] Insurance:MEDICARE WILLIAMSDOB: Community SETTLERS PART A [facility] [id number] [facility] [place] Number: Repository [address]Han: [phone] [id number] [phone] (HP) Date:2017-04-08 10/27/2017 Secondary ESPERANZA L [place] Insurance:AARPPolicy WILLIAMSDOB: Community Number: [id number] Hospital [id number] Repository Date:9341-70-19OP [address], [place] [address]RC: 10/27/2017 Tertiary NOT GIVENUNK [place] Insurance:SELF PAY [facility] Number: Effective Repository Date:2017-10-07 10/18/2017 ESPERANZA L Primary ESPERANZA L [place] [id number] Insurance:MEDICARE WILLIAMSDOB: Community SETTLERS PART A [facility] [id number] [facility] [place] Number: Repository [address]Mky: 330 [id number] [phone] () Date:2017-10-18 10/18/2017 Secondary ESPERANZA L [place] Insurance:AARPPolicy WILLIAMSDOB: Community Number: [id number] Hospital [id number] Repository Date:8249-68-34[address]PRPQJX, [place] [address]YF: 10/18/2017 Tertiary NOT GIVENUNK [place] Insurance:SELF PAY [facility] Number: Effective Repository Date:2017-10-18 09/29/2017 ESPERANZA L Primary ESPERANZA L [place] [id number] Insurance:MEDICARE WILLIAMSDOB: Community SETTLERS PART A [facility] [id number] [facility] [place] Number: Repository [address]Qlj: [phone] [id number] [phone] (HP) Date:2017-04-08 09/29/2017 Secondary ESPERANZA L [place] Insurance:AARPPolicy WILLIAMSDOB: Community Number: [id number] Hospital [id number] Repository Date:6968-51-08QW [address]YICZNL, [place] [address]ZB: 09/29/2017 Tertiary NOT GIVENUNK [place] Insurance:SELF PAY [facility] Number: Effective Repository Date:2017-09-02 09/29/2017 ESPERANZA L Primary ESPERANZA L [place] [id number] Insurance:MEDICARE WILLIAMSDOB: Community SETTLERS PART A [facility] [id number]-[facility] Number: Repository [address]Tql: 330 [id number] [phone] (HP) Date:2017-09-27 09/29/2017 Secondary ESPERANZA L [place] Insurance:AARPPolicy WILLIAMSDOB: Community Number: [id number] Hospital [id number] Repository Date:9025-06-15GE [address]TX[place]QLTY, [place] [address]EV: 09/29/2017 Tertiary NOT GIVENUNK [place] Insurance:SELF PAY [facility] Number: Effective Repository Date:2017-09-27 09/28/2017 ESPERANZA L Primary ESPERANZA L [place] [id number] Insurance:MEDICARE WILLIAMSDOB: Community SETTLERS PART A [facility] [id number]-[facility] Repository [address]Inz: 330 [id number] -[phone] (HP) Date:2017-09-27 09/28/2017 Secondary ESPERANZA L [place] Insurance:AARPPolicy WILLIAMSDOB: Community Number: [id number] Hospital [id number] Repository Date:9428-42-74[address]LR, [place] [address]UZ: 09/28/2017 Tertiary NOT GIVENUNK [place] Insurance:SELF PAY [facility] Number: Effective Repository Date:2017-09-27 09/20/2017 Esperanza L Primary Esperanza L [place] [id number] Insurance:MEDICARE WilliamsDOB: Community SETTLERS PART A [facility] [id number]-Cl[facility] Number: Repository [address]Dyz: 330 [id number] [phone] (HP) Date:2017-09-13 09/20/2017 Secondary Esperanza L [place] Insurance:AARPPolicy WilliamsDOB: Community Number: [id number] Hospital [id number] Repository Date:8478-15-76RX [address]HM[place], [place] [address]JO: 09/20/2017 Tertiary NOT GIVENUNK [place] Insurance:SELF PAY [facility] Number: Effective Repository Date:2017-09-13 09/09/2017 Esperanza L Primary Esperanza L [place] [id number] Insurance:MEDICARE WilliamsDOB: Community SETTLERS PART A [facility] [id number]-[facility] Repository [address]Vti: ([phone]) [id number] [phone] (HP) Date:2017-09-08 09/09/2017 Secondary Esperanza L [place] Insurance:AARPPolicy WilliamsDOB: Community Number: [id number] Hospital [id number] Repository Date:7224-21-69FV [address]JQYJRZX, [place] [address]YE: 09/09/2017 Tertiary NOT GIVENUNK [place] Insurance:SELF PAY [facility] Number: Effective Repository Date:2017-09-08 08/29/2017 Esperanza L Primary Esperanza L [place] [id number] Insurance:MEDICARE WilliamsDOB: Community SETTLERS PART A [facility] [id number]-[facility] Number[place] Repository [address]Ryd: 330 [id number] [phone] (HP) Date:2017-04-08 08/29/2017 Secondary Esperanza L [place] Insurance:AARPPolicy WilliamsDOB: Community Number: [id number] Hospital [id number] Repository Date:5062-59-54HI [address]WPJCSUI, [place] [address]PT: 08/29/2017 Tertiary NOT GIVENUNK [place] Insurance:SELF PAY [facility] Number: Effective Repository Date:2017-08-05 08/29/2017 Esperanza L Primary Esperanza L [place] [id number] Insurance:MEDICARE WilliamsDOB: Community SETTLERS PART A [facility] [id number]-[facility] Repository [address]Vxa: 330 [id number] [phone] (HP) Date:2017-03-17 08/29/2017 Secondary Esperanza L [place] Insurance:AARPPolicy WilliamsDOB: Community Number: [id number] Hospital [id number] Repository Date:9429-42-34PS [address]D[place]ZZXX, [place] [address]OE: 08/29/2017 Tertiary NOT GIVENUNK [place] Insurance:SELF PAY [facility]: Effective Repository Date:2017-03-17 08/25/2017 Esperanza L Primary Esperanza L [place] [id number] Insurance:MEDICARE WilliamsDOB: Community SETTLERS PART A [facility] [id number] [facility] [place] Number: Repository [address]Pue: 330 [id number] [phone] () Date:2017-02-07 08/25/2017 Secondary Esperanza L [place] Insurance:AARPPolicy WilliamsDOB: Community Number: [id number] Hospital [id number] Repository Date:6262-90-96DX [address]NSLWPTP, [place] [address]PA: 08/25/2017 Tertiary NOT GIVENUNK [place] Insurance:SELF PAY [facility] Number: Effective Repository Date:2017-08-25 07/22/2017 Esperanza L Primary Esperanza L [place] [id number] Insurance:MEDICARE WilliamsDOB: Community SETTLERS PART A [facility] [id number] [facility] [place] Number: Repository [address]Ald: 330 [id number] [phone] () Date:2017-04-08 07/22/2017 Secondary Esperanza L [place] Insurance:AARPPolicy WilliamsDOB: Community Number: [id number] Hospital [id number] Repository Date:4738-51-33HU [address]AIMLTGZ, [place] [address]NA: 07/22/2017 Tertiary NOT GIVENUNK [place] Insurance:SELF PAY [facility] Number: Effective Repository Date:2017-07-05 06/21/2017 Esperanza L Primary Esperanza L [place] [id number] Insurance:MEDICARE WilliamsDOB: Community SETTLERS PART A [facility] [id number] [facility] [place] Number: Repository [address]Qsr: 330 [id number] -[phone] (HP) Date:2017-04-08 06/21/2017 Secondary Esperanza L [place] Insurance:AARPPolicy WilliamsDOB: Community Number: [id number] Hospital [id number] Repository Date:2288-87-12BK [facility] [address], [place] [address]MA: 06/21/2017 Tertiary NOT GIVENUNK [place] Insurance:SELF PAY [facility] Number: Effective Repository Date:2017-06-06 05/18/2017 Esperanza L Primary Esperanza L [place] [id number] Insurance:MEDICARE WilliamsDOB: Community SETTLERS PART A [facility] [id number]-Clarksburg [facility] Number: Repository [address]Lgx: 330 [id number] [phone] (HP) Date:2017-04-08 05/18/2017 Secondary Esperanza L [place] Insurance:AARPPolicy WilliamsDOB: Community Number: [id number] Hospital [id number] Repository Date:5104-29-38EA [address]NSFMAHS, [place] [address]AU: 05/18/2017 Tertiary NOT GIVENUNK [place] Insurance:SELF PAY [facility] Number: Effective Repository Date:2017-05-05 05/03/2017 Esperanza L Primary Esperanza L [place] [id number] Insurance:MEDICARE WilliamsDOB: Community SETTLERS PART A [facility] [id number]-[facility] Repository [address]Gsp: 330 [id number] -[phone] (HP) Date:2017-04-08 05/03/2017 Secondary Esperanza L [place] Insurance:AARPPolicy WilliamsDOB: Community Number: [id number] Hospital [id number] Repository Date:2477-01-49CI [facility] [address]DX[place]U, [place] [address]EK: 05/03/2017 Tertiary NOT GIVENUNK [place] Insurance:SELF PAY [facility] Number: Effective Repository Date:2017-04-08 03/31/2017 Esperanza L Primary Esperanza L [place] [id number] Insurance:MEDICARE WilliamsDOB: Community SETTLERS PART A [facility] [id number] Number[place] Repository [address]Sva: [phone] [id number] [phone] (HP) Date:2004-01-06 03/31/2017 Secondary Esperanza L [place] [facility] WilliamsDOB: Community Number: [id number] Hospital [id number] Repository Date:3430-93-90OJ [facility] [address], [place] [address]SK: 03/31/2017 Tertiary NOT GIVENUNK [place] Insurance:SELF PAY [facility] Number: Effective Repository Date:2017-03-07
== END 2018-02-15 16:00 | disposition home or self-care (01) ==
LOC: MTLAB 15:47
PROVIDERS: Family Provider Family Medicine; PCP Family Medicine; Referring Provider Family Medicine; Visit Provider Family Medicine
DX: I48.91 Unspecified atrial fibrillation (principal)
CPT/HCPCS: 36416; 85610

== ENCOUNTER 2018-04-03 14:21 | Outpatient (RCR) | payer MEDICARE, OTHER, SELFPAY ==
[2017-11-14 18:30] VITALS: BMI 38.0
[2018-04-03 14:03] VITALS: BMI 38.2
[2018-04-03 14:50] LABS: Prothrombin Time Fingerstick 30.4 SEC (11.9-14.4)
== END 2018-04-03 16:00 | disposition home or self-care (01) ==
LOC: LAB 14:21
PROVIDERS: Family Provider Family Medicine; PCP Family Medicine; Referring Provider Family Medicine; Visit Provider Family Medicine
DX: I48.91 Unspecified atrial fibrillation (principal)
CPT/HCPCS: 36416; 85610

== ENCOUNTER 2018-05-04 12:07 | Outpatient (RCR) | payer MEDICARE, OTHER, SELFPAY ==
[2018-05-04 12:20] LABS: Prothrombin Time Fingerstick 27.3 SEC (11.9-14.4)
== END 2018-05-04 12:30 | disposition home or self-care (01) ==
LOC: LAB 12:07
PROVIDERS: Family Provider Family Medicine; PCP Family Medicine; Referring Provider Family Medicine; Visit Provider Family Medicine
DX: I48.91 Unspecified atrial fibrillation (principal)
CPT/HCPCS: 36416; 85610

== ENCOUNTER 2018-06-02 14:18 | Outpatient (RCR) | payer MEDICARE, OTHER, SELFPAY ==
[2018-06-02 14:51] LABS: Prothrombin Time Fingerstick 30.4 SEC (11.9-14.4)
== END 2018-06-02 15:00 | disposition home or self-care (01) ==
LOC: MTLAB 14:18
PROVIDERS: Family Provider Family Medicine; PCP Family Medicine; Referring Provider Family Medicine; Visit Provider Family Medicine
DX: I48.91 Unspecified atrial fibrillation (principal)
CPT/HCPCS: 36416; 85610

== ENCOUNTER → 2018-07-03 | Outpatient (CLI) | payer MEDICARE, OTHER, SELFPAY ==
[2018-07-03 14:08] LABS: Erythrocyte Sedimentation Rate 23 mm/hr (0-30)
[2018-07-03 14:28] LABS: Uric Acid 4.9 mg/dL (2.6-6.0)
== END | disposition home or self-care (01) ==
LOC: MTLAB 13:11
PROVIDERS: Family Provider Family Medicine; PCP Family Medicine; Referring Provider Family Medicine; Visit Provider Family Medicine
DX: M10.9 Gout, unspecified (principal); I48.0 Paroxysmal atrial fibrillation
CPT/HCPCS: 36415; 84550; 85610; 85652

== ENCOUNTER 2018-08-31 11:55 | Outpatient (RCR) | payer MEDICARE, OTHER, SELFPAY ==
[2018-08-31 12:16] LABS: Prothrombin Time Fingerstick 32.7 SEC (11.9-14.4)
== END 2018-08-31 12:00 | disposition home or self-care (01) ==
LOC: MTLAB 11:55
PROVIDERS: Family Provider Family Medicine; PCP Family Medicine; Referring Provider Family Medicine; Visit Provider Family Medicine
DX: I48.91 Unspecified atrial fibrillation (principal)
CPT/HCPCS: 36416; 85610

== ENCOUNTER 2018-10-02 12:58 | Outpatient (RCR) | payer MEDICARE, OTHER, SELFPAY ==
[2018-10-02 13:10] LABS: Prothrombin Time Fingerstick 30.3 SEC (11.9-14.4)
== END 2018-10-02 13:30 | disposition home or self-care (01) ==
LOC: MTLAB 12:58
PROVIDERS: Family Provider Family Medicine; PCP Family Medicine; Referring Provider Family Medicine; Visit Provider Family Medicine
DX: I48.91 Unspecified atrial fibrillation (principal)
CPT/HCPCS: 36416; 85610

== ENCOUNTER 2018-11-02 08:48 | Outpatient (RCR) | payer MEDICARE, OTHER, SELFPAY ==
[2018-10-26 14:22] VITALS: BMI 39.9
[2018-11-02 10:05] LABS: Absolute Lymphocyte Count 2.23 X10^3/uL (0.83-4.51); Absolute Neutrophil Count 4.9 X10^3/uL (2.0-7.7); Basophil# 0.02 X10^3/uL; Basophil% 0.3 % (0-1); Eosinophil# 0.14 X10^3/uL; Eosinophils% 1.8 % (0-5); Hemoglobin 12.8 g/dL (12.0-15.0); Lymphocyte # 2.23 X10^3/ul (4.0); Mean Corp Hgb Conc 32.8 g/dL (32-36); Mean Corpuscular Hgb 30.5 pg (27.0-32.0); Mean Corpuscular Volume 93.1 fL (81-99); Mean Platelet Vol. 9.4 fl (6.2-12.0); Monocyte# 0.67 X10^3/uL; Monocyte% 8.4 % (0-10); NRBC Flagged by Analyzer 0 % (0-5); Neutrophil # 4.87 X10^3/uL (2.7-7.7); Neutrophil % 61.1 % (47-70); Platelet Count 294 K/mm3 (150-450); RBC Distribution Width CV 13.6 % (11.6-14.6); RBC Distribution Width SD 46.5 fl (35.1-43.9); Red Blood Count 4.19 M/mm3 (4.2-5.4)
[2018-11-02 10:14] LABS: Anion Gap 9 (5-15); BUN 21 mg/dL (7-18); BUN/Creat Ratio 22.5 RATIO (10-20); Chloride 109 mmol/L (98-107); Creatinine, Serum 0.93 mg/dL (0.55-1.02); EST Glomerular Filtration Rate 62 mL/min (>60); Est Glom Filt Rate - Afr Amer 74 mL/min (>60); Glucose 91 mg/dL (74-106); Potassium 3.8 mmol/L (3.5-5.1); Sodium Level 143 mmol/L (136-145)
[2018-11-02 10:15] LABS: Prothrombin Time (Protime)PT. 31.2 SECONDS (11.7-14.9)
== END 2018-11-02 09:48 | disposition home or self-care (01) ==
LOC: MTLAB 08:48
PROVIDERS: Family Provider Family Medicine; PCP Family Medicine; Referring Provider Family Medicine; Visit Provider Family Medicine
DX: I48.91 Unspecified atrial fibrillation (principal)
CPT/HCPCS: 36415; 80048; 85025; 85610

== ENCOUNTER → 2018-11-16 13:52 | Outpatient (CLI) | payer MEDICARE, OTHER, SELFPAY ==
[2018-10-26 14:22] VITALS: BMI 39.9
--- NOTE | 2018-11-16 13:53 | ECHOD_ITS ---
Reason For Study: PHTN Procedure This was a 2D Doppler, Color Flow transthoracic echocardiogram. Myocardial strain analysis was performed in this exam to aid in the assessment of cardiac function. The study was technically difficult. Exam performed in department. Left Ventricle Normal size and thickness. The estimated ejection fraction is 65 %. Septal motion consistent with IVCD. Stage 1 diastolic dysfunction. No regional wall motion abnormalities noted. Right Ventricle Mildly dilated right ventricle. Normal systolic function. Atria The left atrium is mildly enlarged. Normal right atrium. Normal atrial septum. Mitral Valve The mitral valve is structurally normal. No prolapse or stenosis seen. Tricuspid Valve Normal tricuspid valve. Mild (1+) tricuspid valve insufficiency. Right ventricular systolic pressure estimated to be 40 mmHg. Mild pulmonary hypertension. Aortic Valve Trisinus/trileaflet aortic valve. Mild diffuse aortic valve thickening. Trivial aortic valve insufficiency. Pulmonic Valve Normal pulmonic valve. Great Vessels Normal aortic root. Normal arch. Normal inferior vena cava. Inferior vena cava collapse with sniff. Pericardium/Pleural No pericardial effusion. MMode/2D Measurements & Calculations LVIDd: 4.0 cm IVSd: 1.1 cm Ao root diam: 3.5 cm LVIDs: 2.3 cm LVPWd: 1.2 cm RVDd: 3.6 cm FS: 42.8 % LAV(MOD-bp): 64.6 ml LA A4 area: 21.4 cm2 LA dimension(2D): 3.4 cm LAV(MOD-bp) Indexed: 35.0 ml/m2 LAV(MOD-sp2): 62.1 ml LAV(MOD-sp4): 64.1 ml RA A4 area: 14.3 cm2 Time Measurements MV dec time: 0.33 sec Doppler Measurements & Calculations MV E max hal: 82.1 cm/sec Lat Peak E' Hal: 7.6 cm/sec Med Peak E' Hal: 5.4 cm/sec MV A max hal: 125.7 cm/sec E/E' lat: 10.8 E/E' med: 15.1 MV E/A: 0.65 MV V2 max: 124.0 cm/sec Ao V2 max: 196.1 cm/sec AI max hal: 371.1 cm/sec MV max P.1 mmHg Ao max P.4 mmHg AI max P.1 mmHg MV V2 mean: 62.5 cm/sec AI dec slope: 131.9 cm/sec2 MV mean P.0 mmHg AI P1/2t: 824.4 msec MV V2 VTI: 42.7 cm LV V1 max: 156.6 cm/sec PA V2 max: 107.1 cm/sec TR max hal: 283.7 cm/sec LV V1 max P.8 mmHg TR max P.3 mmHg LV V1 mean P.2 mmHg LV V1 mean: 108.7 cm/sec LV V1 VTI: 38.4 cm MV P1/2t-pr_phl: 126.7 msec Interpretation Summary The estimated ejection fraction is 65 %. Stage 1 diastolic dysfunction. Mildly dilated right ventricle. The left atrium is mildly enlarged. Mild (1+) tricuspid valve insufficiency. Right ventricular systolic pressure estimated to be 40 mmHg. Mild pulmonary hypertension. Trivial aortic valve insufficiency. Compared to echo report dated 06/13/2015, no appreciable changes noted. Ordering Physician: Thomas Westfall Referring Physician: KODY COX Performed By: Marge Cosme, KATELYNNCS, RVT
== END ==
PROVIDERS: Family Provider Family Medicine; PCP Family Medicine; Referring Provider Internal Medicine Cardiovascular Disease; Visit Provider Internal Medicine Cardiovascular Disease
DX: I26.99 Other pulmonary embolism without acute cor pulmonale (principal); I48.0 Paroxysmal atrial fibrillation
CPT/HCPCS: 93306

== ENCOUNTER 2018-12-01 12:41 | Outpatient (RCR) | payer MEDICARE, OTHER, SELFPAY ==
[2018-10-26 14:22] VITALS: BMI 39.9
[2018-12-01 13:20] LABS: Prothrombin Time Fingerstick 40.6 SEC (11.9-14.4)
[2018-12-01 14:27] LABS: International Normalized Ratio 3.3; Prothrombin Time (Protime)PT. 33.7 SECONDS (11.7-14.9)
== END 2018-12-01 18:00 | disposition home or self-care (01) ==
LOC: MTLAB 12:41
PROVIDERS: Family Provider Family Medicine; PCP Family Medicine; Referring Provider Family Medicine; Visit Provider Family Medicine
DX: I48.91 Unspecified atrial fibrillation (principal)
CPT/HCPCS: 36416; 85610

== ENCOUNTER 2018-12-29 14:06 | Outpatient (RCR) | payer MEDICARE, OTHER, SELFPAY ==
[2018-10-26 14:22] VITALS: BMI 39.9
[2018-12-08 20:24] LABS: Prothrombin Time Fingerstick 27.9 SEC (11.9-14.4)
[2018-12-30 08:57] LABS: Prothrombin Time Fingerstick 34.7 SEC (11.9-14.4)
== END 2018-12-29 18:00 | disposition home or self-care (01) ==
LOC: MTLAB 14:06
PROVIDERS: Family Provider Family Medicine; PCP Family Medicine; Referring Provider Family Medicine; Visit Provider Family Medicine
DX: I48.91 Unspecified atrial fibrillation (principal)
CPT/HCPCS: 36416; 85610

== ENCOUNTER → 2019-01-26 09:34 | Outpatient (CLI) | payer MEDICARE, OTHER, SELFPAY ==
[2018-10-26 14:22] VITALS: BMI 39.9
--- NOTE | 2019-01-26 09:48 | BI_ITS ---
MAMMOGRAPHY - UNILATERAL SCREENING: RIGHT BREAST REASON FOR EXAM: Female, 79 years old. Routine annual screening examination (unilateral). PERTINENT HISTORY: Personal history of breast cancer. Prior left mastectomy. Mother with breast cancer. Sister with breast cancer. TECHNIQUE: Digital unilateral breast patrick (3D mammographic acquisition) in the CC and MLO projections. 2-D mediolateral oblique (MLO) and craniocaudad (CC) views of both breasts were obtained. CAD: Full Field Digital Mammography with Computer Added Detection was performed. COMPARISON: Comparison is made with prior study dated August 29, 2017 and August 18, 2016. FINDINGS: Breast Composition: There are scattered areas of fibroglandular density. There are no dominant masses or suspicious calcifications. No other significant abnormalities are identified. There has been no significant change since the prior study. BI/SCREEN MAMM (CAD) W/PATRICK UNI R IMPRESSION: Stable unilateral screening mammogram. Yearly follow-up mammogram recommended. (A) ASSESSMENT CATEGORY: BIRADS Category 1: Negative. A letter regarding these results will be sent to the patient by the facility within 30 days. Approximately 10% of breast cancers are not detected by mammography. A normal mammogram should not delay biopsy of a clinically suspicious abnormality. [id number] Electronically Signed: Armand Cowan, at 11:40 EST , Service support ,
== END ==
PROVIDERS: Family Provider Family Medicine; PCP Family Medicine; Referring Provider Surgery; Visit Provider Surgery
DX: Z12.31 Encounter for screening mammogram for malignant neoplasm of breast (principal)
CPT/HCPCS: 77063; 77067

== ENCOUNTER 2019-02-07 14:38 | Outpatient (RCR) | payer MEDICARE, OTHER, SELFPAY ==
[2018-10-26 14:22] VITALS: BMI 39.9
[2019-02-07 15:07] LABS: Prothrombin Time Fingerstick 33.3 SEC (11.9-14.4)
== END 2019-02-07 18:00 | disposition home or self-care (01) ==
LOC: MTLAB 14:38
PROVIDERS: Family Provider Family Medicine; PCP Family Medicine; Referring Provider Family Medicine; Visit Provider Family Medicine
DX: I48.91 Unspecified atrial fibrillation (principal)
CPT/HCPCS: 36416; 85610

== ENCOUNTER 2019-03-26 13:01 | Outpatient (RCR) | payer MEDICARE, OTHER, SELFPAY ==
[2018-10-26 14:22] VITALS: BMI 39.9
[2019-03-09 17:05] LABS: Prothrombin Time Fingerstick 34.2 SEC (11.9-14.4)
[2019-03-26 13:56] LABS: Prothrombin Time Fingerstick 31.8 SEC (11.9-14.4)
== END 2019-03-26 18:00 | disposition home or self-care (01) ==
LOC: MTLAB 13:01
PROVIDERS: Family Provider Family Medicine; PCP Family Medicine; Referring Provider Family Medicine; Visit Provider Family Medicine
DX: I48.0 Paroxysmal atrial fibrillation (principal)
CPT/HCPCS: 36416; 85610

== ENCOUNTER 2019-05-04 13:45 | Outpatient (RCR) | payer MEDICARE, OTHER, SELFPAY ==
[2018-10-26 14:22] VITALS: BMI 39.9
[2019-04-30 15:19] VITALS: BMI 39.2
[2019-05-07 13:51] LABS: Prothrombin Time Fingerstick 34.6 SEC (11.9-14.4)
== END 2019-05-04 18:00 | disposition home or self-care (01) ==
LOC: MTLAB 13:45
PROVIDERS: Family Provider Family Medicine; PCP Family Medicine; Referring Provider Family Medicine; Visit Provider Family Medicine
DX: I48.0 Paroxysmal atrial fibrillation (principal)
CPT/HCPCS: 36416; 85610

== ENCOUNTER 2019-05-25 11:22 | Outpatient (RCR) | payer MEDICARE, OTHER, SELFPAY ==
[2019-04-30 15:19] VITALS: BMI 39.2
[2019-05-28 10:35] LABS: Prothrombin Time Fingerstick 27.4 SEC (11.9-14.4)
== END 2019-05-25 18:00 | disposition home or self-care (01) ==
LOC: MTLAB 11:22
PROVIDERS: Family Provider Family Medicine; PCP Family Medicine; Referring Provider Family Medicine; Visit Provider Family Medicine
DX: I48.0 Paroxysmal atrial fibrillation (principal)
CPT/HCPCS: 36416; 85610

== ENCOUNTER 2019-07-04 11:11 | Outpatient (RCR) | payer MEDICARE, OTHER, SELFPAY ==
[2019-04-30 15:19] VITALS: BMI 39.2
[2019-07-04 11:36] LABS: Prothrombin Time Fingerstick 29.1 SEC (11.9-14.4)
== END 2019-07-05 18:00 | disposition home or self-care (01) ==
LOC: MTLAB 11:11
PROVIDERS: Family Provider Family Medicine; PCP Family Medicine; Referring Provider Family Medicine; Visit Provider Family Medicine
DX: I48.0 Paroxysmal atrial fibrillation (principal)
CPT/HCPCS: 36416; 85610

== ENCOUNTER 2019-07-19 15:19 | Inpatient (IN) | payer MEDICARE, OTHER, SELFPAY ==
[2019-04-30 15:19] VITALS: BMI 39.2
[2019-07-19] VITALS (8 sets, daily range): BP systolic 98–146; BP diastolic 42–84; PULSE 49–71; RESP 14–18; TEMP 36.6–36.8; O2SAT 96–98; BMI 40.9; BMI 39.6
--- NOTE | 2019-07-19 15:39 | EKG12_ITS ---
Test Reason : Blood Pressure : / mmHG Vent. Rate : 046 BPM Atrial Rate : 046 BPM P-R Int : 134 ms QRS Dur : 122 ms QT Int : 488 ms P-R-T Axes : 007 -11 058 degrees QTc Int : 427 ms Sinus bradycardia Left bundle branch block Abnormal ECG Confirmed by NIELS LEAL, KAREN ([id number]), publications editor REMINGTON GARCIA ([id number]) on 07/24/2019 3:10:35 PM Referred By: CARLA Confirmed By:SHERLEY BOWSER MD
--- NOTE | 2019-07-19 15:40 | RAD_ITS ---
STUDY: X-RAY - RIGHT KNEE REASON FOR EXAM: Female, 79 years old. FALL, ANTERIOR bruising TECHNIQUE: 3 view(s) of the knee. COMPARISON: None. FINDINGS: Normal visualized distal femur. Normal visualized proximal tibia and fibula. Normal proximal tibiofibular articulation. Enthesophyte of the patella. There is no demonstrated fracture. There is mild degenerative arthrosis of the medial femorotibial compartment. There is moderate degenerative arthrosis of the lateral femorotibial compartment with moderate joint space narrowing. There is severe degenerative arthrosis of the patellofemoral articulation. Anterior soft tissue swelling. RAD/Knee 3 Views IMPRESSION: Soft tissue injury without underlying fracture or dislocation. Mild degenerative arthrosis of the medial compartment, moderate degenerative arthrosis of the lateral compartment and severe degenerative arthrosis of the patellofemoral compartment Electronically Signed: Debra Groves MD at 16:09 EDT , Service support ,
--- NOTE | 2019-07-19 15:43 | ED.DCSUM_ITS ---
History of Present Illness Chief Complaint: Fall Narrative: Patient presenting for evaluation secondary to a fall with some lightheadedness. Patient reports that she was walking into a rehab appointment. She is doing rehab for some left hip pain. Patient reports that she suffered a mechanical fall while walking into the building where she tripped over a rug and fell directly onto her right knee. Patient denies hitting her head. She denies any loss of consciousness. She denies any preceding chest pain palpitations shortness of breath lightheadedness. This was very clearly mechanical. Patient reports that she was actually able to complete her course of rehab in the pool, and then as she was trying to go home she started to notice that anytime she would stand up she started to feel lightheaded. When she got home she continued to have these feelings and she did end up calling the rescue squad for this. Patient states that she is not having any chest pain or shortness of breath. Patient is on a beta blockade secondary to a history of A. fib, and is also on Coumadin. She does not report elevated INR as recently. Past Medical History - Allergies and Home Meds Allergies/Adverse Reactions: Allergies almond Allergy (Verified 07/19/19 15:20) Unknown levofloxacin [From Levaquin] Adverse Reaction (Verified 07/19/19 15:20) Unknown Penicillins [PCN] Adverse Reaction (Verified 07/19/19 15:20) Other PASSED OUT Past Medical History: - - Atrial fibrillation Surgical History: - - colon, hysterectemy, lumpectemy, 3 c/s, abd surgery lysis of adhesions Smoking Status: Former smoker - Family History Maternal Family History: Family History (Last Reviewed 04/30/19 @ 15:19 by Apryl Hassan) Father Lung cancer Brother Lung cancer Mother Breast cancer Sister Breast cancer CAD (coronary artery disease) Family History: Reports: Cancer Paternal Family History: Family History (Last Reviewed 04/30/19 @ 15:19 by Apryl Hassan) Father Lung cancer Brother Lung cancer Mother Breast cancer Sister Breast cancer CAD (coronary artery disease) Family History: Reports: Cancer Review of Systems All systems negative except as indicated General: Reports: - - Lightheadedness Eyes: Denies: Visual changes - bilaterally, Diplopia ENT: Denies: Rhinorrhea, Sore throat Cardiovascular: Denies: Chest pain, Palpitations Respiratory: Denies: Dyspnea, Cough, Dyspnea on exertion Gastrointestinal: Denies: Abdominal pain, Nausea, Vomiting, Diarrhea, Melena, Hematochezia Genitourinary: Denies: Dysuria, Hematuria, Frequency Musculoskeletal: Reports: Swelling, Extremity Pain Skin: Denies: Rash, Wounds Neurological: Denies: Headache, Weakness, Numbness Physical Exam Vital Signs/Narrative: Vital Signs Temp Pulse Resp BP Pulse Ox 07/19/19 15:25 96 07/19/19 15:20 97.9 F 49 L 14 107/59 L 96 Inital Vital Signs reviewed: Yes General: Well nourished, Well developed, Obese Head: Normocephalic, Atraumatic Eyes: Perrl, EOMI ENT: TM's clear, No hemotympanum or drainage, No trauma Neck: Nontender, Full ROM Cardiovascular: Regular rhythm, No murmurs, Bradycardia, - - 2+ radial pulses bilaterally symmetric. 2+ DP pulses bilaterally symmetric Respiratory: No distress, CTA bilaterally, Chest nontender Abdomen: Soft, Nontender, Nondistended, Normal bowel sounds Back: Nontender Extremeties: Pain with palpation over the anterior portion of the patient's knee with a sizable hematoma potentially as large as a grapefruit over the anterior portion of the knee there. Sensation is still intact, this hematoma is moderately firm, but the patient still maintains range of motion of the knee and soft compartments and normal pulses, coloration, temperature, and sensation distal to this. Skin: Normal color, No rash Neurological: Alert, Oriented x3, Cranial nerves II-XII grossly intact, Normal Strength, Normal Sensation Psychological: Normal affect Diagnostic/Tx/Re-eval Clinical Impression(s) from Imaging Studies Knee X-Ray 07/19/19 15:40 IMPRESSION: Soft tissue injury without underlying fracture or dislocation. Mild degenerative arthrosis of the medial compartment, moderate degenerative arthrosis of the lateral compartment and severe degenerative arthrosis of the patellofemoral compartment Electronically Signed: Debra Groves MD at 16:09 EDT , Service support , Laboratory Data 07/19/19 07/19/19 07/19/19 16:30 16:30 16:30 WBC 18.8 H RBC 3.80 L Hgb 11.8 L Hct 36.1 L MCV 95.0 MCH 31.1 MCHC 32.7 RDW Std Deviation 47.0 H RDW Coeff of Stefani 13.5 Plt Count 304 MPV 8.8 Immature Gran % (Auto) 0.600 Neut % (Auto) 81.7 H Lymph % (Auto) 11.5 L Patrick % (Auto) 5.5 Eos % (Auto) 0.4 Baso % (Auto) 0.3 Absolute Neuts (auto) 15.3 H Absolute Lymphs (auto) 2.16 Nucleated RBC % 0 PT 30.2 H INR 2.9 APTT 44.5 H Sodium 139 Potassium 4.5 Chloride 107 Carbon Dioxide 26.0 Anion Gap 6 BUN 27 H Creatinine 1.04 H Estim Creat Clear Calc 62.59 Est GFR (MDRD) Af Amer 66 Est GFR (MDRD) Non-Af 54 L BUN/Creatinine Ratio 26.0 H Glucose 102 Calcium 9.6 Troponin I < 0.015 - EKG Initial EKG Interpretation: - - Sinus bradycardia with left bundle branch block morphology. Isoelectric ST segments normal T waves. Ventricular rate is 46. No significant changes noted from EKG performed in November 2017. No acute ischemia - Medical Decision Making Patient presented secondary to lightheadedness after fall with physical exam findings consistent with a large hematoma of the right leg. She does not have evidence of compartment syndrome as she has normal distal pulses distal sensatio n and soft calf muscles and no pain out of proportion. Work-up showed the patient to have a 1 g drop in hemoglobin from prior, and a therapeutic INR at 2.9. X-ray shows no fracture but does demonstrate the patient's hematoma as soft tissue swelling. We attempted to perform orthostatic vital signs on the patient, and they were both positive symptomatically and with measured systolic blood pressures going from 146-113 from lying to sitting. Patient was ordered 1 L normal saline, and her leg was elevated. After 1 L of saline, the patient is complaining of some increased pain. Repeat evaluation at 1900 shows her to continue to have a enlarging hematoma but soft compartments throughout the anterior nuno and posterior calf with normal distal sensation and pulses. Patient was symptomatic with sitting up in the bed, so I feel that she likely is still experiencing orthostasis. She lives alone, has no support at home, and has a somewhat enlarging hematoma in the leg on anticoagulation from Coumadin. I believe that she will require admission. I will discuss this with the hospitalist. Disposition: Admit to Med Surg ED Disposition - Plan for ED Patient: Disposition: Acute Care Hospital [facility] Diagnosis: Hematoma of right lower leg, Orthostatic hypotension, On Coumadin for atrial fibrillation
[2019-07-19 16:41] LABS: Absolute Lymphocyte Count 2.16 X10^3/uL (0.83-4.51); Absolute Neutrophil Count 15.3 X10^3/uL (2.0-7.7); Basophil# 0.05 X10^3/uL; Basophil% 0.3 % (0-1); Eosinophil# 0.08 X10^3/uL; Eosinophils% 0.4 % (0-5); Hematocrit 36.1 % (37-47); Hemoglobin 11.8 g/dL (12.0-15.0); Lymphocyte # 2.16 X10^3/ul (4.0); Lymphocyte % 11.5 % (19-41); Mean Corp Hgb Conc 32.7 g/dL (32-36); Mean Corpuscular Hgb 31.1 pg (27.0-32.0); Mean Platelet Vol. 8.8 fl (6.2-12.0); Monocyte# 1.03 X10^3/uL; Monocyte% 5.5 % (0-10); NRBC Flagged by Analyzer 0 % (0-5); Neutrophil # 15.32 X10^3/uL (2.7-7.7); Neutrophil % 81.7 % (47-70); Platelet Count 304 K/mm3 (150-450); RBC Distribution Width CV 13.5 % (11.6-14.6); White Blood Count 18.8 K/mm3 (4.4-11.0)
[2019-07-19 16:49] LABS: International Normalized Ratio 2.9; Prothrombin Time (Protime)PT. 30.2 SECONDS (11.7-14.9)
[2019-07-19 16:50] LABS: Partial Thromboplast Time 44.5 Seconds (24.1-36.2)
[2019-07-19] MEDS: Acetaminophen 500 MG Tablet 1000 MG PO (16:54)
[2019-07-19 16:58] LABS: Anion Gap 6 (5-15); BUN 27 mg/dL (7-18); Calcium,Total 9.6 mg/dL (8.5-10.1); Chloride 107 mmol/L (98-107); Creatinine, Serum 1.04 mg/dL (0.55-1.02); EST Glomerular Filtration Rate 54 mL/min (>60); Est Glom Filt Rate - Afr Amer 66 mL/min (>60); Estimated Creatinine Clearance 62.59 ml/min; Glucose 102 mg/dL (74-106); Potassium 4.5 mmol/L (3.5-5.1); Sodium Level 139 mmol/L (136-145)
[2019-07-19] MEDS: 0.9% Normal Saline 1,000 ML 999 ML IV (17:09)
[2019-07-19] MEDS: oxyCODONE 5 MG Tablet PO (19:21)
--- NOTE | 2019-07-19 19:30 | PCM.HP.STD ---
Problem List (1) Hematoma of right lower leg Status: Acute (2) Orthostatic hypotension Status: Acute (3) On Coumadin for atrial fibrillation Status: Chronic (4) Obesity Status: Chronic (5) Paroxysmal atrial fibrillation Status: Chronic (6) Ductal carcinoma in situ (DCIS) of left breast Status: Resolved (7) Pulmonary embolism Status: Chronic (8) Uterine cancer Status: Resolved (9) Colon cancer Status: Resolved (10) LBBB (left bundle branch block) Status: Chronic (11) HTN (hypertension) Status: Chronic History of Present Illness Date of Admission: 07/19/19 Chief Complaint: Fall. Right knee hematoma The patient is a 79 year old F who is going to therapy and then tripped while going to rehab. Landed on her leg. States that she was able to undergo therapy without incident and then went home. Patient was feeling lightheaded when she would stand up. Presented to the emergency room and was found to have a right knee hematoma. X-ray negative for fracture. Patient still felt dizzy when she stood up and they did do orthostatic vital signs that from lying to sitting her systolic blood pressure went from 1 46-1 13. Heart rate if anything dropped from 71-55. Patient is on diltiazem as well as Tylenol. It was the emergency room physician who noted that her hematoma has been enlarging since she has been here. Patient is warfarin for paroxysmal atrial fibrillation and her INR was 2.9. Given the large nature of her hematoma I asked the emergency room physician to give her 2.5 mg of vitamin K. [] Past Medical History Past Medical History (Chronic Problems): Chronic Problems (Last Reviewed 07/19/19 @ 19:[address] Ap Patel DO) On Coumadin for atrial fibrillation (Chronic) Obesity (Chronic) Paroxysmal atrial fibrillation (Chronic) Pulmonary embolism (Chronic) LBBB (left bundle branch block) (Chronic) HTN (hypertension) (Chronic) Medical History: Medical History (Last Reviewed 07/19/19 @ 19:[address] Ap Patel DO) Obesity (Chronic) E66.9 Paroxysmal atrial fibrillation (Chronic) I48.0 Ductal carcinoma in situ (DCIS) of left breast (Resolved) D05.12 Pulmonary embolism (Chronic) I26.99 Uterine cancer (Resolved) C55 Colon cancer (Resolved) C18.9 LBBB (left bundle branch block) (Chronic) I44.7 HTN (hypertension) (Chronic) I10 Cataracts, bilateral H26.9 Deep vein thrombosis I82.409 Gout M10.9 Allergies almond Allergy (Verified 07/19/19 15:20) Unknown levofloxacin [From Levaquin] Adverse Reaction (Verified 07/19/19 15:20) Unknown Penicillins [PCN] Adverse Reaction (Verified 07/19/19 15:20) Other PASSED OUT Home Medications: Ambulatory Orders Medication Instructions Recorded Allopurinol [Zyloprim] 150 mg PO DAILY 06/13/15 Atenolol [Tenormin] 100 mg PO DAILY 06/13/15 Folic Acid 0.4 mg PO DAILY@0800 06/13/15 Losartan Potassium [Cozaar] 50 mg PO BID 06/13/15 Aspirin [Adult Low Dose Aspirin EC] 81 mg PO DAILY 08/25/16 Cholecalciferol (VIT D3) [Vitamin 1,000 unit PO DAILY 08/25/16 D3] Warfarin [Coumadin ([facility])] 4 mg PO DAILY 08/31/16 Acetaminophen [Tylenol] 500 mg PO Q6H PRN PRN 11/08/17 Famotidine [Pepcid] 20 mg PO DAILY PRN 11/08/17 Warfarin [Coumadin] 5 mg PO TUTH 11/08/17 Warfarin [Coumadin] 4 mg PO SuMoWeFrSa@1700 tab 11/16/17 calcium carb,cit 300 mg-D3 200 tab PO tab 04/03/18 unit-min no.34-genistein 13.5 mg tablet potassium chloride 10 mEq 10 meq PO DAILY #90 tab 08/14/18 tablet,extended release(part/cryst) hydrochlorothiazide 25 mg tablet 25 mg PO DAILY #90 tab 12/18/18 diltiazem HCl 120 mg 120 mg PO DAILY #90 cap 05/28/19 capsule,extended release 24 hr Calcium Citrate/Vitamin D3 1 ea PO BID 07/19/19 [Citracal + D Maximum Caplet] Diltiazem HCl [Cartia Xt] 120 mg PO DAILY 07/19/19 Surgical History: Surgical History (Last Reviewed 07/19/19 @ 19:[address] Ap Patel, DO) History of reversal of ileostomy Z98.890 Status post left breast lumpectomy Z98.890 History of colectomy Z98.890, Z90.49 History of colostomy reversal History of hysterectomy Z98.890, Z90.710 History of left heart catheterization Onset Date: 08/26/16 Z98.890 Surgical History: - - colon, hysterectemy, lumpectemy, 3 c/s, abd surgery lysis of adhesions Smoking Status: Former smoker - *Family History Maternal Family History: Family History (Last Reviewed 07/19/19 @ 19:[address] Ap Patel DO) Father Lung cancer Brother Lung cancer Mother Breast cancer Sister Breast cancer CAD (coronary artery disease) History Items: Cancer Paternal Family History: Family History (Last Reviewed 07/19/19 @ 19:[address] Ap Patel DO) Father Lung cancer Brother Lung cancer Mother Breast cancer Sister Breast cancer CAD (coronary artery disease) History Items: Cancer Review of Systems Constitutional: Denies: Anorexia, Chills, Fever, Night Sweats Eyes: Denies: Blurred vision, Double vision HEENT: Reports: Difficulty Hearing Cardiovascular: Denies: Chest Pain, Palpitations Respiratory: Denies: Cough, Shortness of breath at rest, Sputum production Gastrointestinal: Denies: Abdominal Pain, Nausea, Vomiting Genitourinary: Denies: Dysuria Musculoskeletal: Denies: Joint Pain, Joint Tenderness Skin: Reports: - - Right knee pain Neurological: Reports: Balance problems. Denies: Blurred vision, Double vision, Focal weakness Hematologic/ Lymphatic: Reports: Easy Bruising, Hx of blood clot Comment: All review of systems were negative except as mentioned above in the history of present illness and the other review of systems. VTE Information - Inpt Only VTE Present on Admission: No VTE Mechan Device Prophylaxis: SCD's VTE Pharm Prophylaxis ordered?: No Reason prophylaxis not ordered:: Treatment Not Indicated Patient Problems: Active and Suspected Problems (Last Reviewed 07/19/19 @ 19:[address] Ap Patel DO) Hematoma of right lower leg (Acute) Orthostatic hypotension (Acute) - Physical Exam Vitals/I&O's: Vital Signs Temp Pulse Resp BP Pulse Ox 36.6 C 59 L 16 129/84 H 96 07/19/19 19:23 07/19/19 19:23 07/19/19 19:23 07/19/19 19:23 07/19/19 19:23 Oxygen Delivery Method Room Air Weight: 91.9 kg Body Mass Index (BMI) 40.9 Intake and Output for Last 24 Hours 07/17/19 07/18/19 07/19/19 23:59 23:59 23:59 Intake Total 1000 / 1000 Balance 1000 / 1000 General: Alert, Cooperative, No apparent distress HEENT: Atraumatic, PERRLA, EOMI, Normocephalic Lungs: Clear to auscultation, Normal air movement, No rhonchi, No wheeze Cardiovascular: Normal S1, Normal S2, - - Bradycardic Abdomen: Bowel Sounds Present, Soft, Non Tender, Non-Distended, No Hepato-splenomegaly Extremities: Peripheral Pulses Normal, - - Large hematoma over the anterior portion of her right knee extending laterally going distal to her knee. Skin: No rashes, No breakdown Neurological: Cranial nerves II-XII grossly intact, Motor Exam 5/5 strength throughout Psych/Mental Status: Normal Affect, Appropriate Laboratory Results 07/19/19 16:30: WBC 18.8 H, RBC 3.80 L, Hgb 11.8 L, Hct 36.1 L, MCV 95.0, MCH 31.1, MCHC 32.7, RDW Std Deviation 47.0 H, RDW Coeff of Stefani 13.5, Plt Count 304, MPV 8.8, Immature Gran % (Auto) 0.600, Neut % (Auto) 81.7 H, Lymph % (Auto) 11.5 L, [place] % (Auto) 5.5, Eos % (Auto) 0.4, Baso % (Auto) 0.3, Absolute Neuts (auto) 15.3 H, Absolute Lymphs (auto) 2.16, Nucleated RBC % 0 07/19/19 16:30: PT 30.2 H, INR 2.9, APTT 44.5 H 07/19/19 16:30: Sodium 139, Potassium 4.5, Chloride 107, Carbon Dioxide 26.0, Anion Gap 6, BUN 27 H, Creatinine 1.04 H, Estim Creat Clear Calc 62.59, Est GFR (MDRD) Af Amer 66, Est GFR (MDRD) Non-Af 54 L, BUN/Creatinine Ratio 26.0 H, Glucose 102, Calcium 9.6, Troponin I < 0.015 EKG reviewed and showed sinus bradycardia with a left bundle branch block. Right knee x-ray reviewed and showed no fracture. Arthritic changes. Assessment/Plan All Active Problems (Last Reviewed 07/19/19 @ 19:[address] Ap Patel, DO) Hematoma of right lower leg (Acute) Orthostatic hypotension (Acute) Ductal carcinoma in situ (DCIS) of left breast (Resolved) Uterine cancer (Resolved) Colon cancer (Resolved) 1. Right knee hematoma: Status post mechanical fall. Exacerbated by the patient's use of warfarin. Requested emergency room physician give her 2.5 mg of vitamin K. Plan to elevate the right lower extremity and also to ice it as well to help mitigate further hematoma formation. Patient having difficulty walking on that knee as would be expected given the large size of it so we will have physical and occupational therapy evaluate her. 2. Orthostatic hypotension: Likely due to the very large hematoma in anticipate acute blood loss anemia. Patient received IV fluids in the emergency room. Recheck orthostatic vital signs in the morning. Patient is on atenolol as well as extended release diltiazem. Those medications may need to be adjusted depending on the patient's clinical course. 3. History of venous thromboembolic disease: Patient has been on warfarin for years. Given the large hematoma, at this time, the the risk of anticoagulation outweigh the benefits. Patient's warfarin will be held for now and will receive vitamin K. Would anticipate resumption of warfarin with likely enoxaparin bridge over the next 24 to 48hours particular if the hemoglobin is stable and there is no been no further development of hematoma of her right knee. No evidence of any compartment syndrome in her lower extremities at this time. 4. Paroxysmal atrial fibrillation: Diltiazem as well as atenolol. Warfarin currently being held. 5. VTE prophylaxis: Moderate risk. Patient be on SCDs. No chemical prophylaxis given the hematoma 6. Advanced care planning: Patient wishes to be full CODE STATUS. OBSV E&M: 33077 Initial observation care L3
--- NOTE | 2019-07-19 19:35 | ED.RN ---
called pharmacy to inquire about vitamin K ordered. pharmacist is getting it now- pt is ready for admission. will send to [facility] 3. 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
[2019-07-19] MEDS: Phytonadione (Vit K1) 5 MG TABLET 2.5 MG PO (20:00)
[2019-07-19] MEDS: Acetaminophen 500 MG Tablet PO (23:11)
[2019-07-20] VITALS (24 sets, daily range): BP systolic 66–158; BP diastolic 44–87; PULSE 56–94; RESP 18; TEMP 36.6–37.1; O2SAT 94–99
[2019-07-20] MEDS: oxyCODONE 5 MG Tablet PO (00:40)
[2019-07-20] MEDS: Acetaminophen 500 MG Tablet PO ×3 (05:42→23:37)
--- NOTE | 2019-07-20 06:10 | NURSING ---
Patient assisted up to bedside commode, reported some dizziness. When transferring back to bed patient vagaled and passed out for a short period of time. We were able to assist patient into bed. Help was called and vitals were checked. Vitals were WNL and patient showed no neurological defects.
[2019-07-20 06:11] LABS: Absolute Lymphocyte Count 2.18 X10^3/uL (0.83-4.51); Absolute Neutrophil Count 9.4 X10^3/uL (2.0-7.7); Basophil# 0.01 X10^3/uL; Basophil% 0.1 % (0-1); Hematocrit 25.5 % (37-47); Hemoglobin 8.4 g/dL (12.0-15.0); Lymphocyte # 2.18 X10^3/ul (4.0); Lymphocyte % 17.4 % (19-41); Mean Corp Hgb Conc 32.9 g/dL (32-36); Mean Corpuscular Hgb 31.2 pg (27.0-32.0); Mean Corpuscular Volume 94.8 fL (81-99); Mean Platelet Vol. 9.3 fl (6.2-12.0); Monocyte% 7.2 % (0-10); NRBC Flagged by Analyzer 0 % (0-5); Neutrophil # 9.36 X10^3/uL (2.7-7.7); Neutrophil % 74.9 % (47-70); Platelet Count 257 K/mm3 (150-450); RBC Distribution Width CV 13.5 % (11.6-14.6); RBC Distribution Width SD 46.5 fl (35.1-43.9); Red Blood Count 2.69 M/mm3 (4.2-5.4); White Blood Count 12.5 K/mm3 (4.4-11.0)
[2019-07-20 06:21] LABS: International Normalized Ratio 2.4; Prothrombin Time (Protime)PT. 25.5 SECONDS (11.7-14.9)
--- NOTE | 2019-07-20 07:56 | PN_ITS ---
Patient Problems: Active and Suspected Problems (Last Updated 07/20/19 @ 08:[address] Jasiel Wright MD) Hematoma of right lower leg (Acute) Orthostatic hypotension (Acute) Subjective: Chief complaint: Follow-up after admission for acute traumatic right knee hematoma, acute blood loss anemia and orthostatic hypotension. Patient seen and examined. No acute events overnight. She is complaining of right knee pain, 3 out of 10 in severity at rest, may go up upon moving her right lower extremity. Nursing staff reported that she got dizzy and lightheaded this morning when she stood up. Denied chest pain or shortness of breath. She is afebrile, blood pressure and heart rate are maintained at this time, pulse ox is 97% on room air. - Physical Exam Vitals/I&O's: Vital Signs Temp Pulse Resp BP Pulse Ox 98.2 F 67 18 115/49 L 97 07/20/19 05:45 07/20/19 05:57 07/20/19 05:45 07/20/19 05:57 07/20/19 05:45 Oxygen Delivery Method Room Air Weight: 196 lb 3.382 oz Body Mass Index (BMI) 39.6 Orthostatic Vital Signs Start: 07/20/19 00:59 Freq: 0800 Status: Active Protocol: Activity Type Activity Date Activity User E-Sign Co-Sign Detail Recorded Client Recorded Date Recorded By Document 07/20/19 05:57 [facility] [id number] 07/20/19 06:03 Y 07/20/19 05:57 Orthostatic Vitals Sitting -Blood Pressure (90/60-120/80 mm Hg) 126/68 H -Extremity Use Right Arm -Pulse Rate (60-100 beats/min) 83 Lying -Blood Pressure (90/60-120/80 mm Hg) 115/49 L -Extremity Use Right Arm -Pulse Rate (60-100 beats/min) 67 Intake and Output for Last 24 Hours 07/18/19 07/19/19 07/20/19 23:59 23:59 23:59 Intake Total 1240 / 1240 300 / 300 Output Total 200 / 200 Balance 1040 / 1040 300 / 300 General: Alert, Oriented x3, Cooperative, No apparent distress HEENT: Atraumatic, PERRLA, EOMI, Normocephalic Oral: Moist Mucosa, No Gingival or Mucosal Lesions/ Ulcerations Neck: Supple, No JVD, Negative Carotid Bruits, Trachea Midline, Thyroid Normal Size and Texture Lungs: Clear to auscultation, Normal air movement, No rhonchi, No wheeze, No rales, Diminished Cardiovascular: Regular rate, Regular Rhythm, Normal S1, Normal S2, PMI Normal, Murmur - Systolic murmur Abdomen: Bowel Sounds Present, Soft, Non Tender, Non-Distended, No Hepato- splenomegaly, Obese Extremities: No clubbing, No cyanosis, No edema Skin: No rashes, No breakdown Musculoskeletal: - - Right knee/right leg: Large subcutaneous hematoma extending from just above right knee down to the mid right leg, extensive bruises, large blister. Neurological: Cranial nerves II-XII grossly intact, Motor Exam 5/5 strength throughout Psych/Mental Status: Normal Affect, Appropriate, Alert and oriented to time, place, person, mood and affect Laboratory Results 07/19/19 16:30: WBC 18.8 H, RBC 3.80 L, Hgb 11.8 L, Hct 36.1 L, MCV 95.0, MCH 31.1, MCHC 32.7, RDW Std Deviation 47.0 H, RDW Coeff of Stefani 13.5, Plt Count 304, MPV 8.8, Immature Gran % (Auto) 0.600, Neut % (Auto) 81.7 H, Lymph % (Auto) 11.5 L, [place] % (Auto) 5.5, Eos % (Auto) 0.4, Baso % (Auto) 0.3, Absolute Neuts (auto) 15.3 H, Absolute Lymphs (auto) 2.16, Nucleated RBC % 0 07/19/19 16:30: PT 30.2 H, INR 2.9, APTT 44.5 H 07/19/19 16:30: Sodium 139, Potassium 4.5, Chloride 107, Carbon Dioxide 26.0, Anion Gap 6, BUN 27 H, Creatinine 1.04 H, Estim Creat Clear Calc 62.59, Est GFR (MDRD) Af Amer 66, Est GFR (MDRD) Non-Af 54 L, BUN/Creatinine Ratio 26.0 H, Glucose 102, Calcium 9.6, Troponin I < 0.015 07/20/19 05:18: WBC 12.5 H, RBC 2.69 L, Hgb 8.4 L, Hct 25.5 L, MCV 94.8, MCH 31.2, MCHC 32.9, RDW Std Deviation 46.5 H, RDW Coeff of Stefani 13.5, Plt Count 257, MPV 9.3, Immature Gran % (Auto) 0.400, Neut % (Auto) 74.9 H, Lymph % (Auto) 17.4 L, [place] % (Auto) 7.2, Eos % (Auto) 0.0, Baso % (Auto) 0.1, Absolute Neuts (auto) 9.4 H, Absolute Lymphs (auto) 2.18, Nucleated RBC % 0 07/20/19 05:18: PT 25.5 H, INR 2.4 07/20/19 05:18: Sodium Pending, Potassium Pending, Chloride Pending, Carbon Dioxide Pending, Anion Gap Pending, BUN Pending, Creatinine Pending, Est GFR (MDRD) Af Amer Pending, Est GFR (MDRD) Non-Af Pending, BUN/Creatinine Ratio Pending, Glucose Pending, Calcium Pending Clinical Impression(s) from Imaging Studies Knee X-Ray 07/19/19 15:40 IMPRESSION: Soft tissue injury without underlying fracture or dislocation. Mild degenerative arthrosis of the medial compartment, moderate degenerative arthrosis of the lateral compartment and severe degenerative arthrosis of the patellofemoral compartment Electronically Signed: Debra Groves MD at 16:09 EDT , Service support , Current Medications Acetaminophen (Tylenol) 500 mg PO Q6H PRN PRN PRN Reason: Pain Score 1-10/10 Last Admin: 07/20/19 05:42 Dose: 500 mg Documented by: Allopurinol (Zyloprim) 150 mg PO DAILY [facility]1983 Atenolol (Tenormin (Beta Freya)) 100 mg PO DAILY [facility]1983 Calcium/Vitamin D (Os-Zafar 500mg + D) 1 tablet PO BIDCM TOD Cholecalciferol (Vitamin D (25mcg)) 1,000 unit PO DAILYCM TOD Dextrose (D50w Syringe) 0 gm IV X1 PRN; Protocol PRN Reason: Hypoglycemia Diltiazem HCl (Cardizem Cd) 120 mg PO DAILY TOD Famotidine (Pepcid) 20 mg PO DAILY PRN PRN Reason: REFLUX Folic Acid (Folic Acid) 0.5 mg PO DAILY@0800 TOD Glucagon () 1 mg IM .X1 PRN PRN Reason: Hypoglycemia Phytonadione 5 mg/ Sodium (Chloride) 50.5 mls @ 150 mls/hr IV X1 ONE Stop: 07/20/19 08:14 Ondansetron HCl (Zofran) 4 mg IV Q8H PRN PRN PRN Reason: NAUSEA/VOMITING Oxycodone HCl (Oxyir) 5 mg PO Q4H PRN PRN PRN Reason: Pain Score 4-5/10 Last Admin: 07/20/19 00:40 Dose: 5 mg Documented by: Oxycodone HCl (Oxyir) 10 mg PO Q4H PRN PRN PRN Reason: Pain Score 6-10/10 Sodium Chloride () 10 - 40 ml IV UD PRN PRN Reason: SALINE FLUSH Medical Necessity - Tobacco Use Smoking Status: Former smoker Tobacco Use: Cigarettes Assessment/Plan All Active Problems (Last Updated 07/20/19 @ 08:[address] Jasiel Wright MD) Hematoma of right lower leg (Acute) Orthostatic hypotension (Acute) This is an 79 years old female patient presented to the emergency room because of fall, right knee pain and dizziness, found to have acute traumatic right knee/right leg hematoma, acute blood loss anemia as well as dizziness due to orthostatic hypotension. #1 acute traumatic right knee/right leg hematoma: Due to mechanical fall. Patient has been on Coumadin, admission INR was 2.9. She received 1 dose of v itamin K 2.5 mg x 1, INR today is 2.4. She had extensive bruises and swelling of the right knee and right upper leg. She is afebrile, blood pressure and heart rate are stable at rest but nursing staff reported that she was dizzy and lightheaded upon standing. She is on oxycodone PRN for pain. Plan: We will give another dose of vitamin K, transfuse 1 unit of FFP, orthopedic surgery consult. #2 acute blood loss anemia: Due to mechanical fall and being on Coumadin. Today's INR is 2.4. Hemoglobin dropped down from 11.8 g/dL on admission down to 8.4 today. Patient is symptomatic with dizziness. Plan: Add a dose of vitamin K as above, FFP, repeat H&H at 5 PM today, transfuse if hemoglobin less than 8 g/dL. #3 dizziness/orthostatic hypotension: Secondary to acute blood loss. Blood pres sure at rest is stable, heart rate stable. Patient is symptomatic upon standing. Plan for IV fluids, keep holding losartan and HCTZ. #4 hypertension: Blood pressure stable at this time, continue atenolol and Cardizem, hold losartan and HCTZ. #5 paroxysmal atrial fibrillation: She is in sinus rhythm, rate is controlled. Continue atenolol and Cardizem for rate control. Coumadin on hold at this time. #6 history of colon cancer/uterine cancer: Stable, in remission. #7 gout: Continue allopurinol, stable. #9 DVT prophylaxis: SCDs. This note was generated with [employer] dictation software. It may contain incorrect words, spelling, and punctuation that were not noted in checking the note before signing. Inpatient E&M: 52034 Subs Hosp L3
[2019-07-20] MEDS: Allopurinol 300 MG Tablet 150 MG PO (08:33)
[2019-07-20] MEDS: Calcium Carb/Vitamin D 1 TABLET Tablet PO ×2 (08:33→16:38)
[2019-07-20] MEDS: Folic Acid 1 MG Tablet 0.5 MG PO (08:34)
[2019-07-20] MEDS: 0.9% Normal Saline 1,000 ML 75 ML IV (08:52)
[2019-07-20 09:03] LABS: Anion Gap 4 (5-15); BUN 32 mg/dL (7-18); BUN/Creat Ratio 28.6 RATIO (10-20); Calcium,Total 8.5 mg/dL (8.5-10.1); Chloride 109 mmol/L (98-107); Creatinine, Serum 1.12 mg/dL (0.55-1.02); EST Glomerular Filtration Rate 50 mL/min (>60); Est Glom Filt Rate - Afr Amer 60 mL/min (>60); Estimated Creatinine Clearance 56.29 ml/min; Glucose 125 mg/dL (74-106); Potassium 4.4 mmol/L (3.5-5.1); Sodium Level 140 mmol/L (136-145)
--- NOTE | 2019-07-20 11:37 | PCM.CONS.GEN ---
Reason for Consult Date of Consultation: 07/20/19 Reason for Consultation: Right leg pain and swelling History of Present Illness: The patient is a 79 year old F [who is on coumadin chronically for the last 10 years due to atrial fibrillation and CA causing both a DVT and PE. She fell yesterday striking her right leg just below the knee with a resultant large hematoma. She has received 2 doses of Vitamin K and her INR has decreased from 2.9 to 2.4. She reports pain in the right lower leg that is improving. Review of her PMHx, PSHx, Family Hx, ROS, medications and allergies was done as per the intake H&P.] Past Medical History Past Medical History (Chronic Problems): Chronic Problems (Last Updated 07/20/19 @ 08:[address] 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) D05.12 Pulmonary embolism (Chronic) I26.99 Uterine cancer (Chronic) C55 Colon cancer (Chronic) C18.9 LBBB (left bundle branch block) (Chronic) I44.7 HTN (hypertension) (Chronic) I10 Cataracts, bilateral H26.9 Deep vein thrombosis I82.409 Gout M10.9 Allergies almond Allergy (Verified 07/19/19 15:20) Unknown levofloxacin [From Levaquin] Adverse Reaction (Verified 07/19/19 15:20) Unknown Penicillins [PCN] Adverse Reaction (Verified 07/19/19 15:20) Other PASSED OUT Home Medications: Ambulatory Orders Medication Instructions Recorded Allopurinol [Zyloprim] 150 mg PO DAILY 06/13/15 Atenolol [Tenormin] 100 mg PO DAILY 06/13/15 Folic Acid 0.4 mg PO DAILY@0800 06/13/15 Losartan Potassium [Cozaar] 50 mg PO BID 06/13/15 Aspirin [Adult Low Dose Aspirin EC] 81 mg PO DAILY 08/25/16 Cholecalciferol (VIT D3) [Vitamin 1,000 unit PO DAILY 08/25/16 D3] Warfarin [Coumadin (PBKC)] 4 mg PO DAILY 08/31/16 Acetaminophen [Tylenol] 500 mg PO Q6H PRN PRN 11/08/17 Famotidine [Pepcid] 20 mg PO DAILY PRN 11/08/17 potassium chloride 10 mEq 10 meq PO DAILY #90 tab 08/14/18 tablet,extended release(part/cryst) hydrochlorothiazide 25 mg tablet 25 mg PO DAILY #90 tab 12/18/18 Calcium Citrate/Vitamin D3 1 ea PO BID 07/19/19 [Citracal + D Maximum Caplet] Diltiazem HCl [Cartia Xt] 120 mg PO DAILY 07/19/19 Surgical History: Surgical History (Last Reviewed 07/19/19 @ 19:[address] Ap Patel DO) History of reversal of ileostomy Z98.890 Status post left breast lumpectomy Z98.890 History of colectomy Z98.890, Z90.49 History of colostomy reversal History of hysterectomy Z98.890, Z90.710 History of left heart catheterization Onset Date: 08/26/16 Z98.890 Surgical History: - - colon, hysterectemy, lumpectemy, 3 c/s, abd surgery lysis of adhesions Smoking Status: Former smoker Tobacco Use: Cigarettes - *Family History Maternal Family History: Family History (Last Reviewed 07/19/19 @ 19:[address] Ap Patel DO) Father Lung cancer Brother Lung cancer Mother Breast cancer Sister Breast cancer CAD (coronary artery disease) History Items: Cancer Paternal Family History: Family History (Last Reviewed 07/19/19 @ 19:[address] Ap Patel DO) Father Lung cancer Brother Lung cancer Mother Breast cancer Sister Breast cancer CAD (coronary artery disease) History Items: Cancer Patient Problems: Active and Suspected Problems (Last Updated 07/20/19 @ 08:[address] Jasiel Wright MD) Hematoma of right lower leg (Acute) Orthostatic hypotension (Acute) - Physical Exam Vitals/I&O's: Vital Signs Temp Pulse Resp BP Pulse Ox 98.0 F 63 18 116/48 L 94 07/20/19 11:17 07/20/19 11:17 07/20/19 11:17 07/20/19 11:17 07/20/19 11:17 Oxygen Delivery Method Room Air Weight: 196 lb 3.382 oz Body Mass Index (BMI) 39.6 Orthostatic Vital Signs Start: 07/20/19 00:59 Freq: 0800 Status: Active Protocol: Activity Type Activity Date Activity User E-Sign Co-Sign Detail Recorded Client Recorded Date Recorded By Document 07/20/19 05:57 [facility] [id number] 07/20/19 06:03 CJY 07/20/19 05:57 Orthostatic Vitals Sitting -Blood Pressure (90/60-120/80) 126/68 H -Extremity Use Right Arm -Pulse Rate (60-100) 83 Lying -Blood Pressure (90/60-120/80) 115/49 L -Extremity Use Right Arm -Pulse Rate (60-100) 67 Intake and Output for Last 24 Hours 07/18/19 07/19/19 07/20/19 23:59 23:59 23:59 Intake Total 1240 / 1240 300 / 300 Output Total 200 / 200 Balance 1040 / 1040 300 / 300 General: Alert, Oriented x3, No apparent distress Extremities: No clubbing, No cyanosis, No Calf Tenderness, Peripheral Pulses Normal, Tenderness - Right leg below the knee. Gentle ROM of the knee is well tolerated. Her compartments are soft. She has a 3 cm x 3cm fracture blister on the lateral leg below the knee. She is grossly obese. She has broad ecchymosis below the knee and along the prepatellar bursa. Neurological: Neuro grossly intact Comment: xray review of the left knee reveals no fracture. Laboratory Results 07/19/19 16:30: WBC 18.8 H, RBC 3.80 L, Hgb 11.8 L, Hct 36.1 L, MCV 95.0, MCH 31.1, MCHC 32.7, RDW Std Deviation 47.0 H, RDW Coeff of Stefani 13.5, Plt Count 304, MPV 8.8, Immature Gran % (Auto) 0.600, Neut % (Auto) 81.7 H, Lymph % (Auto) 11.5 L, Stone % (Auto) 5.5, Eos % (Auto) 0.4, Baso % (Auto) 0.3, Absolute Neuts (auto) 15.3 H, Absolute Lymphs (auto) 2.16, Nucleated RBC % 0 07/19/19 16:30: PT 30.2 H, INR 2.9, APTT 44.5 H 07/19/19 16:30: Sodium 139, Potassium 4.5, Chloride 107, Carbon Dioxide 26.0, Anion Gap 6, BUN 27 H, Creatinine 1.04 H, Estim Creat Clear Calc 62.59, Est GFR (MDRD) Af Amer 66, Est GFR (MDRD) Non-Af 54 L, BUN/Creatinine Ratio 26.0 H, Glucose 102, Calcium 9.6, Troponin I < 0.015 07/20/19 05:18: WBC 12.5 H, RBC 2.69 L, Hgb 8.4 L, Hct 25.5 L, MCV 94.8, MCH 31.2, MCHC 32.9, RDW Std Deviation 46.5 H, RDW Coeff of Stefani 13.5, Plt Count 257, MPV 9.3, Immature Gran % (Auto) 0.400, Neut % (Auto) 74.9 H, Lymph % (Auto) 17.4 L, Stone % (Auto) 7.2, Eos % (Auto) 0.0, Baso % (Auto) 0.1, Absolute Neuts (auto) 9.4 H, Absolute Lymphs (auto) 2.18, Nucleated RBC % 0 07/20/19 05:18: PT 25.5 H, INR 2.4 07/20/19 05:18: Sodium 140, Potassium 4.4, Chloride 109 H, Carbon Dioxide 27.0, Anion Gap 4 L, BUN 32 H, Creatinine 1.12 H, Estim Creat Clear Calc 56.29, Est GFR (MDRD) Af Amer 60, Est GFR (MDRD) Non-Af 50 L, BUN/Creatinine Ratio 28.6 H, Glucose 125 H, Calcium 8.5 07/20/19 08:10: Blood Type O POSITIVE Current Medications Acetaminophen (Tylenol) 500 mg PO Q6H PRN PRN PRN Reason: Pain Score 1-12/14 Last Admin: 07/20/19 05:42 Dose: 500 mg Documented by: Allopurinol (Zyloprim) 150 mg PO DAILY [facility] Last Admin: 07/20/19 08:33 Dose: 150 mg Documented by: Atenolol (Tenormin (Beta Freya)) 100 mg PO DAILY [facility] Calcium/Vitamin D (Os-Zafar 500mg + D) [facility] Last Admin: 07/20/19 08:33 Dose: 1 tablet Documented by: Cholecalciferol (Vitamin D (25mcg)) [facility] Last Admin: 07/20/19 08:34 Dose: 1,000 unit Documented by: Dextrose (D50w Syringe) 0 gm IV X1 PRN; Protocol PRN Reason: Hypoglycemia Diltiazem HCl (Cardizem Cd) 120 mg PO DAILY [facility] Famotidine (Pepcid) 20 mg PO DAILY PRN PRN Reason: REFLUX Folic Acid (Folic Acid) 0.5 mg PO DAILY@0800 [facility] Last Admin: 07/20/19 08:34 Dose: 0.5 mg Documented by: Glucagon () 1 mg IM .X1 PRN PRN Reason: Hypoglycemia Sodium Chloride () 1,000 mls @ 75 mls/hr IV .[id number] [facility] Last Admin: 07/20/19 08:52 Dose: 75 mls/hr Documented by: Ondansetron HCl (Zofran) 4 mg IV Q8H PRN PRN PRN Reason: NAUSEA/VOMITING Oxycodone HCl (Oxyir) 5 mg PO Q4H PRN PRN PRN Reason: Pain Score 4-5/10 Last Admin: 07/20/19 00:40 Dose: 5 mg Documented by: Oxycodone HCl (Oxyir) 10 mg PO Q4H PRN PRN PRN Reason: Pain Score 6-10/10 Sodium Chloride () 10 - 40 ml IV UD PRN PRN Reason: SALINE FLUSH Assessment/Plan All Active Problems (Last Updated 07/20/19 @ 08:[address] Jasiel Wright MD) Hematoma of right lower leg (Acute) Orthostatic hypotension (Acute) Hematoma right leg This appears both by physical exam and review of xray to be extra-articular. This may resolve without surgical intervention. I will examine her again tomorrow morning. If the hematoma is expanding or exquisitely painful and he INR drops below 1.5, she may be a candidate for evacuation of the hematoma. An MRI of the right knee may be warranted to determine if the swelling is intra or extra-articular. However, at this time that does not appear to be necessary.
--- NOTE | 2019-07-20 13:35 | CASEMGMT ---
RN CM [employer] SUPERVISOR CM to room to meet with patient for initial transition planning/care coordination assessment. JHONATHAN CARRASCO introduced self and role at [facility]. Pt voices understanding and consents to assessment at this time. Pt resting in bed in no distress at this time. Pt is A/O at this time and answers all questions appropriately. Care providers, pharmacy, and demographics verified/updated at this time. PCP: Dr Vigil Specialists: Primo Simmons, KRISTA @ [facility] for arthritis, Dr Trejo--oncology, Dr Westfall--cardiology Preferred Pharmacy: [facility] Insurance: [facility], AARP Prescription Benefit: yes Living Will/HPOA: Has both LW and Healthcare POA but would like to talk to SW to complete new/updated ones. MOE, Karlee, notified. LNOK: 3 sons. Living Arrangements: Lives alone. Was independent prior to fall/hospitalization w/ADL's and IADL's. 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 Usually pre-orders her groceries and goes to store to pick them up. Has friend who can assist with getting some things for her if needed. Transportation: Pt drove prior to admission. Son or friend can take her home @ d/c. DME: States has the following DME: walk in shower w/built in shower seat, cane, rails/grab bars, hand held shower, medical alert button. Also has 2 walkers available but was not using and has W/C that was her mothers. Pt states no need for further DME at this time. HHC/SNF: No history of either. Pt wishes to return home at discharge if she is able and is agreeable to [facility]. 1st preference is [facility]. Pt states she was going to [facility] for aquatic therapy but plan was for them to evaluate her today and discharge her. Pt states her son is planning on staying with her for a few days to help if she returns home. She states if is not able to return home @ d/c, then [facility] would [facility] for SNF. CM to follow for discharge planning/needs. Pt voices no further concerns/needs at this time. Advised pt to ask for CM if any further questions/concerns/needs arise. Voices understanding. PLAN: TBD. TCU vs Home w/[facility]. Follow pt's progress and PT/OT evals. Pt prefers to go home @ discharge, but if unable to, 1st preference of SNF is [facility]. Pt lives alone, but states son is planning on staying with her to help for a few days if she returns home. SW consult for MELQUIADES FELDERN RN CM
--- NOTE | 2019-07-20 14:37 | CASEMGMT ---
Social Work Per DIANA Yost, pt would like to return home at time of discharge but if she is unable she would like to go to [facility]. Phone call to Amanda in [facility]CU and they would be able to accept pt over the weekend if pt would need SNF. SW met with pt and informed of this. Pt very hopeful she will be able to return home but is understanding [facility] does have a bed available. SW discussed Advance Directives with pt and pt stating she would like to make new living will and health care POA but needs to talk to her family before she completes documents. Rack Card with Advance Directive information and phone number to call as outpatient given. Plan: Home with home health vs. [facility] SIMONA Hong
--- NOTE | 2019-07-20 15:03 | NURSING ---
orthrostatic BPs obtained while pt was standing she became light headed and dizzy and pale. MD made aware pt returned to bed with PT help and BP obtained.
[2019-07-20 17:00] LABS: Hematocrit 20.8 % (37-47); Hemoglobin 6.9 g/dL (12.0-15.0)
[2019-07-20] MEDS: 0.9% Saline Lock 10 ML Syringe IV (23:38)
[2019-07-21] VITALS (15 sets, daily range): BP systolic 122–168; BP diastolic 56–91; PULSE 64–94; RESP 16–18; TEMP 36.6–37.2; O2SAT 93–96
[2019-07-21] MEDS: 0.9% Saline Lock 10 ML Syringe IV (00:03)
[2019-07-21] MEDS: Acetaminophen 500 MG Tablet PO ×2 (06:02→15:02)
[2019-07-21 06:17] LABS: Absolute Neutrophil Count 6.6 X10^3/uL (2.0-7.7); Basophil# 0.03 X10^3/uL; Basophil% 0.3 % (0-1); Eosinophil# 0.08 X10^3/uL; Eosinophils% 0.8 % (0-5); Hematocrit 28.3 % (37-47); Hemoglobin 9.6 g/dL (12.0-15.0); Lymphocyte % 23.6 % (19-41); Mean Corp Hgb Conc 33.9 g/dL (32-36); Mean Corpuscular Volume 91.3 fL (81-99); Mean Platelet Vol. 8.9 fl (6.2-12.0); Monocyte# 1.28 X10^3/uL; Monocyte% 12.1 % (0-10); NRBC Flagged by Analyzer 0 % (0-5); Neutrophil # 6.63 X10^3/uL (2.7-7.7); Neutrophil % 62.4 % (47-70); Platelet Count 165 K/mm3 (150-450); RBC Distribution Width CV 14.9 % (11.6-14.6); RBC Distribution Width SD 48.8 fl (35.1-43.9); White Blood Count 10.6 K/mm3 (4.4-11.0)
[2019-07-21 06:26] LABS: International Normalized Ratio 1.3; Prothrombin Time (Protime)PT. 15.2 SECONDS (11.7-14.9)
[2019-07-21 06:36] LABS: Anion Gap 8 (5-15); BUN 28 mg/dL (7-18); Calcium,Total 8.5 mg/dL (8.5-10.1); Chloride 109 mmol/L (98-107); Creatinine, Serum 0.96 mg/dL (0.55-1.02); EST Glomerular Filtration Rate 59 mL/min (>60); Est Glom Filt Rate - Afr Amer 72 mL/min (>60); Estimated Creatinine Clearance 65.67 ml/min; Glucose 96 mg/dL (74-106); Potassium 3.7 mmol/L (3.5-5.1); Sodium Level 141 mmol/L (136-145)
--- NOTE | 2019-07-21 07:48 | PN_ITS ---
Patient Problems: Active and Suspected Problems (Last Updated 07/20/19 @ 08:[address] Jasiel Wright MD) Hematoma of right lower leg (Acute) Orthostatic hypotension (Acute) Subjective: Chief complaint: Follow-up after admission for acute traumatic right knee/right leg hematoma, acute symptomatic blood loss anemia and orthostatic hypotension. Patient seen and examined. No acute events overnight. Today, she is feeling better. Right leg and right knee pain is manageable. This morning, she stood up and she was not dizzy or lightheaded. Her vital signs are stable. - Physical Exam Vitals/I&O's: Vital Signs Temp Pulse Resp BP Pulse Ox 98.2 F 79 16 123/62 H 96 07/21/19 03:42 07/21/19 06:00 07/21/19 03:42 07/21/19 03:42 07/21/19 03:42 Oxygen Delivery Method Room Air Weight: 196 lb 3.382 oz Body Mass Index (BMI) 39.6 Orthostatic Vital Signs Start: 07/20/19 00:59 Freq: 0800 Status: Active Protocol: Activity Type Activity Date Activity User E-Sign Co-Sign Detail Recorded Client Recorded Date Recorded By Document 07/20/19 15:03 KT [id number] 07/20/19 15:03 KT 07/20/19 15:03 Orthostatic Vitals Lying -Blood Pressure (90/60-120/80) 134/64 H -Extremity Use Right Arm -Pulse Rate (60-100) 90 Intake and Output for Last 24 Hours 07/19/19 07/20/19 07/21/19 23:59 23:59 23:59 Intake Total 1240 / 1240 2040.5 / 2340.5 1000 / 1000 Output Total 200 / 200 Balance 1040 / 1040 2040.5 / 2340.5 1000 / 1000 General: Alert, Oriented x3, Cooperative, No apparent distress HEENT: Atraumatic, PERRLA, EOMI, Normocephalic Oral: Moist Mucosa, No Gingival or Mucosal Lesions/ Ulcerations Neck: Supple, No JVD, Negative Carotid Bruits, Trachea Midline, Thyroid Normal Size and Texture Lungs: Clear to auscultation, Normal air movement, No rhonchi, No wheeze, No rales, Diminished Cardiovascular: Regular rate, Regular Rhythm, Normal S1, Normal S2, PMI Normal Abdomen: Bowel Sounds Present, Soft, Non Tender, Non-Distended, No Hepato- splenomegaly, Obese Extremities: No clubbing, No cyanosis, No edema, - - Extensive bruises and soft tissue swelling around the right knee and upper one third of the right leg, large blister. Skin: No rashes, No breakdown Lymphatic: No Cervical, Supraclavicular, or Inguinal Adenopathy Neurological: Cranial nerves II-XII grossly intact, Neuro grossly intact Psych/Mental Status: Normal Affect, Appropriate, Alert and oriented to time, place, person, mood and affect Laboratory Results 07/20/19 05:18: Sodium 140, Potassium 4.4, Chloride 109 H, Carbon Dioxide 27.0, Anion Gap 4 L, BUN 32 H, Creatinine 1.12 H, Estim Creat Clear Calc 56.29, Est GFR (MDRD) Af Amer 60, Est GFR (MDRD) Non-Af 50 L, BUN/Creatinine Ratio 28.6 H, Glucose 125 H, Calcium 8.5 07/20/19 08:10: Blood Type O POSITIVE 07/20/19 08:10: Blood Type Cancelled, A1 Antigen Typing Cancelled, Rho(D) Type Cancelled, Antibody Screen NEGATIVE, Crossmatch See Detail 07/20/19 16:53: Hgb 6.9 L, Hct 20.8 L 07/21/19 06:05: WBC 10.6, RBC 3.10 L, Hgb 9.6 L, Hct 28.3 L, MCV 91.3, MCH 31.0, MCHC 33.9, RDW Std Deviation 48.8 H, RDW Coeff of Stefani 14.9 H, Plt Count 165, MPV 8.9, Immature Gran % (Auto) 0.800, Neut % (Auto) 62.4, Lymph % (Auto) 23.6, [place] % (Auto) 12.1 H, Eos % (Auto) 0.8, Baso % (Auto) 0.3, Absolute Neuts (auto) 6.6, Absolute Lymphs (auto) 2.50, Nucleated RBC % 0 07/21/19 06:05: PT 15.2 H, INR 1.3 07/21/19 06:05: Sodium 141, Potassium 3.7, Chloride 109 H, Carbon Dioxide 24.0, Anion Gap 8, BUN 28 H, Creatinine 0.96, Estim Creat Clear Calc 65.67, Est GFR (MDRD) Af Amer 72, Est GFR (MDRD) Non-Af 59 L, BUN/Creatinine Ratio 29.0 H, Glucose 96, Calcium 8.5 Current Medications Acetaminophen (Tylenol) 500 mg PO Q6H PRN PRN PRN Reason: Pain Score 1-10/10 Last Admin: 07/21/19 06:02 Dose: 500 mg Documented by: Allopurinol (Zyloprim) 150 mg PO DAILY [facility] Last Admin: 07/20/19 08:33 Dose: 150 mg Documented by: Atenolol (Tenormin (Beta Freya)) 100 mg PO DAILY [facility] Last Admin: 07/20/19 12:07 Dose: Not Given Documented by: Calcium/Vitamin D (Os-Zafar 500mg + D) [facility] Last Admin: 07/20/19 16:38 Dose: 1 tablet Documented by: Cholecalciferol (Vitamin D (25mcg)) 1,000 unit [facility] Last Admin: 07/20/19 08:34 Dose: 1,000 unit Documented by: Dextrose (D50w Syringe) 0 gm IV X1 PRN; Protocol PRN Reason: Hypoglycemia Diltiazem HCl (Cardizem Cd) 120 mg PO DAILY [facility] Last Admin: 07/20/19 12:07 Dose: Not Given Documented by: Famotidine (Pepcid) 20 mg PO DAILY PRN PRN Reason: REFLUX Folic Acid (Folic Acid) 0.5 mg PO DAILY@0800 [facility] Last Admin: 07/20/19 08:34 Dose: 0.5 mg Documented by: Glucagon () 1 mg IM .X1 PRN PRN Reason: Hypoglycemia Sodium Chloride () 1,000 mls @ 75 mls/hr IV .[id number] [facility] Last Infusion: 07/21/19 05:17 Dose: 75 mls/hr Documented by: Ondansetron HCl (Zofran) 4 mg IV Q8H PRN PRN PRN Reason: NAUSEA/VOMITING Oxycodone HCl (Oxyir) 5 mg PO Q4H PRN PRN PRN Reason: Pain Score 4-5/10 Last Admin: 07/20/19 00:40 Dose: 5 mg Documented by: Oxycodone HCl (Oxyir) 10 mg PO Q4H PRN PRN PRN Reason: Pain Score 6-10/10 Sodium Chloride () 10 - 40 ml IV UD PRN PRN Reason: SALINE FLUSH Last Admin: 07/21/19 00:03 Dose: 10 ml Documented by: Medical Necessity - Tobacco Use Smoking Status: Former smoker Tobacco Use: Cigarettes Assessment/Plan All Active Problems (Last Updated 07/20/19 @ 08:[address] Jasiel Wright MD) Hematoma of right lower leg (Acute) Orthostatic hypotension (Acute) This is an 79 years old female patient presented to the emergency room because of fall, right knee pain and dizziness, found to have acute traumatic right knee/right leg hematoma, acute blood loss anemia as well as dizziness due to orthostatic hypotension. #1 acute traumatic right knee/right leg hematoma: Due to mechanical fall. Today's INR is 1.3. Patient needed blood transfusion x2. Still having swelling and ecchymosis around right knee and right upper leg. Orthopedic surgery evaluated the patient and stated that bleeding is extra-articular. Her vital signs are stable. Today, Dr. Andrew will reevaluate the patient. Her pain is under well controlled. Plan: Continue same treatment, repeat H&H around 2 PM today and tomorrow morning, PT OT. #2 acute symptomatic blood loss anemia: Due to mechanical fall and being on Coumadin. Hemoglobin dropped down to 6.9 g/dL. She received a total of 2 weeks of packed RBCs and 1 unit of fresh frozen plasma. Today's hemoglobin is 9.6 g/dL, INR is 1.3. Platelet count is normal. Plan as above. #3 dizziness/orthostatic hypotension: Secondary to acute blood loss. Patient today has no more symptoms when she stands up. Asymptomatic, vital signs are st able. Her antihypertensive medications are held. Plan to repeat orthostatic vitals today. #4 hypertension: Blood pressure stabilized, continue atenolol and Cardizem, keep holding losartan and HCTZ. #5 paroxysmal atrial fibrillation: She is in sinus rhythm, rate is controlled. Continue atenolol and Cardizem for rate control. Coumadin on hold at this time, INR was 1.3. #6 history of colon cancer/uterine cancer: Stable, in remission. #7 gout: Continue allopurinol, stable. #9 DVT prophylaxis: SCDs. This note was generated with kooldineration software. It may contain incorrect words, spelling, and punctuation that were not noted in checking the note before signing. Inpatient E&M: 63992 Subs Hosp L2
--- NOTE | 2019-07-21 08:15 | PCM.PN.ORT ---
Patient Problems: Active and Suspected Problems (Last Updated 07/20/19 @ 08:[address] Jasiel Wright MD) Hematoma of right lower leg (Acute) Orthostatic hypotension (Acute) Subjective: Pt. states she is not in severe pain. Tried to get up yesterday, but was dizzy. WBC count is WNL. H&H corrected with transfusion. INR is 1.3 today. - Physical Exam Vitals/I&O's: Vital Signs Temp Pulse Resp BP Pulse Ox 98.2 F 79 16 123/62 H 96 07/21/19 03:42 07/21/19 06:00 07/21/19 03:42 07/21/19 03:42 07/21/19 03:42 Oxygen Delivery Method Room Air Weight: 196 lb 3.382 oz Body Mass Index (BMI) 39.6 Orthostatic Vital Signs Start: 07/20/19 00:59 Freq: 0800 Status: Active Protocol: Activity Type Activity Date Activity User E-Sign Co-Sign Detail Recorded Client Recorded Date Recorded By Document 07/20/19 15:03 KT [id number] 07/20/19 15:03 KT 07/20/19 15:03 Orthostatic Vitals Lying -Blood Pressure (90/60-120/80 mm Hg) 134/64 H -Extremity Use Right Arm -Pulse Rate (60-100 beats/min) 90 Intake and Output for Last 24 Hours 07/19/19 07/20/19 07/21/19 23:59 23:59 23:59 Intake Total 1240 / 1240 2040.5 / 2340.5 1000 / 1000 Output Total 200 / 200 Balance 1040 / 1040 2040.5 / 2340.5 1000 / 1000 General: Alert, Oriented x3, No apparent distress Extremities: Tenderness - Right leg. Gentle motion of knee well tolerated. Compartments soft. Fracture blister unchanged and non-infected appearing. Neurological: Neuro grossly intact Laboratory Results 07/20/19 05:18: Sodium 140, Potassium 4.4, Chloride 109 H, Carbon Dioxide 27.0, Anion Gap 4 L, BUN 32 H, Creatinine 1.12 H, Estim Creat Clear Calc 56.29, Est GFR (MDRD) Af Amer 60, Est GFR (MDRD) Non-Af 50 L, BUN/Creatinine Ratio 28.6 H, Glucose 125 H, Calcium 8.5 07/20/19 08:10: Blood Type O POSITIVE 07/20/19 08:10: Blood Type Cancelled, A1 Antigen Typing Cancelled, Rho(D) Type Cancelled, Antibody Screen NEGATIVE, Crossmatch See Detail 07/20/19 16:53: Hgb 6.9 L, Hct 20.8 L 07/21/19 06:05: WBC 10.6, RBC 3.10 L, Hgb 9.6 L, Hct 28.3 L, MCV 91.3, MCH 31.0, MCHC 33.9, RDW Std Deviation 48.8 H, RDW Coeff of Stefani 14.9 H, Plt Count 165, MPV 8.9, Immature Gran % (Auto) 0.800, Neut % (Auto) 62.4, Lymph % (Auto) 23.6, Harrison % (Auto) 12.1 H, Eos % (Auto) 0.8, Baso % (Auto) 0.3, Absolute Neuts (auto) 6.6, Absolute Lymphs (auto) 2.50, Nucleated RBC % 0 07/21/19 06:05: PT 15.2 H, INR 1.3 07/21/19 06:05: Sodium 141, Potassium 3.7, Chloride 109 H, Carbon Dioxide 24.0, Anion Gap 8, BUN 28 H, Creatinine 0.96, Estim Creat Clear Calc 65.67, Est GFR (MDRD) Af Amer 72, Est GFR (MDRD) Non-Af 59 L, BUN/Creatinine Ratio 29.0 H, Glucose 96, Calcium 8.5 Current Medications Acetaminophen (Tylenol) 500 mg PO Q6H PRN PRN PRN Reason: Pain Score 1-10/10 Last Admin: 07/21/19 06:02 Dose: 500 mg Documented by: Allopurinol (Zyloprim) 150 mg PO DAILY [facility] Last Admin: 07/20/19 08:33 Dose: 150 mg Documented by: Atenolol (Tenormin (Beta Freya)) 100 mg PO DAILY [facility] Last Admin: 07/20/19 12:07 Dose: Not Given Documented by: Calcium/Vitamin [facility] (Os-Zafar [facility]mg + D[facility] Last Admin: 07/20/19 16:38 Dose: 1 tablet Documented by: Cholecalciferol (Vitamin D (25mcg)) [facility] Last Admin: 07/20/19 08:34 Dose: 1,000 unit Documented by: Dextrose (D50w Syringe) 0 gm IV X1 PRN; Protocol PRN Reason: Hypoglycemia Diltiazem HCl (Cardizem Cd) 120 mg PO DAILY [facility] Last Admin: 07/20/19 12:07 Dose: Not Given Documented by: Famotidine (Pepcid) 20 mg PO DAILY PRN PRN Reason: REFLUX Folic Acid (Folic Acid) 0.5 mg PO DAILY@0800 [facility] Last Admin: 07/20/19 08:34 Dose: 0.5 mg Documented by: Glucagon () 1 mg IM .X1 PRN PRN Reason: Hypoglycemia Ondansetron HCl (Zofran) 4 mg IV Q8H PRN PRN PRN Reason: NAUSEA/VOMITING Oxycodone HCl (Oxyir) 5 mg PO Q4H PRN PRN PRN Reason: Pain Score 4-5/10 Last Admin: 07/20/19 00:40 Dose: 5 mg Documented by: Oxycodone HCl (Oxyir) 10 mg PO Q4H PRN PRN PRN Reason: Pain Score 6-10/10 Sodium Chloride () 10 - 40 ml IV UD PRN PRN Reason: SALINE FLUSH Last Admin: 07/21/19 00:03 Dose: 10 ml Documented by: Medical Necessity - Tobacco Use Smoking Status: Former smoker Tobacco Use: Cigarettes Assessment/Plan All Active Problems (Last Updated 07/20/19 @ 08:[address] Jasiel Wright MD) Hematoma of right lower leg (Acute) Orthostatic hypotension (Acute) Hematoma right leg Will get up with PT today Surgical intervention unlikely Will re-assess orthopedically in AM.
[2019-07-21] MEDS: Atenolol 100 MG Tablet PO (09:21)
[2019-07-21] MEDS: Allopurinol 300 MG Tablet 150 MG PO (09:22)
[2019-07-21] MEDS: Folic Acid 1 MG Tablet 0.5 MG PO (09:24)
[2019-07-21] MEDS: Calcium Carb/Vitamin D 1 TABLET Tablet PO ×2 (09:24→17:20)
[2019-07-21] MEDS: dilTIAZem CD 120 MG Capsule PO (09:24)
[2019-07-21 13:18] LABS: Hematocrit 29.2 % (37-47); Hemoglobin 10.1 g/dL (12.0-15.0)
[2019-07-22] VITALS: PULSE 70
[2019-07-22] MEDS: Acetaminophen 500 MG Tablet PO (00:34)
[2019-07-22 03:31] VITALS: BP 133/65; PULSE 64; RESP 16; TEMP 36.6; O2SAT 95
[2019-07-22 03:55] VITALS: PULSE 70
[2019-07-22 06:09] LABS: Hematocrit 27.7 % (37-47); Hemoglobin 9.2 g/dL (12.0-15.0)
[2019-07-22] MEDS: Folic Acid 1 MG Tablet 0.5 MG PO (08:07)
[2019-07-22] MEDS: Calcium Carb/Vitamin D 1 TABLET Tablet PO (08:07)
[2019-07-22 09:31] VITALS: BP 146/82; PULSE 66; RESP 16; TEMP 37; O2SAT 96
--- NOTE | 2019-07-22 09:41 | PN.ORTHO_ITS ---
Patient Problems: Active and Suspected Problems (Last Updated 07/20/19 @ 08:[address] Jasiel Wright MD) Hematoma of right lower leg (Acute) Orthostatic hypotension (Acute) Subjective: Patient feeling better today. Up in chair. States she ambulated in the [place] with minimal difficulty. - Physical Exam Vitals/I&O's: Vital Signs Temp Pulse Resp BP Pulse Ox 97.8 F 70 16 133/65 H 95 07/22/19 03:31 07/22/19 03:55 07/22/19 03:31 07/22/19 03:31 07/22/19 03:31 Oxygen Delivery Method Room Air Weight: 196 lb 3.382 oz Body Mass Index (BMI) 39.6 Orthostatic Vital Signs Start: 07/20/19 00:59 Freq: Status: Active Protocol: Activity Type Activity Date Activity User E-Sign Co-Sign Detail Recorded Client Recorded Date Recorded By Document 07/21/19 08:00 RK [id number] 07/21/19 08:58 07/21/19 08:00 Orthostatic Vitals Standing -Blood Pressure (90/60-120/80) 143/79 H -Extremity Use Right Arm -Pulse Rate (60-100) 94 Sitting -Blood Pressure (90/60-120/80) 164/91 H -Extremity Use Right Arm -Pulse Rate (60-100) 94 Lying -Blood Pressure (90/60-120/80) 168/78 H -Extremity Use Right Arm -Pulse Rate (60-100) 93 Intake and Output for Last 24 Hours 07/20/19 07/21/19 07/22/19 23:59 23:59 23:59 Intake Total 2040.5 / 2340.5 2530 / 2530 Output Total 300 / 300 Balance 2040.5 / 2340.5 2530 / 2530 -300 / -300 General: Alert, Oriented x3, No apparent distress Extremities: Tenderness - Right laeg with ecchymosis. ROM right knee 0 -95 without pain. Compartments soft and easily compressible. Neurological: Neuro grossly intact Laboratory Results 07/21/19 13:10: Hgb 10.1 L, Hct 29.2 L 07/22/19 05:37: Hgb 9.2 L, Hct 27.7 L Current Medications Acetaminophen (Tylenol) 500 mg PO Q6H PRN PRN PRN Reason: Pain Score 1-10/10 Last Admin: 07/22/19 00:34 Dose: 500 mg Documented by: Allopurinol (Zyloprim) 150 mg PO DAILY [facility] Last Admin: 07/21/19 09:22 Dose: 150 mg Documented by: Atenolol (Tenormin (Beta Freya)) 100 mg PO DAILY [facility] Last Admin: 07/21/19 09:21 Dose: 100 mg Documented by: Calcium/Vitamin D (Os-Zafar 500mg + D) [facility] Last Admin: 07/22/19 08:07 Dose: 1 tablet Documented by: Cholecalciferol (Vitamin D (25mcg)) [facility] Last Admin: 07/22/19 08:07 Dose: 1,000 unit Documented by: Dextrose (D50w Syringe) 0 gm IV X1 PRN; Protocol PRN Reason: Hypoglycemia Diltiazem HCl (Cardizem Cd) 120 mg PO DAILY [facility] Last Admin: 07/21/19 09:24 Dose: 120 mg Documented by: Famotidine (Pepcid) 20 mg PO DAILY PRN PRN Reason: REFLUX Folic Acid (Folic Acid) 0.5 mg PO DAILY@0800 [facility] Last Admin: 07/22/19 08:07 Dose: 0.5 mg Documented by: Glucagon () 1 mg IM .X1 PRN PRN Reason: Hypoglycemia Ondansetron HCl (Zofran) 4 mg IV Q8H PRN PRN PRN Reason: NAUSEA/VOMITING Oxycodone HCl (Oxyir) 5 mg PO Q4H PRN PRN PRN Reason: Pain Score 4-5/10 Last Admin: 07/20/19 00:40 Dose: 5 mg Documented by: Oxycodone HCl (Oxyir) 10 mg PO Q4H PRN PRN PRN Reason: Pain Score 6-10/10 Sodium Chloride () 10 - 40 ml IV UD PRN PRN Reason: SALINE FLUSH Last Admin: 07/21/19 00:03 Dose: 10 ml Documented by: Medical Necessity - Tobacco Use Smoking Status: Former smoker Tobacco Use: Cigarettes Assessment/Plan All Active Problems (Last Updated 07/20/19 @ 08:[address] Jasiel Wright MD) Hematoma of right lower leg (Acute) Orthostatic hypotension (Acute) Hematoma right leg Symptoms resolving and patient more ambulatory Follow up with me in office 1 week post discharge Instructed to call or return if symptoms return or worsen
[2019-07-22 10:00] VITALS: PULSE 97; RESP 18
[2019-07-22] MEDS: Allopurinol 300 MG Tablet 150 MG PO (10:40)
[2019-07-22] MEDS: Atenolol 100 MG Tablet PO (10:40)
[2019-07-22] MEDS: dilTIAZem CD 120 MG Capsule PO (10:40)
--- NOTE | 2019-07-22 10:50 | DCINST_ITS ---
- Discharge Diagnoses Current Active Problems: Current Active and Chronic Problems (Last Updated 07/20/19 @ 08:[address] Jasiel Wright MD) Hematoma of right lower leg (Acute) Orthostatic hypotension (Acute) On Coumadin for atrial fibrillation (Chronic) You will use the following diet at home:: Cardiac Your food should be the consistency of: Regular Discharge Activity: Return to Normal Activity Weight Bearing Status: Weight bearing as tolerated Call your doctor if you observe: Fever of 101 or Higher, Shortness of breath, Dizziness, Fainting spells, Chest pain, Increased palpitations (irregular heartbeat), Uncontrolled pain Additional Instructions: Use over the counter tylenol or ibuprofen as needed for pain. Stop taking coumadin for 1 week, see your PCP in 1 week. Do not restart coumadin until you see your family doctor. Allergies/Adverse Reactions: Allergies almond Allergy (Verified 07/19/19 15:20) Unknown levofloxacin [From Levaquin] Adverse Reaction (Verified 07/19/19 15:20) Unknown Penicillins [PCN] Adverse Reaction (Verified 07/19/19 15:20) Other PASSED OUT Medications to take at Discharge Allopurinol [Zyloprim] 150 mg PO DAILY 06/13/15 Atenolol [Tenormin] 100 mg PO DAILY 06/13/15 Folic Acid 0.4 mg PO DAILY@0800 06/13/15 Losartan Potassium [Cozaar] 50 mg PO BID 06/13/15 Aspirin [Adult Low Dose Aspirin EC] 81 mg PO DAILY 08/25/16 Cholecalciferol (VIT D3) [Vitamin D3] 1,000 unit PO DAILY 08/25/16 Acetaminophen [Tylenol] 500 mg PO Q6H PRN PRN 11/08/17 Famotidine [Pepcid] 20 mg PO DAILY PRN 11/08/17 potassium chloride 10 mEq tablet,extended release(part/cryst) 10 meq PO DAILY #90 tab 08/14/18 hydrochlorothiazide 25 mg tablet 25 mg PO DAILY #90 tab 12/18/18 Calcium Citrate/Vitamin D3 [Citracal + D Maximum Caplet] 1 ea PO BID 07/19/19 Diltiazem HCl [Cartia Xt] 120 mg PO DAILY 07/19/19 Primary Care Physician: Bello Vigil MD [Primary Care Provider] - Please follow up with your Primary Care Physician in: 1 week. Test Results: Test results from this visit will be discussed in further detail at your follow- up appointment, if applicable.
--- NOTE | 2019-07-22 12:18 | PCM.DC.SUM ---
Discharge Date and Diagnosis - Problem List Patient Problems: Active and Suspected Problems (Last Updated 07/20/19 @ 08:[address] Jasiel Wright MD) Hematoma of right lower leg (Acute) Orthostatic hypotension (Acute) Date of Admission: 07/19/19 Date of Discharge: 07/22/19 - Primary Discharge Diagnosis Active and Suspected Problems (Last Updated 07/20/19 @ 08:[address] Jasiel Wright MD) #1 acute traumatic extra-articular right knee/right upper leg hematoma. #2 acute symptomatic blood loss anemia required blood transfusion. #3 orthostatic hypotension, resolved. - Secondary Discharge Diagnosis Chronic Problems (Last Updated 07/20/19 @ 08:[address] 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 Mild degenerative arthrosis of the medial compartment, moderate degenerative arthrosis of the lateral compartment and severe degenerative arthrosis of the patellofemoral compartment Electronically Signed: Debra Groves MD at 16:09 EDT , Service support , Dr. Fonseca, orthopedic surgery. Operations: - Procedures: Blood transfusion Summary of Care Provided: Patient seen and examined on the day of discharge and appeared to be stable to be discharged home. Right knee pain and swelling remained stable, pain is manageable. She ambulated and she has no more dizziness or lightheadedness. Her vital signs are stable. This is an 79 years old female patient presented to the emergency room because of fall, right knee pain and dizziness, found to have acute traumatic right knee/right leg hematoma, acute blood loss anemia as well as dizziness due to orthostatic hypotension. #1 acute traumatic right knee/right leg hematoma: Secondary to Coumadin induced coagulopathy. It is due to mechanical fall. She was treated conservatively with pain medication and monitoring her blood counts. Orthopedic surgery consulted and stated that bleeding is extra-articular and there was no indication for surgical intervention. Patient was evaluated by PT OT, deemed to be stable to be discharged home. Discharged home in a stable medical condition, instructed to use Tylenol or ibuprofen as needed for pain, instructed to stop taking Coumadin for now and follow-up with PCP in 1 week. #2 acute symptomatic blood loss anemia: Due to blood loss from the right leg hematoma. Hemoglobin dropped down to 6.9 g/dL. On admission, INR was 2.9. She received a total of 2 weeks of packed RBCs and 1 unit of fresh frozen plasma. Also, she received vitamin K injection. Upon discharge, hemoglobin was 9.2 g/dL. Discharge INR was 1.3. Patient instructed to stop Coumadin for now. #3 dizziness/orthostatic hypotension: Secondary to acute blood loss. With IV fluids and blood transfusion, blood pressure stabilized and symptoms resolved. #4 hypertension: Blood pressure stabilized, continued on atenolol, Cardizem, losartan and HCTZ upon discharge. #5 paroxysmal atrial fibrillation: Remains in sinus rhythm, rate is controlled. Continued atenolol and Cardizem for rate control. Coumadin held upon discharge. Patient discharged home in a stable medical condition, Coumadin discontinued for 1 week at this time, continued on her previous home medications without any changes except discontinuing Coumadin, recommended follow-up with PCP in 1 week and not to take Coumadin until instructed by her PCP. This note was generated with [employer] dictation software. It may contain incorrect words, spelling, and punctuation that were not noted in checking the note before signing. Patient Problems: Active and Suspected Problems (Last Updated 07/20/19 @ 08:[address] Jasiel Wright MD) Hematoma of right lower leg (Acute) Orthostatic hypotension (Acute) - Physical Exam Vitals/I&O's: Vital Signs Temp Pulse Resp BP Pulse Ox 98.6 F 66 18 146/82 H 96 07/22/19 09:31 07/22/19 09:31 07/22/19 10:00 07/22/19 09:31 07/22/19 09:31 Oxygen Delivery Method Room Air Weight: 196 lb 3.382 oz Body Mass Index (BMI) 39.6 Orthostatic Vital Signs Start: 07/20/19 00:59 Freq: Status: Active Protocol: Activity Type Activity Date Activity User E-Sign Co-Sign Detail Recorded Client Recorded Date Recorded By Document 07/21/19 08:00 MANAN [id number] 07/21/19 08:58 MANAN 07/21/19 08:00 Orthostatic Vitals Standing -Blood Pressure (90/60-120/80) 143/79 H -Extremity Use Right Arm -Pulse Rate (60-100) 94 Sitting -Blood Pressure (90/60-120/80) 164/91 H -Extremity Use Right Arm -Pulse Rate (60-100) 94 Lying -Blood Pressure (90/60-120/80) 168/78 H -Extremity Use Right Arm -Pulse Rate (60-100) 93 Intake and Output for Last 24 Hours 07/20/19 07/21/19 07/22/19 23:59 23:59 23:59 Intake Total 2040.5 / 2340.5 2530 / 2530 Output Total 300 / 300 Balance 2040.5 / 2340.5 2530 / 2530 -300 / -300 General: Alert, Oriented x3, Cooperative, No apparent distress HEENT: Atraumatic, PERRLA, EOMI, Normocephalic Oral: Moist Mucosa, No Gingival or Mucosal Lesions/ Ulcerations Neck: Supple, No JVD, Negative Carotid Bruits, Trachea Midline, Thyroid Normal Size and Texture Lungs: Clear to auscultation, Normal air movement, No rhonchi, No wheeze, No rales Cardiovascular: Regular rate, Regular Rhythm, Normal S1, Normal S2, PMI Normal Abdomen: Bowel Sounds Present, Soft, Non Tender, Non-Distended, No Hepato-splenomegaly, Obese Extremities: No clubbing, No cyanosis, No edema Skin: No rashes, - - Right leg blister. Musculoskeletal: - - Swelling around the right knee and right upper leg, blister. No active external bleeding. Neurological: Cranial nerves II-XII grossly intact, Neuro grossly intact Psych/Mental Status: Normal Affect, Appropriate Laboratory Results 07/21/19 13:10: Hgb 10.1 L, Hct 29.2 L 07/22/19 05:37: Hgb 9.2 L, Hct 27.7 L Current Medications Acetaminophen (Tylenol) 500 mg PO Q6H PRN PRN PRN Reason: Pain Score 1-10/10 Last Admin: 07/22/19 00:34 Dose: 500 mg Documented by: Allopurinol (Zyloprim) 150 mg PO DAILY [facility] Last Admin: 07/22/19 10:40 Dose: 150 mg Documented by: Atenolol (Tenormin (Beta Freya)) 100 mg PO DAILY [facility] Last Admin: 07/22/19 10:40 Dose: 100 mg Documented by: Calcium/Vitamin D (Os-Zafar [facility]mg + D) [facility] Last Admin: 07/22/19 08:07 Dose: 1 tablet Documented by: Cholecalciferol (Vitamin D (25mcg)) [facility] Last Admin: 07/22/19 08:07 Dose: 1,000 unit Documented by: Dextrose (D50w Syringe) 0 gm IV X1 PRN; Protocol PRN Reason: Hypoglycemia Diltiazem HCl (Cardizem Cd) 120 mg PO DAILY [facility] Last Admin: 07/22/19 10:40 Dose: 120 mg Documented by: Famotidine (Pepcid) 20 mg PO DAILY PRN PRN Reason: REFLUX Folic Acid (Folic Acid) 0.5 mg PO DAILY@0800 [facility] Last Admin: 07/22/19 08:07 Dose: 0.5 mg Documented by: Glucagon () 1 mg IM .X1 PRN PRN Reason: Hypoglycemia Ondansetron HCl (Zofran) 4 mg IV Q8H PRN PRN PRN Reason: NAUSEA/VOMITING Oxycodone HCl (Oxyir) 5 mg PO Q4H PRN PRN PRN Reason: Pain Score 4-5/10 Last Admin: 07/20/19 00:40 Dose: 5 mg Documented by: Oxycodone HCl (Oxyir) 10 mg PO Q4H PRN PRN PRN Reason: Pain Score 6-10/10 Sodium Chloride () 10 - 40 ml IV UD PRN PRN Reason: SALINE FLUSH Last Admin: 07/21/19 00:03 Dose: 10 ml Documented by: Discharge Activity: Return to Normal Activity Weight Bearing Status: Weight bearing as tolerated Call your doctor if you observe: Fever of 101 or Higher, Shortness of breath, Dizziness, Fainting spells, Chest pain, Increased palpitations (irregular heartbeat), Uncontrolled pain Home Medications: Medications to take at Discharge Allopurinol [Zyloprim] 150 mg PO DAILY 06/13/15 Atenolol [Tenormin] 100 mg PO DAILY 06/13/15 Folic Acid 0.4 mg PO DAILY@0800 06/13/15 Losartan Potassium [Cozaar] 50 mg PO BID 06/13/15 Aspirin [Adult Low Dose Aspirin EC] 81 mg PO DAILY 08/25/16 Cholecalciferol (VIT D3) [Vitamin D3] 1,000 unit PO DAILY 08/25/16 Acetaminophen [Tylenol] 500 mg PO Q6H PRN PRN 11/08/17 Famotidine [Pepcid] 20 mg PO DAILY PRN 11/08/17 potassium chloride 10 mEq tablet,extended release(part/cryst) 10 meq PO DAILY #90 tab 08/14/18 hydrochlorothiazide 25 mg tablet 25 mg PO DAILY #90 tab 12/18/18 Calcium Citrate/Vitamin D3 [Citracal + D Maximum Caplet] 1 ea PO BID 07/19/19 Diltiazem HCl [Cartia Xt] 120 mg PO DAILY 07/19/19 Primary Care Physician: Bello Vigil MD [Primary Care Provider] - Please follow up with your Primary Care Physician in: 1 week. Disposition: Home Minutes spent on discharge:: 32 Patient Condition:: Stable Medical Necessity - Tobacco Use Smoking Status: Former smoker Tobacco Use: Cigarettes Meaningful Use Info Meaningful Use Diagnoses (Choose all that apply): None applicable Inpatient E&M: 23456 Disch Hosp
[2019-07-22 13:17] VITALS: BP 130/66; PULSE 97; RESP 18; TEMP 36.7; O2SAT 96
--- NOTE | 2019-07-23 14:17 | CASEMGMT ---
JHONATHAN CARRASCO DC PHONE CALL DC DATE: 07.22.2019 DC DISPOSITION: Home DC DIAGNOSIS: Acute traumatic extra-articular R knee/R upper leg hematoma LACE/STRATA: 12/07 F/U APPTS MADE PRIOR TO DC: no Intro role of CM to patient. Pt states she is doing well and no questions re: dc instructions, f/u or prescriptions. Pt stated her care was excellent and she did not have any care improvement suggestions. Alix FELDERN RN ACM
== END 2019-07-22 13:09 | disposition home or self-care (01) | DRG 812 ==
LOC: ED 19:14 → MS3 19:40
PROVIDERS: Emergency Provider Emergency Medicine; PCP Family Medicine; Visit Provider Hospitalist
DX: D62 Acute posthemorrhagic anemia (principal); Z68.41 Body mass index [BMI] 40.0-44.9, adult; D68.32 Hemorrhagic disorder due to extrinsic circulating anticoagulants; S80.11XA Contusion of right lower leg, initial encounter; I95.1 Orthostatic hypotension; T45.515A Adverse effect of anticoagulants, initial encounter; S70.11XA Contusion of right thigh, initial encounter; W18.09XA Striking against other object with subsequent fall, initial encounter; Y93.01 Activity, walking, marching and hiking; E66.9 Obesity, unspecified; I48.0 Paroxysmal atrial fibrillation; I44.7 Left bundle-branch block, unspecified; I10 Essential (primary) hypertension; M10.9 Gout, unspecified; Z86.718 Personal history of other venous thrombosis and embolism; Z79.01 Long term (current) use of anticoagulants; Z85.42 Personal history of malignant neoplasm of other parts of uterus; Z85.038 Personal history of other malignant neoplasm of large intestine; Z79.82 Long term (current) use of aspirin; Z90.49 Acquired absence of other specified parts of digestive tract; Z90.710 Acquired absence of both cervix and uterus; Z82.49 Family history of ischemic heart disease and other diseases of the circulatory system; Z80.3 Family history of malignant neoplasm of breast; Z86.000 Personal history of in-situ neoplasm of breast; Z80.1 Family history of malignant neoplasm of trachea, bronchus and lung; M16.12 Unilateral primary osteoarthritis, left hip; M54.5 Low back pain
CPT/HCPCS: 36415; 73562; 80048; 84484; 85014; 85018; 85025; 85610; 85730; 86850; 86900; 86901; 86920; 86922; 93005; 97113; 97116; 97162; 97166; 97535; 99285; J7030; J7040; P9016; P9017; P9040; A4216; J3490

== ENCOUNTER → 2019-07-26 12:29 | Outpatient (CLI) | payer MEDICARE, OTHER, SELFPAY ==
[2019-07-19 19:55] VITALS: BMI 39.6
[2019-07-26 15:38] LABS: Absolute Lymphocyte Count 2.21 X10^3/uL (0.83-4.51); Absolute Neutrophil Count 10.6 X10^3/uL (2.0-7.7); Basophil# 0.04 X10^3/uL; Basophil% 0.3 % (0-1); Eosinophil# 0.22 X10^3/uL; Eosinophils% 1.5 % (0-5); Hematocrit 33.1 % (37-47); Hemoglobin 10.9 g/dL (12.0-15.0); Lymphocyte # 2.21 X10^3/ul (4.0); Lymphocyte % 15.3 % (19-41); Mean Corp Hgb Conc 32.9 g/dL (32-36); Mean Corpuscular Hgb 31.3 pg (27.0-32.0); Mean Corpuscular Volume 95.1 fL (81-99); Mean Platelet Vol. 9.6 fl (6.2-12.0); Monocyte# 1.31 X10^3/uL; Monocyte% 9.1 % (0-10); NRBC Flagged by Analyzer 0 % (0-5); Neutrophil # 10.59 X10^3/uL (2.7-7.7); Neutrophil % 73.2 % (47-70); Platelet Count 373 K/mm3 (150-450); RBC Distribution Width SD 50.5 fl (35.1-43.9); RET-HE 36.1 pg (30-35); Red Blood Count 3.48 M/mm3 (4.2-5.4); Reticulocyte Count 4.14 % (0.5-1.5); White Blood Count 14.5 K/mm3 (4.4-11.0)
[2019-07-26 15:43] LABS: International Normalized Ratio 1.1
[2019-07-26 15:51] LABS: Ferritin 129 ng/mL (8-252); Iron Binding Capacity,Total 422 ug/dL (250-450)
== END ==
PROVIDERS: PCP Family Medicine; Referring Provider Family Medicine; Visit Provider Family Medicine
DX: D50.0 Iron deficiency anemia secondary to blood loss (chronic) (principal); Z86.718 Personal history of other venous thrombosis and embolism
CPT/HCPCS: 36415; 82728; 83550; 85025; 85045; 85610

== ENCOUNTER 2019-07-27 06:24 | Emergency (ER) | payer MEDICARE, OTHER, SELFPAY ==
[2019-07-19 19:55] VITALS: BMI 39.6
[2019-07-27 06:25] VITALS: BP 147/109; PULSE 152; RESP 24; TEMP 36.2; O2SAT 95; BMI 41.0
--- NOTE | 2019-07-27 06:45 | RAD_ITS ---
STUDY: X-RAY CHEST REASON FOR EXAM: Female, 79 years old. AFIB, PALPITATIONS TECHNIQUE: Frontal view COMPARISON: None. FINDINGS: The lungs are clear and expanded. There is no demonstrated pleural abnormality. Normal size heart. Normal mediastinum and primo. Normal visualized pulmonary arteries. Normal visualized aortic arch and descending thoracic aorta. Normal visualized thoracic spine. Normal visualized ribs, clavicles, and shoulders. There is no demonstrated abnormality of the visualized soft tissue structures of the upper abdomen. RAD/Chest 1 View (Portable) IMPRESSION: Normal x-ray examination of the chest. Electronically Signed: Jose Becker MD at 7:34 EDT , Service support ,
--- NOTE | 2019-07-27 06:46 | EKG12_ITS ---
Test Reason : Blood Pressure : / mmHG Vent. Rate : 100 BPM Atrial Rate : 075 BPM P-R Int : 150 ms QRS Dur : 124 ms QT Int : 388 ms P-R-T Axes : 066 -03 143 degrees QTc Int : 500 ms Sinus rhythm with frequent and consecutive Premature ventricular complexes Left bundle branch block Abnormal ECG Confirmed by RUPINDER LEAL, SALO ([id number]), field map editor REMINGTON GARCIA ([id number]) on 07/31/2019 3:25:52 PM Referred By: GILBERTO Confirmed By:SALO BUCIO MD
--- NOTE | 2019-07-27 06:46 | ED.DCSUM_ITS ---
- ER Visit Summary Date of Service: 07/27/19 Chief Complaint: Palpitations History of Present Illness: The patient is a 79 F who presents with palpitations that began this morning. Patient states she woke up this morning because she was having an irregular heartbeat. Patient states she has a history of pa roxysmal A. fib. Patient states this woke her up this morning. Patient states she felt some racing in her chest. Patient admits to some shortness of breath with that. Patient denies any cough. Patient denies any chest pain. Patient denies any recent fevers or chills. Patient denies any diaphoresis. Patient denies any nausea or vomiting. Physical Examination: Vital signs are stable except for a tachycardia of 152 and a mild tachypnea of 24. Patient is afebrile. Patient is in no acute distress. Oral mucosa is pink and moist. Neck is supple. Trachea is midline. There is no JVD. Heart was regular rate and rhythm with occasional ectopics. Lungs are clear and equal bilaterally. Abdomen is soft. Bowel sounds are normal. There is no tenderness. Cranial nerves II through XII are intact. There are no focal motor or sensory deficits. Test Results: EKG shows sinus rhythm with frequent ectopics with a rate of 100. There is a left bundle branch block pattern noted. This was unchanged from previous EKG dated 07/19/2019. CBC, metabolic profile, and troponin were obtained and are pending. Portable chest x-ray was ordered and is pending. Emergency Department Course and Treatment: Patient is currently in a normal sinus rhythm. Patient will be observed. Disposition: Care of the patient was turned over to the oncoming physician. If labs are normal and the patient maintains a normal sinus rhythm I feel she may be able to be discharged home. Impression: Paroxysmal atrial fibrillation This note was generated with [employer] dictation software. It may contain incorrect words, spelling, and punctuation that were not noted in review of the chart prior to signing ED Disposition - Plan for ED Patient: Diagnosis: Paroxysmal atrial fibrillation Instructions: ED AFIB Referrals: Bello Vigil MD [Primary Care Provider] - 3-5 Days
[2019-07-27 08:00] LABS: Absolute Lymphocyte Count 1.88 X10^3/uL (0.83-4.51); Absolute Neutrophil Count 9.7 X10^3/uL (2.0-7.7); Basophil# 0.03 X10^3/uL; Basophil% 0.2 % (0-1); Eosinophil# 0.26 X10^3/uL; Eosinophils% 1.9 % (0-5); Hematocrit 33.3 % (37-47); Hemoglobin 10.9 g/dL (12.0-15.0); Lymphocyte # 1.88 X10^3/ul (4.0); Lymphocyte % 14.1 % (19-41); Mean Corp Hgb Conc 32.7 g/dL (32-36); Mean Corpuscular Volume 94.6 fL (81-99); Mean Platelet Vol. 8.6 fl (6.2-12.0); Monocyte# 1.38 X10^3/uL; Monocyte% 10.3 % (0-10); NRBC Flagged by Analyzer 0 % (0-5); Neutrophil # 9.73 X10^3/uL (2.7-7.7); Neutrophil % 72.8 % (47-70); Platelet Count 352 K/mm3 (150-450); RBC Distribution Width CV 15.2 % (11.6-14.6); RBC Distribution Width SD 50.1 fl (35.1-43.9); Red Blood Count 3.52 M/mm3 (4.2-5.4); White Blood Count 13.4 K/mm3 (4.4-11.0)
[2019-07-27 08:13] VITALS: BP 159/94; PULSE 62; RESP 16; O2SAT 95
[2019-07-27 08:20] LABS: ALB/GLOB Ratio 0.8 RATIO (0.9-2.4); AST(SGOT) 17 U/L (15-37); Alanine Aminotransfer ALT/SGPT 15 U/L (13-56); Albumin, Serum 3.2 g/dL (3.2-5.0); Alkaline Phosphatase 79 U/L (45-117); Anion Gap 5 (5-15); BUN 27 mg/dL (7-18); BUN/Creat Ratio 36.8 RATIO (10-20); Calcium,Total 9.2 mg/dL (8.5-10.1); Chloride 111 mmol/L (98-107); Creatinine, Serum 0.73 mg/dL (0.55-1.02); EST Glomerular Filtration Rate 81 mL/min (>60); Est Glom Filt Rate - Afr Amer 98 mL/min (>60); Estimated Creatinine Clearance 65.24 ml/min; Globulin 3.8 g/dL (2.2-4.2); Glucose 101 mg/dL (74-106); Potassium 3.6 mmol/L (3.5-5.1); Sodium Level 141 mmol/L (136-145)
[2019-07-27 08:49] VITALS: BP 180/86; PULSE 59; RESP 16; O2SAT 95
== END 2019-07-27 08:49 | disposition short-term general hospital (02) ==
LOC: ED 08:35
PROVIDERS: Emergency Provider Emergency Medicine; PCP Family Medicine
DX: I48.0 Paroxysmal atrial fibrillation (principal); I49.3 Ventricular premature depolarization; I44.7 Left bundle-branch block, unspecified; I10 Essential (primary) hypertension; M10.9 Gout, unspecified; Z85.3 Personal history of malignant neoplasm of breast; Z85.42 Personal history of malignant neoplasm of other parts of uterus; Z85.038 Personal history of other malignant neoplasm of large intestine; Z79.82 Long term (current) use of aspirin; Z79.899 Other long term (current) drug therapy
CPT/HCPCS: 36415; 71045; 80053; 84484; 85025; 93005; 99285; A4216

== ENCOUNTER 2019-07-31 15:29 | Outpatient (RCR) | payer MEDICARE, OTHER, SELFPAY ==
[2019-04-30 15:19] VITALS: BMI 39.2
[2019-07-31 15:45] LABS: Prothrombin Time Fingerstick 21.9 SEC (11.9-14.4)
== END 2019-07-31 18:00 | disposition home or self-care (01) ==
LOC: MTLAB 15:29
PROVIDERS: Family Provider Family Medicine; PCP Family Medicine; Referring Provider Family Medicine; Visit Provider Family Medicine
DX: I48.0 Paroxysmal atrial fibrillation (principal)
CPT/HCPCS: 36416; 85610

== ENCOUNTER 2019-08-17 15:35 | Outpatient (RCR) | payer MEDICARE, OTHER, SELFPAY ==
[2019-08-17 13:15] VITALS: BMI 39.6
[2019-08-17 16:01] LABS: Prothrombin Time Fingerstick 31.4 SEC (11.9-14.4)
== END 2019-08-17 18:00 | disposition home or self-care (01) ==
LOC: MTLAB 15:35
PROVIDERS: Family Provider Family Medicine; PCP Family Medicine; Referring Provider Family Medicine; Visit Provider Family Medicine
DX: I48.0 Paroxysmal atrial fibrillation (principal)
CPT/HCPCS: 36416; 85610

== ENCOUNTER 2019-08-29 11:15 | Outpatient (RCR) | payer MEDICARE, OTHER, SELFPAY ==
[2019-08-08 10:23] VITALS: BP 151/70; PULSE 52; RESP 16; TEMP 36.5; BMI 38.5
--- NOTE | 2019-08-08 11:06 | HP.PCM_ITS ---
(1) Traumatic open wound of right lower leg with delayed healing Status: Acute Current Visit: Yes Code(s): S81.801D - Unspecified open wound, right lower leg, subsequent encounter (2) Hematoma of right lower leg Status: Acute Current Visit: No Code(s): S80.11XA - Contusion of right lower leg, initial encounter (3) Obesity Status: Chronic Current Visit: No Code(s): E66.9 - Obesity, unspecified (4) On Coumadin for atrial fibrillation Status: Chronic Current Visit: No Code(s): I48.91 - Unspecified atrial fibrillation; Z79.01 - [facility] (current) use of anticoagulants (5) Pulmonary embolism Status: Chronic Current Visit: No Code(s): I26.99 - Other pulmonary embolism without acute cor pulmonale (6) Nonhealing nonsurgical wound limited to breakdown of skin Status: Acute Current Visit: Yes Code(s): T14.8XXA - Other injury of unspecified body region, initial encounter (7) Lower extremity edema Status: Acute Current Visit: Yes Code(s): R60.0 - Localized edema History of Present Illness Date of Service: 08/08/19 Chief Complaint: Follow-up right nonhealing open wound right knee area from fall History of Wound: 79-year-old white female on her last day of physical therapy fell in the parking lot of [facility]. She developed a hematoma on her right knee after falling 8 weeks ago. She went to the emergency room and was admitted because she is on Coumadin and she developed a huge hematoma. The area is now open and she still has hematoma above and below with some warmth tender skin in the peripheral area of the wound. She denies fever or chills. Past Medical History Past Medical History: Chronic Problems (Last Updated 07/20/19 @ 08:[address] 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) Pulmonary embolism (Chronic) Uterine cancer (Chronic) Colon cancer (Chronic) LBBB (left bundle branch block) (Chronic) HTN (hypertension) (Chronic) Past Medical History: Traumatic wound right lateral knee and a hematoma Surgical History: - - colon, hysterectemy, lumpectemy, 3 c/s, abd surgery lysis of adhesions Allergies/Adverse Reactions: Allergies almond Allergy (Verified 08/08/19 10:42) Unknown levofloxacin [From Levaquin] Adverse Reaction (Verified 08/08/19 10:42) Unknown Penicillins [PCN] Adverse Reaction (Verified 08/08/19 10:42) Other PASSED OUT Home Medications: Ambulatory Orders Medication Instructions Recorded Allopurinol [Zyloprim] 150 mg PO DAILY 06/13/15 Atenolol [Tenormin] 100 mg PO DAILY 06/13/15 Folic Acid 0.4 mg PO DAILY@0800 06/13/15 Losartan Potassium [Cozaar] 50 mg PO BID 06/13/15 Aspirin [Adult Low Dose Aspirin EC] 81 mg PO DAILY 08/25/16 Cholecalciferol (VIT D3) [Vitamin 1,000 unit PO DAILY 08/25/16 D3] Acetaminophen [Tylenol] 500 mg PO Q6H PRN PRN 11/08/17 Famotidine [Pepcid] 20 mg PO DAILY PRN 11/08/17 potassium chloride 10 mEq 10 meq PO DAILY #90 tab 08/14/18 tablet,extended release(part/cryst) hydrochlorothiazide 25 mg tablet 25 mg PO DAILY #90 tab 12/18/18 Calcium Citrate/Vitamin D3 1 ea PO BID 07/19/19 [Citracal + D Maximum Caplet] Diltiazem HCl [Cartia Xt] 120 mg PO DAILY 07/19/19 Warfarin Sodium [Coumadin] 4 mg PO DAILY 07/27/19 Ferrous Sulfate 325 mg PO DAILY 08/08/19 - Family History Maternal Family History: Family History (Last Reviewed 07/19/19 @ 19:[address] Ap Patel DO) Father Lung cancer Brother Lung cancer Mother Breast cancer Sister Breast cancer CAD (coronary artery disease) Cancer Paternal Family History: Family History (Last Reviewed 07/19/19 @ 19:[address] Ap Patel DO) Father Lung cancer Brother Lung cancer Mother Breast cancer Sister Breast cancer CAD (coronary artery disease) Cancer Smoking Status: Former smoker Review of Systems Constitutional: Denies: Chills, Fever Eyes: Denies: Blurred vision, Drainage, Pain HEENT: Denies: Difficulty Hearing, Difficulty Swallowing, Sore Throat, Visual Changes Cardiovascular: Denies: Chest Pain, Palpitations, Syncope Respiratory: Denies: Cough, Shortness of Breath Gastrointestinal: Denies: Abdominal Pain, Nausea, Vomiting Genitourinary: Denies: Dysuria, Frequency Musculoskeletal: Reports: - - Swelling with tenderness around the wound. Denies: Joint Pain, Muscle pain Skin: Reports: Wounds - Right lateral open wound. Denies: Jaundice, Rash Neurological: Denies: Balance problems, Change in Speech, Difficulty swallowing, Focal weakness Psychiatric: Denies: Anxiety, Depression Endocrine: Denies: Change in Body Habitus Hematologic/ Lymphatic: Denies: Adenopathy - Physical Exam Vital Signs Temp Pulse Resp BP 97.7 F L 52 L 16 151/70 H 08/08/19 10:23 08/08/19 10:23 08/08/19 10:23 08/08/19 10:23 General: Oriented x3, Cooperative, Well developed HEENT: Atraumatic, PERRLA Oral: Moist Mucosa Neck: Supple, No JVD Lungs: Clear to auscultation, Normal air movement Cardiovascular: Regular rate, Regular Rhythm Abdomen: Bowel Sounds Present, Soft, Non Tender, No Hepato-splenomegaly Extremities: No clubbing, Edema, Tenderness - Around the wound, - - Ecchymotic areas around the wound Skin: Ulcer/ Wound - Wound right lateral knee traumatic from hematoma that opened from fall Wound Measurements and Assessment WC - Nurse 1 - General Ulcer Measurement Start: 08/08/19 10:19 Freq: Status: Active Protocol: Activity Type Activity Date Activity User E-Sign Co-Sign Detail Recorded Client Recorded Date Recorded By Document 08/08/19 10:23 [facility] [id number] 08/08/19 10:40 [facility] 08/08/19 10:23 Wound Center Nurse 1 [Ulcer Assessment] #1- R KNEE HEMATOMA (POST FALL) -Combined with other wound No -Current Size (cm) - Length 5.6 -Current Size (cm) - Width 5.7 -Current Size (cm) - Depth 0.1 -Total Square Cm 31.92 -Date of Last Picture (Recall this 08/08/19 field) -Photo Taken Yes -Epithelialization None Present -Tunneling No -Undermining/Tunneling No -Circular Undermining No -Exudate Amt None Present -Wound Margin Distinct, Outline Attached -Granulation Amt None Present (0 %) -Slough/Fibrin Yes -Necrosis Amt Large (67-100%) -Necrotic Tissue Type Eschar -Texture (Vidya-wound Skin Appearance) Assessed, Scarring -Moisture (Vidya-wound Skin Appearance Assessed ) -Color (Vidya-wound Skin Appearance) Assessed -Temperature (Vidya-wound Skin No Abnormality Appearance) (Pt Warm) -Tenderness on Palpation (Vidya-wound No Skin Appearance) -Ulcer Cleansing SOAPY WATER -Foul Odor after Cleansing No -Anesthetic Used 4% Lidocaine Solution [Edema Assessment] -Lower Limb Edema Present Yes -Right Calf (cm) 45 -Right Ankle (cm) 27.2 WC - Nurse 2 - General Ulcer CM Notes Start: 08/08/19 10:19 Freq: Status: Active Protocol: Activity Type Activity Date Activity User E-Sign Co-Sign Detail Recorded Client Recorded Date Recorded By Document 08/08/19 10:54 MW [id number] 08/08/19 11:00 MW 08/08/19 10:54 Wound Center Nurse 2 [Procedure/Treatment] #1- R KNEE HEMATOMA (POST FALL) -Time 10:56 -Correct Patient Yes -Correct Side, Site, Position Yes -Correct Procedure Yes -Procedure Performed Yes -Type of Procedure Debridement -Clinical Debridement Subcutaneous -Post Debridement Size (cm) - Length 3.9 -Post Debridement Size (cm) - Width 4.7 -Post Debridement Size (cm) - Depth 0.1 -Total Square Cm 18.33 -Wound/Ulcer Outcome Not Healed -Ulcer Cleansing Rinsed/ Irrigated with Saline -Foul Odor after Cleansing No -Bioengineered Tissue No -Bleeding Controlled with Pressure -Offloading No -Treatment Response Procedure Tolerated Well [See Physician Procedure note for Specifics] Pain Scale: 0-10 Numeric [Pain] -Is Patient Pain Free? Yes Musculoskeletal: No Tenderness to Palpation of Joints or Extremities Lymphatic: No Cervical, Supraclavicular, or Inguinal Adenopathy Neurological: Cranial nerves II-XII grossly intact, Neuro grossly intact Psych/Mental Status: Normal Affect, Appropriate Debridement Note Post-Debridement Measurements/Treatment WC - Nurse 2 - General Ulcer CM Notes Start: 08/08/19 10:19 Freq: Status: Active Protocol: Activity Type Activity Date Activity User E-Sign Co-Sign Detail Recorded Client Recorded Date Recorded By Document 08/08/19 10:54 MW [id number] 08/08/19 11:00 MW 08/08/19 10:54 Wound Center Nurse 2 #1- R KNEE HEMATOMA (POST FALL) -Time 10:56 -Correct Patient Yes -Correct Side, Site, Position Yes -Correct Procedure Yes -Procedure Performed Yes -Type of Procedure Debridement -Clinical Debridement Subcutaneous -Post Debridement Size (cm) - Length 3.9 -Post Debridement Size (cm) - Width 4.7 -Post Debridement Size (cm) - Depth 0.1 -Total Square Cm 18.33 -Wound/Ulcer Outcome Not Healed -Ulcer Cleansing Rinsed/ Irrigated with Saline -Foul Odor after Cleansing No -Bioengineered Tissue No -Bleeding Controlled with Pressure -Offloading No -Treatment Response Procedure Tolerated Well Pain Scale: 0-10 Numeric Is Patient Pain Free? Yes Wound debrided: Right lateral knee Type of Debridement: Excisional debridement Anesthesia Used: 5% Lidocaine Gel Depth: Down to and including healthy tissue Instrument Used: 7mm curette Tissue Removed: Devitalized tissue and slough Severity: Fat Layer Exposed Amount of bleeding with debridement: Mild Bleeding Controlled with: Compression and gauze Patient tolerated procedure well Assessment/Plan Aerobic and anaerobic cultures obtained Active Problems (Last Updated 07/20/19 @ 08:[address] Jasiel Wright MD) Traumatic open wound of right lower leg with delayed healing (Acute) Nonhealing nonsurgical wound limited to breakdown of skin (Acute) Lower extremity edema (Acute) Assessment: Long-term blood thinner therapy of Coumadin. Morbid obesity. Hematoma. Edema right leg. Nonhealing open wound from trauma right lower leg Plan: Wash the right leg with antibacterial soap. Apply Aquacel extra to the wound base moistened cover with Adaptic. Gauze, Augusto, double layer Tubigrip. Cultures obtained will call with results. Follow-up in 1 week
[2019-08-15 10:54] VITALS: BP 152/65; PULSE 64; RESP 18; TEMP 36.3; BMI 38.5
--- NOTE | 2019-08-15 11:30 | PN.PCM_ITS ---
(1) Traumatic open wound of right lower leg with delayed healing Status: Acute Current Visit: Yes Code(s): S81.801D - Unspecified open wound, right lower leg, subsequent encounter (2) Hematoma of right lower leg Status: Acute Current Visit: Yes Code(s): S80.11XA - Contusion of right lower leg, initial encounter (3) Obesity Status: Chronic Current Visit: Yes Code(s): E66.9 - Obesity, unspecified (4) On Coumadin for atrial fibrillation Status: Chronic Current Visit: Yes Code(s): I48.91 - Unspecified atrial fibrillation; Z79.01 - nursing home (current) use of anticoagulants (5) Pulmonary embolism Status: Chronic Current Visit: Yes Code(s): I26.99 - Other pulmonary embolism without acute cor pulmonale (6) Nonhealing nonsurgical wound limited to breakdown of skin Status: Acute Current Visit: Yes Code(s): T14.8XXA - Other injury of unspecified body region, initial encounter (7) Lower extremity edema Status: Acute Current Visit: Yes Code(s): R60.0 - Localized edema Type of Wound Date of Service: 08/15/19 Chief Complaint: Follow-up right nonhealing open wound right knee area from fall History of Wound: 79-year-old white female on her last day of physical therapy fell in the parking lot of [facility]. She developed a hematoma on her right knee after falling 8 weeks ago. She went to the emergency room and was admitted because she is on Coumadin and she developed a huge hematoma. The area is now open and she still has hematoma above and below with some warmth tender skin in the peripheral area of the wound. She denies fever or chills. Progress of Wound: Right lateral lower leg traumatic wound is slightly smaller developing new cells in the wound base. Did well bled easily improving with smaller measurements. Cultures were positive and started on antibiotics. - Physical Exam Vital Signs Temp Pulse Resp BP 97.4 F L 64 18 152/65 H 08/15/19 10:54 08/15/19 10:54 08/15/19 10:54 08/15/19 10:54 General: Oriented x3, Cooperative, Well developed HEENT: Atraumatic, PERRLA Oral: Moist Mucosa Neck: Supple, No JVD Lungs: Clear to auscultation, Normal air movement Cardiovascular: Regular rate, Regular Rhythm Abdomen: Bowel Sounds Present, Soft, Non Tender, No Hepato-splenomegaly Extremities: No clubbing, No edema Skin: Ulcer/ Wound - Traumatic wound right lateral lower leg Wound Measurements and Assessment WC - Nurse 1 - General Ulcer Measurement Start: 08/08/19 10:19 Freq: Status: Active Protocol: Activity Type Activity Date Activity User E-Sign Co-Sign Detail Recorded Client Recorded Date Recorded By Document 08/15/19 10:54 RB [id number] 08/15/19 10:57 RB 08/15/19 10:54 Wound Center Nurse 1 [Ulcer Assessment] #1- R KNEE HEMATOMA (POST FALL) -Combined with other wound No -Current Size (cm) - Length 4 -Current Size (cm) - Width 3.5 -Current Size (cm) - Depth 0.1 -Total Square Cm 14.0 -Tunneling No -Undermining/Tunneling No -Circular Undermining No -Exudate Amt Small -Exudate Type Serosanguineous -Wound Margin Flat & Intact -Granulation Amt Medium (34-66%) -Granulation Quality Red -Slough/Fibrin Yes -Necrosis Amt Small (1-33%) -Necrotic Tissue Type Adherent Slough -Structure Exposed N/A -Texture (Vidya-wound Skin Appearance) Assessed, Scarring -Moisture (Vidya-wound Skin Appearance Assessed ) -Color (Vidya-wound Skin Appearance) Assessed -Temperature (Vidya-wound Skin No Abnormality Appearance) (Pt Warm) -Tenderness on Palpation (Vidya-wound No Skin Appearance) -Ulcer Cleansing Wound Cleanser -Foul Odor after Cleansing No -Anesthetic Used 4% Lidocaine Solution [Edema Assessment] -Lower Limb Edema Present Yes -Right Calf (cm) 50.5 -Right Ankle (cm) 26.5 WC - Nurse 2 - General Ulcer CM Notes Start: 08/08/19 10:19 Freq: Status: Active Protocol: Activity Type Activity Date Activity User E-Sign Co-Sign Detail Recorded Client Recorded Date Recorded By Document 08/15/19 11:05 MW [id number] 08/15/19 11:06 MW 08/15/19 11:05 Wound Center Nurse 2 [Procedure/Treatment] #1- R KNEE HEMATOMA (POST FALL) -Time 11:05 -Correct Patient Yes -Correct Side, Site, Position Yes -Correct Procedure Yes -Procedure Performed Yes -Type of Procedure Debridement -Clinical Debridement Subcutaneous -Post Debridement Size (cm) - Length 4.0 -Post Debridement Size (cm) - Width 4.0 -Post Debridement Size (cm) - Depth 0.2 -Total Square Cm 16.00 -Wound/Ulcer Outcome Not Healed -Ulcer Cleansing Rinsed/ Irrigated with Saline -Foul Odor after Cleansing No -Bioengineered Tissue No -Bleeding Controlled with Pressure -Offloading No -Treatment Response Procedure Tolerated Well [See Physician Procedure note for Specifics] Pain Scale: 0-10 Numeric [Pain] -Is Patient Pain Free? Yes Musculoskeletal: No Tenderness to Palpation of Joints or Extremities Lymphatic: No Cervical, Supraclavicular, or Inguinal Adenopathy Neurological: Cranial nerves II-XII grossly intact, Neuro grossly intact Psych/Mental Status: Normal Affect, Appropriate Debridement Note Post-Debridement Measurements/Treatment WC - Nurse 2 - General Ulcer CM Notes Start: 08/08/19 10:19 Freq: Status: Active Protocol: Activity Type Activity Date Activity User E-Sign Co-Sign Detail Recorded Client Recorded Date Recorded By Document 08/08/19 10:54 MW [id number] 08/08/19 11:00 MW Document 08/15/19 11:05 MW [id number] 08/15/19 11:06 MW 08/08/19 08/15/19 10:54 11:05 Wound Center Nurse 2 #1- R KNEE HEMATOMA (POST FALL) -Time 10:56 11:05 -Correct Patient Yes Yes -Correct Side, Site, Position Yes Yes -Correct Procedure Yes Yes -Procedure Performed Yes Yes -Type of Procedure Debridement Debridement -Clinical Debridement Subcutaneous Subcutaneous -Post Debridement Size (cm) - Length 3.9 4.0 -Post Debridement Size (cm) - Width 4.7 4.0 -Post Debridement Size (cm) - Depth 0.1 0.2 -Total Square Cm 18.33 16.00 -Wound/Ulcer Outcome Not Healed Not Healed -Ulcer Cleansing Rinsed/ Rinsed/ Irrigated with Irrigated with Saline Saline -Foul Odor after Cleansing No No -Bioengineered Tissue No No -Bleeding Controlled with Pressure Pressure -Offloading No No -Treatment Response Procedure Procedure Tolerated Well Tolerated Well Pain Scale: 0-10 Numeric Is Patient Pain Free? Yes Yes Wound debrided: Headache right lower leg wound Type of Debridement: Excisional debridement Anesthesia Used: 5% Lidocaine Gel Depth: Down to and including healthy tissue, in the subcutaneous layer Percentage of wound debrided: 100 Instrument Used: 5mm curette Tissue Removed: Fibrin Severity: Limited To Skin Breakdown Amount of bleeding with debridement: Mild Bleeding Controlled with: Compression and gauze Patient tolerated procedure well Assessment/Plan Active Problems (Last Updated 07/20/19 @ 08:[address] Jasiel Wright MD) Traumatic open wound of right lower leg with delayed healing (Acute) Nonhealing nonsurgical wound limited to breakdown of skin (Acute) Lower extremity edema (Acute) Hematoma of right lower leg (Acute) On Coumadin for atrial fibrillation (Chronic) Obesity (Chronic) Pulmonary embolism (Chronic) Assessment: Long-term blood thinner therapy of Coumadin. Morbid obesity. Hematoma. Edema right leg. Nonhealing open wound from trauma right lower leg Plan: Wash the right leg with antibacterial soap. Apply Aquacel extra to the wound base moistened cover with Adaptic. Gauze, Augusto, single layer Tubigrip. Continue doxycycline 100 mg p.o. twice daily for 14 days. Follow-up in 1 week
[2019-08-22 10:47] VITALS: RESP 16; TEMP 36.8; BMI 38.5
--- NOTE | 2019-08-22 11:18 | PN.PCM_ITS ---
(1) Traumatic open wound of right lower leg with delayed healing Status: Acute Current Visit: Yes Code(s): S81.801D - Unspecified open wound, right lower leg, subsequent encounter (2) Hematoma of right lower leg Status: Acute Current Visit: Yes Code(s): S80.11XA - Contusion of right lower leg, initial encounter (3) Obesity Status: Chronic Current Visit: Yes Code(s): E66.9 - Obesity, unspecified (4) On Coumadin for atrial fibrillation Status: Chronic Current Visit: Yes Code(s): I48.91 - Unspecified atrial fibrillation; Z79.01 - longterm (current) use of anticoagulants (5) Pulmonary embolism Status: Chronic Current Visit: Yes Code(s): I26.99 - Other pulmonary embolism without acute cor pulmonale (6) Nonhealing nonsurgical wound limited to breakdown of skin Status: Acute Current Visit: Yes Code(s): T14.8XXA - Other injury of unspecified body region, initial encounter (7) Lower extremity edema Status: Acute Current Visit: Yes Code(s): R60.0 - Localized edema Type of Wound Date of Service: 08/22/19 Chief Complaint: Follow-up right nonhealing open wound right knee area from fall History of Wound: 79-year-old white female on her last day of physical therapy fell in the parking lot of [facility]. She developed a hematoma on her right knee after falling 8 weeks ago. She went to the emergency room and was admitted because she is on Coumadin and she developed a huge hematoma. The area is now open and she still has hematoma above and below with some warmth tender skin in the peripheral area of the wound. She denies fever or chills. Progress of Wound: Right lateral lower leg traumatic wound is smaller developing new cells in the wound base. Doing well no complications right lower leg appears less contused and less swollen. Patient has completed her antibiotic therapy - Physical Exam Vital Signs Temp Pulse Resp BP 98.2 F 64 16 152/65 H 08/22/19 10:47 08/15/19 10:54 08/22/19 10:47 08/15/19 10:54 General: Oriented x3, Cooperative, Well developed HEENT: Atraumatic, PERRLA Oral: Moist Mucosa Neck: Supple, No JVD Lungs: Clear to auscultation, Normal air movement Cardiovascular: Regular rate, Regular Rhythm Abdomen: Bowel Sounds Present, Soft, Non Tender, No Hepato-splenomegaly Extremities: No clubbing, No edema Skin: Ulcer/ Wound - Traumatic wound right lateral lower leg Wound Measurements and Assessment WC - Nurse 1 - General Ulcer Measurement Start: 08/08/19 10:19 Freq: Status: Active Protocol: Activity Type Activity Date Activity User E-Sign Co-Sign Detail Recorded Client Recorded Date Recorded By Document 08/22/19 10:47 BM [id number] 08/22/19 10:56 BMF 08/22/19 10:47 Wound Center Nurse 1 [Ulcer Assessment] #1- R KNEE HEMATOMA (POST FALL) -Combined with other wound No -Current Size (cm) - Length 2.5 -Current Size (cm) - Width 3.8 -Current Size (cm) - Depth 0.2 -Total Square Cm 9.50 -Photo Taken No -Epithelialization Small 1-33% -Tunneling No -Undermining/Tunneling No -Circular Undermining No -Exudate Amt Medium -Exudate Type Sanguineous -Wound Margin Distinct, Outline Attached -Granulation Amt Large (67-100%) -Granulation Quality Red -Slough/Fibrin Yes -Necrosis Amt Small (1-33%) -Necrotic Tissue Type Adherent Slough -Texture (Vidya-wound Skin Appearance) Assessed, Scarring -Moisture (Vidya-wound Skin Appearance Assessed,Dry/ ) Scaly -Color (Vidya-wound Skin Appearance) Assessed -Temperature (Vidya-wound Skin No Abnormality Appearance) (Pt Warm) -Tenderness on Palpation (Vidya-wound No Skin Appearance) -Ulcer Cleansing Rinsed/ Irrigated with Saline -Foul Odor after Cleansing No -Anesthetic Used 4% Lidocaine Solution [Edema Assessment] -Lower Limb Edema Present Yes -Right Calf (cm) 50.5 -Right Ankle (cm) 26.5 WC - Nurse 2 - General Ulcer CM Notes Start: 08/08/19 10:19 Freq: Status: Active Protocol: Activity Type Activity Date Activity User E-Sign Co-Sign Detail Recorded Client Recorded Date Recorded By Document 08/22/19 11:04 MW [id number] 08/22/19 11:05 MW 08/22/19 11:04 Wound Center Nurse 2 [Procedure/Treatment] #1- R KNEE HEMATOMA (POST FALL) -Time 11:04 -Correct Patient Yes -Correct Side, Site, Position Yes -Correct Procedure Yes -Procedure Performed Yes -Type of Procedure Debridement -Clinical Debridement Subcutaneous -Post Debridement Size (cm) - Length 3.0 -Post Debridement Size (cm) - Width 3.8 -Post Debridement Size (cm) - Depth 0.2 -Total Square Cm 11.40 -Wound/Ulcer Outcome Not Healed -Ulcer Cleansing Rinsed/ Irrigated with Saline -Foul Odor after Cleansing No -Bioengineered Tissue No -Bleeding Controlled with Pressure -Offloading No -Treatment Response Procedure Tolerated Well [See Physician Procedure note for Specifics] Pain Scale: 0-10 Numeric [Pain] -Is Patient Pain Free? Yes Musculoskeletal: No Tenderness to Palpation of Joints or Extremities Lymphatic: No Cervical, Supraclavicular, or Inguinal Adenopathy Neurological: Cranial nerves II-XII grossly intact, Neuro grossly intact Psych/Mental Status: Normal Affect, Appropriate Debridement Note Post-Debridement Measurements/Treatment WC - Nurse 2 - General Ulcer CM Notes Start: 08/08/19 10:19 Freq: Status: Active Protocol: Activity Type Activity Date Activity User E-Sign Co-Sign Detail Recorded Client Recorded Date Recorded By Document 08/08/19 10:54 MW [id number] 08/08/19 11:00 MW Document 08/15/19 11:05 MW [id number] 08/15/19 11:06 MW Document 08/22/19 11:04 MW [id number] 08/22/19 11:05 MW 08/08/19 08/15/19 08/22/19 10:54 11:05 11:04 Wound Center Nurse 2 #1- R KNEE HEMATOMA (POST FALL) -Time 10:56 11:05 11:04 -Correct Patient Yes Yes Yes -Correct Side, Site, Position Yes Yes Yes -Correct Procedure Yes Yes Yes -Procedure Performed Yes Yes Yes -Type of Procedure Debridement Debridement Debridement -Clinical Debridement Subcutaneous Subcutaneous Subcutaneous -Post Debridement Size (cm) - Length 3.9 4.0 3.0 -Post Debridement Size (cm) - Width 4.7 4.0 3.8 -Post Debridement Size (cm) - Depth 0.1 0.2 0.2 -Total Square Cm 18.33 16.00 11.40 -Wound/Ulcer Outcome Not Healed Not Healed Not Healed -Ulcer Cleansing Rinsed/ Rinsed/ Rinsed/ Irrigated with Irrigated with Irrigated with Saline Saline Saline -Foul Odor after Cleansing No No No -Bioengineered Tissue No No No -Bleeding Controlled with Pressure Pressure Pressure -Offloading No No No -Treatment Response Procedure Procedure Procedure Tolerated Well Tolerated Well Tolerated Well Pain Scale: 0-10 Numeric Is Patient Pain Free? Yes Yes Yes Wound debrided: Right lateral lower leg Type of Debridement: Excisional debridement Anesthesia Used: 5% Lidocaine Gel Depth: Down to and including healthy tissue, in the subcutaneous layer Percentage of wound debrided: 100 Instrument Used: 5mm curette Tissue Removed: Fibrin Severity: Limited To Skin Breakdown Amount of bleeding with debridement: Mild Bleeding Controlled with: Compression and gauze Patient tolerated procedure well Assessment/Plan Active Problems (Last Reviewed 08/17/19 @ 15:19 by KRISTA Lance) Traumatic open wound of right lower leg with delayed healing (Acute) Nonhealing nonsurgical wound limited to breakdown of skin (Acute) Lower extremity edema (Acute) Hematoma of right lower leg (Acute) On Coumadin for atrial fibrillation (Chronic) Obesity (Chronic) Pulmonary embolism (Chronic) Assessment: Long-term blood thinner therapy of Coumadin. Morbid obesity. Hematoma. Edema right leg. Nonhealing open wound from trauma right lower leg Plan: Wash the right leg with antibacterial soap. Apply Aquacel extra to the wound base moistened cover with Adaptic. Gauze, Augusto, single layer Tubigrip. Follow-up in 1 week
[2019-08-29 11:24] VITALS: BP 152/76; PULSE 54; RESP 18; TEMP 36.7; BMI 38.5
--- NOTE | 2019-08-29 12:24 | PN.PCM_ITS ---
(1) Traumatic open wound of right lower leg with delayed healing Status: Acute Current Visit: Yes Code(s): S81.801D - Unspecified open wound, right lower leg, subsequent encounter (2) Hematoma of right lower leg Status: Acute Current Visit: Yes Code(s): S80.11XA - Contusion of right lower leg, initial encounter (3) Obesity Status: Chronic Current Visit: Yes Code(s): E66.9 - Obesity, unspecified (4) On Coumadin for atrial fibrillation Status: Chronic Current Visit: Yes Code(s): I48.91 - Unspecified atrial fibrillation; Z79.01 - snf (current) use of anticoagulants (5) Pulmonary embolism Status: Chronic Current Visit: Yes Code(s): I26.99 - Other pulmonary embolism without acute cor pulmonale (6) Nonhealing nonsurgical wound limited to breakdown of skin Status: Acute Current Visit: Yes Code(s): T14.8XXA - Other injury of unspecified body region, initial encounter (7) Lower extremity edema Status: Acute Current Visit: Yes Code(s): R60.0 - Localized edema Type of Wound Date of Service: 08/29/19 Chief Complaint: Follow-up right nonhealing open wound right knee area from fall History of Wound: 79-year-old white female on her last day of physical therapy fell in the parking lot of [facility]. She developed a hematoma on her right knee after falling 8 weeks ago. She went to the emergency room and was admitted because she is on Coumadin and she developed a huge hematoma. The area is now open and she still has hematoma above and below with some warmth tender skin in the peripheral area of the wound. She denies fever or chills. Progress of Wound: Right lateral lower leg traumatic wound is smaller developing new cells in the wound base. Doing well no complications right lower leg appears less contused and less swollen. Patient has completed her antibiotic therapy - Physical Exam Vital Signs Temp Pulse Resp BP 98.0 F 54 L 18 152/76 H 08/29/19 11:24 08/29/19 11:24 08/29/19 11:24 08/29/19 11:24 General: Oriented x3, Cooperative, Well developed HEENT: Atraumatic, PERRLA Oral: Moist Mucosa Neck: Supple, No JVD Lungs: Clear to auscultation, Normal air movement Cardiovascular: Regular rate, Regular Rhythm Abdomen: Bowel Sounds Present, Soft, Non Tender, No Hepato-splenomegaly Extremities: No clubbing, No edema, - - Right lateral lower leg traumatic wound Wound Measurements and Assessment WC - Nurse 1 - General Ulcer Measurement Start: 08/08/19 10:19 Freq: Status: Active Protocol: Activity Type Activity Date Activity User E-Sign Co-Sign Detail Recorded Client Recorded Date Recorded By Document 08/29/19 11:24 BS [id number] 08/29/19 11:33 BS 08/29/19 11:24 Wound Center Nurse 1 [Ulcer Assessment] #1- R KNEE HEMATOMA (POST FALL) -Combined with other wound No -Current Size (cm) - Length 1.9 -Current Size (cm) - Width 2.7 -Current Size (cm) - Depth 0.2 -Total Square Cm 5.13 -Photo Taken No -Granulation Quality [place],Red -Texture (Vidya-wound Skin Appearance) Assessed, Localized Edema ,Scarring -Moisture (Vidya-wound Skin Appearance Assessed,Dry/ ) Scaly -Color (Vidya-wound Skin Appearance) Assessed, Hemosiderin Staining -Temperature (Vidya-wound Skin No Abnormality Appearance) (Pt Warm) -Tenderness on Palpation (Vidya-wound No Skin Appearance) -Ulcer Cleansing Soap and water -Foul Odor after Cleansing No -Anesthetic Used 4% Lidocaine Solution [Edema Assessment] -Lower Limb Edema Present Yes -Right Calf (cm) 48.0 -Point of measurement (cm from the 24.0 medial instep) -Right Ankle (cm) 26.5 -Point of Measurement (cm from the 4.0 medial instep) -Left Calf (cm) 41.5 -Point of measurement (cm from the 26.0 medial instep) -Left Ankle (cm) 27.0 -Point of Measurement (cm from the 4.0 medial instep) Musculoskeletal: No Tenderness to Palpation of Joints or Extremities Lymphatic: No Cervical, Supraclavicular, or Inguinal Adenopathy Neurological: Cranial nerves II-XII grossly intact, Neuro grossly intact Psych/Mental Status: Normal Affect, Appropriate Debridement Note Post-Debridement Measurements/Treatment WC - Nurse 2 - General Ulcer CM Notes Start: 08/08/19 10:19 Freq: Status: Active Protocol: Activity Type Activity Date Activity User E-Sign Co-Sign Detail Recorded Client Recorded Date Recorded By Document 08/08/19 10:54 MW [id number] 08/08/19 11:00 MW Document 08/15/19 11:05 MW [id number] 08/15/19 11:06 MW Document 08/22/19 11:04 MW [id number] 08/22/19 11:05 MW 08/08/19 08/15/19 08/22/19 10:54 11:05 11:04 Wound Center Nurse 2 #1- R KNEE HEMATOMA (POST FALL) -Time 10:56 11:05 11:04 -Correct Patient Yes Yes Yes -Correct Side, Site, Position Yes Yes Yes -Correct Procedure Yes Yes Yes -Procedure Performed Yes Yes Yes -Type of Procedure Debridement Debridement Debridement -Clinical Debridement Subcutaneous Subcutaneous Subcutaneous -Post Debridement Size (cm) - Length 3.9 4.0 3.0 -Post Debridement Size (cm) - Width 4.7 4.0 3.8 -Post Debridement Size (cm) - Depth 0.1 0.2 0.2 -Total Square Cm 18.33 16.00 11.40 -Wound/Ulcer Outcome Not Healed Not Healed Not Healed -Ulcer Cleansing Rinsed/ Rinsed/ Rinsed/ Irrigated with Irrigated with Irrigated with Saline Saline Saline -Foul Odor after Cleansing No No No -Bioengineered Tissue No No No -Bleeding Controlled with Pressure Pressure Pressure -Offloading No No No -Treatment Response Procedure Procedure Procedure Tolerated Well Tolerated Well Tolerated Well Pain Scale: 0-10 Numeric Is Patient Pain Free? Yes Yes Yes Wound debrided: Lateral lower leg traumatic wound Type of Debridement: Excisional debridement Anesthesia Used: 5% Lidocaine Gel Depth: Down to and including healthy tissue, in the subcutaneous layer Percentage of wound debrided: 100 Instrument Used: 5mm curette Tissue Removed: Fibrin Severity: Limited To Skin Breakdown Amount of bleeding with debridement: Mild Patient tolerated procedure well Assessment/Plan Active Problems (Last Reviewed 08/17/19 @ 15:19 by KRISTA Lance) Traumatic open wound of right lower leg with delayed healing (Acute) Nonhealing nonsurgical wound limited to breakdown of skin (Acute) Lower extremity edema (Acute) Hematoma of right lower leg (Acute) On Coumadin for atrial fibrillation (Chronic) Obesity (Chronic) Pulmonary embolism (Chronic) Assessment: Long-term blood thinner therapy of Coumadin. Morbid obesity. Hematoma. Edema right leg. Nonhealing open wound from trauma right lower leg Plan: Wash the right leg with antibacterial soap. Apply Aquacel extra to the wound base moistened cover with. Gauze, Augusto, single layer Tubigrip. Follow- up in 1 week
== END 2019-09-04 23:59 ==
LOC: WC 11:15
PROVIDERS: PCP Family Medicine; Visit Provider Nurse Practitioner
DX: S80.11XA Contusion of right lower leg, initial encounter (principal); Z86.711 Personal history of pulmonary embolism; R60.0 Localized edema; W19.XXXA Unspecified fall, initial encounter; I48.0 Paroxysmal atrial fibrillation; I10 Essential (primary) hypertension; Z79.899 Other long term (current) drug therapy; Z79.82 Long term (current) use of aspirin; Z87.891 Personal history of nicotine dependence; E66.01 Morbid (severe) obesity due to excess calories; Z79.01 Long term (current) use of anticoagulants
CPT/HCPCS: 11042; 87070; 87075; 87077; 87186; 87205; 99213; G0463

== ENCOUNTER → 2019-09-03 08:48 | Outpatient (CLI) | payer MEDICARE, OTHER, SELFPAY ==
[2019-09-03 08:48] VITALS: BMI 39.6
[2019-09-03 09:56] LABS: Absolute Lymphocyte Count 2.42 X10^3/uL (0.83-4.51); Absolute Neutrophil Count 4.9 X10^3/uL (2.0-7.7); Basophil# 0.04 X10^3/uL; Basophil% 0.5 % (0-1); Eosinophil# 0.18 X10^3/uL; Eosinophils% 2.2 % (0-5); Hematocrit 38.5 % (37-47); Hemoglobin 12.2 g/dL (12.0-15.0); Lymphocyte # 2.42 X10^3/ul (4.0); Lymphocyte % 28.9 % (19-41); Mean Corp Hgb Conc 31.7 g/dL (32-36); Mean Corpuscular Hgb 31.2 pg (27.0-32.0); Mean Corpuscular Volume 98.5 fL (81-99); Monocyte# 0.85 X10^3/uL; Monocyte% 10.2 % (0-10); NRBC Flagged by Analyzer 0 % (0-5); Neutrophil # 4.85 X10^3/uL (2.7-7.7); Platelet Count 301 K/mm3 (150-450); RBC Distribution Width CV 14.8 % (11.6-14.6); RBC Distribution Width SD 53.1 fl (35.1-43.9); Red Blood Count 3.91 M/mm3 (4.2-5.4); White Blood Count 8.4 K/mm3 (4.4-11.0)
[2019-09-03 10:10] LABS: ALB/GLOB Ratio 0.8 RATIO (0.9-2.4); AST(SGOT) 19 U/L (15-37); Alanine Aminotransfer ALT/SGPT 22 U/L (13-56); Albumin, Serum 3.1 g/dL (3.2-5.0); Alkaline Phosphatase 69 U/L (45-117); Anion Gap 7 (5-15); BUN 31 mg/dL (7-18); BUN/Creat Ratio 38.5 RATIO (10-20); Chloride 108 mmol/L (98-107); Cholesterol 162 mg/dL (200); EST Glomerular Filtration Rate 73 mL/min (>60); Est Glom Filt Rate - Afr Amer 88 mL/min (>60); Globulin 3.8 g/dL (2.2-4.2); Glucose 90 mg/dL (74-106); High Density Lipoprotein 55 mg/dL; Potassium 3.9 mmol/L (3.5-5.1); Protein, Total 6.9 g/dL (6.4-8.2); Sodium Level 139 mmol/L (136-145); Triglycerides 245 mg/dL; Very Low Density Lipoprotein 49 mg/dL (5-40)
== END ==
PROVIDERS: PCP Family Medicine; Referring Provider Family Medicine; Visit Provider Family Medicine
DX: I48.0 Paroxysmal atrial fibrillation (principal); I10 Essential (primary) hypertension
CPT/HCPCS: 36415; 80053; 80061; 85025

== ENCOUNTER 2019-09-18 10:00 | Outpatient (RCR) | payer MEDICARE, OTHER, SELFPAY ==
[2018-10-26 14:22] VITALS: BMI 39.9
--- NOTE | 2019-04-27 12:05 | HP.PTEVAL ---
Patient's Visit Information ESPERANZA LUCERO is a 79 year old F referred to Physical Therapy by Forrest Olivares PA-C with a diagnosis of LOW BACK PAIN AND LEFT HIP OA.. Date of Evaluation: 04/27/19 Physical Therapist: Linda Gomez, PT, Cert MDT - Visit Plan Frequency: 2x /Week Duration: 4-6 Weeks Plan: AQUATIC THERAPY FOR PAIN RELEIF, POSTURE CORRECTION/STRENGTHENING, INSTRUCTION IN APPROPRIATE BODY MECHANICS AND ACTIVITY MODIFICATIONS. DLS STARTING WITH A NEUTRAL SPINE PROGRESSING ROM TOLERATED. MELYSSA LE ROM, STRETCHING AND STRENGTHENING. HEP INSTRUCTION. - Subjective Findings: Work/Leisure: RETIRED. Present symptoms: LEFT HIP PAIN IS CHEIF COMPLAINT. INTERMITTENT LBP. Present since: LESS THAN A YEAR. Pain Scale: WORST 8/10, LEAST 0/10. Currently: 0/10. WALKING IN TODAY 4/10 PAIN LEFT HIP WITH TYLONOL. Commenced as a result of: PATIENT REPORTS SHE THINKS IT MIGHT BE FROM A MEDICATION SIDE EFFECT. SHE PLANS TO DISCUSS WITH HER DOCTOR WHEN THEY RETURN HER CALL. Symptoms at onset: LOW BACK. Worse: STANDING, WALKING, BENDING TO FOLD CLOTHERS, BENDING TO DO DISHES, PROLONGED SITTING, INITIATING GAIT AFTER SITTING, MOVING THE WRONG WAY. Better: TYLONOL, CHANGE OF POSITION. Disturbed sleep: YES. Previous history/Previous treatment: UNREMARKABLE. NO BACK OR HIP SX. NO BACK OR HIP INJECTIONS YET. EMANUEL'T PENDING WITH DR. DAVIS TO CONSIDER INJECTION. Coughing/sneezing/straining: NEGATIVE. Gait: I SHUFFLE. LIMPING ON LLE. 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 Difficulty initiating urinatin: NO. Accidents: NO. Unexplained weight loss: NO. Imaging: RECENT X-RAYS SHOWING BACK AND HIP ARTHRITIS. OTHER: PATIENT REPORTS SHE IS NOT A CANDIDATE FOR SURGERY FOR HER HIP (OR BACK). 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 - Objective Sitting/Standing Posture: POOR. Lordosis: REDUCED. Lateral shift: NO. Relevant shift: N/A. Active Correction of posture: NE. Other Observations: INDEP GAIT WITHOUT AD INTO PT WITH SHUFFLE TYPE PATTERN - VERY SHORT MELYSSA STRIDE LENGTH AND DECREASED CADANCE BUT NO LOB. Motor deficit: MELYSSA LE'S GROSSLY 4/5 WITH MMT'ING. Sensory deficit: MELYSSA LE LIGHT TOUCH SENSATION INTACT. ROM deficit: TIGHT MELYSSA HIPS LEFT > RIGHT ESPECIALLY LEFT HIP IR. Reflexes: NT. Dural Signs: NEGATIVE MELYSSA LE'S. Lumbar mvmt loss: flex - MIN. ext - ADAIR. R SG - ADAIR. L SG - ADAIR. Core strength: POOR. Palpation: TENDERNESS WITH PALPATION OF THE LEFT LATERAL HIP REGION BUT NOT REALLY TENDER IN HER LOW BACK OR SACRAL REGIONS. TREATMENT: NEUROMUSCULAR REEDUCATION - RETRAINING OF MVMT AND POSTURE FOR SITTING, LYING AND STANDING ACTIVITIES. 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 - Goals Goal 1:: DECREASE C/O LOW BACK AND LLE SX'S Goal Time Frame: 4-6 Weeks Goal 2:: IMPROVE STANDING AND WALKING FUNCTION Goal Time Frame: 4-6 Weeks Goal 3:: INSTRUCT IN PROPHYLAXIS Goal Time Frame: 4-6 Weeks - Rehabilitation Potential Rehabilitation Potential: Fair - Anticipated Interventions Patient/Client Instruction: Educate patient on: Condition, Plan of Care, Risk Factors, Benefits of Fitness Program For the Purpose of:: To improve self management Therapeutic Exercise to Include: Strength training, Body mechanics, Postural training, Flexibilty training, Gait and locomotor training, Neuromotor development, In an aquatic setting, Dynamic Lumbar Stabilization For the Purpose of:: To decrease pain, To increase ROM, To improve muscle performance and motor function, To increase tolerance to activity/condition/position, To improve ability of physical actions for home/community/work/leisure, To improve gait and locomotor functions Thank you for the opportunity to evaluate your patient. For Medicare and Medicare HMO plans, please review the plan of care and approve it. It will need to be FAXED BACK to us at [phone] for Medicare purposes. For Medicare only, by signing this I certify the plan of care. Please let me know if there are questions or concerns regarding this plan of care. Physician Signature: Date:
--- NOTE | 2019-05-25 11:59 | HP.PTREVAL_ITS ---
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 Please see the progress note below for an update on the physical therapy plan of care! Subjective: PATIENT REPORTS SHE IS WALKING BETTER. STATES THAT SHE IS ALMOST BACK TO WHERE SHE WAS BEFORE (BEFORE IT GOT WORSE) BUT NOT BACK TO WHERE SHE WAS BEFORE THE ONSET OF THIS ABOUT A YEAR AGO. STATES SHE IS DEFINATELY IMPROVING AND WANTS TO CONTINUE. STATES SHE FEELS LIKE BEING ABLE TO COME HERE FOR THERAPY IS A LIFE SAVER RIGHT NOW. PATIENT REPORTS SHE LOVES BEING IN THE WATER. STATES SHE CAN DO THINGS IN THE WATER THAT SHE CAN'T DO ON LAND. PATIENT REPORTS AUTH HAS BEEN REQUESTED FOR AN INJECTION AND SHE IS AWAITING FOR APPROVAL. Objective/Function: PATIENT WAS SEEN TODAY FOR RE-ASSESSMENT OF PROGRESS TOWARD THE SET PT GOALS AND THE NEED FOR FURTHER PHYSICAL THERAPY VS READINESS FOR DISCHARGE. PATIENT IS MAKING SLOW PROGRESS TOWARD ALL PT GOALS. WOULD RECOMMEND CONTINUED THERAPY BASED ON PROGRESS MADE AND ROOM FOR MORE IMPROVEMENT. PATIENT IS AGREEABLE. UPON EXAM TODAY: SHE DEOMO'S INDEP GAIT WITHOUT AD INTO PT WITH SHUFFLE TYPE PATTERN - VERY SHORT MELYSSA STRIDE LENGTH AND DECREASED CADANCE. PATIENT DID TRIP OVER HER LEFT FOOT ON THE WAY BACK TO PT AND REGAINED HER BAL ANCE INDEP'LY. SHE STATED I HAVE TO REMEMBER TO PICK MY FOOT UP PATIENT REPORTS SHE HAS ONLY TRIPPED LIKE THAT A COUPLE TIMES SINCE STARTING PT. PATIENT IS NOW ABLE TO TRANSFER FROM SIT TO STAND WITHOUT UE ASSIST. Motor deficit: MELYSSA LE'S GROSSLY 4/5 WITH MMT'ING. Sensory deficit: MELYSSA LE LIGHT TOUCH SENSATION INTACT. ROM deficit: TIGHT MELYSSA HIPS LEFT > RIGHT ESPECIALLY LEFT HIP IR. Reflexes: NT. Dural Signs: NEGATIVE MELYSSA LE'S. Lumbar mvmt loss: flex - MIN. ext - ADAIR. R SG - ADAIR. L SG - MOD. PATIENT C/O MILD LBP WITH RSG TESTING IN LEFT LB AND LEFT GROIN PAIN WITH LEFT SG TESTING. Core strength: POOR. Palpation: PATIENT STILL HAS MILD TENDERNESS WITH PALPATION OF THE LEFT LATERAL HIP REGION BUT NOT REALLY TENDER IN HER LOW BACK OR SACRAL REGIONS. Plan Plan: CONTINUE AQUATIC THERAPY 3X'S A WK X ONE MONTH FOR PAIN RELEIF, POSTURE CORRECTION/STRENGTHENING, INSTRUCTION IN APPROPRIATE BODY MECHANICS AND ACTIVITY MODIFICATIONS. DLS STARTING WITH A NEUTRAL SPINE PROGRESSING ROM TOLERATED. MELYSSA LE ROM, STRETCHING AND STRENGTHENING. HEP INSTRUCTION. Goals Goal 1:: DECREASE C/O LOW BACK AND LLE SX'S Goal Time Frame: 4-6 Weeks Goal Progress: Progressing Goal 2:: IMPROVE STANDING AND WALKING FUNCTION Goal Time Frame: 4-6 Weeks Goal Progress: Progressing Goal 3:: INSTRUCT IN PROPHYLAXIS Goal Time Frame: 4-6 Weeks Goal Progress: Progressing Anticipated Interventions Patient/Client Instruction: Educate patient on: Condition, Plan of Care, Risk Factors, Benefits of Fitness Program For the Purpose of:: To improve self management Therapeutic Exercise to Include: Strength training, Body mechanics, Postural training, Flexibilty training, Gait and locomotor training, Neuromotor development, In an aquatic setting, Dynamic Lumbar Stabilization For the Purpose of:: To decrease pain, To increase ROM, To improve muscle performance and motor function, To increase tolerance to activity/condition/position, To improve ability of physical actions for home/community/work/leisure, To improve gait and locomotor functions Please do not hesitate to contact me at [phone] by phone or if you have questions or concerns regarding this new plan of care! Sincerely, Linda Gomez, PT, Cert MDT
--- NOTE | 2019-06-18 14:50 | HP.PTREVAL_ITS ---
Forrest Olivares PA-C, It has been my pleasure to treat ESPERANZA LUCERO over the last 18 visits for LOW BACK PAIN AND LEFT HIP OA.. Please see the progress note below for an update on the physical therapy plan of care! Subjective: PATIENT REPORTS SHE HAS CONTINUED TO MAKE PROGRESS SINCE LAST RE- CHECK. STATES SHE KNOWS IT IS NEVER GOING TO BE COMPLETELY BETTER. PATIENT REPORTS THAT SINCE SHE HAS CONTINUED PT SHE CAN MOVE BETTER. SHE REPORTS HER LEFT HIP IS LOOSENING UP MORE AND IT DOESN'T HURT MUCH. SHE REPORTS SHE CAN FEEL THE BENEFIT FROM THE THERAPY BUT SHE IS WORRIED ABOUT WHAT OTHER PEOPLE THINK ABOUT HER COMING. PATIENT REPORTS INCREASED PAIN ON MONDAYS AFTER GOING TWO DAYS WITHOUT THERAPY. I CAN TELL I AM BETTER FROM THE WATER THERAPY. Objective/Function: PATIENT WAS SEEN TODAY FOR RE-ASSESSMENT OF PROGRESS TOWARD THE SET PT GOALS AND THE NEED FOR FURTHER PHYSICAL THERAPY VS READINESS FOR DISCHARGE. PATIENT IS MAKING SLOW PROGRESS TOWARD ALL PT GOALS. WOULD RECOMMEND CONTINUED THERAPY BASED ON PROGRESS MADE AND ROOM FOR MORE IMPROVEMENT. PATIENT IS AGREEABLE. UPON EXAM TODAY: SHE DEOMO'S INDEP GAIT WITHOUT AD INTO PT WITH SHUFFLE TYPE PATTERN - VERY SHORT MELYSSA STRIDE LENGTH AND DECREASED CADANCE. PATIENT REPORTS SHE CAN'T REMEMBER THE LAST TIME SHE TRIPPED OVER HER RIGHT TOES - DOING BETTER. PATIENT IS NOW ABLE TO TRANSFER FROM SIT TO STAND WITHOUT UE ASSIST. Motor deficit: RIGHT LE 5/5 WITH MMT'ING. LLE GROSSLY 4/5 BUT GETTING STRONGER. Sensory deficit: MELYSSA LE LIGHT TOUCH SENSATION INTACT. ROM deficit: RIGHT HIP IR/ER IS NOW WFL AND NOT PAINFUL WITH TESTING. LEFT HIP ER IS WFL BUT IR IS STILL SIGNIFICANTLY LIMITED AND TESTING OF LEFT HIP IR AND ER PROVOKE LEFT GROIN PAIN. OVER-ALL MELYSSA LE ROM IS IMPROVED. Reflexes: NT. Dural Signs: NEGATIVE MELYSSA LE'S. Lumbar mvmt loss: flex - NIL. ext - MOD. R SG - MOD. L SG - MOD. PATIENT C/O MILD LBP WITH LSG TESTING. C/O MILD LEFT GROIN PAIN WITH RIGHT SG TESTING TODAY. Core strength: POOR. Palpation: PATIENT STILL HAS MILD TENDERNESS WITH PALPATION OF THE LEFT LATERAL HIP REGION BUT NOT REALLY TENDER IN HER LOW BACK OR SACRAL REGIONS. PATIENT TOLERATED ALL EX'S WELL TODAY. Plan Plan: (PROVIDE WRITTEN HEP FOR NEW EX'S). CONTINUE AQUATIC THERAPY DECREASING TO 2X'S A WK (AT PATIENTS REQUEST) X ONE MONTH FOR PAIN RELEIF, POSTURE CORRECTION/STRENGTHENING, INSTRUCTION IN APPROPRIATE BODY MECHANICS AND ACTIVITY MODIFICATIONS. DLS STARTING WITH A NEUTRAL SPINE PROGRESSING ROM TOLERATED. MELYSSA LE ROM, STRETCHING AND STRENGTHENING. HEP INSTRUCTION. PATIENT AGREEABLE. Goals Goal 1:: DECREASE C/O LOW BACK AND LLE SX'S Goal Time Frame: 4-6 Weeks Goal Progress: Progressing Goal 2:: IMPROVE STANDING AND WALKING FUNCTION Goal Time Frame: 4-6 Weeks Goal Progress: Progressing Goal 3:: INSTRUCT IN PROPHYLAXIS Goal Time Frame: 4-6 Weeks Goal Progress: Progressing Anticipated Interventions Patient/Client Instruction: Educate patient on: Condition, Plan of Care, Risk Factors, Benefits of Fitness Program For the Purpose of:: To improve self management Therapeutic Exercise to Include: Strength training, Body mechanics, Postural training, Flexibilty training, Gait and locomotor training, Neuromotor development, In an aquatic setting, Dynamic Lumbar Stabilization For the Purpose of:: To decrease pain, To increase ROM, To improve muscle performance and motor function, To increase tolerance to activity/condition/position, To improve ability of physical actions for home/community/work/leisure, To improve gait and locomotor functions Please do not hesitate to contact me at [phone] by phone or if you have questions or concerns regarding this new plan of care! Sincerely, Linda Gomez PT, Cert MDT
--- NOTE | 2019-09-18 10:59 | HP.PTREVAL ---
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 Please see the progress note below for an update on the physical therapy plan of care! Subjective: PATIENT REPORTS SHE CAUGHT HER TOE ON THE EDGE OF THE RUG COMING TO PT AND FELL July. SHE STATES HER MASK WAS BLOCKING HER VISION. SHE REPORTS SHE WAS HELPED UP AND FLET FINE. SHE STATES SHE WANTED TO TRY THERAPY. STATES SHE WAS FINE UNTIL AFTER THERAPY. SHE REPORTS SHE GOT LIGHT HEADED AND CALLED THE [facility]. SHE STATES SHE GOT A HEMOTOMA THAT BECAME A WOUND. FOLLOW UP EMANUEL'T AT THE WOUND CENTER TOMORROW AND SHE IS HOPING THEY SAY IT IS COMPLETELY HEALED. PATIENT REPORTS SHE CAME TO EX FIRST THE FIRST TIME LAST WEEK AND SHE HAS AN EMANUEL'T WITH [facility] AFTER PT TODAY. SHE IS TRYING TO SLOWLY GET HER STRENGTH AND ENDURRANCE UP AND WOULD LIKE TO RETURN TO [employer] CLASS SOON. SHE REPORTS THE WATER THERAPY WAS REALLY HELPING HER. STILL HAVING LEFT HIP PAIN AND IT IS GETTING WORSE AGAIN. INJECTION WITH DR. DAVIS PENDING 10/04/19. PATIENT REPORTS THE WOUND CENTER RELEASED HER TO ACTIVITY LEVEL TOLERATED AND THEY OK'D RESUMING EX AT [facility]. PATIENT REPORTS SHE MAY WANT TO CONSIDER PT AGAIN AFTER INJECTION. WOULD LIKE ME TO KEEP HER CHART OPEN UNTIL SHE KNOWS IF SHE NEEDS TO COME BACK. Objective/Function: PATIENT WAS SEEN TODAY FOR RE-ASSESSMENT OF PROGRESS TOWARD THE SET PT GOALS AND THE NEED FOR FURTHER PHYSICAL THERAPY VS READINESS FOR DISCHARGE. SHE WOULD LIKE TO TRY SLOW INDEP GYM EX WITH URINALYSIS TECHNICIAN FOR NOW AND THIS PT IS AGREEABLE. SHE MAY BE A GOOD CANDIDATE FOR AQUATIC THERAPY AGAIN ONCE WOUND IS HEALED AND PATIENT WILL CONSIDER. RECOMMENDED CANE FOR SAFETY WITH GAIT AND PATIENT AGREEABLE. UPON EXAM TODAY: SHE DEOMO'S INDEP GAIT WITHOUT AD INTO PT WITH SHUFFLE TYPE PATTERN - VERY SHORT MELYSSA STRIDE LENGTH AND DECREASED CADANCE. SHE TRANSFERS SIT TO STAND WITHOUT UE ASSIST BUT IT IS DIFFICULT. Motor deficit: I PROCEEDED CAREFULLY WITH MMT'ING. HER RIGHT LE IS WRAPPED. RIGHT LE AT LEAST 4/5 WITH MMT'ING. LLE GROSSLY 4/5 WELL. ROM deficit: RIGHT HIP IR/ER IS NOW WFL AND NOT PAINFUL WITH TESTING. LEFT HIP ER IS WFL BUT IR IS STILL SIGNIFICANTLY LIMITED AND TESTING OF LEFT HIP IR AND ER PROVOKE LEFT GROIN PAIN. Reflexes: NT. Dural Signs: NEGATIVE MELYSSA LE'S. Lumbar mvmt loss: flex - NIL. ext - MOD. R SG - MOD. L SG - MOD. PATIENT C/O MILD LBP WITH LSG TESTING. C/O MILD LEFT GROIN PAIN WITH RIGHT SG TESTING TODAY. Core strength: POOR. Palpation: PATIENT STILL HAS MILD TENDERNESS WITH PALPATION OF THE LEFT LATERAL HIP REGION BUT NOT REALLY TENDER IN HER LOW BACK OR SACRAL REGIONS BUT REPORTS INTERMITTENT LEFT LB TENDERNESS. LEFT BUTTOCK PALPATION PROVOKES LEFT GROIN PAIN. Plan Plan: HOLD PT UNTIL INJECTION 10/04/19. Goals Goal 1:: DECREASE C/O LOW BACK AND LLE SX'S Goal Time Frame: 4-6 Weeks Goal Progress: Progressing Goal 2:: IMPROVE STANDING AND WALKING FUNCTION Goal Time Frame: 4-6 Weeks Goal Progress: Progressing Goal 3:: INSTRUCT IN PROPHYLAXIS Goal Time Frame: 4-6 Weeks Goal Progress: Progressing Anticipated Interventions Patient/Client Instruction: Educate patient on: Condition, Plan of Care, Risk Factors, Benefits of Fitness Program For the Purpose of:: To improve self management Therapeutic Exercise to Include: Strength training, Body mechanics, Postural training, Flexibilty training, Gait and locomotor training, Neuromotor development, In an aquatic setting, Dynamic Lumbar Stabilization For the Purpose of:: To decrease pain, To increase ROM, To improve muscle performance and motor function, To increase tolerance to activity/condition/position, To improve ability of physical actions for home/community/work/leisure, To improve gait and locomotor functions Please do not hesitate to contact me at [phone] by phone or if you have questions or concerns regarding this new plan of care! Sincerely, Linda Gomez, PT, Cert MDT
== END 2019-09-18 19:00 | disposition home or self-care (01) ==
LOC: PT 10:00
PROVIDERS: PCP Family Medicine; Referring Provider Physician Assistant Surgical; Visit Provider Physician Assistant Surgical
DX: M16.12 Unilateral primary osteoarthritis, left hip (principal); M54.5 Low back pain
CPT/HCPCS: 97112; 97113; 97162; 97164; 97530

== ENCOUNTER 2019-09-19 10:30 | Outpatient (RCR) | payer MEDICARE, OTHER, SELFPAY ==
[2019-09-03 08:48] VITALS: BMI 39.6
[2019-09-05 00:34] VITALS: BP 152/76; PULSE 54; RESP 18; TEMP 36.7
[2019-09-05 10:50] VITALS: BP 134/66; PULSE 51; RESP 18; TEMP 36.1; BMI 39.6
--- NOTE | 2019-09-05 11:08 | PN.PCM_ITS ---
(1) Hematoma of right lower leg Status: Acute Current Visit: No Code(s): S80.11XA - Contusion of right lower leg, initial encounter (2) Lower extremity edema Status: Acute Current Visit: No Code(s): R60.0 - Localized edema (3) Nonhealing nonsurgical wound limited to breakdown of skin Status: Acute Current Visit: Yes Code(s): T14.8XXA - Other injury of unspecified body region, initial encounter (4) Traumatic open wound of right lower leg with delayed healing Status: Acute Current Visit: Yes Code(s): S81.801D - Unspecified open wound, right lower leg, subsequent encounter Type of Wound Date of Service: 09/05/19 Chief Complaint: Follow-up right nonhealing open wound right knee area from fall History of Wound: 79-year-old white female on her last day of physical therapy fell in the parking lot of [facility]. She developed a hematoma on her right knee after falling 8 weeks ago. She went to the emergency room and was admitted because she is on Coumadin and she developed a huge hematoma. The area is now open and she still has hematoma above and below with some warmth tender skin in the peripheral area of the wound. She denies fever or chills. Progress of Wound: Right lateral lower leg traumatic wound is smaller developing new cells in the wound base. Doing well no complications right lower leg appears with no contusion or swelling. Patient has completed her antibiotic therapy - Physical Exam Vital Signs Temp Pulse Resp BP 97 F L 51 L 18 134/66 H 09/05/19 10:50 09/05/19 10:50 09/05/19 10:50 09/05/19 10:50 General: Oriented x3, Cooperative, Well developed HEENT: Atraumatic, PERRLA Oral: Moist Mucosa Neck: Supple, No JVD Lungs: Clear to auscultation, Normal air movement Cardiovascular: Regular rate, Regular Rhythm Abdomen: Bowel Sounds Present, Soft, Non Tender, No Hepato-splenomegaly Extremities: No clubbing, No edema Skin: Ulcer/ Wound - Right lateral traumatic wound lower leg Wound Measurements and Assessment WC - Nurse 1 - General Ulcer Measurement Start: 09/05/19 10:49 Freq: Status: Active Protocol: Activity Type Activity Date Activity User E-Sign Co-Sign Detail Recorded Client Recorded Date Recorded By Document 09/05/19 10:50 RB [id number] 09/05/19 10:53 RB 09/05/19 10:50 Wound Center Nurse 1 [Ulcer Assessment] #1- R KNEE HEMATOMA (POST FALL) -Combined with other wound No -Current Size (cm) - Length 3 -Current Size (cm) - Width 3.2 -Current Size (cm) - Depth 0.1 -Total Square Cm 9.6 -Tunneling No -Undermining/Tunneling No -Circular Undermining No -Exudate Amt Small -Exudate Type Serosanguineous -Wound Margin Flat & Intact -Granulation Amt Medium (34-66%) -Granulation Quality [place] -Slough/Fibrin Yes -Necrosis Amt Small (1-33%) -Necrotic Tissue Type Adherent Slough -Structure Exposed N/A -Texture (Vidya-wound Skin Appearance) Assessed -Moisture (Vidya-wound Skin Appearance Assessed ) -Color (Vidya-wound Skin Appearance) Assessed -Temperature (Vidya-wound Skin No Abnormality Appearance) (Pt Warm) -Tenderness on Palpation (Vidya-wound No Skin Appearance) -Ulcer Cleansing Wound Cleanser -Foul Odor after Cleansing No -Anesthetic Used 4% Lidocaine Solution [Edema Assessment] -Lower Limb Edema Present Yes -Right Calf (cm) 48.5 -Right Ankle (cm) 26.6 WC - Nurse 2 - General Ulcer CM Notes Start: 09/05/19 10:49 Freq: Status: Active Protocol: Activity Type Activity Date Activity User E-Sign Co-Sign Detail Recorded Client Recorded Date Recorded By Document 09/05/19 11:05 MW [id number] 09/05/19 11:06 MW 09/05/19 11:05 Wound Center Nurse 2 [Procedure/Treatment] #1- R KNEE HEMATOMA (POST FALL) -Time 11:05 -Correct Patient Yes -Correct Side, Site, Position Yes -Correct Procedure Yes -Procedure Performed Yes -Type of Procedure Debridement -Clinical Debridement Subcutaneous -Post Debridement Size (cm) - Length 1.0 -Post Debridement Size (cm) - Width 0.5 -Post Debridement Size (cm) - Depth 0.2 -Total Square Cm 0.50 -Wound/Ulcer Outcome Not Healed -Ulcer Cleansing Rinsed/ Irrigated with Saline -Foul Odor after Cleansing No -Bioengineered Tissue No -Bleeding Controlled with Pressure -Offloading No -Treatment Response Procedure Tolerated Well [See Physician Procedure note for Specifics] Pain Scale: 0-10 Numeric [Pain] -Is Patient Pain Free? Yes Musculoskeletal: No Tenderness to Palpation of Joints or Extremities Lymphatic: No Cervical, Supraclavicular, or Inguinal Adenopathy Neurological: Cranial nerves II-XII grossly intact, Neuro grossly intact Psych/Mental Status: Normal Affect, Appropriate Debridement Note Post-Debridement Measurements/Treatment WC - Nurse 2 - General Ulcer CM Notes Start: 09/05/19 10:49 Freq: Status: Active Protocol: Activity Type Activity Date Activity User E-Sign Co-Sign Detail Recorded Client Recorded Date Recorded By Document 09/05/19 11:05 MW [id number] 09/05/19 11:06 MW 09/05/19 11:05 Wound Center Nurse 2 #1- R KNEE HEMATOMA (POST FALL) -Time 11:05 -Correct Patient Yes -Correct Side, Site, Position Yes -Correct Procedure Yes -Procedure Performed Yes -Type of Procedure Debridement -Clinical Debridement Subcutaneous -Post Debridement Size (cm) - Length 1.0 -Post Debridement Size (cm) - Width 0.5 -Post Debridement Size (cm) - Depth 0.2 -Total Square Cm 0.50 -Wound/Ulcer Outcome Not Healed -Ulcer Cleansing Rinsed/ Irrigated with Saline -Foul Odor after Cleansing No -Bioengineered Tissue No -Bleeding Controlled with Pressure -Offloading No -Treatment Response Procedure Tolerated Well Pain Scale: 0-10 Numeric Is Patient Pain Free? Yes Wound debrided: Right lateral lower leg wound Type of Debridement: Excisional debridement Depth: Down to and including healthy tissue, in the subcutaneous layer Percentage of wound debrided: 100 Instrument Used: 3mm curette Tissue Removed: Fibrin Severity: Limited To Skin Breakdown Amount of bleeding with debridement: Mild Bleeding Controlled with: Compression and gauze Patient tolerated procedure well Assessment/Plan Active Problems (Last Reviewed 08/17/19 @ 15:19 by KRISTA Lance) Traumatic open wound of right lower leg with delayed healing (Acute) Nonhealing nonsurgical wound limited to breakdown of skin (Acute) Assessment: Long-term blood thinner therapy of Coumadin. Morbid obesity. Tony norm[place]. Edema right leg. Nonhealing open wound from trauma right lower leg Plan: Wash the right leg with antibacterial soap. Apply Aquacel extra to the wound base moistened cover with. Gauze, Augusto, single layer Tubigrip. Follow- up in 1 week
[2019-09-12 10:35] VITALS: BP 145/57; PULSE 59; RESP 18; TEMP 36.2; BMI 39.6
--- NOTE | 2019-09-12 11:27 | PCM.WC.PN ---
(1) Hematoma of right lower leg Status: Acute Current Visit: No Code(s): S80.11XA - Contusion of right lower leg, initial encounter (2) Lower extremity edema Status: Acute Current Visit: No Code(s): R60.0 - Localized edema (3) Nonhealing nonsurgical wound limited to breakdown of skin Status: Acute Current Visit: Yes Code(s): T14.8XXA - Other injury of unspecified body region, initial encounter (4) Traumatic open wound of right lower leg with delayed healing Status: Acute Current Visit: Yes Code(s): S81.801D - Unspecified open wound, right lower leg, subsequent encounter Type of Wound Date of Service: 09/12/19 Chief Complaint: Follow-up right nonhealing open wound right knee area from fall History of Wound: 79-year-old white female on her last day of physical therapy fell in the parking lot of [facility]. She developed a hematoma on her right knee after falling 8 weeks ago. She went to the emergency room and was admitted because she is on Coumadin and she developed a huge hematoma. The area is now open and she still has hematoma above and below with some warmth tender skin in the peripheral area of the wound. She denies fever or chills. Progress of Wound: Right lateral lower leg traumatic wound is smaller developing new cells in the wound base. Doing well no complications right lower leg appears with no contusion or swelling. Patient has completed her antibiotic therapy - Physical Exam Vital Signs Temp Pulse Resp BP 97.2 F L 59 L 18 145/57 H 09/12/19 10:35 09/12/19 10:35 09/12/19 10:35 09/12/19 10:35 General: Oriented x3, Cooperative, Well developed HEENT: Atraumatic, PERRLA Oral: Moist Mucosa Neck: Supple, No JVD Lungs: Clear to auscultation, Normal air movement Cardiovascular: Regular rate, Regular Rhythm Abdomen: Bowel Sounds Present, Soft, Non Tender, No Hepato-splenomegaly Extremities: No clubbing, No edema Skin: Ulcer/ Wound - Right lateral knee wound from medic hematoma that opened Wound Measurements and Assessment WC - Nurse 1 - General Ulcer Measurement Start: 09/05/19 10:49 Freq: Status: Active Protocol: Activity Type Activity Date Activity User E-Sign Co-Sign Detail Recorded Client Recorded Date Recorded By Document 09/12/19 10:35 [id number] 09/12/19 10:39 CS 09/12/19 10:35 Wound Center Nurse 1 [Ulcer Assessment] #1- R KNEE HEMATOMA (POST FALL) -Combined with other wound No -Current Size (cm) - Length 1.2 -Current Size (cm) - Width 0.8 -Current Size (cm) - Depth 0.2 -Total Square Cm 0.96 -Photo Taken No -Epithelialization Small 1-33% -Tunneling No -Undermining/Tunneling No -Circular Undermining No -Exudate Amt Small -Exudate Type Serous -Wound Margin Distinct, Outline Attached -Granulation Amt Large (67-100%) -Granulation Quality Red -Slough/Fibrin Yes -Necrosis Amt None Present (0 %) -Necrotic Tissue Type Adherent Slough -Structure Exposed N/A -Texture (Vidya-wound Skin Appearance) Scarring -Moisture (Vidya-wound Skin Appearance Dry/Scaly ) -Color (Vidya-wound Skin Appearance) No Abnormality, Assessed -Temperature (Vidya-wound Skin No Abnormality Appearance) (Pt Warm) -Tenderness on Palpation (Vidya-wound No Skin Appearance) -Ulcer Cleansing Rinsed/ Irrigated with Saline -Foul Odor after Cleansing No -Anesthetic Used 4% Lidocaine Solution [Edema Assessment] -Lower Limb Edema Present Yes -Right Calf (cm) 43.9 -Right Ankle (cm) 26.5 WC - Nurse 2 - General Ulcer CM Notes Start: 09/05/19 10:49 Freq: Status: Active Protocol: Activity Type Activity Date Activity User E-Sign Co-Sign Detail Recorded Client Recorded Date Recorded By Document 09/12/19 11:01 [id number] 09/12/19 11:02 09/12/19 11:01 Wound Center Nurse 2 [Procedure/Treatment] #1- R KNEE HEMATOMA (POST FALL) -Time 11:01 -Correct Patient Yes -Correct Side, Site, Position Yes -Correct Procedure Yes -Procedure Performed Yes -Type of Procedure Debridement -Clinical Debridement Subcutaneous -Post Debridement Size (cm) - Length 0.8 -Post Debridement Size (cm) - Width 0.4 -Post Debridement Size (cm) - Depth 0.2 -Total Square Cm 0.32 -Wound/Ulcer Outcome Not Healed -Ulcer Cleansing Rinsed/ Irrigated with Saline -Foul Odor after Cleansing No -Bioengineered Tissue No -Bleeding Controlled with Pressure -Offloading No -Treatment Response Procedure Tolerated Well [See Physician Procedure note for Specifics] Pain Scale: 0-10 Numeric [Pain] -Is Patient Pain Free? Yes Musculoskeletal: No Tenderness to Palpation of Joints or Extremities Lymphatic: No Cervical, Supraclavicular, or Inguinal Adenopathy Neurological: Cranial nerves II-XII grossly intact, Neuro grossly intact Psych/Mental Status: Normal Affect, Appropriate Debridement Note Post-Debridement Measurements/Treatment WC - Nurse 2 - General Ulcer CM Notes Start: 09/05/19 10:49 Freq: Status: Active Protocol: Activity Type Activity Date Activity User E-Sign Co-Sign Detail Recorded Client Recorded Date Recorded By Document 09/05/19 11:05 MW [id number] 09/05/19 11:06 MW Document 09/12/19 11:01 MW [id number] 09/12/19 11:02 MW 09/05/19 09/12/19 11:05 11:01 Wound Center Nurse 2 #1- R KNEE HEMATOMA (POST FALL) -Time 11:05 11:01 -Correct Patient Yes Yes -Correct Side, Site, Position Yes Yes -Correct Procedure Yes Yes -Procedure Performed Yes Yes -Type of Procedure Debridement Debridement -Clinical Debridement Subcutaneous Subcutaneous -Post Debridement Size (cm) - Length 1.0 0.8 -Post Debridement Size (cm) - Width 0.5 0.4 -Post Debridement Size (cm) - Depth 0.2 0.2 -Total Square Cm 0.50 0.32 -Wound/Ulcer Outcome Not Healed Not Healed -Ulcer Cleansing Rinsed/ Rinsed/ Irrigated with Irrigated with Saline Saline -Foul Odor after Cleansing No No -Bioengineered Tissue No No -Bleeding Controlled with Pressure Pressure -Offloading No No -Treatment Response Procedure Procedure Tolerated Well Tolerated Well Pain Scale: 0-10 Numeric Is Patient Pain Free? Yes Yes Wound debrided: Right lateral knee wound Type of Debridement: Excisional debridement Anesthesia Used: 5% Lidocaine Gel Depth: Down to and including healthy tissue, in the subcutaneous layer Percentage of wound debrided: 100 Instrument Used: 3mm curette Tissue Removed: Fibrin Severity: Limited To Skin Breakdown Amount of bleeding with debridement: Mild Bleeding Controlled with: Compression and gauze Patient tolerated procedure well Assessment/Plan Active Problems (Last Reviewed 08/17/19 @ 15:19 by KRISTA Lance) Traumatic open wound of right lower leg with delayed healing (Acute) Nonhealing nonsurgical wound limited to breakdown of skin (Acute) Assessment: Long-term blood thinner therapy of Coumadin. Morbid obesity. Hematoma. Edema right leg. Nonhealing open wound from trauma right lower leg Plan: Wash the right leg with antibacterial soap. Apply Dermagran to the wound base moistened cover with. Gauze, Augusto, single layer Tubigrip. Follow-up in 1 week
[2019-09-19 10:49] VITALS: BP 119/70; PULSE 88; RESP 18; TEMP 36.6; BMI 39.6
--- NOTE | 2019-09-19 12:39 | PCM.WC.PN ---
(1) Hematoma of right lower leg Status: Acute Current Visit: No Code(s): S80.11XA - Contusion of right lower leg, initial encounter (2) Lower extremity edema Status: Acute Current Visit: No Code(s): R60.0 - Localized edema (3) Nonhealing nonsurgical wound limited to breakdown of skin Status: Acute Current Visit: No Code(s): T14.8XXA - Other injury of unspecified body region, initial encounter (4) Traumatic open wound of right lower leg with delayed healing Status: Acute Current Visit: No Code(s): S81.801D - Unspecified open wound, right lower leg, subsequent encounter Type of Wound Date of Service: 09/19/19 Chief Complaint: Follow-up right nonhealing open wound right knee area from fall History of Wound: 79-year-old white female on her last day of physical therapy fell in the parking lot of [facility]. She developed a hematoma on her right knee after falling 8 weeks ago. She went to the emergency room and was admitted because she is on Coumadin and she developed a huge hematoma. The area is now open and she still has hematoma above and below with some warmth tender skin in the peripheral area of the wound. She denies fever or chills. Progress of Wound: Right lateral lower leg is healed patient will be discharged from the wound center - Physical Exam Vital Signs Temp Pulse Resp BP 97.8 F 88 18 119/70 09/19/19 10:49 09/19/19 10:49 09/19/19 10:49 09/19/19 10:49 General: Oriented x3, Cooperative, Well developed HEENT: Atraumatic, PERRLA Oral: Moist Mucosa Neck: Supple, No JVD Lungs: Clear to auscultation, Normal air movement Cardiovascular: Regular rate, Regular Rhythm Abdomen: Bowel Sounds Present, Soft, Non Tender, No Hepato-splenomegaly Extremities: No clubbing, No edema Skin: Ulcer/ Wound - Right lateral lower leg wound is healed Wound Measurements and Assessment WC - Nurse 1 - General Ulcer Measurement Start: 09/05/19 10:49 Freq: Status: Active Protocol: Activity Type Activity Date Activity User E-Sign Co-Sign Detail Recorded Client Recorded Date Recorded By Document 09/19/19 10:49 RB [id number] 09/19/19 10:51 RB 09/19/19 10:49 Wound Center Nurse 1 [Ulcer Assessment] #1- R KNEE HEMATOMA (POST FALL) -Combined with other wound No -Current Size (cm) - Length 0 -Current Size (cm) - Width 0 -Current Size (cm) - Depth 0 -Total Square Cm 0 -Photo Taken Yes -Epithelialization Large 67-100% [Edema Assessment] -Lower Limb Edema Present Yes -Right Calf (cm) 45 -Right Ankle (cm) 26.2 WC - Nurse 2 - General Ulcer CM Notes Start: 09/05/19 10:49 Freq: Status: Active Protocol: Activity Type Activity Date Activity User E-Sign Co-Sign Detail Recorded Client Recorded Date Recorded By Document 09/19/19 11:10 MW [id number] 09/19/19 11:11 MW 09/19/19 11:10 Wound Center Nurse 2 [Procedure/Treatment] #1- R KNEE HEMATOMA (POST FALL) -Time 11:10 -Correct Patient Yes -Correct Side, Site, Position Yes -Correct Procedure Yes -Procedure Performed No -Post Debridement Size (cm) - Length 0 -Post Debridement Size (cm) - Width 0 -Post Debridement Size (cm) - Depth 0 -Total Square Cm 0 -Wound/Ulcer Outcome Healed- Epithelialized [See Physician Procedure note for Specifics] Musculoskeletal: No Tenderness to Palpation of Joints or Extremities Lymphatic: No Cervical, Supraclavicular, or Inguinal Adenopathy Neurological: Cranial nerves II-XII grossly intact, Neuro grossly intact Psych/Mental Status: Normal Affect, Appropriate Debridement Note Post-Debridement Measurements/Treatment WC - Nurse 2 - General Ulcer CM Notes Start: 09/05/19 10:49 Freq: Status: Active Protocol: Activity Type Activity Date Activity User E-Sign Co-Sign Detail Recorded Client Recorded Date Recorded By Document 09/05/19 11:05 MW [id number] 09/05/19 11:06 MW Document 09/12/19 11:01 MW [id number] 09/12/19 11:02 MW Document 09/19/19 11:10 MW [id number] 09/19/19 11:11 MW 09/05/19 09/12/19 09/19/19 11:05 11:01 11:10 Wound Center Nurse 2 #1- R KNEE HEMATOMA (POST FALL) -Time 11:05 11:01 11:10 -Correct Patient Yes Yes Yes -Correct Side, Site, Position Yes Yes Yes -Correct Procedure Yes Yes Yes -Procedure Performed Yes Yes No -Type of Procedure Debridement Debridement -Clinical Debridement Subcutaneous Subcutaneous -Post Debridement Size (cm) - Length 1.0 0.8 0 -Post Debridement Size (cm) - Width 0.5 0.4 0 -Post Debridement Size (cm) - Depth 0.2 0.2 0 -Total Square Cm 0.50 0.32 0 -Wound/Ulcer Outcome Not Healed Not Healed Healed- Epithelialized -Ulcer Cleansing Rinsed/ Rinsed/ Irrigated with Irrigated with Saline Saline -Foul Odor after Cleansing No No -Bioengineered Tissue No No -Bleeding Controlled with Pressure Pressure -Offloading No No -Treatment Response Procedure Procedure Tolerated Well Tolerated Well Pain Scale: 0-10 Numeric Is Patient Pain Free? Yes Yes No debridement was completed today Assessment/Plan Assessment: Long-term blood thinner therapy of Coumadin. Morbid obesity. Hematoma resolved. Edema right leg. Nonhealing open wound from trauma right lower leg resolved Plan: Discharge from the wound center and follow-up as needed
== END 2019-10-05 23:59 ==
LOC: WC 10:30
PROVIDERS: PCP Family Medicine; Visit Provider Nurse Practitioner
DX: S80.11XA Contusion of right lower leg, initial encounter (principal); Z86.711 Personal history of pulmonary embolism; W19.XXXA Unspecified fall, initial encounter; R60.0 Localized edema; T14.8XXA Other injury of unspecified body region, initial encounter; E66.01 Morbid (severe) obesity due to excess calories; Y92.481 Parking lot as the place of occurrence of the external cause; Z79.01 Long term (current) use of anticoagulants
CPT/HCPCS: 11042; 99213; G0463

== ENCOUNTER 2019-09-26 15:38 | Outpatient (RCR) | payer MEDICARE, OTHER, SELFPAY ==
[2019-09-03 08:48] VITALS: BMI 39.6
[2019-09-26 15:56] LABS: Prothrombin Time Fingerstick 22.9 SEC (11.9-14.4)
== END 2019-09-26 18:00 | disposition home or self-care (01) ==
LOC: MTLAB 15:38
PROVIDERS: Family Provider Family Medicine; PCP Family Medicine; Referring Provider Family Medicine; Visit Provider Family Medicine
DX: I48.0 Paroxysmal atrial fibrillation (principal)
CPT/HCPCS: 36416; 85610

== ENCOUNTER 2019-10-16 12:23 | Outpatient (RCR) | payer MEDICARE, OTHER, SELFPAY ==
[2019-10-16 12:25] LABS: Prothrombin Time Fingerstick 26.9 SEC (11.9-14.4)
== END 2019-11-05 18:00 | disposition home or self-care (01) ==
LOC: MTLAB 12:23
PROVIDERS: Family Provider Family Medicine; PCP Family Medicine; Referring Provider Family Medicine; Visit Provider Family Medicine
DX: I48.0 Paroxysmal atrial fibrillation (principal)
CPT/HCPCS: 36416; 85610

== ENCOUNTER 2019-11-16 12:38 | Outpatient (RCR) | payer MEDICARE, OTHER, SELFPAY ==
[2019-11-16 12:51] LABS: Prothrombin Time Fingerstick 26.1 SEC (11.9-14.4)
== END 2019-11-16 18:00 | disposition home or self-care (01) ==
LOC: MTLAB 12:38
PROVIDERS: Family Provider Family Medicine; PCP Family Medicine; Referring Provider Family Medicine; Visit Provider Family Medicine
DX: I48.0 Paroxysmal atrial fibrillation (principal)
CPT/HCPCS: 36416; 85610

== ENCOUNTER 2019-11-21 12:00 | Outpatient (RCR) | payer MEDICARE, OTHER, SELFPAY ==
--- NOTE | 2019-10-31 13:45 | HP.PTREVAL_ITS ---
Lexi Stern, CARLY-Iris, It has been my pleasure to treat ESPERANZA LUCERO over the last 28 visits for . Please see the progress note below for an update on the physical therapy plan of care! Subjective: PATIENT REPORTS SHE HAD A LEFT HIP INJECTION September BY DR. DAVIS AND IT HELPED A LOT. PATIENT REPORTS SHE IS HOPING NOW THAT HER PAIN IS BETTER SHE WILL BE ABLE TO DO MORE EX'S. PATIENT REPORTS SHE LIKES THE WATER BUT NOT ALL THE LOGISTICS OF GETTING READY FOR IT. WOULD LIKE TO TRY LAND THERAPY. STATES SHE HAS COME HERE TO TO EX ON HER OWN A LITTLE BIT SINCE THE INJECTION - MAYBE TWICE. STATES IT WENT WELL. PATIENT REPORTS THE INJECTION HELPED A LOT. STATES SHE STILL GETS INTERMITTENT PAIN. INCREASED PAIN RISING FROM SITTING AFTER PROLONGED SITTING. TAKING TYLONOL AT NIGHT TO SLEEP. Objective/Function: PATIENT WAS SEEN TODAY FOR RE-ASSESSMENT OF PROGRESS TOWARD THE SET PT GOALS AND THE NEED FOR FURTHER PHYSICAL THERAPY VS READINESS FOR DISCHARGE. UPON EXAM TODAY: Sitting/Standing Posture: POOR. Lordosis: REDUCED. Lateral shift: NO. Relevant shift: N/A. Active Correction of posture: NE. Other Observations: INDEP GAIT WITHOUT AD INTO PT WITH SHUFFLE TYPE PATTERN - VERY SHORT MELYSSA STRIDE LENGTH AND DECREASED CADANCE BUT NO LOB. Motor deficit: MELYSSA LE'S GROSSLY 4/5 WITH MMT'ING. Sensory deficit: MELYSSA LE LIGHT TOUCH SENSATION INTACT EXCEPT RIGHT CHIN BELOW KNEE. ROM deficit: TIGHT MELYSSA HIPS LEFT > RIGHT ESPECIALLY LEFT HIP IR. UNABLE TO FULLY EXTEND OR FLEX RIGHT KNEE MEASURING -20 EXT TO 98 DEG FLEX TODAY. ALSO TIGHT MELYSSA GASTROC SOLEUS COMPLEX'S. Reflexes: NT. Dural Signs: NEGATIVE MELYSSA LE'S. Lumbar mvmt loss: flex - MIN. ext - ADAIR. R SG - ADAIR. L SG - ADAIR. Core strength: PO OR. Palpation: NO TENDERNESS WITH PALPATION OF THE LEFT LATERAL HIP REGION TODAY AND NOT REALLY TENDER IN HER LOW BACK OR SACRAL REGIONS EITHER. Plan Plan: RESUME PT WITH NEW ORDER: LAND AND/OR AQUATIC THERAPY: GAIT TRAINING, POSTURE CORRECTION/STRENGTHENING, INSTRUCTION IN APPROPRIATE BODY MECHANICS AND ACTIVITY MODIFICATIONS. DLS STARTING WITH A NEUTRAL SPINE. MELYSSA LE ROM, STRETCHING AND STRENGTHENING. HEP/GYM EX INSTRUCTION. Goals Goal 1:: DECREASE C/O LOW BACK AND LE SX'S Goal Time Frame: 4-6 Weeks Goal 2:: IMPROVE STANDING AND WALKING FUNCTION Goal Time Frame: 4-6 Weeks Goal 3:: INSTRUCT IN PROPHYLAXIS Goal Time Frame: 4-6 Weeks Anticipated Interventions Patient/Client Instruction: Educate patient on: Condition, Plan of Care, Risk Factors, Benefits of Fitness Program For the Purpose of:: To improve self management Therapeutic Exercise to Include: Strength training, Endurance training, Body mechanics, Postural training, Gait and locomotor training, Neuromotor development, In an aquatic setting, Dynamic Lumbar Stabilization For the Purpose of:: To decrease pain, To increase ROM, To improve muscle performance and motor function, To increase tolerance to activity/condition/position, To improve ability of physical actions for home/community/work/leisure, To improve gait and locomotor functions Please do not hesitate to contact me at [phone] by phone or if you have questions or concerns regarding this new plan of care! Sincerely, Linda Gomez, PT, Cert MDT
--- NOTE | 2020-01-07 18:20 | HP.PTDCSUM ---
It has been my pleasure to treat ESPERANZA LUCERO referred by VERONIKA Ambrocio, with the diagnosis of L HIP OA/PAIN & LUMBAR DDD for a total of 37 visit(s). Discharge Date: 11/21/19 Please see the following information for a summary of their discharge status. Subjective: PATIENT REPORTS SHE IS DOING A LOT BETTER AND SHE ISN'T SURE IF IT IS DO TO THE INJECTION, THE THERAPY OR BOTH. PATIENT REPORTS HER LOW BACK IS DOING PRETTY GOOD. IT BOTHERS HER IF SHE STANDS STILL TOO LONG OR IF SHE SLEEPS ON HER LEFT SIDE BUT OVER-ALL IT IS DOING GOOD. SHE ALSO REPORTS HER HIP IS DOING BETTER. STILL GETS SOME LEFT HIP AND GROIN PAIN WHEN SHE SPREADS HER LEGS APART TO DO THINGS LIKE WASHING HERSELF IN THE SHOWER. PATIENT REPORTS THE WOUNDS ON HER RIGHT KNEE ARE HEALED. 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 LOW BACK PAIN Pain Intensity (Out of 10): 2 LEFT HIP Pain Intensity (Out of 10): 2 ANKLES Pain Intensity (Out of 10): 0 % Improvement: 80 Objective/Function: PATIENT WAS SEEN TODAY FOR RE-ASSESSMENT OF PROGRESS TOWARD THE SET PT GOALS AND THE NEED FOR FURTHER PHYSICAL THERAPY VS READINESS FOR DISCHARGE. UPON EXAM TODAY: SHE DEOMO'S INDEP GAIT INTO PT WITH STRAIGHT CANE AND STILL WITH SHUFFLE TYPE PATTERN - VERY SHORT MELYSSA STRIDE LENGTH AND DECREASED CADANCE BUT SOME IMPROVEMENT SINCE INTIAL EVAL. SHE TRANSFERS SIT TO STAND WITHOUT UE ASSIST BUT IT IS DIFFICULT. Motor deficit: NO LE'S GROSSLY 4-5/5 WITH MMT'ING. ROM deficit: RIGHT HIP IR/ER IS NOW WFL AND NOT PAINFUL WITH TESTING. LEFT HIP ER IS WFL BUT IR IS STILL SIGNIFICANTLY LIMITED AND TESTING OF LEFT HIP IR AND ER PROVOKE LEFT GROIN PAIN. Reflexes: NT. Dural Signs: NEGATIVE MELYSSA LE'S. Lumbar mvmt loss: flex - NIL. ext - MOD. R SG - MOD. L SG - MOD. PATIENT C/O MILD LBP WITH LSG TESTING. C/O MILD LEFT GROIN PAIN WITH RIGHT SG TESTING TODAY. Core strength: POOR. Goal 1:: DECREASE C/O LOW BACK AND LE SX'S Goal Progress: Goal Met Goal 2:: IMPROVE STANDING AND WALKING FUNCTION Goal Progress: Goal Met Goal 3:: INSTRUCT IN PROPHYLAXIS Goal Progress: Goal Met Plan: D/C TO INDEP EX. PATIENT AGREEABLE. If there are questions or concerns regarding this patient's physical therapy, please feel free to call me at [phone]. Thank you for the referral of this patient. Sincerely, Linda Gomez, PT, Cert MDT
== END 2019-11-21 19:00 | disposition home or self-care (01) ==
LOC: PT 12:00
PROVIDERS: PCP Family Medicine; Referring Provider Nurse Practitioner Family; Visit Provider Nurse Practitioner Family
DX: M16.12 Unilateral primary osteoarthritis, left hip (principal); M51.37 Other intervertebral disc degeneration, lumbosacral region; M25.552 Pain in left hip
CPT/HCPCS: 97110; 97164; 97530

== ENCOUNTER 2019-12-21 13:25 | Outpatient (RCR) | payer MEDICARE, OTHER, SELFPAY ==
[2019-12-21 13:36] LABS: Prothrombin Time Fingerstick 27.6 SEC (11.9-14.4)
== END 2019-12-21 18:00 | disposition home or self-care (01) ==
LOC: MTLAB 13:25
PROVIDERS: Family Provider Family Medicine; PCP Family Medicine; Referring Provider Family Medicine; Visit Provider Family Medicine
DX: I48.0 Paroxysmal atrial fibrillation (principal)
CPT/HCPCS: 36416; 85610

== ENCOUNTER 2020-01-29 14:15 | Outpatient (RCR) | payer MEDICARE, OTHER, SELFPAY ==
[2020-01-29 14:30] LABS: Prothrombin Time Fingerstick 27.8 SEC (11.9-14.4)
== END 2020-01-29 18:00 | disposition home or self-care (01) ==
LOC: MTLAB 14:15
PROVIDERS: Family Provider Family Medicine; PCP Family Medicine; Referring Provider Family Medicine; Visit Provider Family Medicine
DX: I48.0 Paroxysmal atrial fibrillation (principal)
CPT/HCPCS: 36416; 85610

== ENCOUNTER → 2020-02-06 13:51 | Outpatient (CLI) | payer MEDICARE, OTHER, SELFPAY ==
--- NOTE | 2020-02-06 13:52 | BI_ITS ---
MAMMOGRAPHY - UNILATERAL SCREENING: RIGHT BREAST REASON FOR EXAM: Female, 80 years old. Routine annual screening examination (unilateral). PERTINENT HISTORY: Personal history of breast cancer. Prior left mastectomy. Sister with breast cancer. Mother with breast cancer. TECHNIQUE: Digital unilateral breast patrick (3D mammographic acquisition) in the CC and MLO projections. 2-D mediolateral oblique (MLO) and craniocaudad (CC) views of both breasts were obtained. CAD: Full Field Digital Mammography with Computer Added Detection was performed. COMPARISON: Comparison is made with prior examination dated 01/26/2019 and 08/29/2017. FINDINGS: Breast Composition: There are scattered areas of fibroglandular density. There are no dominant masses or suspicious calcifications. Stable benign-appearing right axillary lymph nodes. No other significant abnormalities are identified. There has been no significant change since the prior study. BI/SCREEN MAMM (CAD) W/PATRICK UNI R IMPRESSION: Stable unilateral screening mammogram. Yearly follow-up mammogram recommended. (A) ASSESSMENT CATEGORY: BIRADS Category 2: Benign. A letter regarding these results will be sent to the patient by the facility within 30 days. Approximately 10% of breast cancers are not detected by mammography. A normal mammogram should not delay biopsy of a clinically suspicious abnormality. [id number] Electronically Signed: Armand Cowan, at 14:59 EST , Service support ,
== END ==
PROVIDERS: PCP Family Medicine; Referring Provider Nurse Practitioner; Visit Provider Nurse Practitioner
DX: Z12.31 Encounter for screening mammogram for malignant neoplasm of breast (principal); C50.012 Malignant neoplasm of nipple and areola, left female breast; Z17.0 Estrogen receptor positive status [ER+]
CPT/HCPCS: 77063; 77067

== ENCOUNTER 2020-03-03 12:56 | Outpatient (RCR) | payer MEDICARE, OTHER, SELFPAY ==
[2020-03-03 13:05] LABS: Prothrombin Time Fingerstick 34.6 SEC (11.9-14.4)
== END 2020-03-03 18:00 | disposition home or self-care (01) ==
LOC: MTLAB 12:56
PROVIDERS: Family Provider Family Medicine; PCP Family Medicine; Referring Provider Family Medicine; Visit Provider Family Medicine
DX: I48.0 Paroxysmal atrial fibrillation (principal)
CPT/HCPCS: 36416; 85610

== ENCOUNTER 2020-03-25 13:01 | Outpatient (RCR) | payer MEDICARE, OTHER, SELFPAY ==
[2020-03-25 13:26] LABS: Prothrombin Time Fingerstick 29.9 SEC (11.9-14.4)
== END 2020-03-25 18:00 | disposition home or self-care (01) ==
LOC: MTLAB 13:01
PROVIDERS: Family Provider Family Medicine; PCP Family Medicine; Referring Provider Family Medicine; Visit Provider Family Medicine
DX: I48.0 Paroxysmal atrial fibrillation (principal)
CPT/HCPCS: 36416; 85610

== ENCOUNTER 2020-03-28 12:51 | Outpatient (RCR) | payer MEDICARE, OTHER, SELFPAY | END 2020-04-01 23:59 | LOC: IMMUN 12:51 | PROVIDERS: PCP Family Medicine; Referring Provider Family Medicine; Visit Provider Family Medicine | DX: Z23 Encounter for immunization (principal) | CPT/HCPCS: 0011A; 0012A; 91301 ==

== ENCOUNTER 2020-04-30 13:44 | Outpatient (RCR) | payer MEDICARE, OTHER, SELFPAY ==
--- NOTE | 2020-04-30 13:46 | RAD_ITS ---
STUDY: X-RAY - LUMBAR SPINE REASON FOR EXAM: Female, 80 years old. Low back pain. TECHNIQUE: 5 view(s) of the lumbar spine were obtained. COMPARISON: None FINDINGS: Normal lumbar lordosis. Mild convex left lower lumbar curvature. There is a normal alignment of the vertebrae. Normal vertebral bodies. Disc space narrowing, vacuum disc with marginal osteophytes and neural foraminal narrowing at L2-L3 . Mild disc space narrowing L5-S1. The soft tissue structures are unremarkable. Surgical clips in the pelvis. Degenerative changes of the hips left greater than right. RAD/L/S Spine Min 4 Views IMPRESSION: Moderate to severe degenerative changes at L2-L3. Electronically Signed: Jordin Sheets MD at 6:56 EST , Service support ,
[2020-04-30 14:01] LABS: Prothrombin Time Fingerstick 29.7 SEC (11.9-14.4)
== END 2020-04-30 18:00 | disposition home or self-care (01) ==
LOC: MTLAB 13:44
PROVIDERS: Family Provider Family Medicine; PCP Family Medicine; Referring Provider Family Medicine; Visit Provider Family Medicine
DX: I48.0 Paroxysmal atrial fibrillation (principal)
CPT/HCPCS: 36416; 72110; 85610

== ENCOUNTER 2020-05-27 12:22 | Outpatient (RCR) | payer MEDICARE, OTHER, SELFPAY ==
[2020-05-27 13:36] LABS: INR Fingerstick 1.3
== END 2020-05-27 18:00 | disposition home or self-care (01) ==
LOC: MTLAB 12:22
PROVIDERS: Family Provider Family Medicine; PCP Family Medicine; Referring Provider Family Medicine; Visit Provider Family Medicine
DX: I48.0 Paroxysmal atrial fibrillation (principal)
CPT/HCPCS: 36416; 85610

== ENCOUNTER 2020-07-03 14:41 | Outpatient (RCR) | payer MEDICARE, OTHER, SELFPAY ==
[2020-06-02 15:28] VITALS: BMI 39.7
[2020-06-13 13:05] LABS: INR Fingerstick 2.9; Prothrombin Time Fingerstick 31.8 SEC (11.9-14.4)
[2020-07-03 14:51] LABS: Prothrombin Time Fingerstick 32.7 SEC (11.9-14.4)
== END 2020-07-03 18:00 | disposition home or self-care (01) ==
LOC: MTLAB 14:41
PROVIDERS: Family Provider Family Medicine; PCP Family Medicine; Referring Provider Family Medicine; Visit Provider Family Medicine
DX: Z79.01 Long term (current) use of anticoagulants (principal)
CPT/HCPCS: 36416; 85610

== ENCOUNTER 2020-07-21 10:52 | Outpatient (RCR) | payer MEDICARE, OTHER, SELFPAY ==
[2020-06-02 15:28] VITALS: BMI 39.7
[2020-07-21 12:26] LABS: Absolute Lymphocyte Count 2.03 X10^3/uL (0.83-4.51); Absolute Neutrophil Count 6.1 X10^3/uL (2.0-7.7); Basophil# 0.03 X10^3/uL; Basophil% 0.3 % (0-1); Eosinophil# 0.13 X10^3/uL; Eosinophils% 1.4 % (0-5); Hematocrit 37.9 % (37-47); Hemoglobin 12.6 g/dL (12.0-15.0); Lymphocyte # 2.03 X10^3/ul (0.83-4.51); Lymphocyte % 22.5 % (19-41); Mean Corp Hgb Conc 33.2 g/dL (32-36); Mean Corpuscular Hgb 31.9 pg (27.0-32.0); Mean Corpuscular Volume 95.9 fL (81-99); Mean Platelet Vol. 9.4 fl (6.2-12.0); Monocyte# 0.68 X10^3/uL; Monocyte% 7.5 % (0-10); NRBC Flagged by Analyzer 0 % (0-5); Neutrophil # 6.13 X10^3/uL (2.7-7.7); Platelet Count 323 K/mm3 (150-450); RBC Distribution Width CV 12.9 % (11.6-14.6); RBC Distribution Width SD 45.3 fl (35.1-43.9); Red Blood Count 3.95 M/mm3 (4.2-5.4)
[2020-07-21 12:45] LABS: International Normalized Ratio 2.7; Prothrombin Time (Protime)PT. 27.5 SECONDS (11.7-14.9)
[2020-07-21 12:54] LABS: ALB/GLOB Ratio 0.9 RATIO (0.9-2.4); AST(SGOT) 15 U/L (15-37); Alanine Aminotransfer ALT/SGPT 15 U/L (13-56); Albumin, Serum 3.3 g/dL (3.2-5.0); Alkaline Phosphatase 91 U/L (45-117); Anion Gap 5 (5-15); BUN 29 mg/dL (7-18); BUN/Creat Ratio 31.7 RATIO (10-20); Chloride 108 mmol/L (98-107); Cholesterol 193 mg/dL (200); Creatinine, Serum 0.92 mg/dL (0.55-1.02); EST Glomerular Filtration Rate 63 mL/min (>60); Est Glom Filt Rate - Afr Amer 76 mL/min (>60); Globulin 3.8 g/dL (2.2-4.2); Glucose 83 mg/dL (74-106); High Density Lipoprotein 59 mg/dL; Potassium 3.8 mmol/L (3.5-5.1); Protein, Total 7.1 g/dL (6.4-8.2); Sodium Level 138 mmol/L (136-145); Triglycerides 209 mg/dL; Uric Acid 5.1 mg/dL (2.6-6.0); Very Low Density Lipoprotein 42 mg/dL (5-40)
== END 2020-07-21 18:00 | disposition home or self-care (01) ==
LOC: MTLAB 10:52
PROVIDERS: Family Provider Family Medicine; PCP Family Medicine; Referring Provider Family Medicine; Visit Provider Family Medicine
DX: I48.0 Paroxysmal atrial fibrillation (principal); I10 Essential (primary) hypertension; M10.9 Gout, unspecified
CPT/HCPCS: 36415; 80053; 80061; 84550; 85025; 85610

== ENCOUNTER 2020-08-25 14:28 | Outpatient (RCR) | payer MEDICARE, OTHER, SELFPAY ==
[2020-06-02 15:28] VITALS: BMI 39.7
[2020-08-25 14:41] LABS: INR Fingerstick 2.3; Prothrombin Time Fingerstick 26.3 SEC (11.9-14.4)
== END 2020-08-25 18:00 | disposition home or self-care (01) ==
LOC: MTLAB 14:28
PROVIDERS: Family Provider Family Medicine; PCP Family Medicine; Referring Provider Family Medicine; Visit Provider Family Medicine
DX: I48.0 Paroxysmal atrial fibrillation (principal)
CPT/HCPCS: 36416; 85610

== ENCOUNTER 2020-10-01 12:56 | Outpatient (RCR) | payer MEDICARE, OTHER, SELFPAY ==
[2020-06-02 15:28] VITALS: BMI 39.7
[2020-10-01 13:05] LABS: INR Fingerstick 2.5; Prothrombin Time Fingerstick 28.4 SEC (11.9-14.4)
== END 2020-10-01 18:00 | disposition home or self-care (01) ==
LOC: MTLAB 12:56
PROVIDERS: Family Provider Family Medicine; PCP Family Medicine; Referring Provider Family Medicine; Visit Provider Family Medicine
DX: I48.0 Paroxysmal atrial fibrillation (principal)
CPT/HCPCS: 36416; 85610

== ENCOUNTER 2020-11-03 13:57 | Outpatient (RCR) | payer MEDICARE, OTHER, SELFPAY ==
[2020-06-02 15:28] VITALS: BMI 39.7
[2020-11-03 14:10] LABS: INR Fingerstick 2.6; Prothrombin Time Fingerstick 28.7 SEC (11.9-14.4)
== END 2020-11-03 18:00 | disposition home or self-care (01) ==
LOC: MTLAB 13:57
PROVIDERS: Family Provider Family Medicine; PCP Family Medicine; Referring Provider Family Medicine; Visit Provider Family Medicine
DX: I48.0 Paroxysmal atrial fibrillation (principal)
CPT/HCPCS: 36416; 85610

== ENCOUNTER 2020-11-25 11:21 | Outpatient (RCR) | payer MEDICARE, OTHER, SELFPAY ==
[2020-11-05 01:43] VITALS: BMI 39.7
[2020-11-25 11:51] LABS: INR Fingerstick 1.4; Prothrombin Time Fingerstick 16.9 SEC (11.9-14.4)
== END 2020-11-25 18:00 | disposition home or self-care (01) ==
LOC: MTLAB 11:21
PROVIDERS: Family Provider Family Medicine; PCP Family Medicine; Referring Provider Family Medicine; Visit Provider Family Medicine
DX: I48.0 Paroxysmal atrial fibrillation (principal)
CPT/HCPCS: 36416; 85610

== ENCOUNTER 2020-12-09 14:26 | Outpatient (RCR) | payer MEDICARE, OTHER, SELFPAY ==
[2020-12-05 02:22] VITALS: BMI 39.7
[2020-12-09 14:38] LABS: INR Fingerstick 2.9; Prothrombin Time Fingerstick 32.6 SEC (11.9-14.4)
== END 2021-01-04 04:09 | disposition home or self-care (01) ==
LOC: MTLAB 14:26
PROVIDERS: Family Provider Family Medicine; PCP Family Medicine; Referring Provider Family Medicine; Visit Provider Family Medicine
DX: I48.0 Paroxysmal atrial fibrillation (principal)
CPT/HCPCS: 36416; 85610

== ENCOUNTER → 2021-02-06 12:23 | Outpatient (CLI) | payer MEDICARE, OTHER, SELFPAY ==
--- NOTE | 2021-02-06 12:35 | BI_ITS ---
MAMMOGRAPHY - UNILATERAL SCREENING: RIGHT BREAST REASON FOR EXAM: Female, 81 years old. Routine annual screening examination (unilateral). PERTINENT HISTORY: Personal history of breast cancer. Prior left mastectomy. Sister with breast cancer. Mother with breast cancer. TECHNIQUE: Digital unilateral breast patrick (3D mammographic acquisition) in the CC and MLO projections. 2-D mediolateral oblique (MLO) and craniocaudad (CC) views of both breasts were obtained. CAD: Full Field Digital Mammography with Computer Added Detection was performed. COMPARISON: Comparison is made with prior study dated 02/06/2020 and 01/26/2019. FINDINGS: Breast Composition: There are scattered areas of fibroglandular density. There are no dominant masses or suspicious calcifications. No other significant abnormalities are identified. There has been no significant change since the prior study. BI/SCREEN MAMM (CAD) W/PATRICK UNI R IMPRESSION: Stable unilateral screening mammogram. Yearly follow-up mammogram recommended. (A) ASSESSMENT CATEGORY: BIRADS Category 1: Negative. A letter regarding these results will be sent to the patient by the facility within 30 days. Approximately 10% of breast cancers are not detected by mammography. A normal mammogram should not delay biopsy of a clinically suspicious abnormality. [id number] Electronically Signed: Armand Cowan MD at 8:25 EST , Service support ,
== END ==
PROVIDERS: PCP Family Medicine; Referring Provider Nurse Practitioner; Visit Provider Nurse Practitioner
DX: Z12.31 Encounter for screening mammogram for malignant neoplasm of breast (principal); C50.912 Malignant neoplasm of unspecified site of left female breast; Z17.0 Estrogen receptor positive status [ER+]
CPT/HCPCS: 77063; 77067

== ENCOUNTER 2021-02-12 14:44 | Outpatient (RCR) | payer MEDICARE, OTHER, SELFPAY ==
[2021-01-04 04:09] VITALS: BMI 39.7
[2021-02-12 14:56] LABS: INR Fingerstick 3.3; Prothrombin Time Fingerstick 36.4 SEC (11.9-14.4)
== END 2021-03-07 18:00 | disposition home or self-care (01) ==
LOC: MTLAB 14:44
PROVIDERS: Family Provider Family Medicine; PCP Family Medicine; Referring Provider Family Medicine; Visit Provider Family Medicine
DX: I48.0 Paroxysmal atrial fibrillation (principal)
CPT/HCPCS: 36416; 85610

== ENCOUNTER 2021-03-18 13:43 | Outpatient (CLI) | payer MEDICARE, OTHER, SELFPAY ==
--- NOTE | 2021-03-18 13:47 | ECHOD_ITS ---
Reason For Study: Afib/Flutter Procedure This was a 2D Doppler, Color Flow transthoracic echocardiogram. Technically difficult study due to patients body habitus and mastectomy. The study was technically difficult. Exam performed in department. Left Ventricle Normal LV size. Left ventricular systolic function is normal. The estimated ejection fraction is 60 %. No evidence for diastolic dysfunction. No regional wall motion abnormalities noted. Right Ventricle Normal RV size. Normal systolic function. Atria Normal left atrium. Normal right atrium. No doppler evidence for ASD. Mitral Valve There is mild mitral annular calcification. Extension of the mitral annular calcification onto the base of the posterior mitral valve leaflet. Mild (1+) eccentric mitral valve insufficiency. Tricuspid Valve Normal tricuspid valve. Mild tricuspid valve insufficiency. Right ventricular systolic pressure estimated to be 34 mmHg. Aortic Valve Trisinus/trileaflet aortic valve. Mild focal aortic valve calcification. Mild (1+) aortic valve insufficiency. Pulmonic Valve The pulmonic valve is not well visualized. Great Vessels The aortic root is not well visualized. Pericardium/Pleural No pericardial effusion. MMode/2D Measurements & Calculations LVIDd: 4.6 cm IVSd: 0.90 cm LAV(MOD-bp): 48.3 ml LVIDs: 3.5 cm LVPWd: 0.72 cm LAV(MOD-bp) Indexed: 27.4 ml/m2 FS: 25.2 % LAV(MOD-sp2): 41.2 ml LAV(MOD-sp4): 53.3 ml LA A4 area: 18.7 cm2 RA A4 area: 11.7 cm2 Time Measurements MV dec time: 0.47 sec Doppler Measurements & Calculations MV E max hal: 78.2 cm/sec Lat Peak E' Hal: 6.1 cm/sec Med Peak E' Hal: 4.6 cm/sec MV A max hal: 139.7 cm/sec E/E' lat: 12.8 E/E' med: 16.8 MV E/A: 0.56 MV V2 max: 147.7 cm/sec MV P1/2t max hal: 75.5 cm/sec Ao V2 max: 143.5 cm/sec MV max P.7 mmHg MV P1/2t: 134.0 msec Ao max P.2 mmHg MV V2 mean: 64.8 cm/sec MV dec slope: 165.0 cm/sec2 MV mean P.1 mmHg MV V2 VTI: 45.0 cm MVA(P1/2t): 1.6 cm2 LV V1 max: 92.7 cm/sec PA V2 max: 113.9 cm/sec TR max hal: 279.8 cm/sec LV V1 max P.4 mmHg TR max P.3 mmHg ECHO/Echo Complete Interpretation Summary The study was technically difficult. Left ventricular systolic function is normal. The estimated ejection fraction is 60 %. There is mild mitral annular calcification. Extension of the mitral annular calcification onto the base of the posterior mi tral valve leaflet. Mild (1+) eccentric mitral valve insufficiency. Mild tricuspid valve insufficiency. Mild focal aortic valve calcification. Mild (1+) aortic valve insufficiency. Right ventricular systolic pressure estimated to be 34 mmHg. No evidence for diastolic dysfunction. Ordering Physician: Nathanael Dias Referring Physician: Nathanael Shah Performed By: Jeremiah Kathleen RCS
== END 2021-03-18 23:59 | disposition short-term general hospital (02) ==
LOC: CVS 13:46
PROVIDERS: PCP Family Medicine; Referring Provider Internal Medicine Cardiovascular Disease; Visit Provider Internal Medicine Cardiovascular Disease
DX: I48.0 Paroxysmal atrial fibrillation (principal); I44.7 Left bundle-branch block, unspecified
CPT/HCPCS: 93306

== ENCOUNTER 2021-03-19 15:20 | Outpatient (RCR) | payer MEDICARE, OTHER, SELFPAY ==
[2021-03-08 03:55] VITALS: BMI 39.7
[2021-03-20 15:46] LABS: INR Fingerstick 3.4; Prothrombin Time Fingerstick 37.2 SEC (11.9-14.4)
== END 2021-04-06 18:00 | disposition home or self-care (01) ==
LOC: MTLAB 15:20
PROVIDERS: Family Provider Family Medicine; PCP Family Medicine; Referring Provider Family Medicine; Visit Provider Family Medicine
DX: I48.0 Paroxysmal atrial fibrillation (principal)
CPT/HCPCS: 36416; 85610

== ENCOUNTER 2021-04-22 13:40 | Outpatient (RCR) | payer MEDICARE, OTHER, SELFPAY ==
[2021-04-07 02:47] VITALS: BMI 39.7
[2021-04-22 13:56] LABS: INR Fingerstick 2.6; Prothrombin Time Fingerstick 30.5 SEC (11.9-14.4)
== END 2021-04-22 18:00 | disposition home or self-care (01) ==
LOC: MTLAB 13:40
PROVIDERS: Family Provider Family Medicine; PCP Family Medicine; Referring Provider Family Medicine; Visit Provider Family Medicine
DX: Z86.718 Personal history of other venous thrombosis and embolism (principal)
CPT/HCPCS: 36416; 85610

== ENCOUNTER 2021-06-04 12:46 | Outpatient (RCR) | payer MEDICARE, OTHER, SELFPAY ==
[2021-05-05 10:47] VITALS: BMI 39.7
[2021-06-04 13:01] LABS: INR Fingerstick 2.1; Prothrombin Time Fingerstick 24.6 SEC (11.7-14.9)
== END 2021-06-04 18:00 | disposition home or self-care (01) ==
LOC: MTLAB 12:46
PROVIDERS: Family Provider Family Medicine; PCP Family Medicine; Referring Provider Family Medicine; Visit Provider Family Medicine
DX: Z86.718 Personal history of other venous thrombosis and embolism (principal)
CPT/HCPCS: 36416; 85610

== ENCOUNTER 2021-06-18 12:00 | Outpatient (RCR) | payer MEDICARE, OTHER, SELFPAY ==
--- NOTE | 2021-03-24 11:56 | HP.PTEVAL_ITS ---
Patient's Visit Information ESPERANZA LUCERO is a 81 year old F referred to Physical Therapy by Dr. 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 Date of Evaluation: 03/24/21 Physical Therapist: Linda Gomez PT, Cert MDT - Visit Plan Frequency: 2-3x /Week Duration: 4-6 Weeks Plan: AQUATIC THERAPY FOR PAIN RELIEF, POSTURE CORRECTION/STRENGTHENING, INSTRUCTION IN APPROPRIATE BODY MECHANICS AND ACTIVITY MODIFICATIONS. DLS STARTING WITH A NEUTRAL SPINE PROGRESSING ROM TOLERATED. MELYSSA LE ROM, STRETCHING AND STRENGTHENING. HEP INSTRUCTION. - Subjective Work/Leisure: RETIRED. Present symptoms: TIRED AND ACHY LOW BACK PAIN. LEFT HIP PAIN. LEFT GROIN PAIN LEFT THIGH AND LEG PAIN. OCCASSIONALLY 2ND LEFT TOE CURLS AND FEELS NUMB. OCCASSIONALLY RIGHT KNEE HURTS AND RELATES IT TO COMPENSATING FOR THE OTHER ONE. LEGS GET HEAVY AND TIRED WALKING. Present since: CHRONIC AND SX'S HAVE BEEN FLAREING UP FOR AWHILE. Pain Scale: WORST 9/10, LEAST 5/10. Currently: 5/10. Commenced as a result of: ARTHRITIS. Symptoms at onset: LEFT HIP AND GROIN. Worse: WALKING, PROLONGED SITITNG, TRYING TO GET COMFORTABLE AT NIGHT. STEPS (ONLY A COUPLE AND CAN'T DO THEM IF THERE ISN'T ANYTHING TO HANG ON TO). RISING FROM SITTING. Better: TYLONOL (BUT DOESN'T WORK WELL IT USE TO), HASN'T TRIED NEW PAIN MEDICINE YET BECAUSE SHE ISN'T SUPPOSED TO TAKE IT WHEN ALONE AND SHE LIVES ALONE. Disturbed sleep: YES. Previous history/Previous treatment: PAIN MGMT WITH DR. DAVIS. INJECTIONS IN BACK AND L HIP. PHYSICAL THERAPY LAND AND AQUATIC PT. STARTED OUT WITH HIP INJECITONS AND THEN TRIED BACK. INJECTIONS JUST DON'T SEEM TO BE HELPING ANYMORE. WENT TO DR. KIDD FOR SECOND OPINION. NO INJECTIONS SINCE ABOUT JAN 2021. PATIENT REPORTS DR. KIDD TOLD HER SURGERY IS VERY RISKING AND PT AND INJECTIONS ARE HER BEST OPTIONS. FOLLOW UP WITH DR DAVIS PENDING BEGINNING OF MAY 2021. Coughing/sneezing/straining: NEGATIVE. Gait: USES CANE WHEN SHE LEAVES HOME BUT NOT IN HOME. Difficulty initiating urination: NO. NO NEW LOSS OF BOWEL OR BLADDER CONTROL. Accidents: HAS HAD SEVERAL FALLS BUT LAST ONE WAS JULY 2019. Unexplained weight loss: NO. Imaging: PAIN MGMT ORDERED RECENT BACK X-RAYS AND BACK/HIP X-RAYS WITH DR. KIDD TOO. PMH/Recent major surgery: H/O BLOOD CLOTS. ON BLOOD THINNERS. HEART PROBLEMS BUT JUST HAD AND ECHO AND PASSED PER PATIENT REPORT. HTN. 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 NO CANCER X APPROX 3 YEARS. CA TREATMENTS HAVE INCLUDED SURGERIES, MASECTOMY, CHEMOTHERAPY, AND RADIATION TREATMENTS. OTHER: PATIENT REPORTS HER RESPONSE TO THERAPY IN THE PAST HAS BEEN PRETTY GOOD AND SHE WANTS TO TRY IT AGAIN. STATES SHE IS TRYING TO EXERCISE HERE AT IN THE GYM WITH A PERSONAL TRAINGER ABOUT ONCE A WEEK BUT IT IS MAINLY UPPER BODY AND SHE WANTS TO MAKE SURE SHE DOESN'T DO ANYTHING WITH THE ANALYTICAL DATA MINER FOR HER LOWER BODY THAT IS GOING TO MAKE HER WORSE. NO INCREASED PAIN AFTER TRAINING SESSIONS EXCEPT AT NIGHT ON THOSE DAYS IT IS A LITTLE HARDER TO GET COMFORTABLE AT NIGHT. - Objective Sitting/Standing Posture: POOR. INCREASED LORDOSIS AND SCOLIOSIS. Active Correction of posture: WORSE. Other Observations: THIS PATIENT AMBULATES INDEP'LY INTO PT X >300 FEET WITH A STRAIGHT CANE, NO LOB, VERY SHORT MELYSSA STRIDE LENGTH AND SLOW CADANCE. Motor deficit: MELYSSA LE WEAKNESS LEFT > RIGHT. RIGHT HIP 4-/5, KNEE 4/5, ANKLE 5/5. LEFT HIP 3-/5, KNEE 4/5, ANKLE 5/5. Sensory deficit: MELYSSA LE LIGHT TOUCH SENSATION GROSSLY INTACT AND SYMMETRICAL. ROM de ficit: TIGHT MELYSSA HIP FLEXORS, HS'S AND GASTROC SOLEUS COMPLEX'S. ONLY ABLE TO FLEX HIPS TO APPOX 85 DEG MELYSSA IN SUPINE AND L HIP PAIN AT THE END OF THE AVAILABLE ROM. Dural Signs: NEGATIVE MELYSSA LE'S. Lumbar mvmt loss: flex - MIN. ext - ADAIR. R SG - ADAIR. L SG - ADAIR. Core strength: POOR. Palpation: INCREASED MUSCLE TONE MELYSSA LUMBAR AND THROACIC PARASPINALS. NO ACUTE PELVIC, HIP, THORACIC OR LUMBAR TENDERNESS BUT LOWER LEFT LEG TENDERNESS X APPROX ONE YEAR AND PATIENT REPORTS DR. KIDD IS AWARE OF THIS TENDERNESS FROM LAST EXAM. - Balance/Special Test Scores Lower Extremity Functional Score: 15 - Goals Goal 1:: DECREASE C/O BACK AND MELYSSA LE SX'S (ESPECIALLY L HIP). Goal Time Frame: 4-6 Weeks Goal 2:: IMPROVE RISING FROM SITTING, STANDING, WALKING, SLEEP AND ADL FUNCTION. Goal Time Frame: 4-6 Weeks Goal 3:: INSTRUCT IN PROPHYLAXIS Goal Time Frame: 4-6 Weeks - Anticipated Interventions Patient/Client Instruction: Educate patient on: Condition, Plan of Care, Risk Factors For the Purpose of:: To improve self management Therapeutic Exercise to Include: Strength training, Body mechanics, Postural training, Flexibilty training, Gait and locomotor training, Neuromotor development, In an aquatic setting, Dynamic Lumbar Stabilization For the Purpose of:: To decrease pain, To increase ROM, To improve muscle performance and motor function, To increase tolerance to activity/condition/position, To improve ability of physical actions for home/community/work/leisure, To improve gait and locomotor functions Thank you for the opportunity to evaluate your patient. For Medicare and Medicare HMO plans, please review the plan of care and approve it. It will need to be FAXED BACK to us at [phone] for Medicare purposes. For Medicare only, by signing this I certify the plan of care. Please let me know if there are questions or concerns regarding this plan of care. Physician Signature: Date:
--- NOTE | 2021-04-28 14:07 | HP.PTREVAL ---
Dr. 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 Please see the progress note below for an update on the physical therapy plan of care! Subjective: PATIENT REPORTS SHE HAS IMPROVED AND WANTS TO TRY TO RETURN TO [place] EX'S. REPORTS SHE IS GOING TO SEE DR. DAVIS NEXT WEEK TO TALK ABOUT GETTING ANOTHER INJECTION. OVER ALL REPORTS SHE ISN'T WORSE BUT ISN'T MUCH BETTER EITHER. SHE REPORTS THERAPY HAS HELPED HER CORRECT SOME OF HER MECHANICS BUT SHE TENDS TO OVER DO IT IN THE POOL BECAUSE SHE FEELS BETTER IN THE POOL. LBP UP TO 8/10 THIS MORNING. L HIP/THIGH PAIN THIS MORNING TOO. INTERMITTENT L LOWER LEG PAIN TOO RARELY THOUGH. Objective/Function: PATIENT WAS SEEN TODAY FOR RE-ASSESSMENT OF PROGRESS TOWARD THE SET PT GOALS AND THE NEED FOR FURTHER PHYSICAL THERAPY VS READINESS FOR DISCHARGE. SHE IS MAKING SLOW MINIMAL PROGRESS TOWARD THE SET PT GOALS. SHE MAY BE ABLE TO PROGRESS MORE IN CONJUNCTION WITH ANY PAIN MGMT INTERVENTIONS APPROPRIATE. UPON EXAM TODAY: THIS PATIENT AMBULATES INDEP'LY INTO PT X >300 FEET WITH A STRAIGHT CANE, NO LOB, VERY SHORT MELYSSA STRIDE LENGTH AND SLOW CADANCE. Motor deficit: MELYSSA LE WEAKNESS LEFT > RIGHT. RIGHT HIP 4/5, KNEE 4/5, ANKLE 5/5. LEFT HIP 4-/5, KNEE 4/5, ANKLE 5/5. Sensory deficit: MELYSSA LE LIGHT TOUCH SENSATION GROSSLY INTACT AND SYMMETRICAL. ROM deficit: TIGHT MELYSSA HIP FLEXORS, HS'S AND GASTROC SOLEUS COMPLEX'S. DECREASED MELYSSA HIP FLEXION. Dural Signs: NEGATIVE MELYSSA LE'S. Lumbar mvmt loss: flex - MIN. ext - ADAIR. R SG - ADAIR. L SG - ADAIR. PATIENT DENIES INCREASED PAIN WITH LUMBAR ROM TESTING EXCEPT TRYING TO GET TO ERECT POSTURE IN STANDING. Core strength: POOR Plan Plan: ATTEMPT TO TRANISTION TO LAND BASED PT HOME AND GYM EX PROGREAMS FOR POSTURE CORRECTION/STRENGTHENING, INSTRUCTION IN APPROPRIATE BODY MECHANICS AND ACTIVITY MODIFICATIONS. DLS STARTING WITH A NEUTRAL SPINE PROGRESSING ROM TOLERATED. MELYSSA LE ROM, STRETCHING AND STRENGTHENING. HEP INSTRUCTION. PATIENT IS AGREEABLE. Balance/Gait/Functional tests - Balance/Special Test Scores Lower Extremity Functional Score: 14 Goals Goal 1:: DECREASE C/O BACK AND MELYSSA LE SX'S (ESPECIALLY L HIP). Goal Time Frame: 4-6 Weeks Goal Progress: Progressing Goal 2:: IMPROVE RISING FROM SITTING, STANDING, WALKING, SLEEP AND ADL FUNCTION. Goal Time Frame: 4-6 Weeks Goal Progress: Progressing Goal 3:: INSTRUCT IN PROPHYLAXIS Goal Time Frame: 4-6 Weeks Goal Progress: Progressing Anticipated Interventions Patient/Client Instruction: Educate patient on: Condition, Plan of Care, Risk Factors For the Purpose of:: To improve self management Therapeutic Exercise to Include: Strength training, Body mechanics, Postural training, Flexibilty training, Gait and locomotor training, Neuromotor development, In an aquatic setting, Dynamic Lumbar Stabilization For the Purpose of:: To decrease pain, To increase ROM, To improve muscle performance and motor function, To increase tolerance to activity/condition/position, To improve ability of physical actions for home/community/work/leisure, To improve gait and locomotor functions Please do not hesitate to contact me at [phone] by phone or if you have questions or concerns regarding this new plan of care! Sincerely, Linda Gomez, PT, Cert MDT
--- NOTE | 2021-06-18 12:24 | HP.PTDCSUM_ITS ---
It has been my pleasure to treat ESPERANZA LUCERO referred by Dr. 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 Discharge Date: 06/18/21 Please see the following information for a summary of their discharge status. Subjective: PATIENT REPORTS SHE IS DOING BETTER THAN SHE WAS. STATES SHE IS A LITTLE SORE THE NEXT DAY AFTER THE LAND SESSIONS BUT NOT EXHAUSTED AND SORE LIKE AFTER THE POOL SESSIONS. REPORTS HAVING L HIP INJECTION WITH DR. DAVIS ABOUT 3 WEEKS AGO AND NEXT WEEK SHE IS HAVING AN INJECTION IN HER BACK. STATES SHE IS GOING TO BE OUT OF TOWN A LOT AND EVEN THOUGH SHE THINKS SHE NEEDS IT SHE CAN'T CONTINUE PT RIGHT NOW. 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 LLE Pain Intensity (Out of 10): 4 LB Pain Intensity (Out of 10): 0 % Improvement: 50 Objective/Function: PATIENT WAS SEEN TODAY FOR RE-ASSESSMENT OF PROGRESS TOWARD THE SET PT GOALS AND THE NEED FOR FURTHER PHYSICAL THERAPY VS READINESS FOR DIS CHARGE. SHE IS MAKING SLOW MINIMAL PROGRESS TOWARD THE SET PT GOALS. UPON EXAM TODAY: THIS PATIENT AMBULATES INDEP'LY INTO PT X >300 FEET WITH A STRAIGHT CANE, NO LOB, VERY SHORT MELYSSA STRIDE LENGTH AND SLOW CADANCE. Motor deficit: MELYSSA LE WEAKNESS LEFT > RIGHT. RIGHT HIP 4/5, KNEE 4/5, ANKLE 5/5. LEFT HIP 4- /5, KNEE 4/5, ANKLE 5/5. Sensory deficit: MELYSSA LE LIGHT TOUCH SENSATION GROSSLY INTACT AND SYMMETRICAL. ROM deficit: TIGHT MELYSSA HIP FLEXORS, HS'S AND GASTROC SOLEUS COMPLEX'S. DECREASED MELYSSA HIP FLEXION. Dural Signs: NEGATIVE MELYSSA LE'S. Lumbar mvmt loss: flex - MIN. ext - ADAIR. R SG - ADAIR. L SG - ADAIR. PATIENT DENIES INCREASED PAIN WITH LUMBAR ROM TESTING EXCEPT TRYING TO GET TO ERECT POSTURE IN STANDING. Core strength: POOR Goal 1:: DECREASE C/O BACK AND MELYSSA LE SX'S (ESPECIALLY L HIP). Goal Progress: Progressing Goal 2:: IMPROVE RISING FROM SITTING, STANDING, WALKING, SLEEP AND ADL FUNCTION. Goal Progress: Progressing Goal 3:: INSTRUCT IN PROPHYLAXIS Goal Progress: Progressing Plan: D/C AT PATIENTS REQUEST If there are questions or concerns regarding this patient's physical therapy, please feel free to call me at [phone]. Thank you for the referral of this patient. Sincerely, Linda Gomez, PT, Cert MDT Balance/Gait/Functional tests - Balance/Special Test Scores Lower Extremity Functional Score: 18
== END 2021-06-18 12:45 | disposition home or self-care (01) ==
LOC: PT 12:00
PROVIDERS: PCP Family Medicine; Referring Provider Orthopaedic Surgery; Visit Provider Orthopaedic Surgery
DX: M16.12 Unilateral primary osteoarthritis, left hip (principal); M51.36 Other intervertebral disc degeneration, lumbar region
CPT/HCPCS: 97110; 97113; 97162; 97164

== ENCOUNTER 2021-06-25 13:59 | Outpatient (RCR) | payer MEDICARE, OTHER, SELFPAY ==
[2021-06-05 02:17] VITALS: BMI 39.7
[2021-06-25 14:10] LABS: INR Fingerstick 1.2; Prothrombin Time Fingerstick 14.8 SEC (11.7-14.9)
== END 2021-06-25 18:00 | disposition home or self-care (01) ==
LOC: MTLAB 13:59
PROVIDERS: Family Provider Family Medicine; PCP Family Medicine; Referring Provider Family Medicine; Visit Provider Family Medicine
DX: Z86.718 Personal history of other venous thrombosis and embolism
CPT/HCPCS: 36416; 85610

== ENCOUNTER 2021-07-06 15:01 | Outpatient (RCR) | payer MEDICARE, OTHER, SELFPAY ==
[2021-07-05 03:57] VITALS: BMI 39.7
[2021-07-06 15:11] LABS: INR Fingerstick 2.2; Prothrombin Time Fingerstick 26.1 SEC (11.7-14.9)
== END 2021-07-06 18:00 | disposition home or self-care (01) ==
LOC: MTLAB 15:01
PROVIDERS: Family Provider Family Medicine; PCP Family Medicine; Referring Provider Family Medicine; Visit Provider Family Medicine
DX: Z86.718 Personal history of other venous thrombosis and embolism
CPT/HCPCS: 36416; 85610

== ENCOUNTER 2021-08-11 09:18 | Outpatient (RCR) | payer MEDICARE, OTHER, SELFPAY ==
[2021-08-05 01:44] VITALS: BMI 39.7
[2021-08-11 12:09] LABS: International Normalized Ratio 2.2; Prothrombin Time (Protime)PT. 24.4 SECONDS (11.7-14.9)
[2021-08-11 12:28] LABS: Anion Gap 8 (5-15); BUN 24 mg/dL (7-18); BUN/Creat Ratio 29.3 RATIO (10-20); Calcium,Total 8.8 mg/dL (8.5-10.1); Chloride 108 mmol/L (98-107); Cholesterol 173 mg/dL (200); Creatinine, Serum 0.82 mg/dL (0.55-1.02); EST Glomerular Filtration Rate 71 mL/min (>60); Est Glom Filt Rate - Afr Amer 86 mL/min (>60); Glucose 92 mg/dL (74-106); High Density Lipoprotein 55 mg/dL; Potassium 3.8 mmol/L (3.5-5.1); Sodium Level 139 mmol/L (136-145); Triglycerides 201 mg/dL; Very Low Density Lipoprotein 40 mg/dL (5-40)
== END 2021-09-03 16:00 | disposition home or self-care (01) ==
LOC: MTLAB 09:18
PROVIDERS: Family Provider Family Medicine; PCP Family Medicine; Referring Provider Family Medicine; Visit Provider Family Medicine
DX: Z86.718 Personal history of other venous thrombosis and embolism (principal); I10 Essential (primary) hypertension
CPT/HCPCS: 36415; 80048; 80061; 85610

== ENCOUNTER 2021-09-29 11:02 | Outpatient (RCR) | payer MEDICARE, OTHER, SELFPAY ==
[2021-09-04 10:13] VITALS: BMI 39.7
[2021-09-14 14:21] LABS: INR Fingerstick 2.4; Prothrombin Time Fingerstick 27.7 SEC (11.7-14.9)
[2021-09-29 11:15] LABS: INR Fingerstick 1.1; Prothrombin Time Fingerstick 13.9 SEC (11.7-14.9)
== END 2021-10-04 03:42 | disposition home or self-care (01) ==
LOC: MTLAB 11:02
PROVIDERS: Family Provider Family Medicine; PCP Family Medicine; Referring Provider Family Medicine; Visit Provider Family Medicine
DX: Z86.718 Personal history of other venous thrombosis and embolism
CPT/HCPCS: 36416; 85610

== ENCOUNTER 2021-11-03 12:42 | Outpatient (RCR) | payer MEDICARE, OTHER, SELFPAY ==
[2021-10-04 03:42] VITALS: BMI 39.7
[2021-10-13 15:15] LABS: INR Fingerstick 2.5; Prothrombin Time Fingerstick 29.3 SEC (11.7-14.9)
[2021-11-03 12:55] LABS: INR Fingerstick 1.1; Prothrombin Time Fingerstick 13.5 SEC (11.7-14.9)
== END 2021-11-03 18:00 | disposition home or self-care (01) ==
LOC: MTLAB 12:42
PROVIDERS: Family Provider Family Medicine; PCP Family Medicine; Referring Provider Family Medicine; Visit Provider Family Medicine
DX: Z86.718 Personal history of other venous thrombosis and embolism (principal)
CPT/HCPCS: 36416; 85610

== ENCOUNTER → 2021-11-06 | Outpatient (CLI) | payer MEDICARE, OTHER, SELFPAY ==
[2021-11-06 17:29] LABS: Absolute Lymphocyte Count 2.55 X10^3/uL (0.83-4.51); Absolute Neutrophil Count 10.8 X10^3/uL (2.0-7.7); Basophil# 0.02 X10^3/uL; Basophil% 0.1 % (0-1); Eosinophil# 0.03 X10^3/uL; Eosinophils% 0.2 % (0-5); Hematocrit 37.7 % (37-47); Hemoglobin 12.3 g/dL (12.0-15.0); Lymphocyte # 2.55 X10^3/ul (0.83-4.51); Lymphocyte % 17.4 % (19-41); Mean Corp Hgb Conc 32.6 g/dL (32-36); Mean Corpuscular Hgb 32.1 pg (27.0-32.0); Mean Corpuscular Volume 98.4 fL (81-99); Mean Platelet Vol. 10.1 fl (6.2-12.0); Monocyte# 1.21 X10^3/uL; Monocyte% 8.2 % (0-10); NRBC Flagged by Analyzer 0 % (0-5); Neutrophil % 73.7 % (47-70); Platelet Count 326 K/mm3 (150-450); RBC Distribution Width CV 13.3 % (11.6-14.6); RBC Distribution Width SD 47.2 fl (35.1-43.9); Red Blood Count 3.83 M/mm3 (4.2-5.4); White Blood Count 14.7 K/mm3 (4.4-11.0)
== END | disposition home or self-care (01) ==
LOC: MTLAB 14:27
PROVIDERS: PCP Family Medicine; Referring Provider Physician Assistant Medical; Visit Provider Physician Assistant Medical
DX: I48.0 Paroxysmal atrial fibrillation (principal)
CPT/HCPCS: 36415; 85025

== ENCOUNTER → 2021-11-11 | Outpatient (CLI) | payer MEDICARE, OTHER, SELFPAY ==
--- NOTE | 2021-11-11 16:18 | RAD_ITS ---
EXAM: XR LUMBOSACRAL SPINE, 4 OR 5 VIEWS CLINICAL INDICATION: Backache. TECHNIQUE: Frontal, lateral and bilateral oblique views of the lumbar spine. This report was created using [employer] report generation technology. COMPARISON: Lumbar spine radiographs 03/16/2021. FINDINGS: VERTEBRAE: Mild levoscoliosis is unchanged. Moderate asymmetric L5-S1 degenerative facet arthropathy and mild asymmetric L4-L5 degenerative facet arthropathy are unchanged. Normal vertebral body heights. No fracture. Mild left lateral degenerative subluxation of L3 on L4 is unchanged.. DISC SPACES: Moderately pronounced right-sided disc space height narrowing with endplate sclerosis are unchanged. Mild L3-L4 disc space height narrowing and mild left lateral degenerative subluxation of L3 on L4 are unchanged. GASTROINTESTINAL TRACT: Unremarkable as visualized. Included bowel gas pattern is non-obstructive. RAD/L/S Spine Min 4 Views IMPRESSION: 1. No acute findings in the lumbar spine. 2. Mild left lateral degenerative subluxation of L3 on L4. 3. No interval change when compared to 03/16/2021. Electronically Signed: Wilian Ricks MD at 10:26 EDT ,
--- NOTE | 2021-11-11 16:25 | RAD_ITS ---
STUDY: X-RAY - PELVIS AND RIGHT HIP REASON FOR EXAM: Right hip pain. TECHNIQUE: 2 views of the pelvis and hip. COMPARISON: Radiographs 03/16/2021. FINDINGS: There are surgical clips in the pelvis. Normal bilateral iliac wings, sacroiliac joints and visualized sacrum. Normal bilateral superior and inferior pubic rami. Normal pubic symphysis. Normal bilateral ischial tuberosities. Normal visualized right femoral head. Normal right acetabulum. There are marginal osteophytes and joint space narrowing of the right hip joint. RAD/HIP, UNI W/ Pelvis 2-3 Views IMPRESSION: Right hip arthrosis. Electronically Signed: Jasbir Garcia MD at 8:59 EDT ,
== END | disposition home or self-care (01) ==
LOC: MTRAD 16:16
PROVIDERS: PCP Family Medicine; Referring Provider Family Medicine; Visit Provider Family Medicine
DX: M25.551 Pain in right hip (principal); M54.9 Dorsalgia, unspecified
CPT/HCPCS: 72110; 73502

== ENCOUNTER 2022-01-08 17:06 | Emergency (ER) | payer MEDICARE, OTHER, SELFPAY ==
[2022-01-08 17:07] VITALS: BP 154/105; PULSE 66; RESP 18; TEMP 36.8; O2SAT 98; BMI 39.1
--- NOTE | 2022-01-08 17:44 | EX.ED.GENINJ ---
HPI History of Present Illness Chief Complaint: Fall Detail of Chief Complaint: Fall with injury to left hip and left knee Informant: patient Narrative Narrative: Patient presents emergency department complaint of a fall prior to arrival in the ER. Patient states that she was with friends going [facility] [place] [facility] when while using her cane she tripped over the curb and fell onto her left side. Patient does not think she hit her head at all. There is no headache or neck pain. Patient did not want to get up so she called EMS. She complains of only pain in her left knee and some pain in her left hip. Patient was noted to be hypertensive at the time and was advised to be seen in the emergency department. Patient states she took her blood pressure medicine this morning but not this afternoon. Patient denies chest pain or shortness of breath. She denies recent illness. [facility] Medical History (Updated 01/08/22 @ 19:[address] Debi Mukherjee, DO) Cataracts, bilateral Colon cancer Deep vein thrombosis Ductal carcinoma in situ (DCIS) of left breast Essential hypertension Fall Gout History of chemotherapy Hx of breast cancer Hx of radiation therapy LBBB (left bundle branch block) Obesity Paroxysmal atrial fibrillation Pulmonary embolism Pulmonary HTN Uterine cancer Home Medications allopurinol 300 mg tablet 150 mg PO DAILY GOUT 06/13/15 [History Last Taken 07/19/19] atenolol 100 mg tablet 100 mg PO DAILY HTN 06/13/15 [History Last Taken 07/19/19] folic acid 400 mcg tablet 0.4 mg PO DAILY@0800 supplement 06/13/15 [History Last Taken 07/19/19] losartan 50 mg tablet 50 mg PO BID HTN 06/13/15 [History Last Taken 07/19/19] aspirin 81 mg tablet,delayed release 81 mg PO DAILY HEART 08/25/16 [History Last Taken 07/19/19] cholecalciferol (vitamin D3) 25 mcg (1,000 unit) tablet 1,000 unit PO DAILY supplement 08/25/16 [History Last Taken 07/19/19] famotidine 20 mg tablet 20 mg PO DAILY PRN REFLUX 11/08/17 [History Last Taken 11/14/17 08:30 20 MG] calcium citrate 315 mg calcium-vitamin D3 6.25 mcg (250 unit) tablet 1 ea PO BID supplement 07/19/19 [History Last Taken 05/14/20] hydrochlorothiazide 25 mg tablet See Rx Instructions .Route .COMPLEX #90 tabs 09/24/21 [Rx Last Taken Unknown] potassium chloride 10 mEq tablet,extended release(part/cryst) (Catalino Shukla) See Rx Instructions .Route .COMPLEX #90 tabs 09/24/21 [Rx Last Taken Unknown] acetaminophen 500 mg tablet 1,000 mg PO TID PRN Pain 10/28/21 [History Last Taken Unknown] apixaban 5 mg tablet (Eliquis) 5 mg PO BID #60 tabs 10/28/21 [Rx Last Taken Unknown] celecoxib 200 mg capsule 200 mg PO DAILY PRN pain 10/28/21 [History Last Taken Unknown] Allergy/AdvReac Type Severity Reaction Status Date / Time almond Allergy Unknown Verified 01/08/22 17:07 levofloxacin [From Levaquin] AdvReac Unknown Verified 01/08/22 17:07 Penicillins [PCN] AdvReac Other Verified 01/08/22 17:07 Family History Father Lung cancer Brother Lung cancer Mother Breast cancer Sister Breast cancer CAD (coronary artery disease) Surgical History History of colectomy History of colostomy reversal History of hysterectomy History of left heart catheterization (08/26/16) History of reversal of ileostomy Status post left breast lumpectomy Social History Smoking Status: Former smoker how long ago did patient quit smokin + years ago alcohol intake: current alcohol intake frequency: holidays/special occasions only substance use type: does not use caffeine: No ROS ROS ED Review of Systems ROS Unobtainable: other Constitutional Constitutional ED: Reports lethargy; Denies chills, fever(s), sweats or weight loss Eyes Eyes: Denies blurry vision, change in vision or diplopia ENT ENT ED: Denies rhinorrhea or sore throat Cardiovascular Cardiovascular: Denies chest pain, orthopnea or racing heartbeat Respiratory/Chest Respiratory/Chest: Denies cough, dyspnea, dyspnea on exertion, orthopnea or sputum Gastrointestinal Gastrointestinal: Denies abdominal pain, diarrhea, nausea or vomiting Genitourinary Genitourinary ED: Denies dysuria, hematuria or urinary frequency Musculoskeletal Musculoskeletal: Reports other Details: Left knee and left hip pain ; Denies arthralgias, back pain, myalgias or neck pain Integumentary Denies abscess, Abrasions or rash Neurologic Neurologic: Denies headache(s) or weakness Psychiatric Psychiatric: Denies anxiety, depression or suicidal thoughts Endocrine Endocrinology: Denies polydipsia, polyphagia or polyuria Hematologic/Lymphatic Hematologic/Lymphatic: Denies easy bleeding, easy bruising or lymphadenopathy Allergic/Immunologic Allergic/Immunologic ED: Denies mouth swelling, tongue swelling or urticaria EXAM Physical Exam Const Vital Signs: 01/08/22 17:07 01/08/22 17:11 01/08/22 17:46 Temperature 98.2 F Temperature Source Oral Pulse Rate 66 Respiratory Rate 18 Respiratory Effort Normal Non-Labored Respiratory Pattern Normal Blood Pressure 154/105 H 135/106 H Blood Pressure Mean 121 115 Pulse Ox 98 Oxygen Delivery Method Room Air Positive well nourished and well developed General Appearance ED: well developed and NAD HEENT Reports TM's clear and moist mucous membranes normocephalic and atraumatic; Negative for trauma or tenderness Tympanic Membrane ED: Yes TM's clear Eyes PERRL and EOMs intact bilaterally General Eye ED: Negative for pale conjunctiva or scleral icterus Neck no lymphadenopathy, supple and no JVD General: Negative for tenderness Chest Wall inspection of chest normal and palpation of chest normal Chest: Negative for tenderness Resp normal respiratory effort and clear to auscultation bilaterally Effort and Inspection: Negative for respiratory distress or pain with movement Auscultation: Negative for rhonchi, wheezes or diminished lung sounds Cardio regular rate, regular rhythm, S1 normal heart sound, S2 normal heart sound and no murmurs Peripheral Pulses: pulses 2+ throughout GI normal to inspection, nondistended, normoactive bowel sounds, soft to palpation, non-tender, non-distended and no masses Back/Spine no CVA tenderness and no thoracic nor lumbar tenderness Extremity Extremity Narrative: Patient has ecchymosis and bruising about the left knee. No obvious deformity. He has a mild diffuse tenderness. Left hip-no deformity noted. There is no shortening or external rotation noted. Patient does have some tenderness over the left hip. General Extremety ED: Negative for edema General Extremity: Negative for edema Neuro oriented x3, CN's II-XII intact bilaterally, no sensory deficits noted and gait normal Sensorium / Orientation: awake, alert, oriented to person, oriented to place and oriented to time Motor Exam: strength 5/5 throughout and strength abnormal Psych mental status grossly normal Skin no rashes or lesions noted and no wounds MDM MDM MDM Narrative Medical decision making narrative: Patient had x-rays of the left knee and left hip and no fractures were noted. At this point she will be ambulated in the department. She will be discharged home. Her blood pressure did improve improved somewhat in the emergency department and she is asymptomatic from the standpoint but states that she just has some pain and still feels somewhat anxious and jittery. I do not feel any work-up is indicated further for her blood pressure. Patient in agreement. Radiography Diagnostic Testing: Clinical Impression(s) from Imaging Studies Hip/Pelvis X-Ray 01/08/22 18:04 IMPRESSION: Severe osteoarthritic changes of left hip and mild degenerative changes of the right.. No evidence for acute hip or pelvic fracture. Electronically Signed: Da Delvalle MD at 18:36 EDT , Knee X-Ray 01/08/22 18:04 IMPRESSION: Moderate degenerative changes. No acute fracture or dislocation. Electronically Signed: Da Delvalle MD at 18:34 EDT , 4 views of the left knee obtained interpreted by myself no acute fractures but patient did have degenerative changes noted. Radiology was in agreement. 1 view x-ray of the pelvis obtained interpreted by myself as no acute fractures but did have degenerative changes. Radiology in agreement. Discharge Plan Triage Chief Complaint: Fall Other Complaint: Hypertension ED Provider: Debi Mukherjee Dx/Rx/DC Orders Clinical Impression: Fall, Contusion of knee, Hypertension Instructions: Bruises (Contusions), ED Hypertension, Established Prescriptions: No Action celecoxib 200 mg capsule 200 mg PO DAILY PRN (Reason: pain) Eliquis 5 mg tablet 5 mg PO BID Qty: 60 11RF allopurinol 300 MG tablet 150 mg PO DAILY Label Comments: GOUT losartan 50 MG tablet 50 mg PO BID Label Comments: BLOOD PRESSURE atenolol 100 MG tablet 100 mg PO DAILY Label Comments: BLOOD PRESSURE folic acid 0.4 MG tablet 0.4 mg PO DAILY@0800 Label Comments: SUPPLEMENT aspirin 81 MG tablet,delayed release (DR/EC) 81 mg PO DAILY Label Comments: ASK ABOUT STOPPING cholecalciferol (vitamin D3) 1,000 UNIT tablet 1,000 unit PO DAILY famotidine 20 MG tablet 20 mg PO DAILY PRN (Reason: REFLUX) acetaminophen 500 mg tablet 1,000 mg PO TID PRN (Reason: Pain) calcium citrate-vitamin D3 1 EACH tablet 1 ea PO BID potassium chloride [Klor-Con M10] 10 mEq tablet,ER particles/crystals See Rx Instructions .ROUTE .COMPLEX Qty: 90 3RF Dose Instruction: TAKE 1 TABLET BY MOUTH EVERY DAY Rx Instructions: TAKE 1 TABLET BY MOUTH EVERY DAY hydrochlorothiazide 25 mg tablet See Rx Instructions .ROUTE .COMPLEX Qty: 90 3RF Dose Instruction: TAKE 1 TABLET BY MOUTH EVERY DAY Rx Instructions: TAKE 1 TABLET BY MOUTH EVERY DAY Primary Care Provider: Nathanael Shah Referrals: Nathanael Shah MD [Primary Care Provider] - 3-5 Days Disposition Disposition: Home, Self Care
[2022-01-08 17:46] VITALS: BP 135/106
--- NOTE | 2022-01-08 18:04 | RAD_ITS ---
STUDY: X-RAY - PELVIS AND LEFT HIP REASON FOR EXAM: Female, 81 years old. fall TECHNIQUE: 3 views of the pelvis and hip. COMPARISON: None. FINDINGS: There is a non-specific bowel gas pattern. Surgical clips are seen within the pelvis.. Normal bilateral iliac wings, sacroiliac joints and visualized sacrum. Normal bilateral superior and inferior pubic rami. Normal pubic symphysis. Normal bilateral ischial tuberosities. Mild concentric narrowing of the right hip joint and acetabular spurring. 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 No acute fracture or dislocation at this time RAD/HIP, UNI W/ Pelvis 2-3 Views IMPRESSION: Severe osteoarthritic changes of left hip and mild degenerative changes of the right.. No evidence for acute hip or pelvic fracture. Electronically Signed: Da Delvalle MD at 18:36 EDT ,
--- NOTE | 2022-01-08 18:04 | RAD_ITS ---
STUDY: X-RAY - LEFT KNEE REASON FOR EXAM: Female, 81 years old. fall TECHNIQUE: 4 view(s) of the knee. COMPARISON: None. FINDINGS: Normal visualized distal femur. Normal visualized proximal tibia and fibula. Normal proximal tibiofibular articulation. Narrowed medial femorotibial compartment. Normal lateral femorotibial compartment. Severely narrowed patellofemoral articulation. Diffuse soft tissue swelling noted along the lateral aspect of the knee. RAD/Knee 4 or More Views IMPRESSION: Moderate degenerative changes. No acute fracture or dislocation. Electronically Signed: Da Delvalle MD at 18:34 EDT ,
== END 2022-01-08 19:58 | disposition home or self-care (01) ==
PROVIDERS: Emergency Provider Emergency Medicine; PCP Family Medicine; Visit Provider Emergency Medicine
DX: S80.02XA Contusion of left knee, initial encounter (principal); S79.912A Unspecified injury of left hip, initial encounter; I10 Essential (primary) hypertension; W10.1XXA Fall (on)(from) sidewalk curb, initial encounter; Y92.481 Parking lot as the place of occurrence of the external cause; Z87.891 Personal history of nicotine dependence
CPT/HCPCS: 73502; 73564; 99285

== ENCOUNTER → 2022-01-11 | Outpatient (CLI) | payer MEDICARE, OTHER, SELFPAY ==
--- NOTE | 2022-01-11 14:39 | VDLE_ITS ---
Reason For Study: LEG SWELLING RIGHT LEFT CFV is compressible, spontaneous, phasic, GSV is normal. competent and demonstrates normal CFV is compressible, spontaneous, phasic, augmentation. competent, and demonstrates normal Procedure augmentation. This is a venous duplex using B-mode, color FV is compressible, spontaneous, phasic, flow and spectral Doppler. competent and demonstrates normal Exam performed in department. augmentation. The exam was diagnostic. POP V is compressible, spontaneous, phasic, Technically difficult study due to swelling competent and demonstrates normal and edema. augmentation. A preliminary report was called and/or faxed T/P Trunk is compressible. to Dr. Shah. PTV is compressible. LT PerV is compressible. VL/Venous Duplex US, Unilateral Interpretation Summary Deep veins of the left lower extremity are patent and compressible segmentally. There is no evidence of left lower extremity deep vein thrombosis. Valvular competence appears intac t within the proximal deep venous system on the left . The left great saphenous vein appears patent a nd compressible segmentally. Ordering Physician: Nathanael Shah Referring Physician: Nathanael Shah Performed By: Ricci Day, RVT
== END | disposition home or self-care (01) ==
LOC: CVS 14:37
PROVIDERS: PCP Family Medicine; Referring Provider Family Medicine; Visit Provider Family Medicine
DX: M79.89 Other specified soft tissue disorders (principal)
CPT/HCPCS: 93971

== ENCOUNTER 2022-02-08 09:42 | Outpatient (CLI) | payer MEDICARE, OTHER, SELFPAY ==
--- NOTE | 2022-02-08 09:45 | BI_ITS ---
MAMMOGRAPHY - UNILATERAL SCREENING: RIGHT BREAST REASON FOR EXAM: Female, 82 years old. Routine annual screening examination (unilateral). PERTINENT HISTORY: Personal history of breast cancer. Sister with breast cancer. Mother with breast cancer. TECHNIQUE: Digital unilateral breast patrick (3D mammographic acquisition) in the CC and MLO projections. 2-D mediolateral oblique (MLO) and craniocaudad (CC) views of both breasts were obtained. CAD: Full Field Digital Mammography with Computer Added Detection was performed. COMPARISON: Comparison is made with prior study dated 02/06/2021 and 02/06/2020. FINDINGS: Breast Composition: There are scattered areas of fibroglandular density. There are no dominant masses or suspicious calcifications. Stable small benign-appearing bilateral axillary No other significant abnormalities are identified. There has been no significant change since the prior study. BI/SCREEN MAMM (CAD) W/PATRICK UNI R IMPRESSION: Stable unilateral screening mammogram. Yearly follow-up mammogram recommended. (A) ASSESSMENT CATEGORY: BIRADS Category 2: Benign. A letter regarding these results will be sent to the patient by the facility within 30 days. Approximately 10% of breast cancers are not detected by mammography. A normal mammogram should not delay biopsy of a clinically suspicious abnormality. [id number] Electronically Signed: Armand Cowan MD at 10:43 EST ,
== END 2022-02-08 23:59 | disposition home or self-care (01) ==
LOC: OPBI 09:43
PROVIDERS: PCP Family Medicine; Visit Provider Nurse Practitioner
DX: Z12.31 Encounter for screening mammogram for malignant neoplasm of breast (principal); Z80.3 Family history of malignant neoplasm of breast; Z17.0 Estrogen receptor positive status [ER+]; Z85.3 Personal history of malignant neoplasm of breast
CPT/HCPCS: 77063; 77067

== ENCOUNTER 2022-07-12 04:17 | Emergency (ER) | payer MEDICARE, OTHER, SELFPAY ==
[2022-07-12 04:18] VITALS: BP 159/120; PULSE 146; RESP 20; TEMP 35.6; O2SAT 94; BMI 38.9
--- NOTE | 2022-07-12 04:33 | RAD_ITS ---
INDICATION: cough EXAMINATION/TECHNIQUE: X-RAY - XR Chest 1 View COMPARISON: 07/27/2019 chest radiograph. Findings: Single frontal view of the chest. Low lung volumes. LUNG PARENCHYMA: Streaky bilateral lower lung opacities consistent with airspace disease. PLEURA: Again noted elevation of the right hemidiaphragm. No pleural effusion. No pneumothorax. HEART/GREAT VESSELS: Cardiomediastinal silhouette is unremarkable. BONES: Osseous structures are unremarkable for age. RAD/Chest 1 View (Portable) IMPRESSION: Low lung volumes with streaky bilateral lower lung airspace disease, to include atelectasis versus developing pneumonia. Recommend follow-up to resolution. Electronically Signed: Westley Ahmadi MD at 5:10 EDT ,
--- NOTE | 2022-07-12 04:34 | EX.ED.DYSGE1 ---
HPI History of Present Illness Chief Complaint: Palpitations Informant: patient and EMS Narrative Narrative: MinutesBrought in by EMS from home sudden palpitations prior to arrival. Patient states kind awake when she felt symptoms. History of paroxysmal atrial fibrillation for years. Transition to Eliquis from Coumadin 6 months ago. She has been compliant. On atenolol in the mornings. No chest pains. She states she has a chronic cough. No recent vomiting or diarrhea. No urinary symptoms. States no ablations or defibrillation's in the past with her A-fib. Prior similar symptoms: Yes PFSH PFSH Medical History Cataracts, bilateral Colon cancer Deep vein thrombosis Ductal carcinoma in situ (DCIS) of left breast Essential hypertension Fall Gout History of chemotherapy Hx of breast cancer Hx of radiation therapy LBBB (left bundle branch block) Obesity Paroxysmal atrial fibrillation Pulmonary embolism Pulmonary HTN Uterine cancer Home Medications allopurinol 300 mg tablet 150 mg PO DAILY GOUT 06/13/15 [History Last Taken 07/19/19] atenolol 100 mg tablet 100 mg PO DAILY HTN 06/13/15 [History Last Taken 07/19/19] folic acid 400 mcg tablet 0.4 mg PO DAILY@0800 supplement 06/13/15 [History Last Taken 07/19/19] losartan 50 mg tablet 50 mg PO BID HTN 06/13/15 [History Last Taken 07/19/19] aspirin 81 mg tablet,delayed release 81 mg PO DAILY HEART 08/25/16 [History Last Taken 07/19/19] cholecalciferol (vitamin D3) 25 mcg (1,000 unit) tablet 1,000 unit PO DAILY supplement 08/25/16 [History Last Taken 07/19/19] famotidine 20 mg tablet 20 mg PO DAILY PRN REFLUX 11/08/17 [History Last Taken 11/14/17 08:30 20 MG] hydrochlorothiazide 25 mg tablet See Rx Instructions .Route .COMPLEX #90 tabs 09/24/21 [Rx Last Taken Unknown] potassium chloride 10 mEq tablet,extended release(part/cryst) (Klor-Con M) See Rx Instructions .Route .COMPLEX #90 tabs 09/24/21 [Rx Last Taken Unknown] acetaminophen 500 mg tablet 1,000 mg PO TID PRN Pain 10/28/21 [History Last Taken Unknown] apixaban 5 mg tablet (Eliquis) 5 mg PO BID #60 tabs 10/28/21 [Rx Last Taken Unknown] celecoxib 200 mg capsule 200 mg PO DAILY PRN pain 10/28/21 [History Last Taken Unknown] Allergy/AdvReac Type Severity Reaction Status Date / Time almond Allergy Unknown Verified 07/12/22 04:21 levofloxacin [From Levaquin] AdvReac Unknown Verified 07/12/22 04:21 Penicillins [PCN] AdvReac Other Verified 07/12/22 04:21 Family History Father Lung cancer Brother Lung cancer Mother Breast cancer Sister Breast cancer CAD (coronary artery disease) Surgical History History of colectomy History of colostomy reversal History of hysterectomy History of left heart catheterization (08/26/16) History of reversal of ileostomy Status post left breast lumpectomy Social History Smoking Status: Former smoker how long ago did patient quit smokin + years ago alcohol intake: current alcohol intake frequency: holidays/special occasions only substance use type: does not use caffeine: No ROS ROS ED Constitutional Constitutional ED: Denies chills, fever(s) or sweats Eyes Eyes: Denies change in vision ENT ENT ED: Denies dysphagia or sore throat Cardiovascular Cardiovascular: Reports palpitations and racing heartbeat; Denies chest pain or leg edema Respiratory/Chest Respiratory/Chest: Denies cough, dyspnea or dyspnea on exertion Gastrointestinal Gastrointestinal: Denies abdominal pain, diarrhea, nausea or vomiting Genitourinary Genitourinary ED: Denies dysuria, hematuria or urinary frequency Musculoskeletal Musculoskeletal: Denies back pain, extremity pain or neck pain Integumentary Denies rash or wounds Neurologic Neurologic: Denies headache(s), paresthesias or weakness EXAM Physical Exam Const Vital Signs: 07/12/22 04:18 07/12/22 04:27 07/12/22 05:20 Temperature 96.0 F L Temperature Source Temporal Pulse Rate 146 H 77 Respiratory Rate 20 H 15 Respiratory Effort Non-Labored Blood Pressure 159/120 H 145/76 H Blood Pressure Mean 133 99 Pulse Ox 94 94 Oxygen Delivery Method Room Air Room Air 07/12/22 06:05 07/12/22 06:08 07/12/22 07:07 Temperature Temperature Source Pulse Rate 63 67 66 Respiratory Rate 14 18 12 Respiratory Effort Blood Pressure 154/66 H 154/86 H 152/68 H Blood Pressure Mean 95 96 Pulse Ox 93 93 93 Oxygen Delivery Method Room Air Room Air Positive well nourished and well developed General Appearance ED: well developed and NAD HEENT Reports moist mucous membranes normocephalic and atraumatic Eyes PERRL, EOMs intact bilaterally and conjunctivae normal General Eye ED: Yes normal appearance of both eyes Neck no lymphadenopathy and supple General: Negative for tenderness Chest Wall Chest: Negative for tenderness Resp normal respiratory effort and normal air movement Effort and Inspection: symmetric chest movement; Negative for respiratory distress Cardio no murmurs Rate: tachycardic Rhythm: abnormal rhythm Peripheral Pulses: pulses 2+ throughout GI normal to inspection, nondistended, normoactive bowel sounds and non-tender Palpation: Negative for guarding or rebound tenderness present Back/Spine no CVA tenderness and no thoracic nor lumbar tenderness Extremity normal to inspection General Extremety ED: Negative for edema or tenderness General Extremity: Negative for edema Neuro oriented x3, CN's II-XII intact bilaterally and no sensory deficits noted Sensorium / Orientation: awake and alert Skin no rashes or lesions noted and no wounds MDM MDM MDM Narrative Medical decision making narrative: Interventions / MDM: Differential diagnosis: Cardiac dysrhythmia atrial fibrillation Diagnosis considered but do not suspect: N/A My EKG interpretation: Irregular wide tachycardic at 143, old EKG notes a chronic left bundle branch block. EKG #2 at 0 536: Sinus rhythm no ST or T wave changes left bundle branch block. Imaging independently reviewed and interpreted by myself: 1 view chest x-ray: Atelectasis versus early infiltrate per radiology. External documents reviewed: N/A Test considered but not ordered:N/A ED course: Patient Betito with RVR with a history of this. She is on Eliquis with no missed doses. Labs were obtained and all stable. Order for Lopressor up to 3 doses. Re-evaluation: 0525: Status post 1 dose of Lopressor on the monitor. Did convert to normal sinus rhythm rate 70. We will repeat EKG. EKG confirms sinus rhythm. Chest x-ray per radiology atelectasis versus questionable early infiltrate. Patient chronic nonproductive cough. No fevers. Lower concerns for infiltrate. Patient continue her home medications. Return precautions. 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 Disposition discussed with patient/family/significant other: Patient Case discussed with consulting clinician: N/A Lab Data Attestation: I reviewed the patient's lab results. Labs: Laboratory Results - last 24 hr 07/12/22 07/12/22 04:36 04:36 WBC 12.3 H RBC 3.96 L Hgb 12.2 Hct 37.9 MCV 95.7 MCH 30.8 MCHC 32.2 RDW Std Deviation 50.3 H RDW Coeff of Stefani 14.4 Plt Count 297 MPV 9.6 Immature Gran % (Auto) 0.300 Neut % (Auto) 61.1 Lymph % (Auto) 27.1 Wells % (Auto) 9.2 Eos % (Auto) 1.9 Baso % (Auto) 0.4 Absolute Neuts (auto) 7.5 Absolute Lymphs (auto) 3.34 Nucleated RBC % 0 Sodium 139 Potassium 4.7 Chloride 108 H Carbon Dioxide 24.0 Anion Gap 7 BUN 25 H Creatinine 0.81 Estim Creat Clear Calc 72.61 Est GFR (MDRD) Af Amer 87 Est GFR (MDRD) Non-Af 72 BUN/Creatinine Ratio 30.9 H Glucose 104 Calcium 9.1 Troponin I High Sens 14 Radiography Diagnostic Testing: Clinical Impression(s) from Imaging Studies Chest X-Ray 07/12/22 04:33 IMPRESSION: Low lung volumes with streaky bilateral lower lung airspace disease, to include atelectasis versus developing pneumonia. Recommend follow-up to resolution. Electronically Signed: Westley Ahmadi MD at 5:10 EDT , Discharge Plan Triage Chief Complaint: Palpitations ED Provider: Drew Jacobson Dx/Rx/DC Orders Clinical Impression: Atrial fibrillation, currently in sinus rhythm, Paroxysmal atrial fibrillation, LBBB (left bundle branch block), Palpitations Instructions: AFib Dc Prescriptions: No Action celecoxib 200 mg capsule 200 mg PO DAILY PRN (Reason: pain) Eliquis 5 mg tablet 5 mg PO BID Qty: 60 11RF allopurinol 300 MG tablet 150 mg PO DAILY Label Comments: GOUT losartan 50 MG tablet 50 mg PO BID Label Comments: BLOOD PRESSURE atenolol 100 MG tablet 100 mg PO DAILY Label Comments: BLOOD PRESSURE folic acid 0.4 MG tablet 0.4 mg PO DAILY@0800 Label Comments: SUPPLEMENT aspirin 81 MG tablet,delayed release (DR/EC) 81 mg PO DAILY Label Comments: ASK ABOUT STOPPING cholecalciferol (vitamin D3) 1,000 UNIT tablet 1,000 unit PO DAILY famotidine 20 MG tablet 20 mg PO DAILY PRN (Reason: REFLUX) acetaminophen 500 mg tablet 1,000 mg PO TID PRN (Reason: Pain) potassium chloride [Klor-Con M10] 10 mEq tablet,ER particles/crystals See Rx Instructions .ROUTE .COMPLEX Qty: 90 3RF Dose Instruction: TAKE 1 TABLET BY MOUTH EVERY DAY Rx Instructions: TAKE 1 TABLET BY MOUTH EVERY DAY hydrochlorothiazide 25 mg tablet See Rx Instructions .ROUTE .COMPLEX Qty: 90 3RF Dose Instruction: TAKE 1 TABLET BY MOUTH EVERY DAY Rx Instructions: TAKE 1 TABLET BY MOUTH EVERY DAY Primary Care Provider: Nathanael Shah Referrals: Himanshu Cabello MD [Med Staff - Active Staff] - 3-5 Days Nathanael Shah MD [Primary Care Provider] - Activity Restrictions/Additional Instructions: A-fib with RVR converted after 1 dose of IV Lopressor. Continue her home medications. Continue Eliquis. Follow-up with your doctors. Return if worsening symptoms. Disposition Disposition: Home, Self Care
[2022-07-12 05:07] LABS: Absolute Lymphocyte Count 3.34 X10^3/uL (0.83-4.51); Absolute Neutrophil Count 7.5 X10^3/uL (2.0-7.7); Basophil# 0.05 X10^3/uL; Basophil% 0.4 % (0-1); Eosinophil# 0.23 X10^3/uL; Eosinophils% 1.9 % (0-5); Hematocrit 37.9 % (37-47); Hemoglobin 12.2 g/dL (12.0-15.0); Lymphocyte # 3.34 X10^3/ul (0.83-4.51); Lymphocyte % 27.1 % (19-41); Mean Corp Hgb Conc 32.2 g/dL (32-36); Mean Corpuscular Hgb 30.8 pg (27.0-32.0); Mean Corpuscular Volume 95.7 fL (81-99); Mean Platelet Vol. 9.6 fl (6.2-12.0); Monocyte# 1.14 X10^3/uL; Monocyte% 9.2 % (0-10); NRBC Flagged by Analyzer 0 % (0-5); Neutrophil # 7.53 X10^3/uL (2.7-7.7); Neutrophil % 61.1 % (47-70); Platelet Count 297 K/mm3 (150-450); RBC Distribution Width CV 14.4 % (11.6-14.6); RBC Distribution Width SD 50.3 fl (35.1-43.9); Red Blood Count 3.96 M/mm3 (4.2-5.4); White Blood Count 12.3 K/mm3 (4.4-11.0)
[2022-07-12] MEDS: Metoprolol Tartrate 5 MG/5 ML Vial IV (05:07)
[2022-07-12 05:15] LABS: Anion Gap 7 (5-15); BUN 25 mg/dL (7-18); BUN/Creat Ratio 30.9 RATIO (10-20); Calcium,Total 9.1 mg/dL (8.5-10.1); Chloride 108 mmol/L (98-107); Creatinine, Serum 0.81 mg/dL (0.55-1.02); EST Glomerular Filtration Rate 72 mL/min (>60); Est Glom Filt Rate - Afr Amer 87 mL/min (>60); Estimated Creatinine Clearance 72.61 ml/min; Glucose 104 mg/dL (74-106); Potassium 4.7 mmol/L (3.5-5.1); Sodium Level 139 mmol/L (136-145); Troponin-I HS (w/2H Reflex) 14 pg/mL (3.0-54.0)
[2022-07-12 05:20] VITALS: BP 145/76; PULSE 77; RESP 15; O2SAT 94
--- NOTE | 2022-07-12 05:25 | EKG12_ITS ---
Test Reason : PALPITATIONS Blood Pressure : / mmHG Vent. Rate : 143 BPM Atrial Rate : 048 BPM P-R Int : 000 ms QRS Dur : 116 ms QT Int : 336 ms P-R-T Axes : 000 -29 152 degrees QTc Int : 518 ms Atrial fibrillation Left bundle branch block Left ventricular hypertrophy with QRS widening and repolarization abnormality ( [facility] product ) Abnormal ECG Confirmed by RUPINDER LEAL, SALO ([id number]), medical transcription editor TANGELA BUNCH ([id number]) on 07/13/2022 8:16:15 AM Referred By: YASIR Confirmed By:SALO BUCIO MD
--- NOTE | 2022-07-12 05:36 | EKG12_ITS ---
Test Reason : RHYTHM CHANGE Blood Pressure : / mmHG Vent. Rate : 069 BPM Atrial Rate : 069 BPM P-R Int : 160 ms QRS Dur : 130 ms QT Int : 440 ms P-R-T Axes : 060 -18 127 degrees QTc Int : 471 ms Normal sinus rhythm Left bundle branch block Abnormal ECG Confirmed by RUPINDER LEAL, SALO ([id number]), online editor TANGELA BUNCH ([id number]) on 07/13/2022 8:18:00 AM Referred By: YASIR Confirmed By:SALO BUCIO MD
[2022-07-12 06:05] VITALS: BP 154/66; PULSE 63; RESP 14; O2SAT 93
[2022-07-12 06:08] VITALS: BP 154/86; PULSE 67; RESP 18; O2SAT 93
--- NOTE | 2022-07-12 06:10 | ED.RN ---
PT CONVERTED HER RHYTHM FROM AFIB TO NSR AFTER 1 DOSE OF METOPROLOL 5 MG IV
[2022-07-12 06:39] LABS: Reflex Troponin-HS? (from REC) Y
[2022-07-12 07:07] VITALS: BP 152/68; PULSE 66; RESP 12; O2SAT 93
[2022-07-12 08:03] VITALS: BP 167/71; PULSE 55; RESP 17; O2SAT 98
== END 2022-07-12 08:17 | disposition home or self-care (01) ==
PROVIDERS: Emergency Provider Emergency Medicine; PCP Family Medicine; Visit Provider Emergency Medicine
DX: I48.0 Paroxysmal atrial fibrillation (principal); I10 Essential (primary) hypertension; Z87.891 Personal history of nicotine dependence; I44.7 Left bundle-branch block, unspecified; R00.2 Palpitations; Z79.01 Long term (current) use of anticoagulants; Z86.718 Personal history of other venous thrombosis and embolism; Z79.899 Other long term (current) drug therapy; M10.9 Gout, unspecified; Z79.82 Long term (current) use of aspirin
CPT/HCPCS: 71045; 80048; 84484; 85025; 93005; 96374; 99285; A4216

== ENCOUNTER → 2022-10-18 | Outpatient (CLI) | payer MEDICARE, OTHER, SELFPAY ==
--- NOTE | 2022-10-18 13:18 | RAD_ITS ---
EXAM: XR CHEST, 2 VIEWS CLINICAL INDICATION: HYPOXEMIA TECHNIQUE: Frontal and lateral views of the chest. COMPARISON: July 12, 2022, August 18, 2016., July 27, 2019. FINDINGS: LUNGS AND PLEURAL SPACES: Convincing infiltrates or effusions. Stable mildly elevated right hemidiaphragm. Small curvilinear band of presumed scarring at anterior lower lung field on the lateral view, stable from 2017. No pneumothorax. HEART: Unremarkable. Cardiac silhouette not enlarged. MEDIASTINUM: Central airways and mediastinal contour are unremarkable. BONES/JOINTS: Degenerative change and inferior subluxation of the right humeral head with respect to the glenoid and small ossific density inferior to the acromium, there was some similar change on the prior exam. SOFT TISSUES: Asymmetric breast tissues, presumed lumpectomy or mastectomy of the left breast. Surgical clips in the left axilla. RAD/Chest PA and Lateral IMPRESSION: No acute intrathoracic abnormality. Electronically Signed: Nikki Jiménez MD at 6:43 EDT ,
== END | disposition home or self-care (01) ==
LOC: MTRAD 13:17
PROVIDERS: PCP Family Medicine; Referring Provider Internal Medicine Pulmonary Disease; Visit Provider Internal Medicine Pulmonary Disease
DX: R09.02 Hypoxemia (principal)
CPT/HCPCS: 71046

== ENCOUNTER → 2023-01-04 | Outpatient (CLI) | payer MEDICARE, OTHER, SELFPAY ==
--- NOTE | 2023-01-04 13:36 | RAD_ITS ---
PROCEDURE: Sniff test. DATE OF EXAMINATION: January 04, 2023. INDICATION: Female, 82 years old. Shortness of breath. Cough FLUOROSCOPY TIME (if supplied): (26 seconds) minutes/seconds. 3.57 mGy RAD/Chest Sniff Test Fluoro Only IMPRESSION: Elevation of the right hemidiaphragm. No evidence of diaphragmatic paralysis. Electronically Signed: Armand Cowan MD at 15:14 EDT ,
== END | disposition home or self-care (01) ==
LOC: RAD 13:33
PROVIDERS: PCP Family Medicine; Referring Provider Internal Medicine Pulmonary Disease; Visit Provider Internal Medicine Pulmonary Disease
DX: R06.02 Shortness of breath (principal); R05.9 Cough, unspecified
CPT/HCPCS: 76000

== ENCOUNTER 2023-02-13 03:32 | Emergency (ER) | payer MEDICARE, OTHER, SELFPAY ==
[2023-02-13 03:33] VITALS: BP 133/59; BP 150/100; PULSE 149; PULSE 68; RESP 16; RESP 19; TEMP 36.7; O2SAT 93; O2SAT 95; BMI 39.2
--- NOTE | 2023-02-13 03:41 | EKG12_ITS ---
Test Reason : Blood Pressure : / mmHG Vent. Rate : 143 BPM Atrial Rate : 000 BPM P-R Int : 000 ms QRS Dur : 118 ms QT Int : 332 ms P-R-T Axes : 000 -33 144 degrees QTc Int : 512 ms Critical Test Result: High HR Atrial fibrillation with rapid ventricular response Left axis deviation Left ventricular hypertrophy with QRS widening ( R in aVL , Sokolow-Forde , [place] product ) Marked ST abnormality, possible inferior subendocardial injury Marked ST abnormality, possible anterolateral subendocardial injury Abnormal ECG Confirmed by NIELS LEAL, KAREN ([id number]), scientific editor CIRILO HARPER ([id number]) on 02/15/2023 6:23:14 AM Referred By: Confirmed By:SHERLEY BOWSER MD
[2023-02-13 03:45] VITALS: O2SAT 94
[2023-02-13] MEDS: dilTIAZem 25 MG/5 ML Vial 15 MG IV BOLUS (03:47)
--- NOTE | 2023-02-13 03:56 | EKG12_ITS ---
Test Reason : REPEAT Blood Pressure : / mmHG Vent. Rate : 046 BPM Atrial Rate : 046 BPM P-R Int : 162 ms QRS Dur : 124 ms QT Int : 492 ms P-R-T Axes : 059 -18 164 degrees QTc Int : 430 ms Sinus bradycardia Left bundle branch block Abnormal ECG Confirmed by NIELS LEAL, KAREN ([id number]), film or videotape editor CIRILO HARPER ([id number]) on 02/15/2023 6:23:02 AM Referred By: Confirmed By:SHERLEY BOWSER MD
--- NOTE | 2023-02-13 04:10 | RAD_ITS ---
EXAM: XR CHEST, 1 VIEW CLINICAL INDICATION: chest pain TECHNIQUE: Frontal view of the chest. COMPARISON: October 18, 2022. FINDINGS: LUNGS AND PLEURAL SPACES: See below. HEART: Unremarkable. Cardiac silhouette not enlarged. MEDIASTINUM: Central airways and mediastinal contour are unremarkable. BONES/JOINTS: Mild multilevel thoracic spondylosis. Advanced degenerative change and subluxation or dislocation of the right humeral head, similar to prior exam. No acute fracture. SOFT TISSUES: Stable surgical clips at the left axilla. Apparent left mastectomy. Stable mild elevation of the right hemidiaphragm. Cannot exclude trace calcified pleural plaques, not convincing. VASCULATURE: Mild peripheral calcification of the aortic arch. RAD/Chest 1 View (Portable) IMPRESSION: 1. Stable findings. No definite infiltrate or effusion. 2. Left mastectomy. 3. Subluxed or dislocated right humeral head, similar to most recent prior exam. Electronically Signed: Nikki Jiménez MD at 4:39 EST ,
[2023-02-13 04:15] LABS: Absolute Lymphocyte Count 2.84 X10^3/uL (0.83-4.51); Absolute Neutrophil Count 6.8 X10^3/uL (2.0-7.7); Basophil# 0.04 X10^3/uL; Basophil% 0.4 % (0-1); Eosinophils% 1.8 % (0-5); Hematocrit 35.6 % (37-47); Hemoglobin 11.6 g/dL (12.0-15.0); Lymphocyte # 2.84 X10^3/ul (0.83-4.51); Lymphocyte % 25.9 % (19-41); Mean Corp Hgb Conc 32.6 g/dL (32-36); Mean Corpuscular Hgb 30.8 pg (27.0-32.0); Mean Corpuscular Volume 94.4 fL (81-99); Mean Platelet Vol. 8.9 fl (6.2-12.0); Monocyte# 1.08 X10^3/uL; Monocyte% 9.9 % (0-10); NRBC Flagged by Analyzer 0 % (0-5); Neutrophil # 6.78 X10^3/uL (2.7-7.7); Neutrophil % 61.8 % (47-70); Platelet Count 257 K/mm3 (150-450); RBC Distribution Width CV 13.9 % (11.6-14.6); RBC Distribution Width SD 47.7 fl (35.1-43.9); Red Blood Count 3.77 M/mm3 (4.2-5.4)
[2023-02-13 04:37] LABS: Anion Gap 8 (5-15); BUN 24 mg/dL (7-18); BUN/Creat Ratio 25.2 RATIO (10-20); Calcium,Total 8.9 mg/dL (8.5-10.1); Chloride 109 mmol/L (98-107); Creatinine, Serum 0.95 mg/dL (0.55-1.02); EST Glomerular Filtration Rate 59 mL/min (>60); Est Glom Filt Rate - Afr Amer 72 mL/min (>60); Estimated Creatinine Clearance 61.31 ml/min; Glucose 101 mg/dL (74-106); Magnesium 1.5 mg/dL (1.6-2.6); Potassium 3.5 mmol/L (3.5-5.1); Sodium Level 141 mmol/L (136-145); Thyroid Stim Hormone (TSH) 2.78 uIU/mL (0.358-3.74)
--- NOTE | 2023-02-13 04:52 | EX.ED.DYSGE1 ---
HPI History of Present Illness Chief Complaint: Palpitations Informant: patient Narrative Narrative: Patient is an 83-year-old female with past medical history of paroxysmal atrial fibrillation currently on Eliquis. She states that she was awake but lying in bed last night when a little after midnight she began to feel her heart race. She states she laid there for approximately half hour seeing if symptoms would resolve spontaneously but they did not do so and therefore EMS was called and she was brought in for evaluation. Patient states there is no alcohol use no illicit drug use she denies any excessive stimulant use. She reports has been taking her medications as directed and states has been no new medications added to her treatment regimen. [facility] Medical History Cataracts, bilateral Colon cancer Deep vein thrombosis Ductal carcinoma in situ (DCIS) of left breast Essential hypertension Fall Gout History of chemotherapy Hx of breast cancer Hx of radiation therapy LBBB (left bundle branch block) Obesity Paroxysmal atrial fibrillation Pulmonary embolism Pulmonary HTN Uterine cancer Home Medications allopurinol 300 mg tablet 150 mg PO DAILY GOUT 06/13/15 [History Last Taken 07/19/19] atenolol 100 mg tablet 100 mg PO DAILY HTN 06/13/15 [History Last Taken 07/19/19] folic acid 400 mcg tablet 0.4 mg PO DAILY@0800 supplement 06/13/15 [History Last Taken 07/19/19] losartan 50 mg tablet 50 mg PO BID HTN 06/13/15 [History Last Taken 07/19/19] aspirin 81 mg tablet,delayed release 81 mg PO DAILY HEART 08/25/16 [History Last Taken 07/19/19] cholecalciferol (vitamin D3) 25 mcg (1,000 unit) tablet 1,000 unit PO DAILY supplement 08/25/16 [History Last Taken 07/19/19] acetaminophen 500 mg tablet 1,000 mg PO TID PRN Pain 10/28/21 [History Last Taken Unknown] hydrochlorothiazide 25 mg tablet See Rx Instructions .Route .COMPLEX #90 tabs 08/31/22 [Rx Last Taken Unknown] potassium chloride 10 mEq tablet,extended release(part/cryst) (Klor-Con M) See Rx Instructions .Route .COMPLEX #90 tabs 09/09/22 [Rx Last Taken Unknown] apixaban 5 mg tablet (Eliquis) 5 mg PO BID #60 tabs 09/20/22 [Rx Last Taken Unknown] celecoxib 200 mg capsule 200 mg PO DAILY 02/13/23 [History Last Taken Unknown] loperamide 2 mg capsule (Anti-Diarrheal (loperamide)) 2 mg PO Q2H PRN loose stool 02/13/23 [History Last Taken Unknown] Allergy/AdvReac Type Severity Reaction Status Date / Time almond Allergy Unknown Verified 02/08/23 13:51 levofloxacin [From Levaquin] AdvReac Unknown Verified 02/08/23 13:51 Penicillins [PCN] AdvReac Other Verified 02/08/23 13:51 Family History Father Lung cancer Brother Lung cancer Mother Breast cancer Sister Breast cancer CAD (coronary artery disease) Surgical History History of colectomy History of colostomy reversal History of hysterectomy History of left heart catheterization (08/26/16) History of reversal of ileostomy Status post left breast lumpectomy Social History Smoking Status: Former smoker how long ago did patient quit smokin + years ago alcohol intake: current alcohol intake frequency: holidays/special occasions only substance use type: does not use caffeine: No ROS ROS ED Constitutional Constitutional ED: Denies chills or fever(s) Eyes Eyes: Denies change in vision ENT ENT ED: Denies sore throat Cardiovascular Cardiovascular: Reports palpitations and racing heartbeat; Denies chest pain Respiratory/Chest Respiratory/Chest: Denies cough or dyspnea Gastrointestinal Gastrointestinal: Denies abdominal pain, diarrhea, nausea or vomiting Genitourinary Genitourinary ED: Denies dysuria Musculoskeletal Musculoskeletal: Denies myalgias Integumentary Denies rash Neurologic Neurologic: Denies headache(s) Hematologic/Lymphatic Hematologic/Lymphatic: Reports easy bleeding and easy bruising EXAM Physical Exam Const Vital Signs: 02/13/23 03:33 02/13/23 03:33 02/13/23 03:45 Temperature 98.1 F 98.1 F Temperature Source Temporal Temporal Pulse Rate 149 H 68 Respiratory Rate 19 H 16 Blood Pressure 150/100 H 133/59 H Blood Pressure Mean 116 83 Pulse Ox 95 93 94 Oxygen Delivery Method Room Air Room Air Room Air Positive well nourished, well developed and obese General Appearance ED: well developed Nutritional Appearance: obese HEENT HEENT Narrative: Normocephalic atraumatic Eyes PERRL and EOMs intact bilaterally General Eye ED: Negative for pale conjunctiva or scleral icterus Neck supple Neck Narrative: No nuchal rigidity or meningeal signs noted Chest Wall palpation of chest normal Resp normal respiratory effort and clear to auscultation bilaterally Cardio Rate: other Other Details: Irregularly irregular rhythm with tachycardic rate consistent with A-fib with RVR GI normal to inspection, nondistended, normoactive bowel sounds, non-tender, non-distended and no masses GI Narrative: No voluntary guarding or rigidity No pulsatile mass or fluid wave Auscultation: normoactive bowel sounds Palpation: soft Extremity Extremity Narrative: Trace pitting edema to the bilateral lower extremities that is equal and symmetric Negative Homans' sign bilaterally Patient has a chronically subluxed/dislocated right shoulder Neuro oriented x3, CN's II-XII intact bilaterally and no sensory deficits noted Sensorium / Orientation: alert Motor Exam: strength 5/5 throughout Psych mental status grossly normal Skin no rashes or lesions noted MDM MDM MDM Narrative Medical decision making narrative: Patient presented to the ER in atrial fibrillation with rapid ventricular response. She has a past medical history of this and is on blood thinners so concern for a DVT/PE is low and she also had no strokelike symptoms going against an acute CVA from the cardiac dysrhythmia. In order to rule out potential causes such as anemia acute kidney injury or electrolyte abnormality basic blood work was obtained. Labs revealed no clinically significant findings. The patient received a 15 mg bolus of Cardizem upon arrival and her heart rate dropped into the 70s and then she spontaneously converted to normal sinus rhythm. Therefore at this time as the patient's cardiac arrhythmia has been resolved she is already on a blood thinner and has low risk for DVT/PE or acute CVA and labs do not display any clinically significant findings she is otherwise safe for discharge back to the detention History & Record Review Discussion w/independent historian: Patient Lab Data Attestation: I reviewed the patient's lab results. Labs: Laboratory Results - last 24 hr 02/13/23 04:07 WBC 11.0 RBC 3.77 L Hgb 11.6 L Hct 35.6 L MCV 94.4 MCH 30.8 MCHC 32.6 RDW Std Deviation 47.7 H RDW Coeff of Stefani 13.9 Plt Count 257 MPV 8.9 Immature Gran % (Auto) 0.200 Neut % (Auto) 61.8 Lymph % (Auto) 25.9 Converse % (Auto) 9.9 Eos % (Auto) 1.8 Baso % (Auto) 0.4 Absolute Neuts (auto) 6.8 Absolute Lymphs (auto) 2.84 Nucleated RBC % 0 Sodium 141 Potassium 3.5 Chloride 109 H Carbon Dioxide 24.0 Anion Gap 8 BUN 24 H Creatinine 0.95 Estim Creat Clear Calc 61.31 Est GFR (MDRD) Af Amer 72 Est GFR (MDRD) Non-Af 59 L BUN/Creatinine Ratio 25.2 H Glucose 101 Calcium 8.9 Magnesium 1.5 L TSH 2.78 Radiography Diagnostic Testing: Clinical Impression(s) from Imaging Studies Chest X-Ray 02/13/23 04:10 IMPRESSION: 1. Stable findings. No definite infiltrate or effusion. 2. Left mastectomy. 3. Subluxed or dislocated right humeral head, similar to most recent prior exam. Electronically Signed: Nikki Jiménez MD at 4:39 EST Reading Location ID and State: [facility] / [place] Tel , Service support , Chest x-ray as interpreted by the emergency medicine physician reveals stable findings without acute infiltrate pneumothorax or pleural effusion. 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, Pulmonary HTN, Essential hypertension Instructions: AFib Dc Prescriptions: No Action allopurinol 300 MG tablet 150 mg PO DAILY Patient Comments: GOUT losartan 50 MG tablet 50 mg PO BID Patient Comments: BLOOD PRESSURE atenolol 100 MG tablet 100 mg PO DAILY Patient Comments: BLOOD PRESSURE folic acid 0.4 MG tablet 0.4 mg PO DAILY@0800 Patient Comments: SUPPLEMENT aspirin 81 MG tablet,delayed release (DR/EC) 81 mg PO DAILY Patient Comments: ASK ABOUT STOPPING cholecalciferol (vitamin D3) 1,000 UNIT tablet 1,000 unit PO DAILY acetaminophen 500 mg tablet 1,000 mg PO TID PRN (Reason: Pain) celecoxib 200 mg capsule 200 mg PO DAILY loperamide [Anti-Diarrheal (loperamide)] 2 mg capsule 2 mg PO Q2H PRN (Reason: loose stool) Rx Instructions: until patient has gone 12 hours without a bowel movement hydrochlorothiazide 25 mg tablet See Rx Instructions .ROUTE .COMPLEX Qty: 90 3RF Dose Instruction: TAKE 1 TABLET BY MOUTH EVERY DAY Rx Instructions: TAKE 1 TABLET BY MOUTH EVERY DAY potassium chloride [Klor-Con M10] 10 mEq tablet,ER particles/crystals See Rx Instructions .ROUTE .COMPLEX Qty: 90 3RF Dose Instruction: TAKE 1 TABLET BY MOUTH EVERY DAY Rx Instructions: TAKE 1 TABLET BY MOUTH EVERY DAY Eliquis 5 mg tablet 5 mg PO BID Qty: 60 11RF Primary Care Provider: Nathanael Shah Referrals: Nathanael Shah MD [Primary Care Provider] - Activity Restrictions/Additional Instructions: You were in atrial fibrillation with an elevated heart rate. The medication you received in the ER converted you back to a normal sinus rhythm. Continue to take all of your medications as directed by your doctor and return to the ER should you have any further concerns Disposition Disposition: Home, Self Care
[2023-02-13 07:12] VITALS: BP 210/74; PULSE 51; PULSE 52; RESP 18; O2SAT 94
[2023-02-13 07:37] VITALS: BP 158/66; PULSE 50; RESP 14; O2SAT 100
== END 2023-02-13 08:35 | disposition home or self-care (01) ==
PROVIDERS: Emergency Provider Emergency Medicine; PCP Family Medicine; Visit Provider Emergency Medicine
DX: R00.2 Palpitations (principal); Z93.2 Ileostomy status; I27.20 Pulmonary hypertension, unspecified; I48.0 Paroxysmal atrial fibrillation; I10 Essential (primary) hypertension; Z87.891 Personal history of nicotine dependence; Z79.01 Long term (current) use of anticoagulants; Z85.3 Personal history of malignant neoplasm of breast; Z92.21 Personal history of antineoplastic chemotherapy; Z85.038 Personal history of other malignant neoplasm of large intestine; M10.9 Gout, unspecified; Z79.899 Other long term (current) drug therapy; Z79.82 Long term (current) use of aspirin; Z90.49 Acquired absence of other specified parts of digestive tract; Z90.710 Acquired absence of both cervix and uterus
CPT/HCPCS: 71045; 80048; 83735; 84443; 85025; 93005; 96374; 99285; A4216

== ENCOUNTER → 2023-04-13 | Outpatient (CLI) | payer MEDICARE, OTHER, SELFPAY ==
--- NOTE | 2023-04-13 11:40 | RAD_ITS ---
STUDY: X-RAY - RIGHT KNEE REASON FOR EXAM: Female, 83 years old. Unilateral primary osteoarthritis TECHNIQUE: 4 view(s) of the knee. COMPARISON: None. FINDINGS: Osteophytosis of the distal femur, proximal tibia and posterior patella. Otherwise normal visualized distal femur. Normal visualized proximal tibia and fibula. There is arthrosis of the proximal tibiofibular articulation. There is no demonstrated fracture. There is mild degenerative arthrosis of the medial femorotibial compartment. There is moderate to severe degenerative arthrosis of the lateral femorotibial compartment with moderate joint space narrowing. There is moderate degenerative arthrosis of the patellofemoral articulation. Mild joint effusion. The soft tissue structures are unremarkable. RAD/Knee 4 or More Views IMPRESSION: Degenerative disease as described with mild joint effusion. No acute fracture or subluxation. Electronically Signed: Opal Aceves MD at 2:46 EST ,
== END | disposition home or self-care (01) ==
PROVIDERS: PCP Family Medicine; Referring Provider Anesthesiology Pain Medicine; Visit Provider Anesthesiology Pain Medicine
DX: M17.11 Unilateral primary osteoarthritis, right knee (principal)
CPT/HCPCS: 73564

== ENCOUNTER 2023-08-08 02:46 | Emergency (ER) | payer MEDICARE, OTHER, SELFPAY ==
[2023-08-08] VITALS (10 sets, daily range): BP systolic 101–155; BP diastolic 54–109; PULSE 57–164; RESP 16–20; TEMP 36.1–36.3; O2SAT 97–100; BMI 39.4
--- NOTE | 2023-08-08 02:52 | EDS_ITS ---
HPI History of Present Illness Chief Complaint: Palpitations Detail of Chief Complaint: Palpitations this started 0100 Informant: patient Onset/Context/Timing Onset: Today (0100.) Context: Sudden Onset Timing: Continuous Quality: Palpitations Location: Chest Current Severity: Moderate Maximum Severity: Moderate Worsened by: Nothing Relieved by: Nothing Associated Symptoms Associated Symptoms: No associated symptoms Narrative Narrative: Patient is an 83-year-old woman. She is on Eliquis. She has history of paroxysmal atrial fibrillation. She was seen on July 12, 2022 and February 13, 2023 for atrial fibrillation. On July 12 she was treated with metoprolol and converted after one 5 mg dose. Patient received Cardizem 15 mg on February 26 and converted. Patient denies fever, chills night sweats. Patient denies cough, shortness of breath, orthopnea or PND. Patient denies chest discomfort of any type. Patient denies swelling of her feet or ankles. Review of prior records also indicates that history of chronic edema of the lower extremities, pulmonary hypertension, essential hypertension, ductal carcinoma in situ with mastectomy on the left, uterine cancer, colon cancer and history of pulmonary embolus. There is no active treatment for cancer. Prior similar symptoms: Yes Recent Illness/Hospitalization: No PFSH PFSH Medical History Fall Hx of radiation therapy History of chemotherapy Hx of breast cancer Pulmonary HTN Essential hypertension Deep vein thrombosis Obesity Paroxysmal atrial fibrillation Gout Cataracts, bilateral Ductal carcinoma in situ (DCIS) of left breast Pulmonary embolism Uterine cancer Colon cancer LBBB (left bundle branch block) Home Medications ?Medication ?Instructions ?Recorded ?Last Taken ?Type allopurinol 300 mg tablet 150 mg PO DAILY GOUT 06/13/15 07/19/19 History atenolol 100 mg tablet 100 mg PO DAILY HTN 06/13/15 07/19/19 History folic acid 400 mcg tablet 0.4 mg PO DAILY@0800 supplement 06/13/15 07/19/19 History losartan 50 mg tablet 50 mg PO BID HTN 06/13/15 07/19/19 History cholecalciferol (vitamin D3) 25 1,000 unit PO DAILY supplement 08/25/16 07/19/19 History mcg (1,000 unit) tablet hydrochlorothiazide 25 mg tablet See Rx Instructions .Route 08/31/22 Unknown Rx .COMPLEX #90 tabs potassium chloride 10 mEq See Rx Instructions .Route 09/09/22 Unknown Rx tablet,extended .COMPLEX #90 tabs release(part/cryst) (Klor-Con M) apixaban 5 mg tablet (Eliquis) 5 mg PO BID #60 tabs 09/20/22 Unknown Rx loperamide 2 mg capsule 2 - 4 mg PO Q2H PRN loose stool 02/13/23 Unknown History (Anti-Diarrheal (loperamide)) acetaminophen 325 mg tablet 650 mg PO Q4H PRN fever or pain 08/08/23 Unknown History (Tylenol) atenolol 25 mg tablet 25 mg PO QHS #30 tabs 08/08/23 Unknown Rx magnesium hydroxide 400 mg/5 mL 30 ml PO DAILY PRN constipation 08/08/23 Unknown History oral suspension (Dulcolax (magnesium hydroxide)) Allergy/AdvReac Type Severity Reaction Status Date / Time almond Allergy Unknown Verified 08/08/23 02:48 levofloxacin (From Levaquin) AdvReac Unknown Verified 08/08/23 02:48 Penicillins (PCN) AdvReac Other Verified 08/08/23 02:48 Family History Father Lung cancer Brother Lung cancer Mother Breast cancer Sister Breast cancer CAD (coronary artery disease) Surgical History History of reversal of ileostomy Status post left breast lumpectomy History of left heart catheterization (08/26/16) History of hysterectomy History of colectomy History of colostomy reversal Social History Smoking Status: Former smoker how long ago did patient quit smokin + years ago alcohol intake: current alcohol intake frequency: holidays/special occasions only substance use type: does not use caffeine: No ROS ROS ED Constitutional Constitutional ED: Denies chills, fever(s) or subjective Eyes Eyes: Denies change in vision ENT ENT ED: Denies rhinorrhea or sore throat Cardiovascular Cardiovascular: Reports palpitations and racing heartbeat; Denies chest pain, orthopnea or paroxysmal nocturnal dyspnea Respiratory/Chest Respiratory/Chest: Denies cough, dyspnea, dyspnea on exertion, orthopnea or paroxysmal nocturnal dyspnea Gastrointestinal Gastrointestinal: Denies abdominal pain, nausea or vomiting Genitourinary Genitourinary ED: Denies dysuria, hematuria or urinary frequency Musculoskeletal Musculoskeletal: Denies back pain or neck pain Neurologic Neurologic: Denies weakness Psychiatric Psychiatric: Denies anxiety Hematologic/Lymphatic Hematologic/Lymphatic: Reports as per HPI EXAM Physical Exam Const Vital Signs: 08/08/23 02:47 08/08/23 02:47 08/08/23 03:01 Temperature 97 F L Temperature Source Temporal Pulse Rate 164 H Pulse Rate [1 (Initial Baseline)] Pulse Rate [2] Pulse Rate [3] Respiratory Rate 20 H Respiratory Rate [1 (Initial Baseline)] Respiratory Rate [2] Respiratory Rate [3] Respiratory Effort Normal Non-Labored Blood Pressure 155/109 H 132/94 H Blood Pressure [1 (Initial Baseline)] Blood Pressure [3] Blood Pressure Mean 124 106 Pulse Ox 97 Oxygen Delivery Method Room Air Oxygen Delivery Method [1 (Initial Baseline)] Oxygen Delivery Method [2] Oxygen Delivery Method [3] Oxygen Flow Rate (L/min) Oxygen Flow Rate (L/min) [1 (Initial Baseline)] Oxygen Flow Rate (L/min) [2] Oxygen Flow Rate (L/min) [3] 08/08/23 04:00 08/08/23 04:15 08/08/23 04:15 Temperature 97.3 F L Temperature Source Pulse Rate 145 H 163 H Pulse Rate [1 (Initial Baseline)] 163 H Pulse Rate [2] 154 H Pulse Rate [3] 67 Respiratory Rate 19 H 16 Respiratory Rate [1 (Initial Baseline)] 16 Respiratory Rate [2] 17 Respiratory Rate [3] 16 Respiratory Effort Blood Pressure 101/63 109/93 H Blood Pressure [1 (Initial Baseline)] 109/93 H Blood Pressure [3] 155/94 H Blood Pressure Mean 75 Pulse Ox 98 97 Oxygen Delivery Method Room Air Nasal Cannula Oxygen Delivery Method [1 (Initial Baseline)] Nasal Cannula Oxygen Delivery Method [2] Nasal Cannula Oxygen Delivery Method [3] Nasal Cannula Oxygen Flow Rate (L/min) 2 Oxygen Flow Rate (L/min) [1 (Initial Baseline)] 2 Oxygen Flow Rate (L/min) [2] 2 Oxygen Flow Rate (L/min) [3] 2 08/08/23 04:23 08/08/23 04:28 06/03/24 04:33 Temperature Temperature Source Pulse Rate Pulse Rate [1 (Initial Baseline)] Pulse Rate [2] Pulse Rate [3] Respiratory Rate Respiratory Rate [1 (Initial Baseline)] Respiratory Rate [2] Respiratory Rate [3] Respiratory Effort Blood Pressure Blood Pressure [1 (Initial Baseline)] Blood Pressure [3] Blood Pressure Mean Pulse Ox Oxygen Delivery Method Room Air Room Air Room Air Oxygen Delivery Method [1 (Initial Baseline)] Oxygen Delivery Method [2] Oxygen Delivery Method [3] Oxygen Flow Rate (L/min) Oxygen Flow Rate (L/min) [1 (Initial Baseline)] Oxygen Flow Rate (L/min) [2] Oxygen Flow Rate (L/min) [3] Positive well nourished and well developed Constitutional Narrative: BMI is 39.5. Patient appears in no distress. General Appearance ED: well developed, NAD and pallor; Negative for cyanotic or diaphoretic HEENT Reports moist mucous membranes HEENT Narrative: Head is atraumatic and normocephalic. Ears normal. Nares patent. Eyes PERRL and EOMs intact bilaterally General Eye ED: Negative for pale conjunctiva or scleral icterus Neck no lymphadenopathy, supple and no JVD Neck Narrative: Trachea is midline. There is no stridor. Chest Wall palpation of chest normal; Negative for inspection of chest normal Chest Narrative: Scar noted secondary to total left mastectomy. This is well-healed with no evidence of breakdown or infection. Resp normal respiratory effort and clear to auscultation bilaterally Cardio no murmurs Rate: tachycardic Rhythm: abnormal rhythm irregularly irregular GI normal to inspection, nondistended, normoactive bowel sounds, non-tender, non- distended and hepatosplenomegaly Back/Spine no CVA tenderness Extremity General Extremety ED: Yes edema General Extremity: edema Neuro oriented x3 Sensorium / Orientation: alert Psych mental status grossly normal Skin no rashes or lesions noted, no wounds and skin turgor normal Skin Narrative: Patient appears slightly pale however conjunctive is pink. General Skin Exam: pallor; Negative for elasticity normal or jaundice MDM MDM MDM Narrative Medical decision making narrative: Twelve-lead EKG sent in from paramedics. Revealed atrial fibrillation with a rate of approximately 150. There was no ossific changes noted which in all likelihood is rate dependent. After reviewing prior records she was treated with metoprolol since she is on atenolol which is a beta-bernard. Electrolyte panel was obtained. CBC was obtained that she has no infectious symptoms. Chest x-ray was not obtained because she has no respiratory symptoms and lungs are clear to auscultation. Furthermore she has no increased edema from baseline and denies orthopnea or PND. Patient became hypotensive after first dose of metoprolol. Since she is hypotensive and the first dose of metoprolol had no effect on rate patient was consented for deep sedation with etomidate. She was explained risk benefits of using etomidate. And for her to be cardioverted. She is given opportunity ask question. She had none. Consent was obtained. Rhythm Strip Rhythm Strip: A-fib Rate: 155 Ectopy: None EKG Initial EKG: Attestation: I personally reviewed and interpreted this EKG as follows: Interpretation: Atrial Fibrillation (Rate is 151. QRS duration 114 ms. QT duration 322 ms. Lindsay is to the left. There is evidence of LVH by voltage criteria. There is no ossific ST-T wave changes which in all likelihood is due to the A-fib with RVR.) Treatment and Re-Evaluation :: Heart rate dropped briefly to 1 5:20 milligrams metoprolol. Second dose of metoprolol was ordered. Comments:: Patient is presently taking 100 mg of atenolol once a day. Will have her take 100 in the morning and 50 at night. 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 Procedures Procedural Sedation 1 (Initial Baseline): Consent Signed: Yes Any Problems With Anesthesia: No You/Your family experience fever (hyperthermia) w/anesthesia: No Sedation medication: Etomidate Dose: 8 (Milligrams) Route: IV Total Moderate Sedation Units: 6 (Minutes) Maliampati Score: Class I ASA Classification: II Comment:: Timeout was performed. Patient received a total of 8 mg etomidate that was administered by me. Rhythm prior to cardioversion was atrial fibrillation with rapid ventricular sponsor with rate varying between 144 and 150. Patient was successfully cardioverted 150 J synchronized mode. Monitor now reveals a sinus rhythm rate of 62. There is no ectopy. Discharge Plan Triage Chief Complaint: Palpitations ED Provider: Jim Berrios Dx/Rx/DC Orders Clinical Impression: Atrial fibrillation with RVR, Essential hypertension, Pulmonary HTN, Anticoagulant long-term use, Body mass index (BMI) of 39.0-39.9 in adult, Pedal edema Instructions: ED AFIB Prescriptions: New atenolol 25 mg tablet 25 mg PO QHS Qty: 30 0RF No Action allopurinol 300 MG tablet 150 mg PO DAILY Patient Comments: GOUT losartan 50 MG tablet 50 mg PO BID Patient Comments: BLOOD PRESSURE atenolol 100 MG tablet 100 mg PO DAILY Patient Comments: BLOOD PRESSURE folic acid 0.4 MG tablet 0.4 mg PO DAILY@0800 Patient Comments: SUPPLEMENT cholecalciferol (vitamin D3) 1,000 UNIT tablet 1,000 unit PO DAILY loperamide [Anti-Diarrheal (loperamide)] 2 mg capsule 2 - 4 mg PO Q2H PRN (Reason: loose stool) Rx Instructions: until patient has gone 12 hours without a bowel movement magnesium hydroxide [Dulcolax (magnesium hydroxide)] 400 mg/5 mL suspension 30 ml PO DAILY PRN (Reason: constipation) acetaminophen [Tylenol] 325 mg tablet 650 mg PO Q4H PRN (Reason: fever or pain) hydrochlorothiazide 25 mg tablet See Rx Instructions .ROUTE .COMPLEX Qty: 90 3RF Dose Instruction: TAKE 1 TABLET BY MOUTH EVERY DAY Rx Instructions: TAKE 1 TABLET BY MOUTH EVERY DAY potassium chloride [Klor-Con M10] 10 mEq tablet,ER particles/crystals See Rx Instructions .ROUTE .COMPLEX Qty: 90 3RF Dose Instruction: TAKE 1 TABLET BY MOUTH EVERY DAY Rx Instructions: TAKE 1 TABLET BY MOUTH EVERY DAY Eliquis 5 mg tablet 5 mg PO BID Qty: 60 11RF Primary Care Provider: Nathanael Shah Referrals: Nathanael Shah MD [Primary Care Provider] - 1 Week Print Language: Icelandic Disposition Disposition: Home, Self Care
--- NOTE | 2023-08-08 02:54 | EKG12_ITS ---
Test Reason : AFIB Blood Pressure : / mmHG Vent. Rate : 151 BPM Atrial Rate : 000 BPM P-R Int : 000 ms QRS Dur : 114 ms QT Int : 322 ms P-R-T Axes : 000 -36 143 degrees QTc Int : 510 ms Critical Test Result: High HR Atrial fibrillation with rapid ventricular response Left axis deviation Incomplete left bundle branch block Moderate voltage criteria for LVH, may be normal variant ( R in aVL , Jose product ) Confirmed by RUPINDER LEAL, SALO ([id number]), food expeditor CIRILO HARPER ([id number]) on 08/09/2023 2:05:49 PM Referred By: SANDY Confirmed By:SALO BUCIO MD
[2023-08-08] MEDS: Metoprolol Tartrate 5 MG/5 ML Vial IV (03:03)
[2023-08-08] MEDS: Etomidate 20 MG/10 ML Vial 10 MG IV (04:15)
--- NOTE | 2023-08-08 04:32 | EKG12_ITS ---
Test Reason : REPEAT Blood Pressure : / mmHG Vent. Rate : 064 BPM Atrial Rate : 064 BPM P-R Int : 160 ms QRS Dur : 132 ms QT Int : 452 ms P-R-T Axes : 058 -21 150 degrees QTc Int : 466 ms Normal sinus rhythm Left bundle branch block Abnormal ECG Confirmed by RUPINDER LEAL, SALO ([id number]), avid editor CIRILO HARPER ([id number]) on 08/09/2023 2:06:00 PM Referred By: SANDY Confirmed By:SALO BUCIO MD
[2023-08-08 05:05] LABS: Anion Gap 11 (5-15); BUN 28 mg/dL (7-18); BUN/Creat Ratio 33.9 RATIO (10-20); Calcium,Total 9.4 mg/dL (8.5-10.1); Chloride 108 mmol/L (98-107); Creatinine, Serum 0.83 mg/dL (0.55-1.02); EST Glomerular Filtration Rate 70 mL/min (>60); Est Glom Filt Rate - Afr Amer 85 mL/min (>60); Estimated Creatinine Clearance 50.01 ml/min; Glucose 110 mg/dL (74-106); Potassium 3.6 mmol/L (3.5-5.1); Sodium Level 139 mmol/L (136-145)
== END 2023-08-08 07:04 | disposition home or self-care (01) ==
PROVIDERS: Emergency Provider Emergency Medicine; PCP Family Medicine; Visit Provider Emergency Medicine
DX: I48.0 Paroxysmal atrial fibrillation (principal); Z93.2 Ileostomy status; I10 Essential (primary) hypertension; Z87.891 Personal history of nicotine dependence; Z79.01 Long term (current) use of anticoagulants; Z90.12 Acquired absence of left breast and nipple; Z85.3 Personal history of malignant neoplasm of breast; Z85.42 Personal history of malignant neoplasm of other parts of uterus; Z85.038 Personal history of other malignant neoplasm of large intestine; Z92.21 Personal history of antineoplastic chemotherapy; Z92.3 Personal history of irradiation; Z79.899 Other long term (current) drug therapy; M10.9 Gout, unspecified; I95.9 Hypotension, unspecified
CPT/HCPCS: 80048; 92960; 93005; 96374; 96375; 99283; A4216

== ENCOUNTER → 2024-04-11 | Outpatient (CLI) | payer MEDICARE, OTHER, SELFPAY ==
--- NOTE | 2024-04-11 11:37 | RAD_ITS ---
EXAM: XR Lumbosacral Spine, 4 or 5 Views CLINICAL INDICATION: TECHNIQUE: Frontal, lateral and bilateral oblique views of the lumbar spine. COMPARISON: No relevant prior studies available. 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 Degenerative facet arthropathy throughout the lumbar spine, most prominent in the lower lumbar spine. No acute fracture. SACRUM/COCCYX: Unremarkable as visualized. No acute fracture. DISC SPACES: Degenerative disc disease throughout the lumbar spine. SOFT TISSUES: Unremarkable. RAD/L/S Spine Min 4 Views IMPRESSION: 1. No acute fracture. 2. Degenerative changes lumbar spine as described. Reading Location: [facility]
== END | disposition home or self-care (01) ==
LOC: MTRAD 11:35
PROVIDERS: PCP Family Medicine; Referring Provider Clinical Nurse Specialist Adult Health; Visit Provider Clinical Nurse Specialist Adult Health
DX: M51.369 Other intervertebral disc degeneration, lumbar region without mention of lumbar back pain or lower extremity pain (principal)
CPT/HCPCS: 72110

== ENCOUNTER 2024-10-17 13:58 | Outpatient (CLI) | payer MEDICARE, OTHER, SELFPAY ==
[2024-10-17 15:57] LABS: AST(SGOT) 19 U/L (<=31); Alanine Aminotransfer ALT/SGPT 7 U/L (<=34); Albumin, Serum 4.0 g/dL (3.4-4.8); Alkaline Phosphatase 110 U/L (35-104); Anion Gap 15 (5-15); BUN 23 mg/dL (4-19); BUN/Creat Ratio 24.7 RATIO (10-20); Calcium,Total 9.7 mg/dL (7.6-11.0); Carbon Dioxide 21.2 mmol/L (21.0-32.0); Chloride 102 mmol/L (98-108); Cholesterol 158 mg/dL (<=200); Globulin 3.2 g/dL (2.2-4.2); Glucose 92 mg/dL (70-99); Low Density Lipoprotein Calc. 55 mg/dL; Potassium 3.9 mmol/L (3.3-5.1); Triglycerides 251 mg/dL; Very Low Density Lipoprotein 50 mg/dL (5-40); cholesterol:hdl ratio screen 2.99
== END 2024-10-17 23:59 | disposition home or self-care (01) ==
LOC: MFPLAB 14:00
PROVIDERS: PCP Family Medicine; Visit Provider Family Medicine
DX: I10 Essential (primary) hypertension (principal)
CPT/HCPCS: 36415; 80053; 80061

== ENCOUNTER → 2025-01-02 | Outpatient (CLI) | payer MEDICARE, OTHER, SELFPAY ==
[2025-01-02 14:16] LABS: Hematocrit 35.4 % (37-47); Hemoglobin 11.4 g/dL (12.0-15.0); Immature Granulocytes Count 0.030 X10^3/uL (0.0-0.0); Mean Corp Hgb Conc 32.2 g/dL (32-36); Mean Corpuscular Volume 96.5 fL (81-99); Mean Platelet Vol. 9.0 fl (6.2-12.0); NRBC Flagged by Analyzer 0 % (0-5); Platelet Count 343 K/mm3 (150-450); RBC Distribution Width CV 14.8 % (11.6-14.6); RBC Distribution Width SD 52.7 fl (35.1-43.9); Red Blood Count 3.67 M/mm3 (4.2-5.4); White Blood Count 10.2 K/mm3 (4.4-11.0)
[2025-01-02 14:40] LABS: Anion Gap 11 (5-15); BUN 23 mg/dL (4-19); BUN/Creat Ratio 23.5 RATIO (10-20); Calcium,Total 8.8 mg/dL (7.6-11.0); Carbon Dioxide 22.4 mmol/L (21.0-32.0); Chloride 106 mmol/L (98-108); Glucose 86 mg/dL (70-99); Potassium 4.3 mmol/L (3.3-5.1)
== END | disposition home or self-care (01) ==
LOC: MFPLAB 11:44
PROVIDERS: PCP Family Medicine; Visit Provider Family Medicine
DX: R53.83 Other fatigue (principal)
CPT/HCPCS: 36415; 80048; 85025

== ENCOUNTER → 2025-01-10 | Outpatient (CLI) | payer MEDICARE, OTHER, SELFPAY ==
--- NOTE | 2025-01-10 14:00 | ECHOD_ITS ---
Reason For Study Reason For Study: MURMUR Procedure This was a 2D Doppler, Color Flow transthoracic echocardiogram. The study was technically difficult. Due to body habitus and left breast mastectomy. Exam performed in department. Left Ventricle Normal LV size. The left ventricular ejection fraction is 55 %. Stage 1 diastolic dysfunction. No regional wall motion abnormalities noted. Right Ventricle Normal RV size. Normal systolic function. Atria Normal left atrium. Normal right atrium. Mitral Valve There is moderate mitral annular calcification. Mild (1+) eccentric mitral valve insufficiency. Tricuspid Valve Normal tricuspid valve. Mild-Moderate (1-2+) tricuspid valve insufficiency. Pulmonary artery systolic pressure is 48 mmHg. Aortic Valve Trisinus/trileaflet aortic valve. Mild diffuse aortic valve thickening. Peak aortic valve gradient 16 mmHg. Mean aortic valve gradient 8 mmHg. Mild aortic stenosis. Mild (1+) eccentric aortic valve insufficiency. Great Vessels Mildly calcified aortic root. Pericardium/Pleural No pericardial effusion. MMode/2D Measurements & Calculations LVIDd: 4.8 cm IVSd: 0.99 cm LVOT diam: 1.9 cm LVIDs: 3.2 cm LVPWd: 0.99 cm LVOT area: 2.8 cm2 RVDd: 3.3 cm FS: 34.1 % Ao root diam: 3.2 cm LAV(MOD-bp): 53.8 ml LVAd ap4: 34.7 cm2 LAV(MOD-bp) Indexed: 29.9 ml/m2 LVLd ap4: 8.8 cm LAV(MOD-sp2): 69.0 ml EDV(MOD-sp4): 110.1 ml LAV(MOD-sp4): 34.6 ml EDV(sp4-el): 115.4 ml LVAs ap4: 22.2 cm2 LVLs ap4: 7.5 cm ESV(MOD-sp4): 54.3 ml ESV(sp4-el): 55.5 ml EF(MOD-sp4): 50.7 % EF(sp4-el): 51.9 % SV(MOD-sp4): 55.9 ml SV(MOD-sp2): 58.7 ml LVAd ap2: 35.0 cm2 LVLd ap2: 9.7 cm SI(MOD-sp4): 31.1 ml/m2 SI(MOD-sp2): 32.7 ml/m2 EDV(MOD-sp2): 104.2 ml EDV(sp2-el): 106.9 ml LVAs ap2: 20.7 cm2 LVLs ap2: 8.1 cm ESV(MOD-sp2): 45.5 ml ESV(sp2-el): 44.9 ml EF(MOD-sp2): 56.3 % SV(sp4-el): 59.9 ml LA A4 area: 14.7 cm2 LA dimension(2D): 4.9 cm TAPSE: 2.1 cm RA A4 area: 10.4 cm2 Time Measurements MV dec time: 0.33 sec Doppler Measurements & Calculations MV E max hal: 90.7 cm/sec Lat Peak E' Hal: 6.6 cm/sec Med Peak E' Hal: 4.6 cm/sec MV A max hal: 149.8 cm/sec E/E' lat: 13.8 E/E' med: 19.6 MV E/A: 0.61 MV V2 max: 181.2 cm/sec MV P1/2t max hal: 103.5 cm/sec Ao V2 max: 199.2 cm/sec MV max P.1 mmHg MV P1/2t: 108.8 msec Ao max P.9 mmHg MV V2 mean: 74.9 cm/sec MV dec slope: 278.8 cm/sec2 Ao V2 mean: 130.0 cm/sec MV mean P.9 mmHg Ao mean P.6 mmHg MV V2 VTI: 41.6 cm MVA(P1/2t): 2.0 cm2 Ao V2 VTI: 45.1 cm MVA(VTI): 1.7 cm2 AV (velocity ratio): 0.57 STEPH(I,D): 1.6 cm2 STEPH(V,D): 1.5 cm2 AI max hal: 399.7 cm/sec LV V1 max: 104.5 cm/sec SV(LVOT): 72.4 ml AI max P.6 mmHg LV V1 max P.4 mmHg AI dec slope: 210.4 cm/sec2 LV V1 mean P.4 mmHg AI P1/2t: 556.2 msec LV V1 mean: 74.6 cm/sec LV V1 VTI: 25.6 cm PA V2 max: 105.6 cm/sec TR max hal: 323.9 cm/sec TR max P.0 mmHg ECHO/Echo Complete Interpretation Summary Normal LV size. The left ventricular ejection fraction is 55 %. Stage 1 diastolic dysfunction. There is moderate mitral annular calcification. Mild (1+) eccentric mitral valve insufficiency. Pulmonary artery systolic pressure is 48 mmHg. Mild (1+) eccentric aortic valve insufficiency. Mild aortic stenosis. Ordering Physician: Tian Del Rio Referring Physician: Nathanael Shah Performed By: Oly Asencio RDCS, RVT
== END | disposition home or self-care (01) ==
LOC: CVS 13:59
PROVIDERS: PCP Family Medicine; Referring Provider Student in an Organized Health Care Education/Training Program; Visit Provider Student in an Organized Health Care Education/Training Program
DX: R01.1 Cardiac murmur, unspecified (principal)
CPT/HCPCS: 93306